=== PATIENT | female | born 1955 ===

== ENCOUNTER 2020-02-17 09:22 | Day surgery (SDC) | payer MEDICAID, SELFPAY ==
[2020-02-10 13:40] VITALS: BMI 31.4
--- NOTE | 2020-02-10 14:05 | HO.ANESPROP2 ---
Documented by User: Britney Elizabeht 02/10/20 14:07 HPI - Anesthesia Eval Consult details Narrative: 64yo F for Upper Endoscopy and Colonoscopy [facility] Past Medical History Medical History Arthritis Asthma Diabetes mellitus Elevated cholesterol GERD (gastroesophageal reflux disease) History of tachycardia Hypertension Hypothyroid IBS (irritable bowel syndrome) PHAN on CPAP TIA (transient ischemic attack) Surgical History Surgical History History of esophagogastroduodenoscopy (EGD) Hx of section Hx of colonoscopy Hx of dilation and curettage Social History Social History Are you a primary point of care specialist to a significant other at home: No Do you presently have visiting nurse or other home services: No Smoking Status: Former smoker Smoking Quit Date: > 5 yrs ago Use of substances other than those prescribed or required for medical reasons: No Have you been hit, kicked, punched, or otherwise hurt by someone within the past year? If so, by whom?: No Advance Directives: No Advance Directives Information Provided: No Advance Directives on File: No Recently lost weight without trying: No Meds Allergies Allergy/AdvReac Type Severity Reaction Status Date / Time aspirin [ASA] Allergy Severe SWELLING, Verified 02/17/20 09:52 itching and swelling, shortness of breath Home Medications Medication Instructions Recorded Confirmed Type acetaminophen [Tylenol Extra 500 mg PO QID PRN 02/10/20 02/10/20 History Strength] ascorbic acid (vitamin C) [Vitamin 500 mg PO DAILY 02/10/20 02/10/20 History C] atorvastatin [Lipitor] 20 mg PO BEDTIME 02/10/20 02/10/20 History bismuth subsalicylate [Bismuth] 2 tab PO QID 02/10/20 02/10/20 History cyanocobalamin (vitamin B-12) 1,000 mcg PO DAILY 02/10/20 02/10/20 History dicyclomine 20 mg PO TID 02/10/20 02/10/20 History diltiazem HCl 120 mg PO BID 02/10/20 02/10/20 History famotidine 40 mg PO BEDTIME 02/10/20 02/10/20 History ferrous sulfate 325 mg PO DAILY 02/10/20 02/10/20 History fiber 1 tab PO DAILY 02/10/20 02/10/20 History fluticasone propionate [Flovent] 1 puff INHALATION BID 02/10/20 02/10/20 History gabapentin [Neurontin] 300 mg PO BID 02/10/20 02/10/20 History hydroxyzine pamoate [Vistaril] 25 mg PO TID PRN 02/10/20 02/10/20 History levothyroxine [Synthroid] 50 mcg PO DAILY 02/10/20 02/10/20 History melatonin 5 mg PO BEDTIME PRN 02/10/20 02/10/20 History metformin 500 mg PO BID 02/10/20 02/10/20 History metronidazole 500 mg PO TID 02/10/20 02/10/20 History pantoprazole 20 mg PO BID 02/10/20 02/10/20 History quetiapine [Seroquel] 25 mg PO BEDTIME 02/10/20 02/10/20 History sertraline [Zoloft] 100 mg PO DAILY 02/10/20 02/10/20 History tetracycline 500 mg PO Q6H 02/10/20 02/10/20 History Exam Exam Date and Time: February 10, 2020 1405 Height,Weight and Vital Signs: Height 5 ft Weight 73.028 kg Assessment and Plan Assessment Anesthesia Assessment: Chart Reviewed Documented by User: Maci Ruff 02/17/20 10:12 [facility] Past Medical History Medical History Arthritis Asthma Diabetes mellitus Elevated cholesterol GERD (gastroesophageal reflux disease) History of tachycardia Hypertension Hypothyroid IBS (irritable bowel syndrome) PHAN on CPAP TIA (transient ischemic attack) Surgical History Surgical History History of esophagogastroduodenoscopy (EGD) Hx of section Hx of colonoscopy Hx of dilation and curettage Social History Social History Are you a primary point of care specialist to a significant other at home: No Do you presently have visiting nurse or other home services: No Smoking Status: Former smoker Smoking Quit Date: > 5 yrs ago Use of substances other than those prescribed or required for medical reasons: No Have you been hit, kicked, punched, or otherwise hurt by someone within the past year? If so, by whom?: No Advance Directives: No Advance Directives Information Provided: No Advance Directives on File: No Recently lost weight without trying: No Meds Allergies Allergy/AdvReac Type Severity Reaction Status Date / Time aspirin [ASA] Allergy Severe SWELLING, Verified 02/17/20 09:52 itching and swelling, shortness of breath Home Medications Medication Instructions Recorded Confirmed Type acetaminophen [Tylenol Extra 500 mg PO QID PRN 02/10/20 02/10/20 History Strength] ascorbic acid (vitamin C) [Vitamin 500 mg PO DAILY 02/10/20 02/10/20 History C] atorvastatin [Lipitor] 20 mg PO BEDTIME 02/10/20 02/10/20 History bismuth subsalicylate [Bismuth] 2 tab PO QID 02/10/20 02/10/20 History cyanocobalamin (vitamin B-12) 1,000 mcg PO DAILY 02/10/20 02/10/20 History dicyclomine 20 mg PO TID 02/10/20 02/10/20 History diltiazem HCl 120 mg PO BID 02/10/20 02/10/20 History famotidine 40 mg PO BEDTIME 02/10/20 02/10/20 History ferrous sulfate 325 mg PO DAILY 02/10/20 02/10/20 History fiber 1 tab PO DAILY 02/10/20 02/10/20 History fluticasone propionate [Flovent] 1 puff INHALATION BID 02/10/20 02/10/20 History gabapentin [Neurontin] 300 mg PO BID 02/10/20 02/10/20 History hydroxyzine pamoate [Vistaril] 25 mg PO TID PRN 02/10/20 02/10/20 History levothyroxine [Synthroid] 50 mcg PO DAILY 02/10/20 02/10/20 History melatonin 5 mg PO BEDTIME PRN 02/10/20 02/10/20 History metformin 500 mg PO BID 02/10/20 02/10/20 History metronidazole 500 mg PO TID 02/10/20 02/10/20 History pantoprazole 20 mg PO BID 02/10/20 02/10/20 History quetiapine [Seroquel] 25 mg PO BEDTIME 02/10/20 02/10/20 History sertraline [Zoloft] 100 mg PO DAILY 02/10/20 02/10/20 History tetracycline 500 mg PO Q6H 02/10/20 02/10/20 History Exam Airway Mallampati Class: II TM Dist: >3cm Neck ROM: Full Loose/Missing/Broken Teeth: No Heart: RRR Lungs: CTA Assessment and Plan Assessment Anesthesia Assessment: Anesthesia Plan Discussed and Chart Reviewed Final Anesthetic Review NPO: Yes ASA Class: II and III Final Preanesthetic Review: Meds/Allgs Chart Reviewed, Consent Obtained/Reviewed and Anes Risks/Benef Reviewed Patient Risk: Intermediate Procedure Risk: Intermediate Anesthetic Plan Anesthetic Plan: MAC:
[2020-02-17 09:39] VITALS: BP 157/90; PULSE 90; RESP 18; TEMP 36.2; O2SAT 98; BMI 31.4
[2020-02-17] MEDS: Lactated Ringers 1,000 ML 50 ML IVCONT (09:53)
--- NOTE | 2020-02-17 09:55 | MHC.SHP ---
Pre-Procedural Eval Section B Chief Complaint: H Pylori, Diarrhea Relevant Family History (Specify if Yes): No Relevant Social History: None Present Medications: see Short Stay Collaborative assessment Medical History: Significant History (Arthritis Asthma Diabetes mellitus Elevated cholesterol GERD (gastroesophageal reflux disease) History of tachycardia Hypertension Hypothyroid IBS (irritable bowel syndrome) PHAN on CPAP TIA (transient ischemic attack)) History of Previous Operations: Relevant previous surgery/procedure and date(s) (c section, D and C) Allergies: Allergies Allergy/AdvReac Type Severity Reaction Status Date / Time aspirin [ASA] Allergy Severe SWELLING, Verified 02/17/20 09:52 itching and swelling, shortness of breath Review of Systems Sugical H&P ROS: Negative: Constitution, Cardiovascular, Respiratory, Neurological, Psychiatric, Hem-Onc, Allergic/Immunologic, Gastrointestinal, Genitourinary, Musculoskeletal, Integumentary, Endocrine and Eyes/Ears/Nose/Throat Exam Surgical H&P Exam: Normal: HEENT, Normal: Heart, Normal: Lungs, Normal: Extremities, Normal: Abdomen, Normal: Skin and Normal: Neurological Plan Diagnosis/Plan: Unchanged I have reviewed the history and physical and performed a pertinent physical examination on my patient. No changes have occurred unless specified.
[2020-02-17 10:00] LABS: Glucose, Whole Blood 116 mg/dL (60-115)
--- NOTE | 2020-02-17 10:05 | P.BOP_ITS ---
Brief Operative Note Date of Service: 02/17/20 Pre-op diagnosis: diarrhea, rectal bleeding, abdominal pain Post-op diagnosis: same Procedure: Operative Information Procedure Description: EGD, Colonoscopy FLEXIBLE TRANSORAL UPPER GASTROINTESTINAL ENDOSCOPY AND COLONOSCOPY PROCEDURE NOTE UPPER ENDOSCOPY Consent: Indications for the procedure and potential complications of bleeding, perforation, reaction to medications and missed diagnosis were discussed with the patient and informed consent was obtained. Instrument: Olympus GIF H 190 J mid size upper endoscope Monitoring: Vital signs and clinical assessment, continuous EKG monitoring, Pulse oximetry, Carbon Dioxide monitoring and blood pressure monitoring were done throughout the procedure. Procedure: The patient was placed in the left lateral decubitis position and pre-procedure medications were administered and a bite block was placed. The endoscope was inserted into the mouth and advanced under direct vision to the third part of duodenum. A careful inspection was made as the upper endoscope was withdrawn including a retroflexed examination of the proximal stomach; Findings and interventions are described below. Findings: Larynx:normal Esophagus: GE junction at 35 cm, diaphragm hiatus at 35 cm, ring fo erythema at GEJ, chronci appearing inflammation compatible with LA grade A esophagitis, bx taken Stomach: Patchy erythema. Biopsies were obtained. Grade 2 flap valve on retroflexed examination of the cardia. Duodenum: Normal bulb and descending duodenum, bx taken Intervention: Biopsies as noted above COLONOSCOPY Instrument: Olympus variable stiffness pediatric scope 190L Colonoscopy Monitoring: Vital signs and clinical assessment, continuous EKG monitoring, Pulse oximetry, Carbon Dioxide monitoring and blood pressure monitoring were done throughout the procedure. Colon withdrawal time was 10 minutes. Procedure: The patient was placed in the left lateral decubitis position and pre-procedure medications were administered. After a digital rectal examination of the ano-rectum, the video colonoscope was inserted into the rectum and advanced through the colon to the cecum/TI. The colonoscope was slowly withdrawn in a retrograde panoramic fashion and the colon mucosa was carefully examined including a retroflexed view of the rectum. Findings and interventions are described below. Procedure Difficulty:easy Findings: random colon bx taken Terminal Ileum-normal, bx taken Cecum:normal Ascending Colon: x 2 sessile polyps 7-8 mm removed with forceps Transverse Colon -normal Descending Colon:normal Sigmoid Colon: wide mouthed diverticula seen Rectum: Retroflexion with moderate sized mildly inflammed internal hemorrhoids, grade I Anorectum - normal Colon preparation: [place] Bowel Preparation Scale Right colon; 2 Transverse colon: 2 Left colon; 1 (0 = Unprepared colon segment with mucosa not seen due to solid stool that cannot be cleared. 1 = Portion of mucosa of the colon segment seen, but other areas of the colon segment not well seen due to staining, residual stool and/or opaque liquid. 2 = Minor amount of residual staining, small fragments of stool and/or opaque liquid, but mucosa of colon segment seen well. 3 = Entire mucosa of colon segment seen well with no residual staining, small fragments of stool or opaque liquid) Impression and Post Procedure Diagnosis: Endoscopy Findings: esophagitis gastritis Colonoscopy Findings: polyps internal hemorrhoids diverticular disease Plan: Await Pathology results Repeat Colonoscopy in 1-2 years or earlier if clinically indicated due to prep High fiber diet leaflet avoid straining at stool, epsom salts and sitz bath, anusol supps or cream prn Above findings were reviewed with the patient and relevant handouts were provided if indicated. Surgeon: Luis Alberto Larose MD Anesthesia: MAC Estimated blood loss (mL): 0 Condition: stable Disposition: PACU
[2020-02-17 10:56] VITALS: BP 116/71; PULSE 87; RESP 18; TEMP 36.3; O2SAT 99
[2020-02-17 11:11] VITALS: BP 121/73; PULSE 66; RESP 18; O2SAT 100
--- NOTE | 2020-02-17 11:56 | HO.POSTANES ---
Post Anesthesia Evaluation Post Anesthesia Evaluation Vital Signs: Vital Signs Temp Pulse Resp BP Pulse Ox 02/17/20 11:11 97.4 F 66 18 121/73 100 02/17/20 10:56 97.4 F 87 18 116/71 99 02/17/20 09:39 97.2 F 90 18 157/90 H 98 Anesthesia: Monitored Mental Status: Awake Pain Control: Satisfactory Nausea/Vomiting: None Hydration: Adequate Anesthesia-Related Issues: No Anes. Related Issues
== END 2020-02-17 12:25 | disposition home or self-care (01) ==
PROVIDERS: Visit Provider Internal Medicine Gastroenterology
PROC: (CPT 45380; principal; 2020-02-17 10:00)
DX: K62.5 Hemorrhage of anus and rectum (principal); A04.8 Other specified bacterial intestinal infections; D12.2 Benign neoplasm of ascending colon; K57.30 Diverticulosis of large intestine without perforation or abscess without bleeding; K64.0 First degree hemorrhoids; K20.90 Esophagitis, unspecified without bleeding; K44.9 Diaphragmatic hernia without obstruction or gangrene; K29.50 Unspecified chronic gastritis without bleeding; J45.909 Unspecified asthma, uncomplicated; E11.9 Type 2 diabetes mellitus without complications; I10 Essential (primary) hypertension; G47.33 Obstructive sleep apnea (adult) (pediatric); Z86.73 Personal history of transient ischemic attack (TIA), and cerebral infarction without residual deficits; Z87.891 Personal history of nicotine dependence; Z79.51 Long term (current) use of inhaled steroids; Z79.84 Long term (current) use of oral hypoglycemic drugs; Z88.8 Allergy status to other drugs, medicaments and biological substances
CPT/HCPCS: 45380; 43239; 36415; 82947; 88305; 88342

== ENCOUNTER → 2020-03-03 09:20 | Outpatient (BNVA) | payer MEDICAID, SELFPAY | PROVIDERS: Visit Provider Internal Medicine Gastroenterology ==

== ENCOUNTER 2020-03-23 12:59 | Outpatient (REF) | payer MEDICARE, MEDICAID, SELFPAY ==
[2020-03-24 13:26] LABS: H Pylori Breath Test NOT DETECTED (NOT DETECTED)
== END 2020-03-23 13:00 | disposition home or self-care (01) ==
LOC: HO.LNP 12:59
PROVIDERS: PCP Emergency Medicine; Visit Provider Internal Medicine Gastroenterology
DX: A04.8 Other specified bacterial intestinal infections (principal)
CPT/HCPCS: 83013; 99211

== ENCOUNTER 2020-05-20 10:46 | Emergency (ER) | payer MEDICARE, MEDICAID, SELFPAY ==
--- NOTE | ~2020-05-20 | CT_ITS ---
EXAMINATION: CT HEAD WITHOUT CONTRAST CLINICAL INFORMATION: Dizziness with weakness COMPARISON: November 17, 2015 TECHNIQUE: Contiguous axial imaging was performed from the skull base to vertex without intravenous administration of contrast. This CT examination was performed using dose optimization techniques as appropriate, variously including the following: *Automated exposure control *Adjustment of mA and/or kV according to patient size (this includes techniques or standardized protocols for targeted exams where dose is matched to indication/reason for exam; i.e. extremities or head) *Use of iterative reconstruction technique DLP: 625 mGy-cm FINDINGS: There is no evidence of acute intracranial hemorrhage or territorial infarction. No abnormal mass effect or midline shift is seen. Jean to white matter differentiation is well preserved. No extra-axial fluid collections are identified. The ventricles are normal in size. There is no abnormal attenuation within the brain parenchyma. The osseous structures and soft tissues are normal. The mastoid air cells and visualized portions of the paranasal sinuses are well aerated. CT/CT head/brain wo con IMPRESSION: No acute intracranial pathology.
--- NOTE | ~2020-05-20 | XR_ITS ---
EXAMINATION: XR CHEST CLINICAL INFORMATION: Weakness and shortness of breath. Rule out pneumonia. COMPARISON: Previous chest x-ray December 2017 TECHNIQUE: 2 views of the chest were obtained. FINDINGS: No significant abnormality is noted involving the heart, lungs, mediastinum, bony thorax or soft tissues. XR/XR chest 2V IMPRESSION: Unremarkable examination.
[2020-05-20 10:59] VITALS: BP 130/70; BP 137/67; PULSE 80; PULSE 86; RESP 16; TEMP 37.1; O2SAT 100; O2SAT 99; BMI 31.0
[2020-05-20 11:20] VITALS: BP 146/88; PULSE 87; RESP 14; O2SAT 98
--- NOTE | 2020-05-20 11:27 | ECG_ITS ---
Test Reason : Chest pain Blood Pressure : / mmHG Vent. Rate : 076 BPM Atrial Rate : 076 BPM P-R Int : 118 ms QRS Dur : 084 ms QT Int : 404 ms P-R-T Axes : 061 033 035 degrees QTc Int : 454 ms Normal sinus rhythm Normal ECG When compared with ECG of 21-NOV-2015 14:06, No significant change was found Referred By: Demarco Jarrett Electronically Signed By:IVONE VINCENT MD
--- NOTE | 2020-05-20 11:29 | ED.GENADULT ---
HPI - General Adult General Chief complaint: General Medical Stated complaint: DIZZINESS @ MD OFFICE Time Seen by Provider: 05/20/20 11:00 Source: patient Mode of arrival: EMS Limitations: no limitations History of Present Illness HPI narrative: 65-year-old female who presents emergency department for evaluation of dizziness and hypertension. The patient states that she was diagnosed with hypertension on May 14, 2020. She was started on antihypertensive medications (she does not know the name of the medicine) but did not start the medication until 1 week prior to evaluation. She states that she had a follow-up appointment with her senior procurement manager and was sitting in the office waiting room when she had a sudden onset of dizziness. She describes the dizziness as a off balance feeling and as a weak feeling as if she was going to pass out. She states that she has had similar episodes over the past 3 months, approximately 1 episode per month. At her senior procurement manager's office, when she had the episode of dizziness, her blood pressure was 200/120. An ambulance was called. EMS is initial blood pressure was 160/100 and on presentation to the emergency department the patient's blood pressure was 130/70. Patient states that at the time of my evaluation, her dizziness had resolved. She states that the dizziness is associated with weakness, nausea, vomiting and diarrhea. She denied fever, chills, cough, chest pain, headache, numbness, weakness. Related Data Home Medications Medication Instructions Recorded Confirmed acetaminophen [Tylenol Extra 500 mg PO QID PRN 02/10/20 02/10/20 Strength] ascorbic acid (vitamin C) [Vitamin 500 mg PO DAILY 02/10/20 02/10/20 C] atorvastatin [Lipitor] 20 mg PO BEDTIME 02/10/20 02/10/20 bismuth subsalicylate [Bismuth] 2 tab PO QID 02/10/20 02/10/20 cyanocobalamin (vitamin B-12) 1,000 mcg PO DAILY 02/10/20 02/10/20 dicyclomine 20 mg PO TID 02/10/20 02/10/20 diltiazem HCl 120 mg PO BID 02/10/20 02/10/20 famotidine 40 mg PO BEDTIME 02/10/20 02/10/20 ferrous sulfate 325 mg PO DAILY 02/10/20 02/10/20 fiber 1 tab PO DAILY 02/10/20 02/10/20 fluticasone propionate [Flovent] 1 puff INHALATION BID 02/10/20 02/10/20 gabapentin [Neurontin] 300 mg PO BID 02/10/20 02/10/20 hydroxyzine pamoate [Vistaril] 25 mg PO TID PRN 02/10/20 02/10/20 levothyroxine [Synthroid] 50 mcg PO DAILY 02/10/20 02/10/20 melatonin 5 mg PO BEDTIME PRN 02/10/20 02/10/20 metformin 500 mg PO BID 02/10/20 02/10/20 metronidazole 500 mg PO TID 02/10/20 02/10/20 pantoprazole 20 mg PO BID 02/10/20 02/10/20 quetiapine [Seroquel] 25 mg PO BEDTIME 02/10/20 02/10/20 sertraline [Zoloft] 100 mg PO DAILY 02/10/20 02/10/20 tetracycline 500 mg PO Q6H 02/10/20 02/10/20 Previous Rx's Medication Instructions Recorded omeprazole 40 mg capsule,delayed 40 mg PO DAILY #60 cap 02/21/20 release nitrofurantoin monohyd/m-cryst 100 mg PO Q12H 7 Days #14 cap 05/20/20 [Macrobid] Allergies Allergy/AdvReac Type Severity Reaction Status Date / Time aspirin [ASA] Allergy Severe SWELLING, Verified 03/03/20 09:23 itching and swelling, shortness of breath Review of Systems Review of Systems: Yes all other systems are reviewed and are negative [facility] Past Medical History [facility] Narrative: The patient denies tobacco, alcohol and drug use. Medical History Arthritis Asthma Diabetes mellitus Elevated cholesterol GERD (gastroesophageal reflux disease) History of tachycardia Hypertension Hypothyroid IBS (irritable bowel syndrome) PHAN on CPAP TIA (transient ischemic attack) Surgical History History of esophagogastroduodenoscopy (EGD) Hx of section Hx of colonoscopy Hx of dilation and curettage Family History Family History Father History of high blood pressure Hx of type 2 diabetes mellitus History of partial colectomy Hx of gangrene Hx of small bowel obstruction Mother History of hypothyroidism Brother No problems noted. Sister No problems noted. Social History Social History Alcohol intake: never Smoking Status: Never smoker Use of substances other than those prescribed or required for medical reasons: No Advance Directives: Yes Advance Directives Information Provided: Yes Advance Directives on File: No Current occupational status: disabled Physical Exam Vital Signs: Vital Signs: Last Vital Signs Temp 98.3 F 05/20/20 16:00 Pulse 78 05/20/20 16:00 Resp 16 05/20/20 16:00 BP 118/73 05/20/20 16:00 Pulse Ox 98 05/20/20 16:00 Body Mass Index 31.0 Const: General: cooperative and healthy appearing Orientation/consciousness: oriented to person and oriented to place Limitations: no limitations HENMT: Head: Yes normal to inspection, Yes normocephalic and Yes atraumatic Ears: external ears normal General nose exam: Normal external nose present Face and sinus: Yes normal facial exam Mouth: Normal oral and palatal mucosa present Throat: Yes posterior oropharynx normal Eyes: Periorbital: periorbital findings normal Eyelids: Yes eyelids normal Conjunctivae: conjunctivae normal Sclerae: sclerae normal Corneas: corneas normal Pupils: Equal, round and reactive pupils present Direct Ophthalmoscopy: normal light reflex Neck: Neck: Yes full ROM, Yes no lymphadenopathy, Yes no meningeal signs, Yes trachea midline and Yes supple Chest: Chest palpation & inspection: normal inspection of the chest and normal palpation of entire chest wall Resp: Effort & Inspection: normal respiratory effort and able to speak in complete sentences Auscultation: clear to auscultation bilaterally Cardio: Rate: regular rate Rhythm: regular rhythm Heart sounds: S1 normal heart sound present, S2 normal heart sound present and no murmurs GI: Inspection: Yes normal to inspection Palpation (GI): Soft to palpation, nontender, no guarding, not rigid and No hepatosplenomegaly present : General: Yes no CVA tenderness Back/Spine/Pelvis: Back: no CVA tenderness Cervical Spine: normal cervical lordosis Thoracic/Lumbar Spine: thoracic and lumbar spine normal to inspection Skin: Lesions: no lesions Rashes: no rashes Wounds: no wounds Neuro: General: oriented to person, oriented to place and no meningeal signs Cranial nerves: Yes CN's II-XII intact bilaterally and Yes Equal, round and reactive pupils present Cognition (Neuro): normal cognition Motor exam (neuro): 5/5 motor strength present throughout Extrem: General: Yes normal to inspection and Yes full ROM Psych: Appearance: well kempt Mental Status: mental status grossly normal Speech and movement: Normal speech and movement present Affect: normal affect Attitude: cooperative Thought process: Normal thought process present Thought content: Normal thought content present Course Course Course Narrative: 65-year-old female who was brought emergency department from her senior procurement manager's office for evaluation of dizziness and hypertension. The patient was waiting to be evaluated by the senior procurement manager when she had a sudden onset of dizziness which she describes as feeling off balance and weak, the dizziness was associated with nausea and diarrhea. The patient was initially found to have a blood pressure of 200/120, without treatment her blood pressure came down to 130/70 and her symptoms resolved. Patient's physical examination was unremarkable. I did order a CBC, CMP, troponin, urinalysis, EKG, chest x-ray and CT scan of the brain on the patient. She will be placed on a cardiac nurse practitioner will monitor blood pressure as well during her ED course. 1616: The patient's laboratory evaluation was unremarkable except for slight elevation in her AST and ALT of 32 and 32. Urinalysis did reveal 10-14 white blood cells, no bacterium positive squamous cells. The patient states that she is having some dysuria and would like to be treated with antibiotics as opposed to waiting for culture. She was given Macrobid 1 tablet here in the emergency department started on Macrobid 1 pill twice a day for 7 days. I will check with the patient's senior procurement manager to see what blood pressure medication they wanted to start the patient on and I will prescribe this medication for her. 1647: I was able to review the patient's senior procurement manager, Dr. Rojo's note from 05/14/2020. The note states the following 1. Hypertension not controlled, told not to eat any salt ?. Based on this it does not appear that Dr. Rojo started the patient on a new medication. I did tell this to the patient and told her to contact her senior procurement manager discussed whether not she needs to be on more medications for her hypertension. Medical Decision Making Lab Data Result diagrams: 05/20/20 14:15 05/20/20 14:15 Labs: Lab Results 05/20/20 05/20/20 05/20/20 Range/Units 14:15 14:15 14:15 WBC 6.5 (4.8-10.8) X10*3/uL RBC 4.95 (4.20-5.50) X10*6/uL Hgb 11.3 L (12.0-16.0) g/dl Hct 37.7 (37-47) % MCV 76.2 L (80-98) fL MCH 22.8 L (27.0-33.0) pg MCHC 30.0 L (31.0-35.0) g/dl RDW 14.1 (11.0-16.0) % Plt Count 309 (160-400) X10*3/uL MPV 10.9 (9.4-12.3) fL Immature Gran % (Auto) 0.2 (0.0-0.4) % Neut % (Auto) 56.9 (45-73) % Lymph % (Auto) 33.3 (20-40) % [place] % (Auto) 6.8 (2-11) % Eos % (Auto) 1.4 (0-4) % Baso % (Auto) 1.4 (0-2) % Lymph # (Auto) 2.2 (1.2-4.9) X10*3/uL [place] # (Auto) 0.4 (0.1-1.2) X10*3/uL Eos # (Auto) 0.1 (0.0-0.4) X10*3/uL Baso # (Auto) 0.1 (0.0-0.2) X10*3/uL Abs Immat Gran (auto) 0.01 (0.00-0.03) X10*3/uL Absolute Neuts (auto) 3.7 (2.0-8.3) X10*3/uL Absolute Nucleated RBC 0.000 (0.0-0.012) X10*3/uL Nucleated RBC % (auto) 0.0 (0.0-0.2) /100WBC Sodium 140 (135-145) mmol/L Potassium 4.1 (3.3-5.1) mmol/L Chloride 106 (96-108) mmol/L Carbon Dioxide 24 (22-29) mmol/L Anion Gap 14 (12-20) Creatinine 0.71 (0.5-1.4) mg/dL Estim Creat Clear Calc 70.0 Estimated GFR > 60 Random Glucose 107 (60-115) mg/dL Total Bilirubin 0.7 (0.0-1.0) mg/dL AST 32 H (5-31) U/L ALT 32 H (0-31) U/L Alkaline Phosphatase 65 (39-117) U/L Troponin I High Sens < 3.5 (<3.5-17.0) ng/L Total Protein 7.5 (6.5-8.0) g/dL Albumin 4.1 (3.5-5.0) g/dL Urine Color Urine Appearance Urine pH (5.0-8.0) Ur Specific [place] (1.005-1.025) Urine Protein (NEG-TRACE) MG/DL Urine Glucose (UA) (NEG) MG/DL Urine Ketones (NEG) MG/DL Urine Blood (NEG) Urine Nitrite (NEG) Ur Leukocyte Esterase (NEG) Urine RBC (0) /HPF Urine WBC (0-4) /HPF Ur Squamous Epith Cells /LPF Urine Bacteria /LPF Urine Mucus /LPF 05/20/20 Range/Units 14:33 WBC (4.8-10.8) X10*3/uL RBC (4.20-5.50) X10*6/uL Hgb (12.0-16.0) g/dl Hct (37-47) % MCV (80-98) fL MCH (27.0-33.0) pg MCHC (31.0-35.0) g/dl RDW (11.0-16.0) % Plt Count (160-400) X10*3/uL MPV (9.4-12.3) fL Immature Gran % (Auto) (0.0-0.4) % Neut % (Auto) (45-73) % Lymph % (Auto) (20-40) % [place] % (Auto) (2-11) % Eos % (Auto) (0-4) % Baso % (Auto) (0-2) % Lymph # (Auto) (1.2-4.9) X10*3/uL [place] # (Auto) (0.1-1.2) X10*3/uL Eos # (Auto) (0.0-0.4) X10*3/uL Baso # (Auto) (0.0-0.2) X10*3/uL Abs Immat Gran (auto) (0.00-0.03) X10*3/uL Absolute Neuts (auto) (2.0-8.3) X10*3/uL Absolute Nucleated RBC (0.0-0.012) X10*3/uL Nucleated RBC % (auto) (0.0-0.2) /100WBC Sodium (135-145) mmol/L Potassium (3.3-5.1) mmol/L Chloride (96-108) mmol/L Carbon Dioxide (22-29) mmol/L Anion Gap (12-20) Creatinine (0.5-1.4) mg/dL Estim Creat Clear Calc Estimated GFR Random Glucose (60-115) mg/dL Total Bilirubin (0.0-1.0) mg/dL AST (5-31) U/L ALT (0-31) U/L Alkaline Phosphatase (39-117) U/L Troponin I High Sens (<3.5-17.0) ng/L Total Protein (6.5-8.0) g/dL Albumin (3.5-5.0) g/dL Urine Color YELLOW Urine Appearance HAZY Urine pH 8.0 (5.0-8.0) Ur Specific [place] 1.020 (1.005-1.025) Urine Protein NEG (NEG-TRACE) MG/DL Urine Glucose (UA) NEG (NEG) MG/DL Urine Ketones NEG (NEG) MG/DL Urine Blood NEG (NEG) Urine Nitrite NEG (NEG) Ur Leukocyte Esterase 2+ H (NEG) Urine RBC 0 (0) /HPF Urine WBC 10-14 H (0-4) /HPF Ur Squamous Epith Cells 2+ /LPF Urine Bacteria NONE /LPF Urine Mucus 1+ /LPF Discharge Plan Discharge Clinical Impression: Dizziness, Hypertension, Acute UTI Patient Disposition: Home, Self-Care Instructions: Urinary Tract Infection in Women (ED) Additional Instructions: Your blood work was unremarkable. Your EKG was normal. The CT scan of your brain was normal with no evidence of stroke, tumor or bleeding in the brain. Your urine revealed white blood cells but no bacteria. I am treating you for a urinary tract infection with Macrobid 1 pill twice a day for 7 days. You received her 1st dose here in the emergency department. I was able to review your senior procurement manager's note( Dr. Rojo). In the note, he recommended that you stay on a low-salt diet and does not look like he prescribed a new medication for your high blood pressure. High blood pressure instructions: You need to purchase a blood pressure machine that you can use at home. The reason to check your blood pressure at home is to give your doctor an idea of what your blood pressure does when you are not in the doctor's office. Take your blood pressure in the morning, Monday through Monday and then write down these readings to discuss them with your doctor at your next visit. If you doctor decides that your blood pressure readings are high than your doctor will start you on medications. If you get started on medications, it often takes 1-2 months or longer to get your blood pressure under control. Lowering your blood pressure to rapidly or getting your blood pressure too low quickly can make you feel bad. Please return to the emergency department if you develops concerning symptoms such as severe headache, chest pain, shortness of breath, difficulty walking secondary to shortness of breath, numbness, weakness, difficulty talking. Take Tylenol (acetaminophen) 500 mg pills, 2 pills every 4 to 6 hours as needed for pain. Follow-up with your doctor to discuss your blood pressure readings. Please return to the emergency department if your symptoms get worse or if you develop any new symptoms that are concerning to you. Prescriptions: New nitrofurantoin monohyd/m-cryst [Macrobid] 100 mg capsule 100 mg PO Q12H 7 Days Qty: 14 RF: 0 No Action omeprazole 40 mg capsule,delayed release(DR/EC) 40 mg PO DAILY Qty: 60 RF: 2 quetiapine [Seroquel] 25 mg Tablet 25 mg PO BEDTIME RF: 0 sertraline [Zoloft] 100 mg Tablet 100 mg PO DAILY RF: 0 cyanocobalamin (vitamin B-12) 1,000 mcg Tablet 1,000 mcg PO DAILY RF: 0 diltiazem HCl 120 mg Capsule,Extended Release 12 Hr 120 mg PO BID RF: 0 ascorbic acid (vitamin C) [Vitamin C] 500 mg Tablet,Chewable 500 mg PO DAILY RF: 0 gabapentin [Neurontin] 300 mg Capsule 300 mg PO BID RF: 0 fiber Tablet 1 tab PO DAILY RF: 0 Flovent 220 mcg/actuation Hfa Aerosol Inhaler 1 puff INHALATION BID RF: 0 acetaminophen [Tylenol Extra Strength] 500 mg Capsule 500 mg PO QID PRN (Reason: Pain) RF: 0 hydroxyzine pamoate [Vistaril] 25 mg Capsule 25 mg PO TID PRN (Reason: Nausea) RF: 0 melatonin 5 mg Tablet 5 mg PO BEDTIME PRN (Reason: Sleep) RF: 0 tetracycline 500 mg Capsule 500 mg PO Q6H RF: 0 metformin 500 mg Tablet 500 mg PO BID RF: 0 atorvastatin [Lipitor] 20 mg Tablet 20 mg PO BEDTIME RF: 0 famotidine 40 mg Tablet 40 mg PO BEDTIME RF: 0 metronidazole 500 mg Tablet 500 mg PO TID RF: 0 pantoprazole 20 mg Tablet,Delayed Release (Dr/Ec) 20 mg PO BID RF: 0 dicyclomine 20 mg Tablet 20 mg PO TID RF: 0 levothyroxine [Synthroid] 50 mcg Tablet 50 mcg PO DAILY RF: 0 ferrous sulfate 325 mg (65 mg iron) Tablet 325 mg PO DAILY RF: 0 bismuth subsalicylate [Bismuth] 262 mg Tablet,Chewable 2 tab PO QID RF: 0
[2020-05-20 14:01] VITALS: BP 117/69; PULSE 92; RESP 17; TEMP 37.1; O2SAT 98
[2020-05-20 14:18] LABS: MANUAL DIFF FLAG NO
[2020-05-20 14:26] LABS: Basophils Absolute Auto 0.1 X10*3/uL (0.0-0.2); Basophils Percent Auto 1.4 % (0-2); Eosinophils Absolute Auto 0.1 X10*3/uL (0.0-0.4); Eosinophils Percent Auto 1.4 % (0-4); Hematocrit 37.7 % (37-47); Hemoglobin 11.3 g/dl (12.0-16.0); Imm Gran Abs Auto 0.01 X10*3/uL (0.00-0.03); Imm Gran Pct Auto 0.2 % (0.0-0.4); Lymphocytes Absolute Auto 2.2 X10*3/uL (1.2-4.9); Lymphocytes Percent Auto 33.3 % (20-40); Mean Corpuscular Hemoglobin 22.8 pg (27.0-33.0); Mean Corpuscular Volume 76.2 fL (80-98); Mean Platelet Volume 10.9 fL (9.4-12.3); Monocytes Absolute Auto 0.4 X10*3/uL (0.1-1.2); Monocytes Percent Auto 6.8 % (2-11); Neutrophils Absolute Auto 3.7 X10*3/uL (2.0-8.3); Neutrophils Percent Auto 56.9 % (45-73); Platelet Count 309 X10*3/uL (160-400); Red Blood Count 4.95 X10*6/uL (4.20-5.50); Red Cell Distribution Width 14.1 % (11.0-16.0); White Blood Count 6.5 X10*3/uL (4.8-10.8)
[2020-05-20 14:43] LABS: Glucose Urine UA NEG (NEG); Leukocyte Esterase Urine 2+ (NEG); Nitrite Urine NEG (NEG); UACC Culture Trigger YES; Urine Blood NEG (NEG); Urine Ketones NEG (NEG); Urine Protein NEG (NEG-TRACE)
[2020-05-20 14:45] LABS: Alanine Aminotransferase 32 U/L (0-31); Albumin Level 4.1 g/dL (3.5-5.0); Alkaline Phosphatase 65 U/L (39-117); Anion Gap 14 (12-20); Aspartate Amino Transferase 32 U/L (5-31); Bilirubin Total 0.7 mg/dL (0.0-1.0); Carbon Dioxide 24 mmol/L (22-29); Chloride 106 mmol/L (96-108); Estimated Glomerular Filt Rate > 60; Glucose Random 107 mg/dL (60-115); Potassium 4.1 mmol/L (3.3-5.1); Sodium 140 mmol/L (135-145); Total Protein 7.5 g/dL (6.5-8.0)
[2020-05-20 14:45] LABS: Appearance Urine HAZY; Color Urine YELLOW
[2020-05-20 14:48] LABS: Troponin-I High Sensitivity < 3.5 ng/L (<3.5-17.0)
[2020-05-20 14:52] LABS: Mucus Urine 1+ /LPF; RBC Urine 0 /HPF (0); Squamous Epithelial Cell Urine 2+ /LPF
[2020-05-20 16:00] VITALS: BP 118/73; PULSE 78; RESP 16; TEMP 36.8; O2SAT 98
[2020-05-20 16:47] LABS: Blood Urea Nitrogen 10 mg/dL (9-16); Calcium 9.4 mg/dL (8.4-10.2)
[2020-05-20] MEDS: Nitrofurantoin Monohyd/M-Cryst 100 MG CAPSULE PO (17:06)
[2020-05-20 17:32] VITALS: BP 121/73; PULSE 83; RESP 17; TEMP 36.8; O2SAT 99
== END 2020-05-20 17:38 | disposition home or self-care (01) ==
PROVIDERS: Emergency Provider Emergency Medicine Emergency Medical Services
DX: R42 Dizziness and giddiness (principal); I10 Essential (primary) hypertension; N39.0 Urinary tract infection, site not specified; E11.9 Type 2 diabetes mellitus without complications; E78.5 Hyperlipidemia, unspecified; K21.9 Gastro-esophageal reflux disease without esophagitis; Z86.73 Personal history of transient ischemic attack (TIA), and cerebral infarction without residual deficits
CPT/HCPCS: 36415; 70450; 71046; 80053; 81001; 81003; 84484; 85025; 87086; 93005; 99284

== ENCOUNTER → 2020-06-02 10:21 | Outpatient (BNVA) | payer MEDICARE, MEDICAID, SELFPAY | PROVIDERS: PCP Nurse Practitioner Primary Care; Visit Provider Internal Medicine Gastroenterology | DX: Z13.89 Encounter for screening for other disorder (principal) | CPT/HCPCS: Q3014 ==

== ENCOUNTER 2020-07-10 13:34 | Outpatient (REF) | payer MEDICARE, MEDICAID, SELFPAY ==
--- NOTE | ~2020-07-10 | MM_ITS ---
EXAMINATION: MM DIAGNOSTIC DIGITAL BREAST TOMOSYNTHESIS, BILATERAL TARGETED RIGHT BREAST ULTRASOUND CLINICAL INFORMATION: Right breast pain and lump 9 o'clock position. The lifetime risk of breast cancer based on the Tyrer-Cuzick Model is 4.5%. COMPARISON: Mammography: 08/24/2016 and 07/07/2015 as well as studies dating back to 06/30/2014. TECHNIQUE: Digital breast tomosynthesis is performed in both the craniocaudal and mediolateral oblique views along with computer-aided detection (CAD). Synthesized 2D images are generated from the tomosynthesis. Targeted right breast ultrasound. FINDINGS: The breasts are extremely dense, which lowers the sensitivity of mammography (ACR BI-RADS breast composition Category d). There are no significant masses, abnormal calcifications, or other abnormalities. Targeted right breast ultrasound demonstrates a region of palpable abnormality that corresponds with a normal-appearing lymph node at the 9 o'clock position 13 cm from the nipple. No abnormal solid mass or region of abnormal distal sound shadowing identified. Results are provided to the patient at time of visit by the technologist. MM/MM tomosynthesis diagnostic BI IMPRESSION: No specific mammographic or ultrasound findings to suggest malignancy. ASSESSMENT: BI-RADS 2: Benign. RECOMMENDATION: Routine annual mammography screening due in 12 months. This patient's information was entered into a reminder system with a target due date for their next mammogram.
--- NOTE | ~2020-07-10 | US_ITS ---
EXAMINATION: US DIAGNOSTIC ULTRASOUND BREAST, RIGHT CLINICAL INFORMATION: Palpable abnormality not o'clock position. COMPARISON: Mammography of same day and studies dating back to June 30, 2014. TECHNIQUE: Ultrasound of the breast is performed with real-time correa scale imaging and color Doppler. FINDINGS: Targeted right breast ultrasound demonstrates a region of palpable abnormality corresponds with a normal-appearing lymph node at the 9:00 position 13 cm from the nipple. No abnormal solid mass or region of abnormal distal sound shadowing identified. Results are provided to the patient at time of visit by the technologist. US/US breast RT limited IMPRESSION: No specific mammographic or ultrasound findings to suggest malignancy. ASSESSMENT: BI-RADS 2: Benign RECOMMENDATION: Routine annual mammography screening due in 12 months. .
== END 2020-07-10 13:35 | disposition home or self-care (01) ==
LOC: HO.MAMMO 13:34
PROVIDERS: Visit Provider Emergency Medicine
DX: N63.15 Unspecified lump in the right breast, overlapping quadrants (principal); N64.4 Mastodynia
CPT/HCPCS: 76642; 77062; 77066

== ENCOUNTER → 2020-07-24 07:37 | Outpatient (REF) | payer MEDICARE, MEDICAID, SELFPAY ==
--- NOTE | ~2020-07-24 | NM_ITS ---
EXAMINATION: RADIONUCLIDE SOLID FOOD GASTRIC EMPTYING 4-HOUR STUDY CLINICAL INFORMATION: Early satiety. Also nausea and diarrhea. COMPARISON: No previous gastric emptying study is available for comparison. TECHNIQUE: A standard meal consisting of 4 oz of Egg Beaters brand equivalent tagged with 830 microcuries Tc-99m Sulfur Colloid, 8 oz water and 2 slices of toast with jelly was administered orally to the patient. Images were obtained using a dual head gamma camera in the anterior and posterior projections over of the stomach immediately post ingestion and at hourly intervals up to 4 hours post ingestion. The anterior and posterior counts at each time interval were averaged using the geometric mean and expressed as percentage of the immediate post ingestion counts. FINDINGS: There is good visualization of activity in the stomach immediately post ingestion. As the study progresses there is visualization of progressively increasing small bowel activity, but at the end of the study there is moderately severe abnormal retention of activity in the stomach as well as visualization of diffuse small bowel activity. Retention in the stomach at each time interval was: 1 hour 87% (normal 37%-90%) 2 hours 75% (normal 30%-60%) 3 hours 53% 4 hours 36% (normal 0%-10%) NM/NM gastric emptying study IMPRESSION: Abnormal study. There is moderately severe abnormal retention of solid food in the stomach at 4 hours.
== END ==
LOC: HO.NUCMED 07:37
PROVIDERS: Visit Provider Internal Medicine Gastroenterology
DX: R68.81 Early satiety (principal)
CPT/HCPCS: 78264; A9500; A9541

== ENCOUNTER → 2020-10-20 11:20 | Outpatient (BNVA) | payer MEDICARE, MEDICAID, SELFPAY | PROVIDERS: PCP Nurse Practitioner Primary Care; Visit Provider Internal Medicine Gastroenterology | CPT/HCPCS: Q3014 ==

== ENCOUNTER → 2020-10-29 11:17 | Outpatient (BNVA) | payer MEDICARE, MEDICAID, SELFPAY | PROVIDERS: PCP Nurse Practitioner Primary Care; Visit Provider Dietitian, Registered | DX: K31.84 Gastroparesis (principal); E11.9 Type 2 diabetes mellitus without complications | CPT/HCPCS: 97802 ==

== ENCOUNTER 2020-11-24 09:22 | Outpatient (REF) | payer MEDICARE, MEDICAID, SELFPAY ==
--- NOTE | ~2020-11-24 | US_ITS ---
EXAMINATION: US ABDOMEN COMPLETE CLINICAL INFORMATION: Lower abdominal pain. COMPARISON: None TECHNIQUE: Real-time imaging of the abdominal viscera. FINDINGS: PANCREAS: The head and body the pancreas are normal. The tail is not well visualized due to bowel gas. ABDOMINAL AORTA: There is evidence of mild atherosclerotic disease. The aorta is normal in caliber. INFERIOR VENA CAVA: Visualized portions are normal. LIVER: The liver is normal in size. The liver contour is normal. Liver echotexture may be slightly increased. No focal hepatic lesion. There is no intrahepatic biliary duct dilatation seen. GALLBLADDER: Normal. The gallbladder is physiologically distended without evidence of stones, sludge, polyps, wall thickening or pericholecystic fluid. COMMON BILE DUCT: Normal in caliber measuring 0.5 cm in diameter. RIGHT KIDNEY: Normal. No hydronephrosis. No renal calculi or focal parenchymal lesions. The kidney measures 10.5 cm in maximum dimension. LEFT KIDNEY: Normal. No hydronephrosis. No renal calculi or focal parenchymal lesions. The kidney measures 10.5 cm in maximum dimension. SPLEEN: Normal. The spleen measures 8.7 cm in maximum dimension. FREE FLUID: None. US/US abdomen complete IMPRESSION: Slightly echogenic liver. This most likely represents mild fatty infiltration. Atherosclerotic disease. Limited visualization of the tail the pancreas.
== END 2020-11-24 09:23 | disposition home or self-care (01) ==
LOC: HO.US 09:22
PROVIDERS: PCP Nurse Practitioner Primary Care; Visit Provider Nurse Practitioner Primary Care
DX: R10.30 Lower abdominal pain, unspecified (principal)
CPT/HCPCS: 76700

== ENCOUNTER → 2020-12-01 14:30 | Outpatient (BNVA) | payer MEDICARE, MEDICAID, SELFPAY | PROVIDERS: PCP Nurse Practitioner Primary Care; Visit Provider Dietitian, Registered | DX: K31.84 Gastroparesis (principal); E11.9 Type 2 diabetes mellitus without complications | CPT/HCPCS: 97803 ==

== ENCOUNTER 2021-01-22 12:02 | Outpatient (REF) | payer MEDICARE, MEDICAID, SELFPAY ==
[2021-01-22 13:12] LABS: MANUAL DIFF FLAG NO
[2021-01-22 13:55] LABS: Appearance Urine CLEAR; Color Urine YELLOW; Glucose Urine UA NEG (NEG); Leukocyte Esterase Urine TRACE (NEG); Nitrite Urine NEG (NEG); PH 5.5 (5.0-8.0); Specific Gravity - Urine >= 1.030 (1.005-1.025); UACC Culture Trigger YES; Urine Blood NEG (NEG); Urine Ketones NEG (NEG); Urine Protein NEG (NEG-TRACE)
[2021-01-22 14:03] LABS: Basophils Absolute Auto 0.1 X10*3/uL (0.0-0.2); Basophils Percent Auto 1.3 % (0-2); Eosinophils Absolute Auto 0.1 X10*3/uL (0.0-0.4); Eosinophils Percent Auto 1.9 % (0-4); Hematocrit 33.9 % (37.0-47.0); Hemoglobin 10.5 g/dl (12.0-16.0); Imm Gran Abs Auto 0.02 X10*3/uL (0.00-0.03); Imm Gran Pct Auto 0.3 % (0.0-0.4); Lymphocytes Absolute Auto 2.6 X10*3/uL (1.2-4.9); Lymphocytes Percent Auto 36.5 % (20-40); Mean Corpuscular Hemoglobin 22.5 pg (27.0-33.0); Mean Corpuscular Volume 72.6 fL (80.0-98.0); Mean Platelet Volume 10.7 fL (9.4-12.3); Monocytes Absolute Auto 0.6 X10*3/uL (0.1-1.2); Monocytes Percent Auto 9.1 % (2-11); Neutrophils Absolute Auto 3.6 x10*3/uL (2.0-8.3); Neutrophils Percent Auto 50.9 % (45-73); Platelet Count 349 X10*3/uL (160-400); Red Blood Count 4.67 X10*6/uL (4.20-5.50); Red Cell Distribution Width 14.4 % (11.0-16.0)
[2021-01-22 14:11] LABS: Squamous Epithelial Cell Urine 1+ /LPF
[2021-01-22 14:12] LABS: RBC Urine 0-2 /HPF (0)
[2021-01-22 14:24] LABS: Alanine Aminotransferase 14 U/L (0-31); Albumin Level 4.1 g/dL (3.5-5.0); Alkaline Phosphatase 61 U/L (39-117); Anion Gap 14 (12-20); Aspartate Amino Transferase 22 U/L (5-31); Blood Urea Nitrogen 11 mg/dL (9-16); Calcium 9.7 mg/dL (8.4-10.2); Carbon Dioxide 25 mmol/L (22-29); Chloride 106 mmol/L (96-108); Estimated Glomerular Filt Rate > 60; Glucose Random 99 mg/dL (60-115); Potassium 4.2 mmol/L (3.3-5.1); Sodium 141 mmol/L (135-145); Total Protein 7.6 g/dL (6.5-8.0)
[2021-01-22 14:35] LABS: Ferritin 16 ng/mL (10-250)
== END 2021-01-22 12:03 | disposition home or self-care (01) ==
LOC: HO.LAB 12:02
PROVIDERS: PCP Nurse Practitioner Primary Care; Referring Provider Nurse Practitioner Primary Care; Visit Provider Internal Medicine Gastroenterology
DX: R10.2 Pelvic and perineal pain (principal); K62.5 Hemorrhage of anus and rectum; K75.81 Nonalcoholic steatohepatitis (NASH); E11.9 Type 2 diabetes mellitus without complications; I10 Essential (primary) hypertension; E03.9 Hypothyroidism, unspecified; G47.33 Obstructive sleep apnea (adult) (pediatric); R30.0 Dysuria; Z88.6 Allergy status to analgesic agent; Z99.89 Dependence on other enabling machines and devices
CPT/HCPCS: 36415; 80053; 81001; 82728; 85025; 87086; 99212

== ENCOUNTER 2021-02-23 16:05 | Outpatient (REF) | payer MEDICARE, MEDICAID, SELFPAY ==
--- NOTE | ~2021-02-23 | US_ITS ---
EXAMINATION: US PELVIS CLINICAL INFORMATION: Pelvic and perineal pain. COMPARISON: Ultrasound pelvis 12/27/2018 TECHNIQUE: Ultrasound of the pelvis is performed using both transabdominal and transvaginal transducers along with Doppler. Transvaginal imaging is performed due to inadequate visualization transabdominally. FINDINGS: Uterus: The uterus is anteverted, anteflexed and measures 7.0 cm in length, 4.0 cm and AP and 4.5 cm in transverse dimension. There is a hypoechoic lesion in the anterior body of uterus measuring 1.5 x 1.5 x 1.5 cm. The double wall endometrial thickness is 0.4 mm. The uterus is smooth in contour and has normal myometrial echogenicity. There are small nabothian cysts. Adnexa: Both ovaries are visualized. There is normal color flow to the adnexa. There is no ovarian torsion. There is no pelvic ascites or fluid collection. Right ovary measures 1.2 x 1.1 x 1.3 cm and volume 0.9 mL. No focal lesion seen. Previously right ovary measured 2.2 x 2.0 x 2.0 cm. Left ovary measures 3.3 x 1.3 x 2.1 cm and volume 4.7 mL. No focal lesion seen. Previously left ovary measured 1.9 x 1.9 x 1.6 cm. US/US pelvic and transvaginal IMPRESSION: 1. Small uterine fibroid. It is new since the previous study 2018. 2. Small nabothian cysts in the cervix, were seen previously. 3. Unremarkable ovaries. 4. No free fluid in the cul-de-sac.
== END 2021-02-23 16:06 | disposition home or self-care (01) ==
LOC: HO.US 16:05
PROVIDERS: Visit Provider Internal Medicine Gastroenterology
DX: R10.2 Pelvic and perineal pain (principal)
CPT/HCPCS: 76830; 76856

== ENCOUNTER 2021-03-23 13:19 | Outpatient (REF) | payer MEDICARE, MEDICAID, SELFPAY ==
[2021-03-23 18:26] LABS: CT PCR NOT DETECTED (Not Detect.); NG PCR NOT DETECTED (Not Detect.)
== END 2021-03-23 13:20 | disposition home or self-care (01) ==
LOC: HO.LAB 13:19
PROVIDERS: PCP Nurse Practitioner Primary Care; Visit Provider Obstetrics & Gynecology
DX: R10.2 Pelvic and perineal pain (principal); D21.9 Benign neoplasm of connective and other soft tissue, unspecified
CPT/HCPCS: 87491; 87591; 99202

== ENCOUNTER → 2021-05-10 15:13 | Outpatient (BNVA) | payer MEDICARE, MEDICAID, SELFPAY | PROVIDERS: PCP Nurse Practitioner Primary Care; Referring Provider Internal Medicine Gastroenterology; Visit Provider Surgery | DX: K64.9 Unspecified hemorrhoids (principal) | CPT/HCPCS: 46600; 99202 ==

== ENCOUNTER 2021-06-21 12:49 | Outpatient (REF) | payer MEDICARE, MEDICAID, SELFPAY ==
--- NOTE | ~2021-06-21 | US_ITS ---
EXAMINATION: US PELVIS CLINICAL INFORMATION: Abnormal uterine and vaginal bleeding. COMPARISON: KUB. TECHNIQUE: Ultrasound of the pelvis is performed using both transabdominal and transvaginal transducers along with Doppler. Transvaginal imaging is performed due to inadequate visualization transabdominally. FINDINGS: Uterus: The uterus is anteverted and measures 6.5 x 3.6 x 5.0 cm. The double wall endometrial thickness is 0.51 cm. The uterus is smooth in contour and has normal myometrial echogenicity. Previously visualized fibroid is not seen at this time. A previous scar is visualized. Adnexa: Both ovaries are visualized. There is normal color flow to the adnexa. There is no ovarian torsion. There is no pelvic ascites or fluid collection. Right ovary measures 2.0 x 1.5 x 1.2 cm and volume 1.9 mL. Previously measured 10.2 x 1.1 x 1.3 cm and volume 0.9 mL. It appears unremarkable. Left ovary measures 2.5 x 1.1 x 1.3 cm and volume 1.9 mL. Previously it measured 3.3 x 1.3 x 2.1 cm and volume 4.7 mL. US/US pelvic and transvaginal IMPRESSION: Unremarkable uterus. No fibroids visualized this time. Unremarkable ovaries.
== END 2021-06-21 12:50 | disposition home or self-care (01) ==
LOC: HO.US 12:49
PROVIDERS: Visit Provider Obstetrics & Gynecology
DX: D21.9 Benign neoplasm of connective and other soft tissue, unspecified (principal); N93.9 Abnormal uterine and vaginal bleeding, unspecified
CPT/HCPCS: 76830; 76856

== ENCOUNTER → 2021-07-20 11:32 | Outpatient (BNVA) | payer MEDICARE, MEDICAID, SELFPAY | PROVIDERS: Visit Provider Obstetrics & Gynecology | DX: D21.9 Benign neoplasm of connective and other soft tissue, unspecified (principal) | CPT/HCPCS: 99212 ==

== ENCOUNTER 2021-10-21 14:53 | Outpatient (REF) | payer MEDICARE, MEDICAID, SELFPAY ==
--- NOTE | ~2021-10-21 | MM_ITS ---
EXAMINATION: MM SCREENING DIGITAL BREAST TOMOSYNTHESIS, BILATERAL CLINICAL INFORMATION: Screening. Asymptomatic. The lifetime risk of breast cancer based on the Tyrer-Cuzick Model is 5%. COMPARISON: Mammography: 07/10/2020, 08/24/2016, 07/07/2015 TECHNIQUE: Digital breast tomosynthesis is performed in both the craniocaudal and mediolateral oblique views along with computer-aided detection (CAD). Synthesized 2D images are generated from the tomosynthesis. FINDINGS: The breasts are heterogeneously dense, which may obscure small masses (ACR BI-RADS breast composition Category c). There are no significant masses, abnormal calcifications, or other abnormalities. Parenchymal pattern is similar to prior exam. There is no developing density or interval architectural abnormality. Bilateral predominantly vascular calcifications are again seen. Low right axillary tail node again noted. Skin contours are smooth. No significant changes. MM/MM tomosynthesis screening BI IMPRESSION: No mammographic evidence of malignancy. ASSESSMENT: BI-RADS 2: Benign RECOMMENDATION: Routine annual mammography screening. This patient's information was entered into a reminder system with a target due date for their next mammogram.
== END 2021-10-21 14:54 | disposition home or self-care (01) ==
LOC: HO.MAMMO 14:53
PROVIDERS: PCP Nurse Practitioner Primary Care; Visit Provider Nurse Practitioner Primary Care
DX: Z12.31 Encounter for screening mammogram for malignant neoplasm of breast (principal)
CPT/HCPCS: 77063; 77067

== ENCOUNTER 2022-03-11 12:49 | Outpatient (REF) | payer MEDICARE, MEDICAID, SELFPAY | END 2022-03-11 12:50 | disposition home or self-care (01) | LOC: HO.MDS 12:49 | PROVIDERS: PCP Nurse Practitioner Primary Care; Visit Provider Internal Medicine Medical Oncology | DX: D50.9 Iron deficiency anemia, unspecified (principal) | CPT/HCPCS: 96365; J1756 ==

== ENCOUNTER 2022-03-17 10:51 | Outpatient (REF) | payer MEDICARE, MEDICAID, SELFPAY | END 2022-03-17 10:52 | disposition home or self-care (01) | LOC: HO.MDS 10:51 | PROVIDERS: PCP Nurse Practitioner Primary Care; Visit Provider Internal Medicine Medical Oncology | DX: D50.9 Iron deficiency anemia, unspecified (principal) | CPT/HCPCS: 96365 ==

== ENCOUNTER 2022-03-23 10:15 | Outpatient (REF) | payer MEDICARE, MEDICAID, SELFPAY | END 2022-03-23 10:16 | disposition home or self-care (01) | LOC: HO.MDS 10:15 | PROVIDERS: Visit Provider Internal Medicine Medical Oncology | DX: D50.9 Iron deficiency anemia, unspecified (principal) | CPT/HCPCS: 96365; J1756 ==

== ENCOUNTER 2022-03-30 11:48 | Outpatient (REF) | payer MEDICARE, MEDICAID, SELFPAY ==
[2022-03-30 12:24] LABS: Baso%MD 1.3 %; Eos%MD 1.8 %; Hematocrit 33.9 % (37.0-47.0); Hemoglobin 10.1 g/dl (12.0-16.0); IG%MD 0.2 %; Lymph%MD 37.6 %; Mean Corpuscular HGB Conc 29.8 g/dl (31.0-35.0); Mean Corpuscular Hemoglobin 20.8 pg (27.0-33.0); Mean Corpuscular Volume 69.9 fL (80.0-98.0); Mean Platelet Volume 10.5 fL (9.4-12.3); Mono%MD 6.8 %; Neut%MD 52.3 %; Platelet Count 337 X10*3/uL (160-400); Red Blood Count 4.85 X10*6/uL (4.20-5.50); Red Cell Distribution Width 22.8 % (11.0-16.0)
[2022-03-30 12:50] LABS: Band Neutrophils Percent 0 % (3-5); Basophils Abs Manual 0.1 X10*3/uL (0.0-0.2); Basophils Percent Manual 2 % (0-2); Eosinophils Absolute Manual 0.1 X10*3/uL (0.0-0.4); Eosinophils Percent Manual 1 % (0-4); Lymphocytes Absolute Manual 2.2 X10*3/uL (1.2-4.9); Lymphocytes Percent Manual 37 % (20-40); Monocytes Absolute Manual 0.2 X10*3/uL (0.1-1.2); Monocytes Percent Manual 3 % (2-11); Neutrophils Absolute Manual 3.4 X10*3/uL (2.0-8.3); Neutrophils Percent Manual 57 % (45-73)
[2022-03-30 12:51] LABS: Microcytosis 2+ (15-30) /OIF; Platelet Estimate NORMAL (NORMAL); Platelet Morphology Comment NORMAL; RBC Morphology NOTED
[2022-03-30 12:52] LABS: Hypochromasia 2+ (15-30) /OIF
== END 2022-03-30 11:49 | disposition home or self-care (01) ==
LOC: HO.MDS 11:48
PROVIDERS: Visit Provider Internal Medicine Medical Oncology
DX: D50.9 Iron deficiency anemia, unspecified (principal)
CPT/HCPCS: 36415; 85007; 85027; 96365; J1756

== ENCOUNTER 2022-04-06 13:27 | Outpatient (REF) | payer MEDICARE, MEDICAID, SELFPAY | END 2022-04-06 13:28 | disposition home or self-care (01) | LOC: HO.MDS 13:27 | PROVIDERS: Visit Provider Internal Medicine Medical Oncology | DX: D50.9 Iron deficiency anemia, unspecified (principal) | CPT/HCPCS: 96365; J1756 ==

== ENCOUNTER 2022-04-13 12:31 | Outpatient (REF) | payer MEDICARE, MEDICAID, SELFPAY | END 2022-04-13 12:32 | disposition home or self-care (01) | LOC: HO.MDS 12:31 | PROVIDERS: Visit Provider Internal Medicine Medical Oncology | DX: D50.9 Iron deficiency anemia, unspecified (principal) | CPT/HCPCS: 96365; J1756 ==

== ENCOUNTER 2022-04-18 15:12 | Outpatient (REF) | payer MEDICARE, MEDICAID, SELFPAY | END 2022-04-18 15:13 | disposition home or self-care (01) | LOC: HO.MDS 15:12 | PROVIDERS: Visit Provider Internal Medicine Medical Oncology | DX: D50.9 Iron deficiency anemia, unspecified (principal); K64.9 Unspecified hemorrhoids | CPT/HCPCS: 46600; 96365; 99212; J1756 ==

== ENCOUNTER 2022-04-28 12:22 | Outpatient (REF) | payer MEDICARE, MEDICAID, SELFPAY ==
[2022-04-28 12:46] LABS: MANUAL DIFF FLAG NO
[2022-04-28 12:51] LABS: Basophils Absolute Auto 0.1 X10*3/uL (0.0-0.2); Basophils Percent Auto 1.1 % (0-2); Eosinophils Absolute Auto 0.1 X10*3/uL (0.0-0.4); Eosinophils Percent Auto 1.1 % (0-4); Hematocrit 34.4 % (37.0-47.0); Hemoglobin 10.3 g/dl (12.0-16.0); Imm Gran Abs Auto 0.01 X10*3/uL (0.00-0.03); Imm Gran Pct Auto 0.2 % (0.0-0.4); Lymphocytes Absolute Auto 1.7 X10*3/uL (1.2-4.9); Lymphocytes Percent Auto 26.9 % (20-40); Mean Corpuscular HGB Conc 29.9 g/dl (31.0-35.0); Mean Corpuscular Hemoglobin 21.4 pg (27.0-33.0); Mean Corpuscular Volume 71.5 fL (80.0-98.0); Mean Platelet Volume 9.3 fL (9.4-12.3); Monocytes Absolute Auto 0.4 X10*3/uL (0.1-1.2); Monocytes Percent Auto 6.8 % (2-11); Neutrophils Absolute Auto 4.1 x10*3/uL (2.0-8.3); Neutrophils Percent Auto 63.9 % (45-73); Platelet Count 301 X10*3/uL (160-400); Red Blood Count 4.81 X10*6/uL (4.20-5.50); Red Cell Distribution Width 23.5 % (11.0-16.0); White Blood Count 6.4 X10*3/uL (4.8-10.8)
== END 2022-04-28 12:23 | disposition home or self-care (01) ==
LOC: HO.MDS 12:22
PROVIDERS: Visit Provider Internal Medicine Medical Oncology
DX: D50.9 Iron deficiency anemia, unspecified (principal)
CPT/HCPCS: 36415; 85025; 96365; J1756

== ENCOUNTER 2022-05-10 06:06 | Day surgery (SDC) | payer MEDICARE, MEDICAID, SELFPAY ==
[2022-05-05 10:17] VITALS: BMI 32.7
--- NOTE | 2022-05-09 09:52 | P.CONAN_ITS ---
Documented by User: Britney Johnson NP 05/09/22 09:56 HPI - Anesthesia Eval Consult details Narrative: 67yo F for EUA, Hemorrhoidectomy PMFSH Active Problems Active Problems: All Active Problems (Updated 05/04/22 @ 15:10 by Rosy Helms RN) H. pylori infection (Acute) Epigastric abdominal pain (Acute) Rectal bleeding (Acute) Gastroparesis (Acute) MGUS (monoclonal gammopathy of unknown significance) (Acute) Pelvic pain (Acute) Anemia (Acute) Pelvic pain syndrome (Acute) Pelvic pain (Acute) Myoma (Acute) Bleeding hemorrhoids (Acute) Diabetes mellitus (Acute) Past Medical History Medical History (Updated 05/04/22 @ 15:10 by Rosy Helms RN) Arthritis Asthma Bleeding hemorrhoids Diabetes mellitus Diverticulosis Elevated cholesterol Gastroparesis GERD (gastroesophageal reflux disease) Hepatic steatosis History of COVID-19 History of tachycardia Hypertension Hypothyroid IBS (irritable bowel syndrome) PHAN on CPAP TIA (transient ischemic attack) Family History Family History Father Hx of gangrene Hx of type 2 diabetes mellitus History of partial colectomy Hx of small bowel obstruction History of high blood pressure Mother History of hypothyroidism Brother No problems noted. Sister No problems noted. Maternal Aunt Colon cancer Surgical History Surgical History (Updated 05/04/22 @ 15:08 by Rosy Helms RN) History of esophagogastroduodenoscopy (EGD) Hx of section Hx of colonoscopy Hx of dilation and curettage Tubal ligation status Social History Social History Household Members: Family Household Members Other:: DAUGHTER,SON IN LAW AND GRANDCHILDREN Housing: Apartment Are you a primary healthcare administrator to a significant other at home: No Do you presently have visiting nurse or other home services: No Alcohol intake: never Patient Tobacco Use Status: Never used Tobacco Are you DNR?: No Advance Directives: No Advance Directives Information Provided: Yes service: No Current occupational status: disabled Meds Allergies Allergy/AdvReac Type Severity Reaction Status Date / Time aspirin [ASA] Allergy Severe SWELLING, Verified 04/18/22 08:36 itching and swelling, shortness of breath Home Medications Medication Instructions Recorded Confirmed Last Taken Type acetaminophen 500 mg capsule 500 mg PO QID PRN Pain 02/10/20 05/05/22 Unknown History ascorbic acid (vitamin C) 500 mg 500 mg PO DAILY 02/10/20 05/05/22 Unknown History chewable tablet (Vitamin C) fluticasone propionate 220 1 puff inhalation BID 02/10/20 05/05/22 Unknown History mcg/actuation HFA aerosol inhaler gabapentin 300 mg capsule 300 mg PO BID 02/10/20 05/05/22 Unknown History (Neurontin) hydroxyzine pamoate 25 mg capsule 25 mg PO TID PRN Nausea 02/10/20 05/05/22 Unknown History (Vistaril) sertraline 100 mg tablet (Zoloft) 200 mg PO DAILY 02/10/20 05/05/22 Unknown History diltiazem HCl 120 mg 120 mg PO DAILY 06/02/20 05/05/22 Unknown History capsule,extended release 24 hr ergocalciferol (vitamin D2) 1,250 1,250 mcg PO QWEEK 06/02/20 05/05/22 Unknown History mcg (50,000 unit) capsule topiramate 50 mg tablet 50 mg PO BEDTIME 06/02/20 05/05/22 Unknown History blood sugar diagnostic (FreeStyle #10 ea 10/20/20 04/18/22 Unknown History Lite Strips) atorvastatin 40 mg tablet 1 tab PO BEDTIME 02/04/21 05/05/22 Unknown History levothyroxine 75 mcg tablet 75 mcg PO DAILY 02/04/21 05/05/22 Unknown History trazodone 50 mg tablet 50 mg PO BEDTIME PRN for insomnia 02/04/21 05/05/22 Unknown History Exam Exam Date and Time: May 09, 2022 0952 Height,Weight and Vital Signs: Height 4 ft 11 in Weight 73.482 kg Pertinent Lab Results Pertinent Lab Results: Laboratory Tests 02/22/22 04/28/22 13:08 12:42 WBC 6.4 Hgb 10.3 L Hct 34.4 L Plt Count 301 Sodium 140 Potassium 4.2 Chloride 109 H Carbon Dioxide 25 BUN 13 Creatinine 0.79 Assessment and Plan Assessment Anesthesia Assessment: Chart Reviewed Documented by User: Lemuel Youssef MD 05/10/22 07:58 [facility] Past Medical History Medical History (Updated 05/04/22 @ 15:10 by Rosy Helms, RN) Arthritis Asthma Bleeding hemorrhoids Diabetes mellitus Diverticulosis Elevated cholesterol Gastroparesis GERD (gastroesophageal reflux disease) Hepatic steatosis History of COVID-19 History of tachycardia Hypertension Hypothyroid IBS (irritable bowel syndrome) PHAN on CPAP TIA (transient ischemic attack) Family History Family History Father Hx of gangrene Hx of type 2 diabetes mellitus History of partial colectomy Hx of small bowel obstruction History of high blood pressure Mother History of hypothyroidism Brother No problems noted. Sister No problems noted. Maternal Aunt Colon cancer Surgical History Surgical History (Updated 05/04/22 @ 15:08 by Rosy Helms RN) History of esophagogastroduodenoscopy (EGD) Hx of section Hx of colonoscopy Hx of dilation and curettage Tubal ligation status Social History Social History Household Members: Family Household Members Other:: DAUGHTER,SON IN LAW AND GRANDCHILDREN Housing: Apartment Are you a primary healthcare administrator to a significant other at home: No Do you presently have visiting nurse or other home services: No Alcohol intake: never Patient Tobacco Use Status: Never used Tobacco Are you DNR?: No Advance Directives: No Advance Directives Information Provided: Yes service: No Current occupational status: disabled Meds Allergies Allergy/AdvReac Type Severity Reaction Status Date / Time aspirin [ASA] Allergy Severe SWELLING, Verified 04/18/22 08:36 itching and swelling, shortness of breath Home Medications Medication Instructions Recorded Confirmed Last Taken Type acetaminophen 500 mg capsule 500 mg PO QID PRN Pain 02/10/20 05/05/22 Unknown History ascorbic acid (vitamin C) 500 mg 500 mg PO DAILY 02/10/20 05/05/22 Unknown History chewable tablet (Vitamin C) fluticasone propionate 220 1 puff inhalation BID 02/10/20 05/05/22 Unknown History mcg/actuation HFA aerosol inhaler gabapentin 300 mg capsule 300 mg PO BID 02/10/20 05/05/22 Unknown History (Neurontin) hydroxyzine pamoate 25 mg capsule 25 mg PO TID PRN Nausea 02/10/20 05/05/22 Unknown History (Vistaril) sertraline 100 mg tablet (Zoloft) 200 mg PO DAILY 02/10/20 05/05/22 Unknown History diltiazem HCl 120 mg 120 mg PO DAILY 06/02/20 05/05/22 Unknown History capsule,extended release 24 hr ergocalciferol (vitamin D2) 1,250 1,250 mcg PO QWEEK 06/02/20 05/05/22 Unknown History mcg (50,000 unit) capsule topiramate 50 mg tablet 50 mg PO BEDTIME 06/02/20 05/05/22 Unknown History blood sugar diagnostic (FreeStyle #10 ea 10/20/20 04/18/22 Unknown History Lite Strips) atorvastatin 40 mg tablet 1 tab PO BEDTIME 02/04/21 05/05/22 Unknown History levothyroxine 75 mcg tablet 75 mcg PO DAILY 02/04/21 05/05/22 Unknown History trazodone 50 mg tablet 50 mg PO BEDTIME PRN for insomnia 02/04/21 05/05/22 Unknown History Exam Airway Mallampati Class: III TM Dist: >3cm Neck ROM: Limited Loose/Missing/Broken Teeth: Upper Heart: rrr Lungs: cta Assessment and Plan Final Anesthetic Review Final Preanesthetic Review: No Changes in Pt Med Stat, Meds/Allgs Chart Reviewed, Consent Obtained/Reviewed and Anes Risks/Benef Reviewed Patient Risk: Intermediate Procedure Risk: Intermediate Anesthetic Plan Anesthetic Plan: GA Disposition: Standard PACU
[2022-05-10] VITALS (10 sets, daily range): BP systolic 127–164; BP diastolic 67–88; PULSE 81–99; RESP 14–19; TEMP 36.4–36.6; O2SAT 97–100
--- NOTE | 2022-05-10 | ECG_ITS ---
Test Reason : pre op Blood Pressure : / mmHG Vent. Rate : 074 BPM Atrial Rate : 074 BPM P-R Int : 132 ms QRS Dur : 086 ms QT Int : 408 ms P-R-T Axes : 055 029 033 degrees QTc Int : 452 ms Normal sinus rhythm Normal ECG When compared with ECG of 20-MAY-2020 11:50, No significant change was found Referred By: Britney Johnson Electronically Signed By:JOE CORCORAN
[2022-05-10] MEDS: Lactated Ringers 1,000 ML 100 ML IVCONT (06:39)
--- NOTE | 2022-05-10 07:37 | MHC.SHP ---
Pre-Procedural Eval Section A Date of Service: 05/10/22 The patient is an INPATIENT: No Changes since office visit: No Cold of Flu in the past 2 weeks, No New Medical Problems, No Changes in Medication and No Patient answered all questions The History & Physical has been completed within 30 days and I have reviewed it.: Yes Section B Chief Complaint: Unspecified hemorrhoids Allergies: Allergies Allergy/AdvReac Type Severity Reaction Status Date / Time aspirin [ASA] Allergy Severe SWELLING, Verified 04/18/22 08:36 itching and swelling, shortness of breath Plan I have reviewed the history and physical and performed a pertinent physical examination on my patient. No changes have occurred unless specified. Time Spent With Patient Time: Total time managing care of this patient today ____ minutes.
--- NOTE | 2022-05-10 08:25 | P.OP_ITS ---
Operative Note Operative Note Date of Service: 05/10/22 Narrative: Preop diagnosis: Bleeding hemorrhoids Postop diagnosis: Bleeding hemorrhoids, internal and external Procedure: Exam under anesthesia, and ectomy x3 columns Surgeon: Neal Hernandez MD Clinical Consultant: CHETNA Mc student The patient is a 67 year female a long history of problems with bleeding hemorrhoids. In view of the frequency of her bleeding, she wanted to proceed with hemorrhoidectomy. She understood the technique of the procedure. She was aware of the risks, benefits, and alternatives She was brought to the operating room. She was placed in prone shanique-knife position under general anesthesia via endotracheal tube. The buttocks were retracted with wide tape laterally. The perianal area was prepped and draped in the usual sterile fashion. A surgical time-out was done. The patient received Cefotan 2 g IV preoperatively Examination of the anal orifice revealed external and internal hemorrhoids on both the left and right side. I inserted the Miranda Zapata retractor. I examined the anal canal circumferentially. This mixed hemorrhoidal columns were seen and the this wants were on the anterior aspect, the left lateral and right lateral. I proceeded to apply a Robison grasper at the largest hemorrhoidal column on the anterior anal canal. I made a figure of 8 stitch at the pedicle using chromic 3-0. Made an incision around this hemorrhoidal column to the perianal skin using blade 15. I excised this hemorrhoidal column above the plane of sphincters using Metzenbaum scissors. I closed this incision with a running chromic 3-0 stitch. Additional hemostatic [id number] sutures were placed for oozing areas The procedure was duplicated on the left lateral hemorrhoidal column as well as the right lateral column. Again each column retracted with Robison. A figur e-of-eight stitch was placed at the pedicle. An incision was made around each hemorrhoidal column to the perianal skin using a blade 15. These 2 other hemorrhoidal columns were excised using scissors above the plane of sphincters. All incisions were closed with running chromic 3-0 stitch with additional hemostatic sutures being placed There were 3 of these columns therefore, internal external that were excised Once hemostasis was confirmed, I infiltrated the perianal area with Marcaine 0.5% for postop analgesia. A rolled Gelfoam was inserted in the anal canal for additional hemostasis. The The procedure was then completed. The patient tolerated the procedure well. There were no immediate complications. Initial and final counts of sponges and instruments were correct. Estimated blood loss about 40 cc The patient was extubated without difficulty and transferred to the recovery room with stable vital signs.
== END 2022-05-10 11:16 | disposition home or self-care (01) ==
PROVIDERS: PCP Nurse Practitioner Primary Care; Visit Provider Surgery
PROC: (CPT 46260; principal; 2022-05-10 07:30)
DX: K64.8 Other hemorrhoids (principal); K64.4 Residual hemorrhoidal skin tags; K21.9 Gastro-esophageal reflux disease without esophagitis; G47.33 Obstructive sleep apnea (adult) (pediatric); I10 Essential (primary) hypertension; J45.909 Unspecified asthma, uncomplicated; E11.9 Type 2 diabetes mellitus without complications; E03.9 Hypothyroidism, unspecified; E78.00 Pure hypercholesterolemia, unspecified; Z79.51 Long term (current) use of inhaled steroids; Z79.899 Other long term (current) drug therapy; Z88.8 Allergy status to other drugs, medicaments and biological substances; Z86.73 Personal history of transient ischemic attack (TIA), and cerebral infarction without residual deficits
CPT/HCPCS: 46260; 88304; 93005; J0131; J1100; J1885; J2405; J2795; J3010

== ENCOUNTER → 2022-05-23 12:50 | Outpatient (BNVA) | payer MEDICARE, MEDICAID, SELFPAY | PROVIDERS: PCP Nurse Practitioner Primary Care; Visit Provider Surgery | DX: K64.9 Unspecified hemorrhoids (principal) | CPT/HCPCS: 99212 ==

== ENCOUNTER → 2022-07-06 10:51 | Outpatient (BNVA) | payer MEDICARE, MEDICAID, SELFPAY | PROVIDERS: PCP Nurse Practitioner Primary Care; Visit Provider Surgery | DX: Z48.815 Encounter for surgical aftercare following surgery on the digestive system (principal); Z87.19 Personal history of other diseases of the digestive system | CPT/HCPCS: 99212 ==

== ENCOUNTER 2022-07-07 14:17 | Outpatient (REF) | payer MEDICARE, MEDICAID, SELFPAY ==
[2022-07-13 21:14] LABS: HPV mRNA E6/E7 rflx Not Detected (Not Detected)
== END 2022-07-07 14:18 | disposition home or self-care (01) ==
LOC: HO.LNP 14:17
PROVIDERS: PCP Nurse Practitioner Primary Care; Visit Provider Obstetrics & Gynecology
DX: Z01.419 Encounter for gynecological examination (general) (routine) without abnormal findings (principal); Z11.51 Encounter for screening for human papillomavirus (HPV)
CPT/HCPCS: 87624; 88142; G0101

== ENCOUNTER 2022-09-02 18:24 | Outpatient (REF) | payer MEDICARE, MEDICAID, SELFPAY ==
[2022-09-02 18:35] LABS: Appearance Urine Cloudy; Color Urine Yellow; Glucose Urine UA Negative (Negative); Leukocyte Esterase Urine Trace (Negative); Nitrite Urine Negative (Negative); PH 5.5 (5.0-9.0); Specific Gravity - Urine >= 1.030 (1.005-1.025); UMIC TRIGGER UA YES; Urine Blood Negative (Negative); Urine Ketones Trace mg/dL (Negative); Urine Protein Trace mg/dL (Neg-Trace)
[2022-09-02 19:16] LABS: Creatinine Urine 271.97 mg/dL; Microalbum/Creatinine Ratio Ur 12.1 ug/mg cr
[2022-09-02 20:07] LABS: Bacteria Urine Trace (None Seen); Calcium Oxalate Crystals Urine Present; Hyaline Casts Urine 0-2 /LPF (0-2); RBC Urine 0-2 /HPF (0-2)
== END 2022-09-02 18:25 | disposition home or self-care (01) ==
LOC: HO.HHCLNP 18:24
PROVIDERS: Visit Provider Nurse Practitioner Primary Care
DX: E11.69 Type 2 diabetes mellitus with other specified complication (principal); E78.5 Hyperlipidemia, unspecified; R82.998 Other abnormal findings in urine
CPT/HCPCS: 81001; 82043

== ENCOUNTER 2022-10-25 13:16 | Outpatient (REF) | payer MEDICARE, MEDICAID, SELFPAY ==
--- NOTE | ~2022-10-25 | MM_ITS ---
EXAMINATION: MM SCREENING DIGITAL BREAST TOMOSYNTHESIS, BILATERAL CLINICAL INFORMATION: Screening. Asymptomatic. COMPARISON: Mammography: This study is compared with prior exams dating back to 2015. TECHNIQUE: Digital breast tomosynthesis is performed in both the craniocaudal and mediolateral oblique views along with computer-aided detection (CAD). Synthesized 2D images are generated from the tomosynthesis. FINDINGS: The breasts are heterogeneously dense, which may obscure small masses (ACR BI-RADS breast composition Category c). There are no significant masses, abnormal calcifications, or other abnormalities. There is a tissue marker in the central portion of the right breast from prior benign percutaneous biopsy. MM/MM tomosynthesis screening BI IMPRESSION: No mammographic evidence of malignancy. ASSESSMENT: BI-RADS BI-RADS 2 - Benign Findings RECOMMENDATION: Routine annual mammography screening. 1 year F/U This examination should not preclude the clinical evaluation of a suspicious palpable abnormality. This patient's information was entered into a reminder system with a target due date for their next mammogram.
--- NOTE | ~2022-10-25 | MM_ITS ---
EXAMINATION: BONE DENSITOMETRY CLINICAL INDICATION: Asymptomatic menopausal state. COMPARISON: This is the patient's baseline examination. TECHNIQUE: Using a [employer] DXA System (software version: 13.1) manufactured by [employer], dual-energy x-ray absorptiometry was performed of the lumbar spine and left hip. The images are of good technical quality. Summary results are attached. FINDINGS: LEFT FEMUR, NECK: BMD 0.713 g/cm2, Z-score -1.0, T-score -2.3, osteopenia. LEFT FEMUR, TOTAL: BMD 0.809 g/cm2, Z-score -0.5, T-score -1.6, osteopenia. AP SPINE L1-L4: BMD 0.838 g/cm2, Z-score -1.5, T-score -2.8, osteoporosis. IDENTIFIED RISK FACTORS: Early menopause, secondary osteoporosis, history of fracture (adult), low calcium intake. HISTORY OF FRACTURE: Wrist. MEDICATIONS: Calcium supplements or multivitamin, vitamin D. MM/XR DEXA axial skeleton IMPRESSION: 1. DIAGNOSIS: Severe osteoporosis based on the lowest T-score value of -2.8 in the lumbar spine and history of fracture applying World Health Organization criteria. 2. 10-YEAR FRACTURE RISK PREDICTION, FRAX: According to the guidelines, FRAX calculation should only be performed on patients in the osteopenia bone density category. Therefore, FRAX was not performed on this patient. 3. Treatment Recommendations: NOF guidelines recommend consideration for treatment in postmenopausal women and men age 50 and older presenting with the following: -A hip or vertebral (clinical or morphometric) fracture. -T-score less than or equal to -2.5 at the femoral neck or spine after appropriate evaluation to exclude secondary causes. -Low bone mass at the hip or spine and a 10-year fracture probability by FRAX of greater than or equal to 3% for hip fracture or greater than or equal to 20% for major osteoporotic fracture based on the [place] adapted WHO algorithm. 4. Other Recommendations: All treatment decisions require clinical judgment and consideration of individual patient factors, including patient preferences, comorbidities, previous drug use, risk factors not captured in the FRAX model (e.g. frailty, falls, vitamin D deficiency, increased bone turnover, interval significant decline in bone density) and possible under or overestimation of fracture risk by FRAX. Additional medical evaluation for secondary cause of low bone mineral density may be appropriate. FUTURE SCAN RECOMMENDATION: People with diagnosed cases of osteoporosis or at high risk for fracture should have regular bone mineral density tests. For patients eligible for Medicare, routine testing is allowed once every 2 years. The testing frequency can be increased to one year for patients who have rapidly progressing disease, those who are receiving or discontinuing medical therapy to restore bone mass, or have additional risk factors.
== END 2022-10-25 13:17 | disposition home or self-care (01) ==
LOC: HO.MAMMO 13:16
PROVIDERS: PCP Nurse Practitioner Primary Care; Visit Provider Obstetrics & Gynecology
DX: Z12.31 Encounter for screening mammogram for malignant neoplasm of breast (principal); Z13.820 Encounter for screening for osteoporosis; Z78.0 Asymptomatic menopausal state
CPT/HCPCS: 77063; 77067; 77080

== ENCOUNTER → 2022-10-25 13:30 | Outpatient (BNV) | payer MEDICARE, MEDICAID, SELFPAY | PROVIDERS: PCP Nurse Practitioner Primary Care; Visit Provider Radiology Diagnostic Radiology | DX: Z12.31 Encounter for screening mammogram for malignant neoplasm of breast (principal) | CPT/HCPCS: 77063; 77067; 77080 ==

== ENCOUNTER 2022-11-08 14:15 | Outpatient (AMB) | payer MEDICARE, MEDICAID, SELFPAY ==
[2022-11-08 14:20] VITALS: BP 110/64; BMI 31.8
--- NOTE | 2022-11-08 14:20 | MHC.OFFVIS ---
Intake Vital Signs 11/08/22 14:20 Height 5 ft Weight 163 lb BMI 31.8 BP 110/64 Intake Visit Reasons: DEXA follow up Frame Table Operator Helper Required: Yes Frame Table Operator Helper Language: Payment Processor Name: Katerin Bonds Allergies aspirin [ASA] Allergy (Severe, Verified 11/08/22 14:21) SWELLING, itching and swelling, shortness of breath ibuprofen Allergy (Intermediate, Verified 11/08/22 14:21) swelling Is last menstrual period known: No Post menopausal: Yes Patient : No HPI HPI Comments History of Present Illness Details The patient is presenting for follow up regarding DEXA scan results. T score @ spine and femoral Neck respectively were=-2.8 /-2.3 PFSH Medical History Gastroparesis Diverticulosis History of COVID-19 Bleeding hemorrhoids Hepatic steatosis Arthritis Hypothyroid Diabetes mellitus TIA (transient ischemic attack) Asthma Elevated cholesterol History of tachycardia Hypertension PHAN on CPAP IBS (irritable bowel syndrome) GERD (gastroesophageal reflux disease) Surgical History Hx of hemorrhoidectomy Tubal ligation status Hx of dilation and curettage Hx of section Hx of colonoscopy History of esophagogastroduodenoscopy (EGD) Family History Father Hx of gangrene Hx of type 2 diabetes mellitus History of partial colectomy Hx of small bowel obstruction History of high blood pressure Mother History of hypothyroidism Brother No problems noted. Sister No problems noted. Maternal Aunt Colon cancer Social History Household Members: Family Household Members Other:: DAUGHTER,SON IN LAW AND GRANDCHILDREN Housing: Apartment Are you a primary life care planner to a significant other at home: No Do you presently have visiting nurse or other home services: No Alcohol intake: never Patient Tobacco Use Status: Never used Tobacco Patient : No service: No Current occupational status: disabled Female Reproductive History Menstrual Age of Menarche: 13 control method: permanent sterilization Date of last pap smear: 07/08/22 (negative) Date of Mammogram: 10/25/22 Date of last Bone Density Screenin10/25/22 Review of Systems Const All systems reviewed & are unremarkable except as noted in HPI and below Reports as per HPI and Reports no additional complaints GI Reports no additional complaints Reports no additional complaints Physical Exam Vital Signs: Last Vital Signs BP 110/64 11/08/22 14:20 BMI result Body Mass Index 31.8 Assessment & Plan Assessment & Plan (1) Osteoporosis: Code(s): M81.0 - Age-related osteoporosis without current pathological fracture Plan: Discussed with the patient the DEXA results . Discussed with the patient all the options for therapeutic treatment including mechanism of actions, risks and benefits of Bisphosphonates (benefits=osteoporosis prevention; Risks=GERD, osteonecrosis of jaw), Raloxifene, (benefits=osteoporosis prevention and breast ca risk reduction; Risks=DVT), Forteo. The patient decided to go ahead with Fosamax so instructions given to the pt on how to take the med: NPO x 30 minutes, large amount of water , stay upright x 30 minutes, inform her dentist of alendronate intake in case invasive dental work. Also Caltrate+D 600 mg x2/day was recommended to the patient. Medications: New alendronate 70 mg PO QWEEK 14 tabs 3RF Coding Level of Care Code Est Pt Level 3 (94642) Diagnoses Osteoporosis M81.0
== END 2022-11-08 16:26 | disposition home or self-care (01) ==
PROVIDERS: Visit Provider Obstetrics & Gynecology
DX: M81.0 Age-related osteoporosis without current pathological fracture (principal)
CPT/HCPCS: 99213

== ENCOUNTER → 2022-11-08 14:15 | Outpatient (BNVA) | payer MEDICARE, MEDICAID, SELFPAY | PROVIDERS: Visit Provider Obstetrics & Gynecology | DX: M81.0 Age-related osteoporosis without current pathological fracture (principal) | CPT/HCPCS: 99212 ==

== ENCOUNTER 2022-11-15 12:02 | Day surgery (SDC) | payer MEDICARE, MEDICAID, SELFPAY ==
[2022-11-11 14:24] VITALS: BMI 32.9
--- NOTE | 2022-11-14 11:37 | P.CONAN_ITS ---
Documented by User: Britney Johnson NP 11/14/22 11:39 HPI - Anesthesia Eval Consult details Narrative: 67yo F for Upper Endoscopy and Colonoscopy s/p hemorrhoidectomy 04/2022 [facility] Active Problems Active Problems: All Active Problems (Updated 11/08/22 @ 14:21 by Gonzalo Carranza MD) Osteoporosis (Acute) Menopause (Acute) Well woman exam (Acute) H. pylori infection (Acute) Epigastric abdominal pain (Acute) Rectal bleeding (Acute) Gastroparesis (Acute) MGUS (monoclonal gammopathy of unknown significance) (Acute) Pelvic pain (Acute) Anemia (Acute) Pelvic pain syndrome (Acute) Pelvic pain (Acute) Myoma (Acute) Bleeding hemorrhoids (Acute) Diabetes mellitus (Acute) Past Medical History Medical History Gastroparesis Diverticulosis History of COVID-19 Bleeding hemorrhoids Hepatic steatosis Arthritis Hypothyroid Diabetes mellitus TIA (transient ischemic attack) Asthma Elevated cholesterol History of tachycardia Hypertension PHAN on CPAP IBS (irritable bowel syndrome) GERD (gastroesophageal reflux disease) Family History Family History Father Hx of gangrene Hx of type 2 diabetes mellitus History of partial colectomy Hx of small bowel obstruction History of high blood pressure Mother History of hypothyroidism Brother No problems noted. Sister No problems noted. Maternal Aunt Colon cancer Surgical History Surgical History Hx of hemorrhoidectomy Tubal ligation status Hx of dilation and curettage Hx of section Hx of colonoscopy History of esophagogastroduodenoscopy (EGD) Social History Social History Household Members: Family Household Members Other:: DAUGHTER,SON IN LAW AND GRANDCHILDREN Housing: Apartment Are you a primary career development associate to a significant other at home: No Do you presently have visiting nurse or other home services: No Alcohol intake: never Patient Tobacco Use Status: Never used Tobacco Advance Directives: No Advance Directives Information Provided: Yes service: No Current occupational status: disabled Meds Allergies Allergy/AdvReac Type Severity Reaction Status Date / Time aspirin [ASA] Allergy Severe SWELLING, Verified 11/08/22 14:21 itching and swelling, shortness of breath ibuprofen Allergy Intermediate swelling Verified 11/08/22 14:21 Home Medications Medication Instructions Recorded Confirmed Last Taken Type acetaminophen 500 mg capsule 500 mg PO QID PRN Pain 02/10/20 11/11/22 Unknown History ascorbic acid (vitamin C) 500 mg 500 mg PO DAILY 02/10/20 11/11/22 Unknown History chewable tablet (Vitamin C) fluticasone propionate 220 1 puff inhalation BID 02/10/20 11/11/22 Unknown History mcg/actuation HFA aerosol inhaler gabapentin 300 mg capsule 300 mg PO BID 02/10/20 11/11/22 Unknown History (Neurontin) hydroxyzine pamoate 25 mg capsule 25 mg PO TID PRN Nausea 02/10/20 11/11/22 Unknown History (Vistaril) sertraline 100 mg tablet (Zoloft) 200 mg PO DAILY 02/10/20 11/11/22 Unknown History diltiazem HCl 120 mg 120 mg PO DAILY 06/02/20 11/11/22 Unknown History capsule,extended release 24 hr topiramate 50 mg tablet 50 mg PO BEDTIME 06/02/20 11/11/22 Unknown History blood sugar diagnostic (FreeStyle #10 ea 10/20/20 04/18/22 Unknown History Lite Strips) atorvastatin 40 mg tablet 1 tab PO BEDTIME 02/04/21 11/11/22 Unknown History levothyroxine 75 mcg tablet 75 mcg PO DAILY 02/04/21 11/11/22 Unknown History trazodone 50 mg tablet 50 mg PO BEDTIME PRN for insomnia 02/04/21 11/11/22 Unknown History doxepin 10 mg capsule 10 mg PO BEDTIME 05/23/22 Unknown History Exam Exam Date and Time: November 14, 2022 1137 Height,Weight and Vital Signs: Height 4 ft 11 in Weight 73.936 kg Narrative Narrative: EKG 04/2022 Vent. Rate : 074 BPM Atrial Rate : 074 BPM P-R Int : 132 ms QRS Dur : 086 ms QT Int : 408 ms P-R-T Axes : 055 029 033 degrees QTc Int : 452 ms Normal sinus rhythm Normal ECG When compared with ECG of 20-MAY-2020 11:50, No significant change was found Assessment and Plan Assessment Anesthesia Assessment: Chart Reviewed Documented by User: Floyd Newman MD 11/15/22 12:33 PMFSH Past Medical History Medical History Gastroparesis Diverticulosis History of COVID-19 Bleeding hemorrhoids Hepatic steatosis Arthritis Hypothyroid Diabetes mellitus TIA (transient ischemic attack) Asthma Elevated cholesterol History of tachycardia Hypertension PHAN on CPAP IBS (irritable bowel syndrome) GERD (gastroesophageal reflux disease) Family History Family History Father Hx of gangrene Hx of type 2 diabetes mellitus History of partial colectomy Hx of small bowel obstruction History of high blood pressure Mother History of hypothyroidism Brother No problems noted. Sister No problems noted. Maternal Aunt Colon cancer Family history of problems with anesthesia: No Surgical History Surgical History Hx of hemorrhoidectomy Tubal ligation status Hx of dilation and curettage Hx of section Hx of colonoscopy History of esophagogastroduodenoscopy (EGD) History of Problems with Anesthesia: No Social History Social History Household Members: Family Household Members Other:: DAUGHTER,SON IN LAW AND GRANDCHILDREN Housing: Apartment Are you a primary career development associate to a significant other at home: No Do you presently have visiting nurse or other home services: No Alcohol intake: never Patient Tobacco Use Status: Never used Tobacco Advance Directives: No Advance Directives Information Provided: Yes service: No Current occupational status: disabled Meds Allergies Allergy/AdvReac Type Severity Reaction Status Date / Time aspirin [ASA] Allergy Severe SWELLING, Verified 11/08/22 14:21 itching and swelling, shortness of breath ibuprofen Allergy Intermediate swelling Verified 11/08/22 14:21 Home Medications Medication Instructions Recorded Confirmed Last Taken Type acetaminophen 500 mg capsule 500 mg PO QID PRN Pain 02/10/20 11/11/22 Unknown History ascorbic acid (vitamin C) 500 mg 500 mg PO DAILY 02/10/20 11/11/22 Unknown History chewable tablet (Vitamin C) fluticasone propionate 220 1 puff inhalation BID 02/10/20 11/11/22 Unknown History mcg/actuation HFA aerosol inhaler gabapentin 300 mg capsule 300 mg PO BID 02/10/20 11/11/22 Unknown History (Neurontin) hydroxyzine pamoate 25 mg capsule 25 mg PO TID PRN Nausea 02/10/20 11/11/22 Unknown History (Vistaril) sertraline 100 mg tablet (Zoloft) 200 mg PO DAILY 02/10/20 11/11/22 Unknown History diltiazem HCl 120 mg 120 mg PO DAILY 06/02/20 11/11/22 Unknown History capsule,extended release 24 hr topiramate 50 mg tablet 50 mg PO BEDTIME 06/02/20 11/11/22 Unknown History blood sugar diagnostic (FreeStyle #10 ea 10/20/20 04/18/22 Unknown History Lite Strips) atorvastatin 40 mg tablet 1 tab PO BEDTIME 02/04/21 11/11/22 Unknown History levothyroxine 75 mcg tablet 75 mcg PO DAILY 02/04/21 11/11/22 Unknown History trazodone 50 mg tablet 50 mg PO BEDTIME PRN for insomnia 02/04/21 11/11/22 Unknown History doxepin 10 mg capsule 10 mg PO BEDTIME 05/23/22 Unknown History Exam Airway Mallampati Class: II TM Dist: >3cm Neck ROM: Full Loose/Missing/Broken Teeth: Upper Assessment and Plan Assessment Anesthesia Assessment: Anesthesia Plan Discussed Final Anesthetic Review Family History of Problems with Anesthesia: No History of Problems with Anesthesia: No NPO: Yes ASA Class: III Final Preanesthetic Review: No Changes in Pt Med Stat, Meds/Allgs Chart Reviewed, Consent Obtained/Reviewed and Anes Risks/Benef Reviewed Patient Risk: Intermediate Procedure Risk: Low Anesthetic Plan Anesthetic Plan: MAC: Disposition: Standard PACU
[2022-11-15 12:25] VITALS: BP 153/88; PULSE 90; RESP 16; TEMP 36.8; O2SAT 100
--- NOTE | 2022-11-15 12:40 | MHC.SHP ---
Pre-Procedural Eval Section A Date of Service: 11/15/22 Section B Chief Complaint: choking on food and epigastric pain,hx of polyps Details of Present Illness: choking on food and epigastric pain Relevant Family History (Specify if Yes): No Relevant Social History: None Present Medications: see Short Stay Collaborative assessment Medical History: Significant History (Arthritis Asthma Diabetes mellitus Elevated cholesterol GERD (gastroesophageal reflux disease) History of tachycardia Hypertension Hypothyroid IBS (irritable bowel syndrome) PHAN on CPAP TIA (transient ischemic attack)) History of Previous Operations: Relevant previous surgery/procedure and date(s) (History of esophagogastroduodenoscopy (EGD) Hx of section Hx of colonoscopy Hx of dilation and curettage) Allergies: Allergies Allergy/AdvReac Type Severity Reaction Status Date / Time aspirin [ASA] Allergy Severe SWELLING, Verified 11/08/22 14:21 itching and swelling, shortness of breath ibuprofen Allergy Intermediate swelling Verified 11/08/22 14:21 Review of Systems Sugical H&P ROS: Negative: Constitution, Cardiovascular, Respiratory, Neurological, Psychiatric, Hem-Onc, Allergic/Immunologic, Gastrointestinal, Genitourinary, Musculoskeletal, Integumentary, Endocrine and Eyes/Ears/Nose/Throat Exam Surgical H&P Exam: Normal: HEENT, Normal: Heart, Normal: Lungs, Normal: Extremities, Normal: Abdomen, Normal: Skin and Normal: Neurological Plan Diagnosis/Plan: Unchanged I have reviewed the history and physical and performed a pertinent physical examination on my patient. No changes have occurred unless specified. Time Spent With Patient Time: Total time managing care of this patient today ____ minutes.
[2022-11-15 12:49] LABS: Glucose, Whole Blood 98 mg/dL (60-115)
--- NOTE | 2022-11-15 13:05 | P.OP_ITS ---
Operative Note Operative Note Date of Service: 11/15/22 Narrative: Operative Information Procedure Description: EGD, Colonoscopy Indication: choking on food and epigastric pain, hx of polyps Anesthesia: MAC FLEXIBLE TRANSORAL UPPER GASTROINTESTINAL ENDOSCOPY AND COLONOSCOPY PROCEDURE NOTE UPPER ENDOSCOPY Consent: Indications for the procedure and potential complications of bleeding, perforation, reaction to medications and missed diagnosis were discussed with the patient and informed consent was obtained. Instrument: Olympus GIF H 190 J mid size upper endoscope Monitoring: Vital signs and clinical assessment, continuous EKG monitoring, Pulse oximetry, Carbon Dioxide monitoring and blood pressure monitoring were done throughout the procedure. Procedure: The patient was placed in the left lateral decubitis position and pre-procedure medications were administered and a bite block was placed. The endoscope was inserted into the mouth and advanced under direct vision to the third part of duodenum. A careful inspection was made as the upper endoscope was withdrawn including a retroflexed examination of the proximal stomach; Findings and interventions are described below. Findings: Larynx:normal Esophagus: GE junction at 33 cm, diaphragm hiatus at 35 cm, schatzki ring noted with some mild esophagitis and 2 cm sliding hiatal hernia, balloon dilation done at LES and UES with some heme noted at LES> Stomach: Patchy erythema. Biopsies were obtained. Grade 2 flap valve on retroflexed examination of the cardia. Pyloric outlet dilated to 20 mm with heme noted and small tear. Duodenum: Normal bulb and descending duodenum, Intervention: Biopsies as noted above COLONOSCOPY Instrument: Olympus variable stiffness pediatric scope 190L Colonoscopy Monitoring: Vital signs and clinical assessment, continuous EKG monitoring, Pulse oximetry, Carbon Dioxide monitoring and blood pressure monitoring were done throughout the procedure. Colon withdrawal time was 6 minutes. Procedure: The patient was placed in the left lateral decubitis position and pre-procedure medications were administered. After a digital rectal examination of the ano-rectum, the video colonoscope was inserted into the rectum and advanced through the colon to the cecum/TI. The colonoscope was slowly withdrawn in a retrograde panoramic fashion and the colon mucosa was carefully examined including a retroflexed view of the rectum. Findings and interventions are described below. Procedure Difficulty:moderate Findings: Terminal Ileum- superficially intubated and normal Cecum:normal Ascending Colon: scattered diverticula Transverse Colon -normal Descending Colon:normal Sigmoid Colon: wide mouthed diverticula, with luminal narrowing Rectum: Retroflexion with small internal hemorrhoids, grade I Anorectum - normal Colon preparation: Braddock Bowel Preparation Scale Right colon; 2 Transverse colon: 2 Left colon; 2 (0 = Unprepared colon segment with mucosa not seen due to solid stool that cannot be cleared. 1 = Portion of mucosa of the colon segment seen, but other areas of the colon segment not well seen due to staining, residual stool and/or opaque liquid. 2 = Minor amount of residual staining, small fragments of stool and/or opaque liquid, but mucosa of colon segment seen well. 3 = Entire mucosa of colon segment seen well with no residual staining, small fragments of stool or opaque liquid) Impression and Post Procedure Diagnosis: Endoscopy Findings: gastritis schatzki ring hiatal hernia esophagitis pyloric stricture Colonoscopy Findings: internal hemorrhoids diverticular disease Plan: Await Pathology results Repeat Colonoscopy in 5 years due to prior hx of polyps or earlier if clinically indicated High fiber diet leaflet avoid straining at stool, epsom salts and sitz bath, anusol supps or cream GERD precautions -check if taking PPI Above findings were reviewed with the patient and relevant handouts were provided if indicated.
[2022-11-15 13:56] VITALS: BP 105/65; PULSE 85; RESP 16; TEMP 36.7; O2SAT 97
[2022-11-15 14:11] VITALS: BP 130/79; PULSE 76; RESP 17; O2SAT 100
[2022-11-15 14:30] VITALS: BP 140/82; PULSE 76; RESP 18; TEMP 36.7; O2SAT 100
== END 2022-11-15 15:02 | disposition home or self-care (01) ==
PROVIDERS: PCP Nurse Practitioner Primary Care; Visit Provider Internal Medicine Gastroenterology
PROC: (CPT 43249; principal; 2022-11-15 13:30)
DX: Z12.11 Encounter for screening for malignant neoplasm of colon (principal); Z86.010 Personal history of colon polyps; K57.30 Diverticulosis of large intestine without perforation or abscess without bleeding; K64.0 First degree hemorrhoids; K58.9 Irritable bowel syndrome, unspecified; R13.10 Dysphagia, unspecified; K20.80 Other esophagitis without bleeding; K22.2 Esophageal obstruction; K31.1 Adult hypertrophic pyloric stenosis; K29.50 Unspecified chronic gastritis without bleeding; K44.9 Diaphragmatic hernia without obstruction or gangrene; I10 Essential (primary) hypertension; J45.909 Unspecified asthma, uncomplicated; E78.00 Pure hypercholesterolemia, unspecified; E11.9 Type 2 diabetes mellitus without complications; G47.33 Obstructive sleep apnea (adult) (pediatric); Z99.89 Dependence on other enabling machines and devices; Z79.51 Long term (current) use of inhaled steroids; Z86.73 Personal history of transient ischemic attack (TIA), and cerebral infarction without residual deficits; Z88.8 Allergy status to other drugs, medicaments and biological substances
CPT/HCPCS: 43249; 43245; 43239; G0105; 82947; 88305; 88341; 88342; C1726

== ENCOUNTER → 2022-11-15 12:02 | Outpatient (BNV) | payer MEDICARE, MEDICAID, SELFPAY | PROVIDERS: PCP Nurse Practitioner Primary Care; Visit Provider Internal Medicine Gastroenterology | DX: K20.90 Esophagitis, unspecified without bleeding (principal); K22.2 Esophageal obstruction; K31.1 Adult hypertrophic pyloric stenosis; K29.70 Gastritis, unspecified, without bleeding; Z12.11 Encounter for screening for malignant neoplasm of colon; Z86.010 Personal history of colon polyps; K64.8 Other hemorrhoids | CPT/HCPCS: 43239; 43245; 43249; G0105 ==

== ENCOUNTER 2022-12-22 09:34 | Outpatient (REF) | payer MEDICARE, MEDICAID, SELFPAY ==
[2022-12-22 11:11] LABS: MANUAL DIFF FLAG NO
[2022-12-22 11:27] LABS: Basophils Absolute Auto 0.1 X10*3/uL (0.0-0.2); Basophils Percent Auto 1.4 % (0-2); Eosinophils Absolute Auto 0.2 X10*3/uL (0.0-0.4); Eosinophils Percent Auto 2.5 % (0-4); Hematocrit 38.7 % (37.0-47.0); Hemoglobin 11.9 g/dl (12.0-16.0); Imm Gran Abs Auto 0.03 X10*3/uL (0.00-0.03); Imm Gran Pct Auto 0.5 % (0.0-0.4); Lymphocytes Percent Auto 31.3 % (20-40); Mean Corpuscular HGB Conc 30.7 g/dl (31.0-35.0); Mean Corpuscular Hemoglobin 23.3 pg (27.0-33.0); Mean Corpuscular Volume 75.9 fL (80.0-98.0); Mean Platelet Volume 11.5 fL (9.4-12.3); Monocytes Absolute Auto 0.5 X10*3/uL (0.1-1.2); Monocytes Percent Auto 8.5 % (2-11); Neutrophils Absolute Auto 3.6 x10*3/uL (2.0-8.3); Neutrophils Percent Auto 55.8 % (45-73); Platelet Count 294 X10*3/uL (160-400); Red Cell Distribution Width 14.1 % (11.0-16.0); White Blood Count 6.4 X10*3/uL (4.8-10.8)
[2022-12-22 11:50] LABS: Alanine Aminotransferase 12 U/L (0-31); Albumin Level 4.1 g/dL (3.5-5.0); Alkaline Phosphatase 76 U/L (39-117); Anion Gap 11 (12-20); Aspartate Amino Transferase 17 U/L (5-31); Bilirubin Total 0.7 mg/dL (0.0-1.0); Blood Urea Nitrogen 13 mg/dL (9-16); Calcium 9.3 mg/dL (8.4-10.2); Carbon Dioxide 28 mmol/L (22-29); Chloride 105 mmol/L (96-108); Estimated Glomerular Filt Rate > 60; Glucose Random 127 mg/dL (60-115); Potassium 3.8 mmol/L (3.3-5.1); Sodium 140 mmol/L (135-145); Total Protein 7.7 g/dL (6.5-8.0)
[2022-12-22 11:55] LABS: Cholesterol 212 mg/dL (<200); HDL Cholesterol 48 mg/dL (>40); LDL Cholesterol Calculated 138 mg/dL (<100); Triglycerides 133 mg/dL (<150)
[2022-12-22 12:17] LABS: Ferritin 232 ng/mL (10-250)
[2022-12-27 09:58] LABS: IgA 457 mg/dL (70-320); IgG 1461 mg/dL (600-1540); IgM 171 mg/dL (50-300)
== END 2022-12-22 09:35 | disposition home or self-care (01) ==
LOC: HO.HHCL 09:34
PROVIDERS: Nurse Practitioner Primary Care; Visit Provider Internal Medicine Medical Oncology
DX: E11.69 Type 2 diabetes mellitus with other specified complication (principal); E78.5 Hyperlipidemia, unspecified; D64.9 Anemia, unspecified; E03.9 Hypothyroidism, unspecified
CPT/HCPCS: 36415; 80053; 80061; 82728; 82784; 84443; 85025; 86334

== ENCOUNTER 2023-04-24 18:36 | Outpatient (REF) | payer MEDICARE, MEDICAID, SELFPAY | END 2023-04-24 18:37 | disposition home or self-care (01) | LOC: HO.HHCLNP 18:36 | PROVIDERS: Visit Provider Emergency Medicine | DX: R68.89 Other general symptoms and signs (principal) | CPT/HCPCS: 87070 ==

== ENCOUNTER 2023-05-05 09:59 | Outpatient (AMB) | payer MEDICARE, MEDICAID, SELFPAY ==
[2023-05-05 10:04] VITALS: BP 148/79; PULSE 80; BMI 32.5
--- NOTE | 2023-05-05 10:04 | A.OFFVIS_ITS ---
Intake Vital Signs 05/05/23 10:04 Height 4 ft 11 in Weight 160 lb 14.999 oz BMI 32.5 BP 148/79 H Blood Pressure Location Lt brachial Position Sitting Pulse 80 Intake Visit Reasons: Follow up Epigastric abdominal pain Intake Note: Johnna presents in the office as a follow up. CC: States she has pains in the lower abdomen. She states that she does not have irregular bowel movements. 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 had been seen for H pylori, dysphagia and rectal bleeding she has heartburn, meds help a little abdominal pain is between sternum and umbilicus she also has pelvic pain, and being Ix by PCP, sent for u/s she also had rectsal bleeding for years, looks like menstrual blood, intermittent she has to strain and push, she feels she has postprandial fecal urgency she admits to stress and depression, takes meds for that seroquel and zoloft she was also on metformin sleep is poor, spends a long time trying to get to sleep EGD for dysphagia 2015-- h pylori gastritis colon screen 2015-- polyps removed, hemorrhoids noted, fair prep--hyperplastic she was given quadruple therapy for h pylori f/u h pylori test was negative indicating cure I gave her trazodone for gastroparesis, but it made her feel more sick so she stopped it after 1 week she takes linaclotide for constipation and it helps EGD/colonoscopy--02/2020--esophagitis, colon polyps, inflammed hemorrhoids, nml random colon bx GES 08/03-- pos 36% at 4 hrs EGD/Colonscopy:11/15/22 Endoscopy Findings: gastritis schatzki ring hiatal hernia esophagitis pyloric stricture Colonoscopy Findings: internal hemorrhoids diverticular disease Path: mild chronic atrophic gastritis INTERIM: she has epigastric pain goes to mid abdo and into the back like a band feels like a period pain, cramping if passes gas or stool, does not help she feels linszess might help pain as does tylenol pain is worse with walking, sometimes food she denies nausea or vomiting deneis urine symptoms sx worse with stress, she has anxiety at baseline EXAM: GENERAL: The patient is well developed and nontoxic. VITAL SIGNS:see workflow HEENT: Nonicteric sclerae, PERRLA, EOMI. Oropharynx clear. Moist mucous membranes. Conjunctivae appear well perfused. No thyroid mass. CHEST: Chest wall is nontender. HEART: Regular rate and rhythm without murmurs. LUNGS: Clear to auscultation bilaterally. ABDOMEN: Soft, positive bowel sounds, tender suprapubic area and epigastrium, no organomegaly.no flank tenderness but tender paraspinal areas SKIN: No rash, no excessive bruising, petechiae, or purpura. NEUROLOGIC: Cranial nerves II-XII intact without motor/sensory deficit. Assessments 1. H. pylori infection--resolved 2. epigastric pain, possibly related to spine or could also be pancreatic etiology, colonic spasm, diverticulosis PLAN: 1/ trial of levsin 2/ CT scan A/P to r/o ovarian or panc pa thology [facility] Medical History Gastroparesis Diverticulosis History of COVID-19 Bleeding hemorrhoids Hepatic steatosis Arthritis Hypothyroid Diabetes mellitus TIA (transient ischemic attack) Asthma Elevated cholesterol History of tachycardia Hypertension PHAN on CPAP IBS (irritable bowel syndrome) GERD (gastroesophageal reflux disease) Surgical History Hx of hemorrhoidectomy Tubal ligation status Hx of dilation and curettage Hx of section Hx of colonoscopy History of esophagogastroduodenoscopy (EGD) Family History Father Hx of gangrene Hx of type 2 diabetes mellitus History of partial colectomy Hx of small bowel obstruction History of high blood pressure Mother History of hypothyroidism Brother No problems noted. Sister No problems noted. Maternal Aunt Colon cancer Social History Household Members: Family Household Members Other:: DAUGHTER,SON IN LAW AND GRANDCHILDREN Housing: Apartment Are you a primary progressive care manager to a significant other at home: No Do you presently have visiting nurse or other home services: No Alcohol intake: never Patient Tobacco Use Status: Never used Tobacco service: No Current occupational status: disabled Female Reproductive History Menstrual Age of Menarche: 13 Physical Exam Vital Signs: Last Vital Signs Pulse 80 05/05/23 10:04 BP 148/79 H 05/05/23 10:04 BMI result Body Mass Index 32.5 Assessment & Plan Assessment & Plan (1) Epigastric abdominal pain: Code(s): R10.13 - Epigastric pain Plan: see above Orders: Orders Complete Blood Count Auto Diff Today R10.13 - Epigastric pain Comprehensive Met. Panel Today K75.81 - Nonalcoholic steatohepatitis (SANTANA), R10.13 - Epigastric pain CT abdomen pelvis wo/w IV con Today R10.13 - Epigastric pain Medications: New hyoscyamine sulfate 0.125 mg PO BID-QID PRN 30 tabs 1RF dyspepsia Coding Level of Care Code Est Pt Level 3 (49974) Diagnoses Epigastric abdominal pain R10.13
== END 2023-05-05 10:31 | disposition home or self-care (01) ==
PROVIDERS: PCP Nurse Practitioner Primary Care; Visit Provider Internal Medicine Gastroenterology
DX: R10.13 Epigastric pain (principal)
CPT/HCPCS: 99213

== ENCOUNTER → 2023-05-05 09:59 | Outpatient (BNVA) | payer MEDICARE, MEDICAID, SELFPAY | PROVIDERS: PCP Nurse Practitioner Primary Care; Visit Provider Internal Medicine Gastroenterology | DX: R10.13 Epigastric pain (principal) | CPT/HCPCS: 99212 ==

== ENCOUNTER → 2023-06-12 08:07 | Outpatient (REF) | payer MEDICARE, MEDICAID, SELFPAY ==
--- NOTE | ~2023-06-12 | NM_ITS ---
Exercise Myocardial perfusion study Indication: Chest pain to evaluate for myocardial ischemia Technique: The patient was brought in for an exercise perfusion study on 06/12/2023. Patient performed exercise as per Ortega protocol and was injected 25 mCi of sestamibi was given intravenously one target HR was achieved. Images were obtained using the SPECT gamma camera interlaced with the gating device. Images were obtained in supine position. Resting perfusion study was performed on 06/14/2023. Patient was administered 25 mCi of sestamibi intravenously at rest. Images were then obtained in supine position. Images obtained with and without CT attenuation. Total DLP 82 mGy-cm. Images were processed with the software and compared side to side in short axis, horizontal long axis and vertical long axis views. Findings: The stress perfusion study showed both attenuated as well as non attenuated corrected images show normal uptake of radiotracer in all segments of LV myocardium. Suggestion of left ventricle hypertrophy. The gated study shows normal LV systolic function with calculated LVEF of 67%. LV cavity is normal in size. The gated study shows normal systolic wall thickening and contraction of all segments. There is normal transient ischemic dilation. Resting study shows no change in perfusion pattern stress perfusion study. Gating at rest reveals normal systolic wall motion with ejection fraction at 54%. The findings are consistent with normal myocardial perfusion. NM/NM venus perf SPECT rest & str Impression: 1. Normal myocardial perfusion 2. Gated LVEF is 67% 3. Transient ischemic dilatation not present Stress EKG is suggestive of ischemia
--- NOTE | 2023-06-12 08:13 | CA_ITS ---
Acquisition Time: 2023-06-12 08:23:02 Total Exercise Time: 00:02:18 Test Indications: CP Medications: SEE H Protocol: KOSTAS Max HR: 162 BPM 106% of Pred: 152 BPM Max BP: 184/082 mmHG Max Work Load: 3.6 METS Exercise stress test exercise 2 min 18 sec Kostas protocol achieving 106% MPHR test terminated due to tachycardia and feeling aggitated achieved 85% by 45 seconds, with 8-9/10 chest pressure, with mild SOB, with isolated PVC, with HTN response to exercise, with downsloping leads 2, 3, aVF, V5-V6. Test changed to pharmacological stress test with Lexiscan once blood pressure and chest pain returned to baseline. Pharmacological stress test with Lexiscan injection while sititng and kicking her legs, with 10/10 chest pressure, no shortness of breath, withotu arrhythmais, with normotensive response to injection, with with downsloping leads 2, 3, aVF, V3-V6. Aminophylline 75mg IVP given to reverse Lexiscan. Chest pressure resolved post Aminophylline. Nuclear images pending, Test reviewed with Dr. Marc. end EKG sinus rhythm rate 80. 0/10 chest pain. blood pressure 112/64 Referred By: Vahid Rojo Overread By: Ara Martinez
== END ==
LOC: HO.CARD 08:07
PROVIDERS: PCP Nurse Practitioner Primary Care; Visit Provider Internal Medicine Cardiovascular Disease
DX: R07.9 Chest pain, unspecified (principal); R00.2 Palpitations
CPT/HCPCS: 78452; 93017; A9500; J0280; J2785

== ENCOUNTER → 2023-06-12 08:13 | Outpatient (BNV) | payer MEDICARE, MEDICAID, SELFPAY | PROVIDERS: PCP Nurse Practitioner Primary Care; Visit Provider Nurse Practitioner | DX: R07.9 Chest pain, unspecified (principal) | CPT/HCPCS: 78452; 93016; 93018 ==

== ENCOUNTER 2023-06-21 15:45 | Outpatient (REF) | payer MEDICARE, MEDICAID, SELFPAY | END 2023-06-21 15:46 | disposition home or self-care (01) | LOC: HO.SH 15:45 | PROVIDERS: Visit Provider Emergency Medicine | DX: Z01.118 Encounter for examination of ears and hearing with other abnormal findings (principal); H90.3 Sensorineural hearing loss, bilateral | CPT/HCPCS: 92557; 92567 ==

== ENCOUNTER 2023-06-29 12:54 | Outpatient (REF) | payer MEDICARE, MEDICAID, SELFPAY ==
--- NOTE | ~2023-06-29 | XR_ITS ---
EXAMINATION: Bilateral hip series CLINICAL INFORMATION: Bilateral hip pain COMPARISON: X-rays of the left hip April 2017. TECHNIQUE: 2 views of each hip FINDINGS: Right hip: Tiny marginal osteophytes at the femoral head junction. Joint spaces normal. Surrounding bone and soft tissues unremarkable. Left hip: Small marginal osteophytes. Possible tiny subchondral cysts along the superolateral acetabulum unchanged. No joint space narrowing. Surrounding bone and soft tissues unremarkable. XR/XR hip LT min 2V IMPRESSION: RIGHT HIP: Mild osteoarthritis LEFT HIP: Mild osteoarthritis unchanged.
--- NOTE | ~2023-06-29 | XR_ITS ---
EXAMINATION: XR KNEE, LEFT CLINICAL INFORMATION: Left knee pain COMPARISON: None available. TECHNIQUE: 3 views of the left knee. FINDINGS: No fracture or joint effusion. Alignment is anatomic. Joint spaces are maintained. No abnormal soft tissue calcification. XR/XR knee LT 4V IMPRESSION: Normal left knee.
--- NOTE | ~2023-06-29 | XR_ITS ---
EXAMINATION: XR LUMBOSACRAL SPINE CLINICAL INFORMATION: Order states acute bilateral low back pain without sciatica, left knee arthrosis, patient states left knee pain for 2 years, order states bilateral hip pain, hip arthrodesis. Patient states right hip pain for a month and left hip pain. She stated she fell a year ago. COMPARISON: MRI lumbar spine 02/04/2019, radiographs lumbar spine 04/20/2018. TECHNIQUE: 4 views of the lumbosacral spine. FINDINGS: Minimal rightward curvature of the lumbar spine. Facet arthritis in the lower lumbar spine. Redemonstration of a sclerotic focus along the partially imaged left acetabular rim. Mild multilevel lumbar spondylosis. Disc space heights are preserved. XR/XR lumbar spine 2-3V IMPRESSION: Mild multilevel lumbar spondylosis.
--- NOTE | ~2023-06-29 | XR_ITS ---
EXAMINATION: Bilateral hip series CLINICAL INFORMATION: Bilateral hip pain COMPARISON: X-rays of the left hip April 2017. TECHNIQUE: 2 views of each hip FINDINGS: Right hip: Tiny marginal osteophytes at the femoral head junction. Joint spaces normal. Surrounding bone and soft tissues unremarkable. Left hip: Small marginal osteophytes. Possible tiny subchondral cysts along the superolateral acetabulum unchanged. No joint space narrowing. Surrounding bone and soft tissues unremarkable. XR/XR hip RT min 2V IMPRESSION: RIGHT HIP: Mild osteoarthritis LEFT HIP: Mild osteoarthritis unchanged.
== END 2023-06-29 12:55 | disposition home or self-care (01) ==
LOC: HO.HHCX 12:54
PROVIDERS: Visit Provider Internal Medicine
DX: M16.9 Osteoarthritis of hip, unspecified (principal); M54.50 Low back pain, unspecified; M17.12 Unilateral primary osteoarthritis, left knee
CPT/HCPCS: 72100; 73502; 73564

== ENCOUNTER 2023-07-04 15:30 | Outpatient (REF) | payer MEDICARE, MEDICAID, SELFPAY ==
--- NOTE | ~2023-07-04 | XR_ITS ---
EXAMINATION: XR LUMBOSACRAL SPINE WITH OBLIQUES CLINICAL INFORMATION: Atraumatic chronic back pain, low back. COMPARISON: MRI lumbar spine 02/04/2019, XR lumbar spine 04/20/2018. TECHNIQUE: 5 views of the lumbar spine. FINDINGS: Mild dextroscoliosis of the lumbar spine. The bones are diffusely demineralized. Facet arthritis at L5-S1. Moderate multilevel lumbar spondylosis at L3-L4, L4-L5 and L5-S1. Mild loss of disc space height at L5-S1. XR/XR lumbar spine 4V min IMPRESSION: Moderate multilevel lumbar spondylosis at L3-L4, L4-L5 and L5-S1.
--- NOTE | ~2023-07-04 | XR_ITS ---
EXAMINATION: XR HIP, LEFT CLINICAL INFORMATION: Atraumatic left hip pain COMPARISON: 06/29/2023 TECHNIQUE: Two views of the left hip. FINDINGS: Small marginal osteophytes with mild narrowing of the joint space. Alignment preserved. Redemonstration of a sclerotic focus along the superior aspect of the acetabulum. XR/XR hip LT min 2V IMPRESSION: Mild degenerative changes in the left hip.
[2023-07-04 15:41] LABS: MANUAL DIFF FLAG NO
[2023-07-04 15:57] LABS: Basophils Absolute Auto 0.1 X10*3/uL (0.0-0.2); Basophils Percent Auto 1.3 % (0-2); Eosinophils Absolute Auto 0.1 X10*3/uL (0.0-0.4); Eosinophils Percent Auto 1.8 % (0-4); Hematocrit 38.5 % (37.0-47.0); Hemoglobin 11.9 g/dl (12.0-16.0); Imm Gran Abs Auto 0.03 X10*3/uL (0.00-0.03); Imm Gran Pct Auto 0.4 % (0.0-0.4); Lymphocytes Absolute Auto 2.1 X10*3/uL (1.2-4.9); Lymphocytes Percent Auto 30.6 % (20-40); Mean Corpuscular HGB Conc 30.9 g/dl (31.0-35.0); Mean Corpuscular Hemoglobin 23.7 pg (27.0-33.0); Mean Corpuscular Volume 76.5 fL (80.0-98.0); Mean Platelet Volume 10.4 fL (9.4-12.3); Monocytes Absolute Auto 0.6 X10*3/uL (0.1-1.2); Monocytes Percent Auto 9.1 % (2-11); Neutrophils Absolute Auto 3.9 x10*3/uL (2.0-8.3); Neutrophils Percent Auto 56.8 % (45-73); Platelet Count 294 X10*3/uL (160-400); Red Blood Count 5.03 X10*6/uL (4.20-5.50); Red Cell Distribution Width 14.3 % (11.0-16.0); White Blood Count 6.8 X10*3/uL (4.8-10.8)
[2023-07-04 17:16] LABS: Alanine Aminotransferase 13 U/L (0-31); Albumin Level 4.1 g/dL (3.5-5.0); Alkaline Phosphatase 86 U/L (39-117); Anion Gap 14 (12-20); Aspartate Amino Transferase 18 U/L (5-31); Bilirubin Total 0.6 mg/dL (0.0-1.0); Blood Urea Nitrogen 12 mg/dL (9-16); Calcium 9.6 mg/dL (8.4-10.2); Carbon Dioxide 25 mmol/L (22-29); Chloride 107 mmol/L (96-108); Estimated Glomerular Filt Rate > 60; Glucose Random 121 mg/dL (60-115); Potassium 4.2 mmol/L (3.3-5.1); Sodium 142 mmol/L (135-145); Total Protein 7.8 g/dL (6.5-8.0)
== END 2023-07-04 15:31 | disposition home or self-care (01) ==
LOC: HO.CT 15:30
PROVIDERS: Absent Provider Nurse Practitioner Primary Care; PCP Nurse Practitioner Primary Care; Visit Provider Internal Medicine Gastroenterology
DX: R10.13 Epigastric pain (principal); K75.81 Nonalcoholic steatohepatitis (NASH); M25.552 Pain in left hip; M54.50 Low back pain, unspecified; G89.29 Other chronic pain
CPT/HCPCS: 36415; 72110; 73502; 80053; 85025

== ENCOUNTER 2023-07-05 14:03 | Outpatient (REF) | payer MEDICARE, MEDICAID, SELFPAY ==
--- NOTE | 2023-07-05 14:52 | MHC.AU.HA1 ---
Hearing Aid Evaluation Date of Visit: 07/05/23 Art Tracer Used: Tamazight- In Person Historical Information: Description of Hearing: Mild to moderate sensorineural hearing loss. Summary: Here for hearing aid consultation. Recent hearing evaluation on 06/21/23. [facility] [place] screen coordinator present. Daughter and granddaughter here today. Reviewed options. 10 years ago Johnna tried RICs and had trouble with the feeling behind her ear and stopped wearing them. Reviewed options, discussed pros and cons of DEANNA vs ITE. Johnna is willing to try RICs again. She has an Android phone that is compatible with Oticon hearing aids. She prefers battery to rechargeable incase she is without power. Hearing Aid Prescription: Based on the individual?s shared listening needs, communication environments, dexterity, desire for connectivity, and personal preferences, the following prescription for amplification has been made: Right ear: Make, Model, Color: Oticon Real 2 RITE, pink Battery Size: 312 Civil Engineering Designer/Slim Tube: 2/85 Type of Earmold/Dome/CShell/SlimTip: 6mm dbl maurice Left ear: Make, Model, Color: Oticon Real 2 RITE, pink Battery Size: 312 Civil Engineering Designer/Slim Tube: 2/85 Type of Earmold/Dome/CShell/SlimTip: 6mm dbl josafat Plan of Care: Patient wishes to purchase hearing aids as prescribed Action Taken/Action Needed: Medical Clearance to be requested from PCP/ENT Hearing Instrument Fitting to be scheduled when materials arrive Primary Diagnosis: H90.3 Bilateral Sensorineural Hearing Loss Signature: Provider: Kayla Irving, [facility]
== END 2023-07-05 14:04 | disposition home or self-care (01) ==
LOC: HO.HAP 14:03
PROVIDERS: Visit Provider Nurse Practitioner Primary Care
DX: Z46.1 Encounter for fitting and adjustment of hearing aid (principal); H90.3 Sensorineural hearing loss, bilateral
CPT/HCPCS: 92591

== ENCOUNTER 2023-07-06 12:47 | Outpatient (REF) | payer MEDICARE, MEDICAID, SELFPAY ==
--- NOTE | ~2023-07-06 | CT_ITS ---
EXAMINATION: CT ABDOMEN AND PELVIS WITHOUT AND WITH CONTRAST CLINICAL INFORMATION: Epigastric pain COMPARISON: None available. TECHNIQUE: Multidetector volumetric imaging was performed of the abdomen and pelvis before and after the IV administration of 85 mL of Omnipaque 350 intravenous contrast. Arterial phase imaging obtained through the abdomen. Portal venous phase imaging obtained through the abdomen and pelvis. Oral contrast was administered. Sagittal and coronal reformatted images were obtained on the technologist's workstation. This CT examination was performed using dose optimization techniques as appropriate, variously including the following: *Automated exposure control *Adjustment of mA and/or kV according to patient size (this includes techniques or standardized protocols for targeted exams where dose is matched to indication/reason for exam; i.e. extremities or head) *Use of iterative reconstruction technique DLP: 920 mGy-cm FINDINGS: LUNG BASES: The visualized lung bases are unremarkable. LIVER, GALLBLADDER, AND BILIARY TREE: The liver is normal in size, shape, and attenuation. No focal hepatic lesion or biliary ductal dilatation is present. The gallbladder is unremarkable with no evidence of radiopaque gallstones, gallbladder wall thickening, or obvious pericholecystic inflammatory changes. PANCREAS: Unremarkable SPLEEN: Unremarkable ADRENAL GLANDS: Unremarkable KIDNEYS AND URETERS: The kidneys are normal in size, shape, and attenuation. No hydronephrosis, hydroureter, or calculi seen. No perinephric stranding. BLADDER: Unremarkable GASTROINTESTINAL TRACT: There are numerous diverticula of the sigmoid and descending colon. There is no diverticulitis. There is no bowel wall thickening /edema. There is no bowel obstruction. There is a moderate volume of stool in the colon. The appendix is normal . The small bowel loops are unremarkable. The stomach is normal. There is no hiatal hernia. ABDOMINAL WALL: No significant hernia is appreciated. LYMPH NODES: Normal VASCULAR: Unremarkable PELVIC VISCERA: Unremarkable OSSEOUS STRUCTURES: Unremarkable CT/CT abdomen pelvis wo/w IV con IMPRESSION: No acute abnormality CT scan abdomen pelvis. Fleischner guidelines were followed.
[2023-07-06] MEDS: iohexoL 350 MG/ML 100 ML INFUS..BTL IV (15:22)
[2023-07-06] MEDS: Barium Sulfate Oral (Mocha) 450 ML ORAL.SUSP 900 ML PO (15:23)
== END 2023-07-06 12:48 | disposition home or self-care (01) ==
LOC: HO.CT 12:47
PROVIDERS: PCP Nurse Practitioner Primary Care; Visit Provider Internal Medicine Gastroenterology
DX: R10.13 Epigastric pain (principal)
CPT/HCPCS: 74178; Q9967

== ENCOUNTER 2023-08-28 10:00 | Outpatient (AMB) | payer MEDICARE, MEDICAID, SELFPAY ==
--- NOTE | 2023-08-28 10:03 | MHC.OFFVIS ---
Vital Signs 08/28/23 10:04 Height 4 ft 11 in Weight 163 lb 2.273 oz BMI 32.9 BP 120/67 Blood Pressure Location Lt brachial Position Sitting Pulse 75 Intake Visit Reasons: 4 month follow up Intake Note: Johnna presents in the office as a 4 month follow up. CC: She states that she has a follow up and results from tests that she had done prior to this appt. 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 had been seen for H pylori, dysphagia and rectal bleeding she has heartburn, meds help a little abdominal pain is between sternum and umbilicus she also has pelvic pain, and being Ix by PCP, sent for u/s she also had rectsal bleeding for years, looks like menstrual blood, intermittent she has to strain and push, she feels she has postprandial fecal urgency she admits to stress and depression, takes meds for that seroquel and zoloft she was also on metformin sleep is poor, spends a long time trying to get to sleep EGD for dysphagia 2015-- h pylori gastritis colon screen 2015-- polyps removed, hemorrhoids noted, fair prep--hyperplastic she was given quadruple therapy for h pylori f/u h pylori test was negative indicating cure I gave her trazodone for gastroparesis, but it made her feel more sick so she stopped it after 1 week she takes linaclotide for constipation and it helps EGD/colonoscopy--02/2020--esophagitis, colon polyps, inflammed hemorrhoids, nml random colon bx GES 08/03-- pos 36% at 4 hrs EGD/Colonscopy:11/15/22 Endoscopy Findings: gastritis schatzki ring hiatal hernia esophagitis pyloric stricture Colonoscopy Findings: internal hemorrhoids diverticular disease Path: mild chronic atrophic gastritis CT 07/06: numerous diverticulosis in sigmodi and descending colon INTERIM: she has epigastric discomfort, takes linszess and it helps, only takes prn she feesl better than when I last saw her she denies nausea or vomiting deneis urine symptoms stress is bad - she is not sure, taking doxepin and helping EXAM: GENERAL: The patient is well developed and nontoxic. VITAL SIGNS:see workflow HEENT: Nonicteric sclerae, PERRLA, EOMI. Oropharynx clear. Moist mucous membranes. Conjunctivae appear well perfused. No thyroid mass. CHEST: Chest wall is nontender. HEART: Regular rate and rhythm without murmurs. LUNGS: Clear to auscultation bilaterally. ABDOMEN: Soft, positive bowel sounds, , no organomegaly.no flank tenderness, mild tender epigastrium SKIN: No rash, no excessive bruising, petechiae, or purpura. NEUROLOGIC: Cranial nerves II-XII intact without motor/sensory deficit. Assessments 1. H. pylori infection--resolved 2. epigastric pain, possibly related to spine or could also be pancreatic etiology, colonic spasm, diverticulosis--helped by linaclotide, actually better than before PLAN: 1/ high fiber diet 2/ cont with PPI, can take MV as well 3/ if needed can rx levsin PFSH Medical History Gastroparesis Diverticulosis History of COVID-19 Bleeding hemorrhoids Hepatic steatosis Arthritis Hypothyroid Diabetes mellitus TIA (transient ischemic attack) Asthma Elevated cholesterol History of tachycardia Hypertension PHAN on CPAP IBS (irritable bowel syndrome) GERD (gastroesophageal reflux disease) Surgical History Hx of hemorrhoidectomy Tubal ligation status Hx of dilation and curettage Hx of section Hx of colonoscopy History of esophagogastroduodenoscopy (EGD) Family History Father Hx of gangrene Hx of type 2 diabetes mellitus History of partial colectomy Hx of small bowel obstruction History of high blood pressure Mother History of hypothyroidism Brother No problems noted. Sister No problems noted. Maternal Aunt Colon cancer Social History Household Members: Family Household Members Other:: DAUGHTER,SON IN LAW AND GRANDCHILDREN Housing: Apartment Are you a primary manager progressive care to a significant other at home: No Do you presently have visiting nurse or other home services: No Alcohol intake: never Patient Tobacco Use Status: Never used Tobacco service: No Current occupational status: disabled Female Reproductive History Menstrual Age of Menarche: 13 Physical Exam Vital Signs: Last Vital Signs Pulse 75 08/28/23 10:04 BP 120/67 08/28/23 10:04 BMI result Body Mass Index 32.9 Assessment & Plan Assessment & Plan (1) Diverticula of colon: Code(s): K57.30 - Diverticulosis of large intestine without perforation or abscess without bleeding Category: Medical Plan: high fiber diet Coding Level of Care Code Est Pt Level 3 (53918) Diagnoses Diverticula of colon K57.30
[2023-08-28 10:04] VITALS: BP 120/67; PULSE 75; BMI 32.9
== END 2023-08-28 10:30 | disposition home or self-care (01) ==
PROVIDERS: PCP Nurse Practitioner Primary Care; Visit Provider Internal Medicine Gastroenterology
DX: K57.30 Diverticulosis of large intestine without perforation or abscess without bleeding (principal)
CPT/HCPCS: 99213

== ENCOUNTER → 2023-08-28 10:00 | Outpatient (BNVA) | payer MEDICARE, MEDICAID, SELFPAY | PROVIDERS: PCP Nurse Practitioner Primary Care; Visit Provider Internal Medicine Gastroenterology | DX: K57.30 Diverticulosis of large intestine without perforation or abscess without bleeding (principal) | CPT/HCPCS: 99212 ==

== ENCOUNTER 2023-08-30 14:00 | Outpatient (RCR) | payer MEDICARE, MEDICAID, SELFPAY ==
--- NOTE | 2023-08-18 12:56 | MHC.PT.EP ---
[facility] [place] Office [place] Office [place] Office [address] Efra Patel [address] [phone] F: [phone] F: [phone] F: [phone] F: [phone] Physical Therapy Plan of Care Date of Evaluation: 08/18/23 Date of Surgery: Diagnosis: LBP w/o sciatica, hip/knee pain Assessment: Pt is a 68 yo female who presents with chronic L sided hip/knee and low back pain. PT exam reveals movement pattern dysfunction, muscle imbalance including abdominal and glute weakness with excessive lordosis/ant pelvic tilt. Skilled PT indicated to address pain, improve core activation during mobility, teach back protection and HEP to manage symptoms I. Pt is motivated to participate and is in agreement with POC. Frequency and Duration: The patient will be seen 2x/week, x 4 weeks Short Term Goals: 1. In 2 weeks, improve patient's ability to maintain TAC x 10 seconds rated as 4/5. 2. In 2 weeks, improve lumbar flexion ROM to 50%. 3. In 2 weeks, patient will report pain L knee <= 4/10. Shelter Goals: 1. In 4 weeks, patient will improve score on ANGEL by 20% indicating reduced pain and improved functional mobility. 2. In 4 weeks, patient will be I with phase 2 lumbar stab program including modified bridging and CKC exercises. Treatment Plan: Modalities to reduce pain, spasms and effusion. Manual therapy to restore motion and function. Therapeutic exercise to improve strength and flexibility. Neuromuscular re-education for posture and balance. Therapeutic activities to return to functional activities of daily living. Electronically signed by: Nicki Peraza PT, DPT Please sign and return to therapist. Thank you for your referral.
--- NOTE | 2023-12-26 10:29 | MHC.PT.DC ---
[facility] [place] Office [place] Office [place] Office [address] Efra Patel [address] [phone] F: [phone] F: [phone] F: [phone] F: [phone] Physical Therapy Discharge Report Diagnosis: LBP w/o sciatica, hip/knee pain Date of Surgery: Date of Evaluation: 08/18/23 Date of Discharge: 12/26/23 Treatments to Date: 2 Cancellations to Date: 2 No Shows to Date: 1 Discharge Status: Visit Non-compliance Discharge Summary: Pt is a 68 yo female who presents with chronic L sided hip/knee and low back pain. PT exam reveals movement pattern dysfunction, muscle imbalance including abdominal and glute weakness with excessive lordosis/ant pelvic tilt. Skilled PT indicated to address pain, improve core activation during mobility, teach back protection and HEP to manage symptoms I. Pt is motivated to participate and is in agreement with POC. Pt only participated in 2 treatment sessions and did not return for any additional appointments. D/C at this time due to visit non-compliance. Thank you for this referral. Electronically signed by: Nicki Peraza PT, DPT Please sign and return to therapist. Thank you for your referral.
== END 2023-12-26 10:29 | disposition home or self-care (01) ==
LOC: HO.PT 14:00
PROVIDERS: PCP Nurse Practitioner Primary Care; Visit Provider Internal Medicine
DX: M16.9 Osteoarthritis of hip, unspecified (principal); M17.10 Unilateral primary osteoarthritis, unspecified knee; M54.50 Low back pain, unspecified
CPT/HCPCS: 97110; 97162; 97530

== ENCOUNTER 2023-09-06 13:57 | Outpatient (REF) | payer MEDICARE, MEDICAID, SELFPAY ==
--- NOTE | ~2023-09-06 | US_ITS ---
EXAMINATION: US SOFT TISSUE HEAD/NECK CLINICAL INFORMATION: Small mass submental area x1 year, never smoker. COMPARISON: None available. TECHNIQUE: Linear transducer grayscale and color Doppler examination of the submental area. FINDINGS: In the palpable region along the submental area, medial to the left submandibular gland is a lentiform appearing focus measuring 0.7 x 0.6 x 0.6 cm potentially representing morphologically benign-appearing lymph node. No focal mass otherwise identified. US/US soft tiss head and/or neck IMPRESSION: In the palpable region along the submental area, medial to the left submandibular gland is a lentiform appearing focus measuring 0.7 x 0.6 x 0.6 cm potentially representing morphologically benign-appearing lymph node.
== END 2023-09-06 13:58 | disposition home or self-care (01) ==
LOC: HO.US 13:57
PROVIDERS: Visit Provider Nurse Practitioner Primary Care
DX: R22.1 Localized swelling, mass and lump, neck (principal)
CPT/HCPCS: 76536

== ENCOUNTER 2023-09-14 09:58 | Outpatient (REF) | payer MEDICARE, MEDICAID, SELFPAY ==
--- NOTE | 2023-09-14 12:30 | MHC.AU.HA2 ---
Hearing Instrument Fitting- Adult- Binaural Date of Visit: 09/14/23 Hearing Instruments Dispensed: Right Ear: Make, Model, Color, Serial Number: Oticon Real 2 anai HICKMAN [id number] Chemical Plant Manager Repair Warranty: 09/23/2026 Chemical Plant Manager Loss and Damage Warranty: 09/23/2026 [facility] Service Plan: 09/13/24 Battery Size: 312 Automotive Fuel Injection Servicer/Slim Tube: 2/85 Earmold/Dome/CShell/SlimTip: 6mm dbl maurice Type of Wax Guard: Oticon Prowax minifit Left Ear: Make, Model, Color, Serial Number: Oticon Real 2 anai HICKMAN [id number] Chemical Plant Manager Repair Warranty: 09/23/2026 Chemical Plant Manager Loss and Damage Warranty: 09/23/2026 [facility] Service Plan: 09/13/24 Battery Size: 312 Automotive Fuel Injection Servicer/Slim Tube: 2/85 Earmold/Dome/CShell/SlimTip: 6mm dbl josafat Type of Wax Guard: Oticon Prowax minifit Summary of Fitting: Fit with and oriented to binaural Oticon Real 2 312 HAs. Verified to [facility] adult 5 targets. Previous RHOADES user. Reviewed maintenance, precautions, battery procedures. Practiced insertion and removal. Counseled on adjustment to amplification. VC disabled. Not paired to phone at this time. Recommendations: Recommendations: Hearing instrument care and maintenance were discussed and practiced. A hearing instrument follow-up was scheduled. Diagnosis Code(s): Primary Diagnosis: H90.3 Bilateral Sensorineural Hearing Loss Signature: Provider: Kayla Irving, [facility]
== END 2023-09-14 09:59 | disposition home or self-care (01) ==
LOC: HO.HAP 09:58
PROVIDERS: Visit Provider Nurse Practitioner Primary Care
DX: Z46.1 Encounter for fitting and adjustment of hearing aid (principal); H90.3 Sensorineural hearing loss, bilateral
CPT/HCPCS: V5011; V5020; V5160; V5261

== ENCOUNTER 2023-10-09 13:17 | Outpatient (REF) | payer MEDICARE, MEDICAID, SELFPAY | END 2023-10-09 13:18 | disposition home or self-care (01) | LOC: HO.HAP 13:17 | PROVIDERS: Visit Provider Nurse Practitioner Primary Care | DX: Z13.89 Encounter for screening for other disorder (principal) ==

== ENCOUNTER 2023-10-31 13:26 | Outpatient (REF) | payer MEDICARE, MEDICAID, SELFPAY ==
[2023-10-31 14:34] LABS: Alanine Aminotransferase 14 U/L (0-31); Albumin Level 4.2 g/dL (3.5-5.0); Alkaline Phosphatase 69 U/L (39-117); Anion Gap 11 (12-20); Aspartate Amino Transferase 17 U/L (5-31); Blood Urea Nitrogen 12 mg/dL (9-16); Calcium 9.5 mg/dL (8.4-10.2); Carbon Dioxide 27 mmol/L (22-29); Chloride 105 mmol/L (96-108); Estimated Glomerular Filt Rate > 60; Glucose Random 133 mg/dL (60-115); Potassium 3.9 mmol/L (3.3-5.1); Sodium 139 mmol/L (135-145)
[2023-10-31 14:36] LABS: Erythrocyte Sedimentation Rate 22 MM/HR (0-20)
[2023-10-31 14:52] LABS: TSH reflex Free T4 2.66 uIU/mL (0.32-4.0)
[2023-11-02 07:02] LABS: Lyme Abs Screen <0.90 index
== END 2023-10-31 13:27 | disposition home or self-care (01) ==
LOC: HO.LAB 13:26
PROVIDERS: PCP Nurse Practitioner Primary Care; Visit Provider Psychiatry & Neurology Neurology
DX: G57.01 Lesion of sciatic nerve, right lower limb (principal)
CPT/HCPCS: 36415; 80053; 82550; 84443; 85652; 86617; 86618

== ENCOUNTER 2023-11-13 10:40 | Outpatient (REF) | payer MEDICARE, MEDICAID, SELFPAY | END 2023-11-13 10:41 | disposition home or self-care (01) | LOC: HO.MAMMO 10:40 | PROVIDERS: PCP Nurse Practitioner Primary Care; Visit Provider Nurse Practitioner Primary Care | DX: Z13.89 Encounter for screening for other disorder (principal) ==

== ENCOUNTER → 2024-03-26 11:30 | Outpatient (BNV) | payer MEDICARE, MEDICAID, SELFPAY | PROVIDERS: PCP Nurse Practitioner Primary Care; Visit Provider Internal Medicine | DX: N64.4 Mastodynia (principal); R92.333 Mammographic heterogeneous density, bilateral breasts | CPT/HCPCS: 76642; 77066; G0279 ==

== ENCOUNTER 2024-03-26 11:50 | Outpatient (REF) | payer MEDICARE, MEDICAID, SELFPAY ==
--- NOTE | ~2024-03-26 | US_ITS ---
EXAMINATION: MM DIAGNOSTIC DIGITAL BREAST TOMOSYNTHESIS, BILATERAL Bilateral Limited ultrasound. CLINICAL INFORMATION: Bilateral palpable lumps and pain. COMPARISON: Mammography: Comparison is made with relevant prior exams. TECHNIQUE: Digital breast mammography with tomosynthesis is performed in both the craniocaudal and mediolateral oblique views along with computer-aided detection (CAD). Bilateral Limited ultrasound. FINDINGS: The breasts are heterogeneously dense, which may obscure small masses (ACR BI-RADS breast composition Category c). Left: BB marker in the upper outer breast at site of palpable lump without underlying abnormality. No suspicious masses calcifications or other abnormal findings. Targeted color Doppler ultrasound scanning in the upper outer quadrant and from 12- 6:00 lateral breast area of patient's pain demonstrates normal fibronodular breast tissue. Right: BB marker in the upper outer breast without underlying abnormality at site of patient's palpable lump and pain. Marker clip. No suspicious masses calcifications or other abnormal findings. Targeted color Doppler ultrasound scanning in the upper outer breast and from 6-12 o'clock in the lateral breast the area the patient's palpable lump and pain demonstrates normal fibroglandular breast tissue. Results are provided to the patient at time of visit by the technologist. US/US breast BI limited mamm only IMPRESSION: No mammographic or sonographic abnormality bilaterally to explain the patient's palpable lumps and pain. Recommend clinical evaluation follow-up. Recommend yearly mammographic screening. ASSESSMENT: BI-RADS BI-RADS 1 - Negative RECOMMENDATION: 1 year F/U This patient's information was entered into a reminder system with a target due date for their next mammogram. Electronically signed by: Marina Wang DO 03/26/2024 01:02 PM ZENA
== END 2024-03-26 11:51 | disposition home or self-care (01) ==
LOC: HO.MAMMO 11:50
PROVIDERS: PCP Nurse Practitioner Primary Care; Visit Provider Nurse Practitioner Primary Care
DX: R92.1 Mammographic calcification found on diagnostic imaging of breast (principal); N64.4 Mastodynia; N63.13 Unspecified lump in the right breast, lower outer quadrant
CPT/HCPCS: 76642; 77062; 77066

== ENCOUNTER 2024-04-22 13:06 | Outpatient (AMB) | payer MEDICARE, MEDICAID, SELFPAY ==
--- NOTE | 2024-04-22 13:10 | A.OFFVIS_ITS ---
Vital Signs 04/22/24 13:11 Height 4 ft 11 in Weight 165 lb 5.547 oz BMI 33.4 BP 128/56 L Blood Pressure Location Lt brachial Position Sitting Pulse 77 Intake Visit Reasons: 8 month follow up Diverticula of colon Intake Note: Johnna presents in the office as a 8 month follow up for diverticula of the colon. CC: She states that she is having some concerns today. She is having lots of pains in the stomach when she eats - it happens even when she does not eat. States that she has both constipation and diarrhea. Investment Counselor Required: Yes Allergies aspirin [ASA] Allergy (Severe, Verified 04/22/24 13:13) SWELLING, itching and swelling, shortness of breath ibuprofen Allergy (Intermediate, Verified 04/22/24 13:13) swelling HPI HPI 8 month follow up Diverticula of colon: Details: 69 yr old f being seen for f/u gericare aide used RECAP had been seen for H pylori, dysphagia and rectal bleeding she has heartburn, meds help a little abdominal pain is between sternum and umbilicus she also has pelvic pain, and being Ix by PCP, sent for u/s she also had rectal bleeding for years, looks like menstrual blood, intermittent she has to strain and push, she feels she has postprandial fecal urgency she admits to stress and depression, takes meds for that seroquel and zoloft she was also on metformin sleep is poor, spends a long time trying to get to sleep EGD for dysphagia 2015-- h pylori gastritis colon screen 2015-- polyps removed, hemorrhoids noted, fair prep--hyperplastic she was given quadruple therapy for h pylori f/u h pylori test was negative indicating cure I gave her trazodone for gastroparesis, but it made her feel more sick so she stopped it after 1 week she takes linaclotide for constipation and it helps EGD/colonoscopy--02/2020--esophagitis, colon polyps, inflammed hemorrhoids, nml random colon bx GES 08/03-- pos 36% at 4 hrs EGD/Colonscopy:11/15/22 Endoscopy Findings: gastritis schatzki ring hiatal hernia esophagitis pyloric stricture Colonoscopy Findings: internal hemorrhoids diverticular disease Path: mild chronic atrophic gastritis CT 07/06: numerous diverticulosis in sigmoid and descending colon INTERIM: she has epigastric discomfort whether she eats or not can be helped with passign stool she takes linalcotide, alternate days and she feels it helps takes linszess and it helps, only takes prn she feesl better than when I last saw her she denies nausea or vomiting deneis urine symptoms stress is bad - she is not sure, taking doxepin and helping EXAM: GENERAL: The patient is well developed and nontoxic. VITAL SIGNS:see workflow HEENT: Nonicteric sclerae, PERRLA, EOMI. Oropharynx clear. Moist mucous membranes. Conjunctivae appear well perfused. No thyroid mass. CHEST: Chest wall is nontender. HEART: Regular rate and rhythm without murmurs. LUNGS: Clear to auscultation bilaterally. ABDOMEN: Soft, positive bowel sounds, , no organomegaly.no flank tenderness, mild tender epigastrium and ruq SKIN: No rash, no excessive bruising, petechiae, or purpura. NEUROLOGIC: Cranial nerves II-XII intact without motor/sensory deficit. Assessments 1. H. pylori infection--resolved 2. epigastric pain, with ruq tenderness PLAN: 1/ US RUQ - r/o gallstones 2/ rast testing r/o food allergies PFSH Medical History Gastroparesis Diverticulosis History of COVID-19 Bleeding hemorrhoids Hepatic steatosis Arthritis Hypothyroid Diabetes mellitus TIA (transient ischemic attack) Asthma Elevated cholesterol History of tachycardia Hypertension PHAN on CPAP IBS (irritable bowel syndrome) GERD (gastroesophageal reflux disease) Surgical History Hx of hemorrhoidectomy Tubal ligation status Hx of dilation and curettage Hx of section Hx of colonoscopy History of esophagogastroduodenoscopy (EGD) Family History Father Hx of gangrene Hx of type 2 diabetes mellitus History of partial colectomy Hx of small bowel obstruction History of high blood pressure Mother History of hypothyroidism Brother No problems noted. Sister No problems noted. Maternal Aunt Colon cancer Social History Household Members: Family Household Members Other:: DAUGHTER,SON IN LAW AND GRANDCHILDREN Housing: Apartment Are you a primary occasional caregiver to a significant other at home: No Do you presently have visiting nurse or other home services: No Alcohol intake: never Patient Tobacco Use Status: Never used Tobacco service: No Current occupational status: disabled Female Reproductive History Menstrual Age of Menarche: 13 Physical Exam Vital Signs: Last Vital Signs Pulse 77 04/22/24 13:11 BP 128/56 L 04/22/24 13:11 BMI result Body Mass Index 33.4 Assessment & Plan Assessment & Plan (1) Epigastric abdominal pain: Code(s): R10.13 - Epigastric pain Category: Medical Plan: as above Orders: Orders Rast Allergen Today R10.13 - Epigastric pain, Z91.018 - Allergy to other foods US abdomen unger w elastography Today R10.13 - Epigastric pain Coding Level of Care Code Est Pt Level 3 (26731) Diagnoses Epigastric abdominal pain R10.13
[2024-04-22 13:11] VITALS: BP 128/56; PULSE 77; BMI 33.4
--- OUTSIDE RECORDS SUMMARY | 2024-04-22 14:44 | XMS_ITS | Data Portability ---
Author Organization [place] - [facility], Allergy Address [address] [place] [phone] Assessment Encounter Date Assessment Date Assessment LastModified by Organization Details LastModified Time 09/13/2023 09/13/2023 Reviewed with family balance disturbance most likely a combination of her poor peripheral vision, lower extremity neuropathy, improper gait, and lower joint issues. However, given the reduction in hearing, sense of pressure in the ears/head, and the increase in tinnitus with episodes, as well as the rightward deviation on [place], there is likely also some vestibulopathy in play. Given the symmetric hearing loss on the audiogram she brings in today and the fact her tinnitus is bilateral, along with the fact this has been ongoing for years without worsening, do not see an immediate need for MRI brain/IACs. Recommend neurology referral and referral for vestibular therapy. Brain imaging could be obtained at the discretion of the neurologist. We reviewed indications to return to the office versus visit ED for imbalance. We did discuss basic vestibular precautions such as control of salt, sugar, food, and water intake over the course of the day. Continue to work with in process inspector and PCP on vision and lower extremity issues. May benefit from a medication review. Recommend binaural amplification and annual audiometric testing. [email or web address] Not available 09/13/2023 16:05:20 Plan of Treatment Reminders Order Date Submit Date Provider Last Modified By Organization Details Last Modified Time Details Appointments None recorded. Lab None recorded. Referral vestibular therapy referral - Referral for vestibular therapy. Thank you. 2023 Delfina alvarado 2 [facility], [address] [place] [address], [place], [address], 08/20/202 4 13:35:24 neurologist referral - Referral for dizziness. Thank you. 2023 [facility]itra [facility], [address] [place] [address], [place], [address], 15:41:34 Procedures None recorded. Surgeries None recorded. Imaging None recorded. Medication Orders None recorded. Patient TargetsNo targets recorded. Patient InstructionsNo instructions recorded. Reason for Referral Vestibular Therapy Referral for Dizziness Referral for vestibular therapy. Thank you. Referring Physician: Sandra Ramos Otolaryngology, Encounter Date: 09/13/2023 Neurologist Referral for Miki james Referral for dizziness. Thank you. Referring Physician: Sandra Ramos Otolaryngology, Encounter Date: 09/13/2023 Results Created Date Observation Date Name Description Value Unit Range Abnormal Flag Note LastModifiedBy Organization Detail LastModifiedTime 09/14/19 24 06/21/2023 audio gram No observ ation record ed. [email or web address] Not Available 02/2023 10:03:06 10/04/19 24 06/21/2023 imagi ng/di agnos tic resul t No observ ation record ed. [email or web address] Not Available 02:19:55 Result Notes None recorded. 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 Active 2015 Cough variant asthma; Note: Date Diagnosed : 6 5:07 PM (J45.991) Not Available [facility] 4 02:53:56 Allergic rhinitis 51715742 Active 2015 Allergic rhinitis, unspecifi ed; Note: Date Diagnosed : 6 5:07 PM (J30.9) Not Available [facility] 4 02:53:58 Cough 44345810 Active 2015 Cough, unspecifi ed; Note: Changed from R05 to R05.9 (04/14/2021 3:53 PM) , Date Diagnosed : 10/19/201 6 5:07 PM (R05) Not Available [facility] 4 02:53:55 Dizziness 981831463 Active 2023 SANDRA RAMOS PA-C [address] [place] [address] [address], [place], [phone] , [facility] - [facility] 4 14:54:55 Problem Notes None recorded. Procedures Surgical History None recorded. Imaging Results Imaging Date Name Status LastModified by Organiz ation Details LastModified Time 06/21/2023 audiogram completed [email or web address] Information not available 09/14/2023 10:03:06 06/21/2023 imaging/diagno stic result completed [email or web address] Information not available 10/04/2023 02:19:55 Procedure Notes None recorded. Medical Equipment None Reported. Allergies Allergen ID Allergen Name Allergen Category Reaction Reaction Severity Criticality Documentation Date Start Date Code Code System Note Provider Name and Address Organization Details Recorded Time 224626 aspirin medicatio n other Not available Not available 06/27/2023 1191 RxNorm React ion: unkno wn, unspe cifie d;; Not Available [facility] 4 01:23:00 Medications Name Sig Start Date Stop Date Status Note LastModified by Organization Details LastModified Time medbox status USE DIRECTED active Not Available Not Available No t Available Singulair 10 mg tablet 1 tablet by mouth 06/24 completed Medicati on ID: [id number] P rescribe d By Name: Benji Babcock MD Brand Name: Jonathonulai r Send Method: E-Prescr ibed Sub s Allowed: subs OK Speci al Instruct ion: Take 1 tablet by mouth every day in the evening Medicati onGeneri cName: Singulai r Not Available Not Available Not Available atorvasta tin 40 mg tablet TAKE 1 TABLET BY MOUTH AT BEDTIME active Not Available Not Available No t Available metformin 500 mg tablet 04/14 completed Medicati on ID: [id number] D uration Value: 15 Brand Name: metformi n Send Method: E-Prescr ibed Sub s Allowed: subs OK Speci al Instruct ion: TAKE 1 TABLET BY MOUTH EVERY DAY WITH MORNING AND EVENING MEALS Me dication GenericN darvin: metformi n Not Available Not Available Not Available gabapenti n 600 mg tablet 09/12 completed Medicati on ID: [id number] B rand Name: gabapent in Send Method: E-Prescr ibed Sub s Allowed: subs OK Medic ationGen ericName : gabapent in Medic ation ID: [id number] B rand Name: gabapent in Send Method: E-Prescr ibed Sub s Allowed: subs OK Medic ationGen ericName : gabapent in Not Available Not Available Not Available Vitamin C 500 mg tablet TAKE 1 TABLET BY MOUTH EVERYDAY AT NOON (WITH IRON) active Not Available Not Available No t Available glyburide 2.5 mg tablet 04/14 completed Medicati on ID: [id number] D uration Value: 30 Brand Name: glyburid e Send Method: E-Prescr ibed Sub s Allowed: subs OK Speci al Instruct ion: TAKE 1 TABLET BY MOUTH EVERY DAY BEFORE BREAKFAS T Medica tionGene ricName: glyburid e Not Available Not Available Not Available doxepin 25 mg capsule TAKE 1 CAPSULE BY MOUTH AT BEDTIME active Not Available Not Available No t Available albuterol sulfate 1.25 mg/3 mL solution for nebulizat ion INHALE 1 AMPULE USING A NEBULIZE R EVERY 6 HOURS NEEDED FOR WHEEZING active Not Available Not Available No t Available prednison e 20 mg tablet TAKE 2 TABLETS BY MOUTH ONCE DAILY IN THE MORNING FOR 5 DAYS active Not Available Not Available No t Available alendrona te 70 mg tablet TAKE 1 TABLET BY MOUTH ONCE A WEEK active Not Available Not Available No t Available sertralin e 100 mg tablet TAKE 2 TABLETS BY MOUTH EVERY MORNING active Not Available Not Available No t Available cyanocoba ольга (vit B-12) 1,000 mcg tablet TAKE 1 TABLET BY MOUTH EVERY DAY active Not Available Not Available No t Available doxepin 10 mg capsule TAKE 1 CAPSULE BY MOUTH AT BEDTIME active Not Available Not Available No t Available peg-elect rolyte solution 420 gram oral solution DRINK 240 ML ORALLY EVERY 10 MINUTES UNTIL FECAL EFFLUENT IS CLEAR 09/12 completed Not Available Not Available Not Available omeprazol e 40 mg capsule,d elayed release TAKE 1 CAPSULE BY MOUTH EVERY MORNING active Not Available Not Available No t Available lidocaine -prilocai ne 2.5 %-2.5 % topical cream APPLY TOPICALL Y ONCE active Not Available Not Available No t Available levothyro xine 75 mcg tablet TAKE 1 TABLET BY MOUTH EVERY MORNING & TAKE 1 TABLET ADDITION AL ON MONDAY active Not Available Not Available No t Available diltiazem ER 120 mg capsule,e xtended release 12 hr 04/14 completed Medicati on ID: [id number] B rand Name: diltiaze m HCl Send Method: E-Prescr ibed Sub s Allowed: subs OK Medic ationGen ericName : diltiaze m HCl Not Available Not Available Not Available diltiazem 120 mg tablet 09/12 completed Medicati on ID: [id number] B rand Name: diltiaze m HCl Send Method: E-Prescr ibed Sub s Allowed: subs OK Medic ationGen ericName : diltiaze m HCl Medi cation ID: [id number] B rand Name: diltiaze m HCl Send Method: E-Prescr ibed Sub s Allowed: subs OK Medic ationGen ericName : diltiaze m HCl Not Available Not Available Not Available dicyclomi ne 20 mg tablet active Medicati on ID: [id number] B rand Name: dicyclom ine Send Method: E-Prescr ibed Sub s Allowed: subs OK Medic ationGen ericName : dicyclom ine Not Available Not Available Not Available meclizine 25 mg tablet TAKE 1 TABLET (25 MG) BY MOUTH NEEDED 3 TIMES A DAY (MORNING , NOON AND AT BEDTIME) FOR DIZZINES S 09/12 completed Not Available Not Available Not Available hyoscyami ne 0.125 mg disintegr ating tablet DISSOLVE 1 TABLET ON TONGUE 2-4 TIMES PER DAY NEEDED FOR DYSPEPSI A 09/12 completed Not Available Not Available Not Available levothyro xine 50 mcg tablet 04/14 completed Medicati on ID: [id number] B rand Name: levothyr oxine Se nd Method: E-Prescr ibed Sub s Allowed: subs OK Medic ationGen ericName : levothyr oxine Not Available Not Available Not Available metformin 1,000 mg tablet 09/12 completed Medicati on ID: [id number] B rand Name: metformi n Send Method: E-Prescr ibed Sub s Allowed: subs OK Medic ationGen ericName : davida n Medica tion ID: [id number] B rand Name: davida n Send Method: E-Prescr ibed Sub s Allowed: subs OK Medic ationGen ericName : formtopher n Not Available Not Available Not Available polymyxin B sulfate 10,000 unit-trim ethoprim 1 mg/mL eye drops INSTILL 1 DROP IN EACH EYE FOUR TIMES DAILY FOR 7 DAYS active Not Available Not Available No t Available gabapenti n 300 mg capsule TAKE 2 CAPSULES BY MOUTH TWICE A DAY active Not Available Not Available No t Available omeprazol e 20 mg capsule,d elayed release 04/14 completed Medicati on ID: [id number] D uration Value: 30 Brand Name: omeprazo le Send Method: E-Prescr ibed Sub s Allowed: subs OK Speci al Instruct ion: 1 CAPSULE 30 MIN PRIOR TO BKFT AND SUPPER OR BEDTIME TWICE A DAY ORALL Y 30 DAY(S) Padilla Hogan Name: omeprazo le Not Available Not Available Not Available diltiazem CD 120 mg capsule,e xtended release 24 hr TAKE 1 CAPSULE BY MOUTH EVERYDAY AT NOON 09/12 completed Not Available Not Available Not Available epinephri ne 0.3 mg/0.3 mL injection , auto-inje ctor 1 pen injector 2021 active Medicati on ID: [id number] D uration Value: 1 Prescri bed By Name: Benji Babcock MD Brand Name: epinephr ine Send Method: E-Prescr ibed Sub s Allowed: subs OK Medic ationGen ericName : epinephr ine Not Available Not Available Not Available fluticaso ne propionat e 50 mcg/actua tion nasal spray,arthur pension INSTILL 1 SPRAY IN EACH NOSTRIL ONCE DAILY IN THE MORNING active Not Available Not Available No t Available Ventolin HFA 90 mcg/actua tion aerosol inhaler INHALE 2 PUFFS BY MOUTH EVERY 4 TO 6 HOURS NEEDED 09/12 completed Not Available Not Available Not Available hydroxyzi ne pamoate 25 mg capsule TAKE 1 TO 2 CAPSULES BY MOUTH TWICE DAILY NEEDED active Not Available Not Available No t Available iron 325 mg (65 mg iron) tablet active Medicati on ID: [id number] B rand Name: iron Sen d Method: E-Prescr ibed Sub s Allowed: subs OK Medic ationGen ericName : iron Not Available Not Available Not Available topiramat e 50 mg tablet TAKE 1 TABLET BY MOUTH AT BEDTIME active Not Available Not Available No t Available DILT-XR 120 mg capsule, extended release TAKE 1 CAPSULE BY MOUTH EVERY DAY FOR 30 DAYS active Not Available Not Available No t Available Flovent HFA 110 mcg/actua tion aerosol inhaler Inhale 1 puff using inhaler twice a day as directed 04/14 completed Medicati on ID: [id number] D uration Value: 90 Brand Name: Flovent HFA Send Method: E-Prescr ibed Sub s Allowed: subs OK Medic ationGen ericName : Flovent HFA Not Available Not Available Not Available Pulmicort Flexhaler 180 mcg/actua tion breath activated INHALE 1 PUFF BY MOUTH TWICE DAILY IN THE MORNING AND AT BEDTIME. RINSE MOUTH AFTER USING. DO NOT SWALLOW active Not Available Not Available No t Available Linzess 145 mcg capsule TAKE 1 CAPSULE BY MOUTH EVERY DAY active Not Available Not Available No t Available Compact Space Chamber USE WITH INHALER EVERY 4 HOURS NEEDED (for asthma) active Not Available Not Available No t Available Tiadylt ER 120 mg capsule,e xtended release active Medicati on ID: [id number] B rand Name: Tiadylt ER Send Method: E-Prescr ibed Sub s Allowed: subs OK Medic ationGen ericName : Tiadylt ER Not Available Not Available Not Available Vitals Date Recorded Body height Body mass index (BMI) Body weight Provider Name and Address Organization Details Last Updated DateTime 09/13/2023 147.32 cm 34.5 kg/m2 96667.74 g Lizabeth Matute [place] - [facility] 09/13/2023 14:15:30 Social History None recorded. Functional Status None recorded. Mental Status None recorded. Family History Nothing Reported. Medical History No medical history recorded. Gynecological HistoryNo gynecological history recorded. Obstetrics History GPAL:G 0 P 0 0 0 0 Past Encounters Encounter ID Performer Location Encounter Start Date Encounter Closed Date Diagnosis/Indication Diagnosis SNOMED-CT Code Diagnosis ICD10 Code Diagnosis Note [id number] PORONIMA DESOUZA MD [facility] [address] [place] [address] 09/13/2023 13:42:26 09/13/2023 14:59:55 Dizziness 992507295 R42 Health Concerns Section Related Observation LastModified by Organization Detai ls LastModified Time None Recorded Concern Status LastModified by Organization Details LastModified Time None Recorded Advance Directives Directive None Recorded Payers Encounter Date Sequence Insurance Name Policy Number Policy Gomes Covered Member ID Gomes Member ID Guarantor Name 09/13/2023 1 [place]ARE B-[place]: [id number] Johnna De La Vega [id number] Johnna De La Vega 09/13/2023 2 [place] [facility] Johnna De La Vega [id number] Johnna De La Vega Notes Date Note Type Note Provider Name and Address Organization Details Recorded Time 09/13/2023 text/html 68 year old anish cuba presents for evaluation of ears. Recently had a hearing test at [place] demonstrating hearing loss. Has had this for quite some time, was prescribed hearing aids at one point but doesn't wear them due to discomfort. Otherwise no otalgia and never any otorrhea. Has been having dizziness for years, described as imbalance without vertigo. Can affect her when ambulating or when lying down. Rolling over in bed does not cause symptoms. It can persist all day. Can be present every day for weeks or months and then go away for weeks or months. There is no vision change, headache, confusion, slurred speech, facial nor extremity weakness nor paralysis. The head feels full but no pain. The hearing goes down during episodes, in both ears, and her baseline tinnitus gets louder in both ears. Non-pulsatile. There is no nausea nor vomiting, no increased sensitivity to bright lights or loud noises. Not much salt or sugar in the diet. Drinks one cup of coffee in the morning and no alcohol. Doesn't drink much water. Has glaucoma, has lost some peripheral vision. History of diabetes, now diet-controlled but with lower extremity neuropathy. Pain in the knees, left greater than right, and both ankles. Takes topiramate for sleep, no history of migraine in self or family. POORNIMA DESOUZA MD [address] [facility],[place] [address], [place], [address], [facility] - [facility] 09/19/2023 16:58:41 OBGyn Episode No OBEpisode recorded.
== END 2024-04-22 13:28 | disposition home or self-care (01) ==
PROVIDERS: PCP Nurse Practitioner Primary Care; Visit Provider Internal Medicine Gastroenterology
DX: R10.13 Epigastric pain (principal)
CPT/HCPCS: 99213

== ENCOUNTER → 2024-04-22 13:06 | Outpatient (BNVA) | payer MEDICARE, MEDICAID, SELFPAY | PROVIDERS: PCP Nurse Practitioner Primary Care; Visit Provider Internal Medicine Gastroenterology | DX: R10.13 Epigastric pain (principal) | CPT/HCPCS: 99212 ==

== ENCOUNTER 2024-05-15 15:10 | Outpatient (REF) | payer MEDICARE, MEDICAID, SELFPAY ==
--- OUTSIDE RECORDS SUMMARY | 2024-05-15 17:37 | XMS_ITS | Data Portability ---
Author Organization [place] - [facility], Allergy Address [address] [place] [phone] Assessment Encounter Date Assessment Date Assessment LastModified [...] of the day. Continue to work with four slide machine operator and PCP on vision and lower extremity [...] Delfina alvarado 2 [facility], [address] [place] [address], [place], [address], 08/20/202 4 13:35:24 neurologist referral - Referral for dizziness. Thank you. 2023 Delfina chitra jam[facility]Talia [facility], [address] [place] [address], [place], [address], 15:41:34 Procedures None recorded. Surgeries None recorded. [...] Organization Details Recorded Time Cough variant asthma 575704340 Active 2015 Cough variant asthma; Note: Date Diagnosed : 6 5:07 PM (J45.991) Not Available [facility] 4 02:53:56 Allergic rhinitis 64759254 Active 2015 Allergic rhinitis, unspecifi ed; Note: Date Diagnosed : 6 5:07 PM (J30.9) Not Available [facility] 4 02:53:58 Cough 83612241 Active 2015 Cough, unspecifi ed; Note: Changed from R05 to R05.9 (04/14/2021 3:53 PM) , Date Diagnosed : 10/19/201 6 5:07 PM (R05) Not Available [facility] 4 02:53:55 Dizziness 916368704 Active 2023 SANDRA RAMOS PA-C [address] [place] [address] [address], [place], [address] , [facility] - [facility] 4 14:54:55 Problem Notes None recorded. [...] Name and Address Organization Details Recorded Time 333521 aspirin medicatio n other Not available Not available 06/27/2023 1191 RxNorm React ion: unkno wn, unspe cifie d;; Not Available [facility] 4 01:23:00 Medications Name Sig Start Date Stop Date Status Note LastModified by Organization Details LastModified Time medbox status USE DIRECTED active Not Available Not Available No t Available Singulair 10 mg tablet 1 tablet by mouth 06/24 completed Medicati on ID: [id number] P rescribe d By Name: Benji Babcock [...] mg tablet 04/14 completed Medicati on ID: [id number] D uration Value: 15 Brand Name: metformi n Send Method: E-Prescr ibed Sub s Allowed: subs OK Speci al Instruct ion: TAKE 1 TABLET BY MOUTH EVERY DAY WITH MORNING AND EVENING MEALS Me dication GenericN darvin: metformi n Not Available Not Available Not Available gabapenti n 600 mg tablet 09/12 completed Medicati on ID: [id number] B rand Name: gabapent in Send Method: E-Prescr ibed Sub s Allowed: subs OK Medic ationGen ericName : gabapent in Medic ation ID: [id number] B rand Name: gabapent in Send Method: E-Prescr ibed Sub s Allowed: subs OK Medic ationGen ericName : gabapent in Not Available Not Available Not Available Vitamin C 500 mg tablet TAKE 1 TABLET BY MOUTH EVERYDAY AT NOON (WITH IRON) active Not Available Not Available No t Available glyburide 2.5 mg tablet 04/14 completed Medicati on ID: [id number] D uration Value: 30 Brand Name: glyburid [...] 12 hr 04/14 completed Medicati on ID: [id number] B rand Name: diltiaze m HCl Send Method: E-Prescr ibed Sub s Allowed: subs OK Medic ationGen ericName : diltiaze m HCl Not Available Not Available Not Available diltiazem 120 mg tablet 09/12 completed Medicati on ID: [id number] B rand Name: diltiaze m HCl Send Method: E-Prescr ibed Sub s Allowed: subs OK Medic ationGen ericName : diltiaze m HCl Medi cation ID: [id number] B rand Name: diltiaze m HCl Send Method: E-Prescr ibed Sub s Allowed: subs OK Medic ationGen ericName : diltiaze m HCl Not Available Not Available Not Available dicyclomi ne 20 mg tablet active Medicati on ID: [id number] B rand Name: dicyclom ine Send Method: [...] mcg tablet 04/14 completed Medicati on ID: [id number] B rand Name: levothyr oxine Se nd Method: E-Prescr ibed Sub s Allowed: subs OK Medic ationGen ericName : levothyr oxine Not Available Not Available Not Available metformin 1,000 mg tablet 09/12 completed Medicati on ID: [id number] B rand Name: metformi n Send Method: E-Prescr ibed Sub s Allowed: subs OK Medic ationGen ericName : davida n Medica tion ID: [id number] B rand Name: davida n Send Method: [...] elayed release 04/14 completed Medicati on ID: [id number] D uration Value: 30 Brand Name: omeprazo [...] pen injector 2021 active Medicati on ID: [id number] D uration Value: 1 Prescri bed By [...] mg iron) tablet active Medicati on ID: [id number] B rand Name: iron Sen d Method: [...] as directed 04/14 completed Medicati on ID: [id number] D uration Value: 90 Brand Name: Flovent [...] capsule,e xtended release active Medicati on ID: [id number] B rand Name: Tiadylt ER Send Method: E-Prescr ibed Sub s Allowed: subs OK Medic ationGen ericName : Tiadylt ER Not Available Not Available Not Available Vitals Date Recorded Body height Body mass index (BMI) Body weight Provider Name and Address Organization Details Last Updated DateTime 09/13/2023 147.32 cm 34.5 kg/m2 40576.74 g Lizabeth Matute [place] - [facility] 09/13/2023 14:15:30 Social History None recorded. Functional Status None recorded. Mental Status None recorded. Family History Nothing Reported. Medical History No medical history recorded. Gynecological HistoryNo gynecological history recorded. Obstetrics History GPAL:G 0 P 0 0 0 0 Past Encounters Encounter ID Performer Location Encounter Start Date Encounter Closed Date Diagnosis/Indication Diagnosis SNOMED-CT Code Diagnosis ICD10 Code Diagnosis Note [id number] POORNIMA DESOUZA MD [facility] [address] [place] [address] 09/13/2023 13:42:26 09/13/2023 14:59:55 Dizziness 201478984 R42 Health Concerns Section Related Observation LastModified by Organization Detai ls LastModified Time None Recorded Concern Status LastModified by Organization Details LastModified Time None Recorded Advance Directives Directive None Recorded Payers Encounter Date Sequence Insurance Name Policy Number Policy Gomes Covered Member ID Gomes Member ID Guarantor Name 09/13/2023 1 [place] [employer] Johnna De La Vega [id number] Johnna De La Vega 09/13/2023 2 [place] [facility] Johnna De La Vega [id number] Johnna De La Vega Notes Date Note Type Note Provider Name and Address Organization Details Recorded Time 09/13/2023 text/html 68 year old anish cuba presents for evaluation of ears. Recently had a hearing test at [place] demonstrating hearing loss. Has had this for [...] self or family. POORNIMA DESOUZA MD [address] [facility],[place] [address], [place], [address], [facility] - [facility] 09/19/2023 16:58:41 OBGyn Episode No OBEpisode recorded.
--- OUTSIDE RECORDS SUMMARY | 2024-05-15 17:37 | XMS_ITS | Encounter Summary ---
Author Organization [employer] Address [address] [place] [address] Care Team Providers Care Oil Program Compliance Specialist Name Role Phone Jayla Mccormack Primary Care Provider [phone] Encounter Details Date Type Department Care Team (Late st Contact Info) Description 05/02/2022 Orders Only [facility] MED & PEDS [address] [place] [address] Shanell Moody LPN Social History Tobacco Use Types Packs/Day Years Used Date Smoking Tobacco: Never Assessed Comments Unknown Sex and Gender Information Value Date Recorded Sex Assigned at Female 12/13/2021 10:27 AM EDT Legal Sex Female 10:27 AM EDT Gender Identity Choose not to disclose 10:27 AM EDT Sexual Orientation Choose not to disclose 2021 10:27 AM EDT documented as of this encounter Plan of Treatment Upcoming Encounters Date Type Department Care Team (Late st Contact Info) Description 05/23/2024 9:00 AM EDT Office Visit [facility] MEDICINE [address] [place] [address] Jayla Mccormack ANP [address] [place] [address] documented as of this encounter Visit Diagnoses Not on filedocumented in this encounter Care Teams Oil Program Compliance Specialist Relationship Specialty Start Date End Date Jayla Mccormack ANP [address] [place] [address] PCP - General Family Medicine 01/29/20 documented as of this encounter
--- OUTSIDE RECORDS SUMMARY | 2024-05-15 17:37 | XMS_ITS | Clinical Summary ---
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 02/15/19 23 Active Tiadylt ER 120 MG 24 hr capsule Take 120 mg by mouth in the morning. 03/21/19 23 Active doxepin (SINEquan) 10 MG capsule 05/12/19 23 Active FeroSul 325 (65 Fe) MG tablet TAKE 1 TABLET BY MOUTH TWICE DAILY AT NOON AND IN THE EVENING 02/15/19 23 Active gabapentin (Neurontin) 300 MG capsule Take 600 mg by mouth 2 times daily. 03/31/19 23 Active hydrOXYzine pamoate (Vistaril) 25 MG capsule TAKE 1-2 CAPSULES BY MOUTH TWICE DAILY NEEDED 04/15/19 23 Active omeprazole (PriLOSEC) [address] capsule 05/12/19 23 Active ketoconazole (NIZOral) 2 % cream Apply topically in the morning. 60 g 1 05/20/19 23 Active Linzess 145 MCG capsule Take 145 mcg by mouth in the morning. 08/09/19 23 Active sertraline (Zoloft) 100 MG tablet TAKE 2 TABLETS BY MOUTH ONCE DAILY IN THE MORNING 08/09/19 23 Active alendronate (Fosamax) 70 MG tablet Take 70 mg by mouth 1 (one) time per week. 11/09/19 23 Active meclizine (Antivert) 25 MG tablet Take 1 tablet (25 mg) by mouth if needed in the morning, at noon, and at bedtime for dizziness. 20 tablet 01/04/20 23 Active Spacer/Aero-Holdin g Chambers (OptiChamber Apurva) misc 1 each every 4 (four) hours if needed (asthma). 1 each 04/24/19 24 Active fluticasone (Flonase Allergy Relief) 50 MCG/ACT nasal spray Administer 1 spray into each nostril in the morning. Shake gently. Before first use, prime pump. After use, clean tip and replace cap. 16 g 1 04/24/19 24 Active lidocaine (Lidoderm) 5 % patchIndications:L eft hip pain,Chronic left-sided low back pain, unspecified whether sciatica present Apply 1 patch topically in the morning. Remove & discard patch within 12 hours or as directed by MD. 30 patch 2 05/16/19 24 Active albuterol 1.25 MG/3ML nebulizer solutionIndication s:Moderate persistent asthma without complication Take 3 mL (1.25 mg) by nebulization every 6 (six) hours if needed for wheezing. 75 mL 3 06/29/19 24 025 Active albuterol (Ventolin HFA) 108 (90 Base) MCG/ACT inhalerIndications :Mild intermittent asthma without complication INHALE 2 PUFFS BY MOUTH EVERY 4 TO 6 HOURS NEEDED 18 g 1 08/31/19 24 Active atorvastatin (Lipitor) 40 MG tablet TAKE 1 TABLET BY MOUTH AT BEDTIME 90 tablet 3 09/13/19 24 Active topiramate 50 MG tabletIndications: Chronic nonintractable headache, unspecified headache type TAKE 1 TABLET BY MOUTH AT BEDTIME 90 tablet 1 12/04/19 24 Active Calcium 600/Vitamin D3 600-20 MG-MCG tabletIndications: Osteoporosis without current pathological fracture, unspecified osteoporosis type TAKE 1 TABLET BY MOUTH TWICE DAILY IN THE MORNING AND IN THE EVENING 180 tablet 1 03/06/19 25 Active budesonide (Pulmicort Flexhaler) 180 MCG/ACT inhalerIndications :Persistent cough Inhale 1 puff in the morning and at bedtime. Rinse mouth with water after use to reduce aftertaste and incidence of candidiasis. Do not swallow. 1 each 03/07/19 25 026 Active levothyroxine (Synthroid, Levoxyl) 75 MCG tablet TAKE 1 TABLET BY MOUTH EVERY MORNING & TAKE 1 TABLET ADDITIONAL ON MONDAY 34 tablet 1 04/02/19 25 Active Ascorbic Acid (vitamin C) 250 MG tabletIndications: Anemia, unspecified type Take 1 tablet with iron supplement BID 60 tablet 11 05/16/19 25 Active Ascorbic Acid (vitamin C) 500 MG tabletIndications: Iron deficiency anemia, unspecified iron deficiency anemia type TAKE 1 TABLET BY MOUTH EVERYDAY AT NOON (WITH IRON) 90 tablet 02/02/20 24 025 Discontin ued(Dose adjustmen t) Active Problems Problem Noted Date Diagnosed Date Persistent cough 03/07/2024 Assessment & Plan (03/07/2024 1:59 PM EST): Likely due to previous versus current underlying URI. No evidence of respiratory distress. No wheezing on exam. -prescribed azithromycin (Zithromax) 250 MG, take 2 tablets (500 mg) by mouth once per day for 1 day, THEN 1 tablet (250 mg) Once per day for 4 days. -prescribed benzonatate (Tessalon Perles) 100 MG, take 1 capsule (100 mg) by mouth if needed in the morning, at noon, and at bedtime for cough for up to 7 days. 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 -prescribed refill of budesonide (Pulmicort Flexhaler) 180 MCG/ACT inhaler Indigestion 09/29/2017 Intertrigo 09/29/2017 Obesity (BMI 30-39.9) 09/29/2017 Chronic pain 09/04/2015 Moderate persistent asthma 06/08/2015 Assessment & Plan (06/29/2023 12:52 PM EDT): Use albuterol inhaler Q4hr for next few days then PRN, start inhaler steroid (Pulmicort) Negative rapid viral tests Fu w/ PCP Type 2 diabetes mellitus with hyperlipidemia (CM S/HCC) 04/01/2015 Overview (07/17/2023): Lab Results Component Value Date HGBA1C 6.9 (A) 05/16/2023 HGBA1C 6.9 (A) 12/13/2022 HGBA1C 6.9 (A) 09/02/2022 A1c very stable. At goal </= 7.0% Pt on a lot of meds and would prefer to avoid any additional, but will revisit if tips over 7. Encouraging more exercise, water, less juice. On statin, no ACEi/ARB, allergy to ASA Foot exam at f/u Eye exam: will clarify Calcification of breast 11/26/2014 Memory impairment 11/26/2014 Recurrent major depression in partial remission 11/26/2014 Plantar fasciitis 11/26/2014 11/22/2022 Irritable bowel syndrome 08/19/2014 Sensorineural hearing loss, bilateral 06/16/2014 Anxiety 04/17/2014 Arthritis 04/17/2014 Glaucoma 04/17/2014 Hypothyroidism 04/17/2014 Gastritis 04/17/2014 11/22/2022 Encounters Date Type Department Care Team Description 05/15/2024 Orders Only [facility] [address] [place] [address] Gina Pressley ANP Anemia, unspecified type (Primary Dx) 05/14/2024 Refill [facility] [address] [place] [phone] Gina Pressley ANP Iron deficiency anemia, unspecified iron deficiency anemia type 05/13/2024 Patient Outreach [facility] [address] [place] [phone] Gina Pressley ANP Pre-visit Planning (Pre-visit planning - LVM ) 04/26/2024 Population Health Risk Score Community [facility] ([facility]) Department [address] [place] [phone] Provider, Population Health Generic 03/31/2024 Refill [facility] [address] [place] [phone] Gina Pressley ANP 03/26/2024 Orders Only [facility] [address] [place] [phone] Gina Pressley ANP 03/07/2024 2:20 PM EST Office Visit [facility] [address] [place] [phone] Nupur Ortiz MD Persistent cough (Primary Dx); Mild persistent asthma without complication 03/06/2024 Refill [facility] [address] [place] [phone] Gina Pressley ANP Osteoporosis without current pathological fracture, unspecified osteoporosis type 02/22/2024 Patient Outreach [facility] [address] [place] [phone] Gina Pressley ANP Pre-visit Planning ([facility] screening was completed on 05/12/2023) from Last 3 Months Immunizations Name Administration Dates Next Due Hep B, adult 12/20/2018,04/05/2017 Influenza injectable quadrivalent preservative f ree 04/22/2019 Pneumococcal Polysaccharide PPSV23 09/04/2014 Tdap 05/01/2014 Zoster, live 04/05/2017 Social History Tobacco Use Types Packs/Day Years Used Date Smoking Tobacco: Never Smokeless Tobacco: Never Tobacco Cessation:Counseling Given: Not Answered Alcohol Use Standard Drinks/Week Comments Not Currently 0 (1 standard drink = 0.6 oz pur e alcohol) Depression Answer Date Recorded Patient Health Questionnaire-9 Score 9 12/13/2022 Patient Health Questionnaire-9 Score 9 12/13/2022 Last PHQ-9: Questionnaire Data Not on file 1 Housing Stability Answer Date Recorded What is your housing situation today? I have david andrade 12/13/[address] you li ve. Do you have problems with any of the following? None of the above 12/13/2022 Food Insecurity Answer Date Recorded Within the past 12 months, y ou worried that your food would run out before you got money to buy more: Sometimes True 2023 Within the past 12 months,th e food you bought just didn't last and you didn't have enough money to get more: Sometimes True 05/08/2023 Transportation Answer Date Recorded In the past 12 months, has l ack of transportation kept you from medical appts, meetings, work or from getting things needed for daily living? No 12/13/2022 Utilities Answer Date Recorded In the past 12 months, has t he electric, gas, oil or water company threatened to shut off services in your home? No 12/13/2022 Depression Answer Date Recorded Patient Health Questionnaire-2 Score 2 12/13/2022 Comments Unknown Sex and Gender Information Value Date Recorded Sex Assigned at Female 12/13/2021 10:27 AM EDT Legal Sex Female 10:27 AM EDT Gender Identity Choose not to disclose 10:27 AM EDT Sexual Orientation Choose not to disclose 2021 10:27 AM EDT Last Filed Vital Signs Vital Sign Reading Time Taken Comments Blood Pressure 133/81 03/07/2024 1:38 PM EST Pulse 93 03/07/2024 1:38 PM EST Temperature 37.1 ??C (98.8 ??F) 03/07/2024 1:38 PM ES T Respiratory Rate 19 03/07/2024 1:38 PM EST Oxygen Saturation 95% 03/07/2024 1:38 PM EST Inhaled Oxygen Concentration - - Weight 75.4 kg (166 lb 3.2 oz) 03/07/2024 1:38 P M EST Height 129.5 cm (4' 3 ) 03/07/2024 1:38 PM EST Body Mass Index 44.93 03/07/2024 1:38 PM EST Plan of Treatment Upcoming Encounters Date Type Department Care Team (Late st Contact Info) Description 05/23/2024 9:00 AM EDT Office Visit [facility] [address] [place] [address] Gina Pressley ANP [address] [place] [address] Health Maintenance Due Date Last Done Comments CT Colonography 1955 FIT DNA/Cologuard 1955 FIT 1955 Sigmoidoscopy 1955 Diabetes: Foot Exam 04/12/1965 Eye Exam 04/12/1965 Alcohol/Substance Use Screening 1967 Hepatitis C Screening 04/12/1973 RSV Patients and Patients Aged 60 years or older (1 - Risk 60-74 years 1-dose series) 2015 Pneumococcal Vaccine: 50+ Years (2 of 2 - PCV) 09/05/2015 09/04/2014 Zoster Vaccines (2 of 3) 05/31/2017 04/05/2017 Hepatitis B Vaccines (3 of 3 - 19+ 3-dose series) 02/14/2019 12/20/2018, 04/05/2017 FOBT 04/02/2020 04/02/2019 Colonoscopy 02/16/2023 02/17/2020, 02/17/2020 Colorectal Cancer Screening 02/16/2023 Depression Monitoring (PHQ-9) 06/13/2023 12/13/2022, 12/13/2022 Diabetes: Urine Protein Screening 09/03/2023 09/02/2022, 09/28/2020 COVID-19 Vaccine ( season) 2023 Influenza Vaccine (#1) 2023 04/22/2019 Depression Screening 12/14/2023 12/13/2022, 12/14/19 Lipid Panel 12/23/2023 12/22/2022, 09/28/2020 Diabetes: Hemoglobin A1C 02/28/202411/27/ 024, 08/25/2023, 05/16/2023, Additional history exists DTaP/Tdap/Td Vaccines (2 - Td or Tdap) 05/01/2024 05/01/2014 SDOH Screening 05/07/2024 05/08/2023 Tobacco Screening 03/07/2025 03/07/2024 Mammogram 03/26/2025 03/26/2024, 03/16, 03/26/2024, Additional history exists HIB Vaccines Aged Out No longer eligi ble based on patient's age to complete this topic HPV Vaccines Aged Out No longer eligi ble based on patient's age to complete this topic Hepatitis A Vaccines Aged Out No long er eligible based on patient's age to complete this topic IPV Vaccines Aged Out No longer eligi ble based on patient's age to complete this topic Meningococcal Vaccine Aged Out No nabila nikki eligible based on patient's age to complete this topic RSV under 20 months Aged Out No longe r eligible based on patient's age to complete this topic Rotavirus Vaccines Aged Out No longer eligible based on patient's age to complete this topic Procedures Procedure Name Priority Date/Time Associated Diagnosis Comments BI MAMMOGRAM DIAGNOSTIC TOMOSYNTHESIS BILATERAL Routine 03/26/2024 12:00 PM EST BI US BREAST LIMITED BILATERAL Routine 03/26/2024 12:00 PM EST POCT COVID-19 AG GE ID NOW Routine 03/07/2024 1:53 PM EST Persistent cough POCT INFLUENZA A (ID NOW RAPID MOLECULAR) Routine 03/07/2024 1:53 PM EST Persistent cough POCT INFLUENZA B (ID NOW RAPID MOLECULAR) Routine 03/07/2024 1:53 PM EST Persistent cough POCT GLYCATED HEMOGLOBIN, TOTAL Routine 11/28/2023 2:46 PM EDT Type 2 diabetes mellitus with hyperlipidemia (CMS/HCC) (CMS/HCC) LIPID PANEL, STANDARD Routine 12/22/2022 9:41 AM EST Type 2 diabetes mellitus with hyperlipidemia (CMS/HCC) ALBUMIN, RANDOM URINE W/CREATININE Routine 09/02/2022 3:49 PM EDT Hypertension associated with diabetes (CMS/HCC) Type 2 diabetes mellitus with hyperlipidemia (CMS/HCC) HM COLONOSCOPY Routine 02/17/2020 OCCULT BLOOD, FECAL, IMMUNOASSAY Routine 04/02/2019 6:00 PM EST from Last 3 Months or Most Recently Relevant to Health Maintenance Results * BI US Breast Limited Bilateral (03/26/2024 12:00 PM EST) Anatomical Region Laterality Modality Breast Bilateral Ultrasound 03/26/2024 12:0 0 PM EST Narrative 03/26/2024 1:05 PM EST ? [facility] [place] ? [address] ?[place] [address] ? Ultrasound Report ? Signed ? Patient: Maikol Colon,Johnna ?MR#: M ?? [id number] ? : 1955 ?Acct:[id number] ? Age/Sex: 68 / F ?ADM Date: 03/26/24 ? Loc: HO.MAMMO ? Attending Dr: Gina Pressley NP ? Ordering Physician: GINA PRESSLEY NP ?? Date of Service: 03/26/24 ?? Procedure(s): US breast BI limited mamm only ?? Accession Number(s): [id number] ? cc: GINA PRESSLEY NP ? EXAMINATION: ?? MM DIAGNOSTIC DIGITAL BREAST TOMOSYNTHESIS, BILATERAL ?? Bilateral Limited ultrasound. ? CLINICAL INFORMATION: ? Bilateral palpable lumps and pain. ? COMPARISON: ?? Mammography: Comparison is made with relevant prior exams. ? TECHNIQUE: ?? Digital breast mammography with tomosynthesis is performed in both the ?? craniocaudal and mediolateral oblique views along with computer-aided ?? detection (CAD). ?? Bilateral Limited ultrasound. ? FINDINGS: ?? The breasts are heterogeneously dense, which may obscure small masses ?? (ACR BI-RADS breast composition Category c). ?? Left: ?? BB marker in the upper outer breast at site of palpable lump without ?? underlying abnormality. ?? No suspicious masses calcifications or other abnormal findings. ? Targeted color Doppler ultrasound scanning in the upper outer quadrant ?? and from 12- 6:00 lateral breast area of patient's pain demonstrates ?? normal fibronodular breast tissue. ? Right: ?? BB marker in the upper outer breast without underlying abnormality at ?? site of patient's palpable lump and pain. ?? Marker clip. ?? No suspicious masses calcifications or other abnormal findings. ? Targeted color Doppler ultrasound scanning in the upper outer breast ?? and from 6-12 o'clock in the lateral breast the area the patient's ?? palpable lump and pain demonstrates normal fibroglandular breast tissue. ? Results are provided to the patient at time of visit by the ?? technologist. ? US/US breast BI limited mamm only ?? IMPRESSION: ?? No mammographic or sonographic abnormality bilaterally to explain the ?? patient's palpable lumps and pain. Recommend clinical evaluation ?? follow-up. Recommend yearly mammographic screening. ? ASSESSMENT: ? BI-RADS BI-RADS 1 - Negative ? RECOMMENDATION: ?? 1 year F/U ? This patient's information was entered into a reminder system with a ?? target due date for their next mammogram. ? Electronically signed by: ??Marina Wang DO ??03/26/2024 01:02 PM EST ? Dictated By: ?Marina Wang DO ? Signed By: ?<Electronically signed by Marina Wang, DO in OV> ? 03/26/24 1302 ? DD/ 1200 ? TD/TT: 03/26/24 1253 ? Vegetable Farmer: ? Procedure Note Monalisa, Image - 03/26/2024 [facility] [address] [place] [address] Ultrasound Report Signed Patient: Hattie Holbrook#: M [id number] : 6Acct:[id number] Age/Sex: 68 / FADM Date: 03/26/24 Loc: HO.MAMMO Attending Dr: Gina Pressley NP Ordering Physician: GINA PRESSLEY NP Date of Service: 03/26/24 Procedure(s): US breast BI limited mamm only Accession Number(s): [id number] cc: GIAN PRESSLEY NP EXAMINATION: MM DIAGNOSTIC DIGITAL BREAST TOMOSYNTHESIS, BILATERAL Bilateral Limited ultrasound. CLINICAL INFORMATION: Bilateral palpable lumps and pain. COMPARISON: Mammography: Comparison is made with relevant prior exams. TECHNIQUE: Digital breast mammography with tomosynthesis is performed in both the craniocaudal and mediolateral oblique views along with computer-aided detection (CAD). Bilateral Limited ultrasound. FINDINGS: The breasts are heterogeneously dense, which may obscure small masses (ACR BI-RADS breast composition Category c). Left: BB marker in the upper outer breast at site of palpable lump without underlying abnormality. No suspicious masses calcifications or other abnormal findings. Targeted color Doppler ultrasound scanning in the upper outer quadrant and from 12- 6:00 lateral breast area of patient's pain demonstrates normal fibronodular breast tissue. Right: BB marker in the upper outer breast without underlying abnormality at site of patient's palpable lump and pain. Marker clip. No suspicious masses calcifications or other abnormal findings. Targeted color Doppler ultrasound scanning in the upper outer breast and from 6-12 o'clock in the lateral breast the area the patient's palpable lump and pain demonstrates normal fibroglandular breast tissue. Results are provided to the patient at time of visit by the technologist. US/US breast BI limited mamm only IMPRESSION: No mammographic or sonographic abnormality bilaterally to explain the patient's palpable lumps and pain. Recommend clinical evaluation follow-up. Recommend yearly mammographic screening. ASSESSMENT: BI-RADS BI-RADS 1 - Negative RECOMMENDATION: 1 year F/U This patient's information was entered into a reminder system with a target due date for their next mammogram. Electronically signed by: Marina Wang DO 03/26/2024 01:02 PM EST Dictated By: Marina Wang DO Signed By: <Electronically signed by Marina Wang DO in OV> 03/26/24 1302 DD/ 1200 TD/TT: 03/26/24 1253 Vegetable Farmer: us [facility] US PROCEDURES Final Result * BI Mammogram Diagnostic Tomosynthesis Bilateral (03/26/2024 12:00 PM EST) Anatomical Region Laterality Modality Breast Bilateral Mammography 03/26/2024 12:0 0 PM EST Narrative 03/26/2024 1:05 PM EST ? [facility] ? [address] ?[place] [address] ? Mammography Report ? Signed ? Patient: Maikol Colon,Johnna ?MR#: M ?? [id number] ? : 1955 ?Acct:[id number] ? Age/Sex: 68 / F ?ADM Date: 03/26/24 ? Loc: HO.MAMMO ? Attending Dr: Gina Pressley COMMERCIAL SALES DIRECTOR ? Ordering Physician: GINA PRESSLEY NP ?Results: 1Negative ? Date of Service: 03/26/24 ?Follow Up: 1 Year From Orig ?? inal Mammogram ? Procedure(s): MM tomosynthesis diagnostic BI ?? Accession Number(s): [id number] ? cc: GINA PRESSLEY NP ? EXAMINATION: ?? MM DIAGNOSTIC DIGITAL BREAST TOMOSYNTHESIS, BILATERAL ?? Bilateral Limited ultrasound. ? CLINICAL INFORMATION: ? Bilateral palpable lumps and pain. ? COMPARISON: ?? Mammography: Comparison is made with relevant prior exams. ? TECHNIQUE: ?? Digital breast mammography with tomosynthesis is performed in both the ?? craniocaudal and mediolateral oblique views along with computer-aided ?? detection (CAD). ?? Bilateral Limited ultrasound. ? FINDINGS: ?? The breasts are heterogeneously dense, which may obscure small masses ?? (ACR BI-RADS breast composition Category c). ?? Left: ?? BB marker in the upper outer breast at site of palpable lump without ?? underlying abnormality. ?? No suspicious masses calcifications or other abnormal findings. ? Targeted color Doppler ultrasound scanning in the upper outer quadrant ?? and from 12- 6:00 lateral breast area of patient's pain demonstrates ?? normal fibronodular breast tissue. ? Right: ?? BB marker in the upper outer breast without underlying abnormality at ?? site of patient's palpable lump and pain. ?? Marker clip. ?? No suspicious masses calcifications or other abnormal findings. ? Targeted color Doppler ultrasound scanning in the upper outer breast ?? and from 6-12 o'clock in the lateral breast the area the patient's ?? palpable lump and pain demonstrates normal fibroglandular breast tissue. ? Results are provided to the patient at time of visit by the ?? technologist. ? MM/MM tomosynthesis diagnostic BI ?? IMPRESSION: ?? No mammographic or sonographic abnormality bilaterally to explain the ?? patient's palpable lumps and pain. Recommend clinical evaluation ?? follow-up. Recommend yearly mammographic screening. ? ASSESSMENT: ? BI-RADS BI-RADS 1 - Negative ? RECOMMENDATION: ?? 1 year F/U ? This patient's information was entered into a reminder system with a ?? target due date for their next mammogram. ? Electronically signed by: ??Marina Wang DO ??03/26/2024 01:02 PM EST ? Dictated By: ?Marina Wang DO ? Signed By: ?<Electronically signed by Marina Wang, DO in OV> ? 03/26/24 1302 ? DD/ 1200 ? TD/TT: 03/26/24 1222 ? Vegetable Farmer: ? Procedure Note Donomrister, Image - 03/26/2024 [facility] [address] [place] [address] [place] [address] Mammography Report Signed Patient: Johnna Holbrook#: M [id number] : 6Acct:[id number] Age/Sex: 68 / FADM Date: 03/26/24 Loc: BIB Attending Dr: Gina Pressley COMMERCIAL SALES DIRECTOR Ordering Physician: GINA PRESSLEYults: 1Negative Date of Service: 03/26/24Follow Up: 1 Year From Orig inal Mammogram Procedure(s): MM tomosynthesis diagnostic BI Accession Number(s): [id number] cc: GINA PRESSLEY NP EXAMINATION: MM DIAGNOSTIC DIGITAL BREAST TOMOSYNTHESIS, BILATERAL Bilateral Limited ultrasound. CLINICAL INFORMATION: Bilateral palpable lumps and pain. COMPARISON: Mammography: Comparison is made with relevant prior exams. TECHNIQUE: Digital breast mammography with tomosynthesis is performed in both the craniocaudal and mediolateral oblique views along with computer-aided detection (CAD). Bilateral Limited ultrasound. FINDINGS: The breasts are heterogeneously dense, which may obscure small masses (ACR BI-RADS breast composition Category c). Left: BB marker in the upper outer breast at site of palpable lump without underlying abnormality. No suspicious masses calcifications or other abnormal findings. Targeted color Doppler ultrasound scanning in the upper outer quadrant and from 12- 6:00 lateral breast area of patient's pain demonstrates normal fibronodular breast tissue. Right: BB marker in the upper outer breast without underlying abnormality at site of patient's palpable lump and pain. Marker clip. No suspicious masses calcifications or other abnormal findings. Targeted color Doppler ultrasound scanning in the upper outer breast and from 6-12 o'clock in the lateral breast the area the patient's palpable lump and pain demonstrates normal fibroglandular breast tissue. Results are provided to the patient at time of visit by the technologist. MM/MM tomosynthesis diagnostic BI IMPRESSION: No mammographic or sonographic abnormality bilaterally to explain the patient's palpable lumps and pain. Recommend clinical evaluation follow-up. Recommend yearly mammographic screening. ASSESSMENT: BI-RADS BI-RADS 1 - Negative RECOMMENDATION: 1 year F/U This patient's information was entered into a reminder system with a target due date for their next mammogram. Electronically signed by: Marina Wang DO 03/26/2024 01:02 PM [facility] Dictated By: Marina Wang DO Signed By: <Electronically signed by Marina Wang DO in OV> 03/26/24 1302 DD/ 1200 TD/TT: 03/26/24 1222 Vegetable Farmer: Gina Pressley ANP IMG BI PROCEDURES Final Result * Influenza B (ID NOW Rapid Molecular) (03/07/2024 1:53 PM EST) [facility] Influenza B Negative Negative, Indeterminate [facility] Swab 03/07/2024 1:53 PM EST Result [facility] Nupur Ortiz MD POINT OF CARE TEST ENTER/E DIT ORDERABLES Final Result Performing Organization Address City/[facility]/ZIP Co de Phone Number [facility] [address] [place] [phone] * Influenza A (ID NOW Rapid Molecular) (03/07/2024 1:53 PM EST) [facility] Influenza A Negative Negative, Indeterminate [facility] Swab 03/07/2024 1:53 PM EST Result [facility] Nupur Ortiz MD POINT OF CARE TEST ENTER/E DIT ORDERABLES Final Result Performing Organization Address City/[facility] Co de Phone Number [facility] [address] [place] [phone] * POCT COVID-19 Ag Ge ID NOW (03/07/2024 1:53 PM EST) [facility] Coronavirus Antigen PCR Negative Negative, Indeterminate, None Detected, Invalid, Specimen unsatisfactory for evaluation, Weakly Positive Swab 03/07/2024 1:53 PM EST Result [facility] Nupur Ortiz MD POINT OF CARE TEST ENTER/E DIT ORDERABLES Final Result * (ABNORMAL) POCT HGB A1C (11/28/2023 2:46 PM EDT) [facility] Hemoglobin A1C 6.4(A) 4.0 - 6.0 % QC Media Lot # [id number] Lot# Expiration Date Blood 11/28/2023 2:46 PM EDT Gina Pressley ANP POINT OF CARE TEST ENTER/EDIT OR DERABLES Final Result * (ABNORMAL) Lipid Panel, Standard (12/22/2022 9:41 AM EST) Triglycerides 133 <150 mg/dL [facility] Comment:Desirable Triglyceri de: less than 150 mg/dLBorderline High Triglyceride 150-199 mg/dLHigh Triglyceride: 200-499 mg/dLVery High Triglyceride: greater than or equal to 5OO mg/dL Cholesterol 212(H) <200 mg/dL [facility] Comment:Desirable Cholestero l: less than 200 mg/dLBorderline High Cholesterol: 200-239 mg/dLHigh Cholesterol: greater than 239 mg/dL LDL Cholesterol Calculated 138(H) <100 mg/dL [facility] Comment:Desirable LDL: less than 100 mg/dLNear Optimal/Above Optimal LDL: 110- 129 mg/dLBorderline High LDL: 130-159 mg/dLHigh LDL: 160-189 mg/dLVery High LDL: greater than or equal to 190 mg/dL HDL Cholesterol 48 >40 mg/dL [facility] Comment:Desirable HDL: great er than 40 mg/dL Note: This HDL assay may give artificially low results in patients with liver disease. Blood Venous blood specimen / Unknown 12/22/2022 9:41 AM EST 12/22/2022 11:06 AM EST us Gina Pressley ANP LAB BLOOD ORDERABLES Final Resul t [facility] [address] [place] [address] [phone] * Albumin, Random Urine W/Creatinine (09/02/2022 3:49 PM EDT) Creatinine, Urine 271.97 mg/dL [facility] Microalbumin Urine 33.0 mg/L [facility] Microalbum Creatinine Ratio Ur 12.1 ug/mg cr [facility] Comment:Albumin/Creatinine R atio Reference Ranges: Normal: < 30 ug/mg creatinine Microalbuminuria: 30 - 300 ug/mg creatinineClinical Albuminuria: > 300 ug/mg creatinine 09/02/2022 3:49 PM EDT 09/02/2022 6:26 PM EDT Gina HALEY LAB URINE ORDERABLES Final Resul t [facility] [address] [place] [phone] * (ABNORMAL) Colonoscopy (02/17/2020) Colonoscopy Abnormal(A ) Normal Historical Provider MD HEALTH MAINTENANCE Final Result * OCCULT BLOOD STOOL (04/02/2019 6:00 PM EST) OCCULT BLOOD STOOL [facility] 04/02/2019 6:00 PM EST Margi Zheng INSTRUCTOR TRAINER CANINE SERVICE LAB BODY FLUIDS AND STOOLS ORD ERABLES Final Result [facility] [address] from Last 3 Months or Most Recently Relevant to Health Maintenance Insurance [facility] STANDARD MEDICARE Care Teams Turret Punch Press Operator Relationship Specialty Start Date End Date Gina Pressley ANP [address] [place] [address] PCP - General Family Medicine 01/29/20
--- OUTSIDE RECORDS SUMMARY | 2024-05-15 17:37 | XMS_ITS | Encounter Summary ---
Author Organization [employer] Address [address] [facility] 7t [place] [address] Care Team Providers Care Online Merchandising Specialist Name Role Phone Jayla Mccormack Primary Care Provider [phone] Reason for Visit * Reason Comments Pre-visit Planning Pre-visit planning - LVM Encounter Details Date Type Department Care Team ([facility] st Contact Info) Description 05/13/2024 Patient Outreach [facility] [address] [place] [address] Jayla Mccormack ANP [address] [place] [address] Pre-visit Planning (Pre-visit planning - LVM ) Social History Tobacco Use Types Packs/Day Years Used Date Smoking Tobacco: Never Smokeless Tobacco: Never Alcohol Use Standard Drinks/Week Comments Not Currently [...] AM EDT documented as of this encounter Progress Notes * Luz Marina Montilla - 05/13/2024 9:58 AM EDT ALEJANDRA Sims placed outbound call to patient to complete pre-visit planning. No answer at this time. Patient name and were not confirmed. CC left voicemail requesting return call. Direct contact information provided. documented in this encounter Plan of Treatment Upcoming Encounters Date Type Department Care Team (Late st Contact Info) Description 05/23/2024 9:00 AM EDT Office Visit [facility] [address] [place] [address] Jayla Mccormack ANP [address] [place] [address] documented as of this encounter Visit Diagnoses Not on filedocumented in this encounter Additional Health Concerns Assessment Noted Time PHQ-9 Depression Total Score: 9 12/14/19 23 3:07 PM EDT documented as of this encounter Care Teams Online Merchandising Specialist Relationship Specialty Start Date End Date Jayla Mccormack ANP [address] [place] [phone] PCP - General Family Medicine 01/29/20 documented as of this encounter
--- OUTSIDE RECORDS SUMMARY | 2024-05-15 17:37 | XMS_ITS | Encounter Summary ---
Author Organization [employer] Address [address] [facility] 7t [place] [address] Care Team Providers Care Job Analyst Name Role Phone Jayla Mccormack Primary Care Provider [phone] Encounter Details Date Type Department Care Team (Late st Contact Info) Description 03/07/2022 Orders Only [facility] MED & PEDS [address] [place] [address] Shanell Moody LPN Social History Tobacco Use [...] Description 05/23/2024 9:00 AM EDT Office Visit [facility] MEDICINE [address] [place] [address] Jayla Mccormack ANP [address] [place] [address] documented as of this encounter Visit Diagnoses Not on filedocumented in this encounter Care Teams Job Analyst Relationship Specialty Start Date End Date Jayla Mccormack ANP [address] [place] [address] PCP - General Family Medicine 01/29/20 documented as of this encounter
--- OUTSIDE RECORDS SUMMARY | 2024-05-15 17:37 | XMS_ITS | Encounter Summary ---
Author Organization [employer] Address [address] [facility] 7t [place] [address] Care Team Providers Care Special Forces Engineer Sergeant Name Role Phone Jayla Mccoramck Primary Care Provider [phone] Encounter Details Date Type Department Care Team (Late st Contact Info) Description 05/15/2024 Orders Only [facility] [address] [place], [place] [phone] Jayla Mccormack ANP [address] [place], [place] [phone] Anemia, unspecified type (Primary Dx) Social History Tobacco Use Types Packs/Day Years [...] as of this encounter Progress Notes * TERA Arellano - 05/15/2024 9:15 AM EDT Changing vit C dosing to match Fe dosing documented in this encounter Plan of Treatment Upcoming Encounters Date Type Department Care Team (Late st Contact Info) Description 05/23/2024 9:00 AM EDT Office Visit [facility] [address] [place] [address] Jayla Mccormack ANP [address] [place] [address] documented as of this encounter Visit Diagnoses Diagnosis Anemia, unspecified type- Primary documented in this encounter Additional Health Concerns Assessment Noted Time PHQ-9 Depression Total Score: 9 12/14/19 23 3:07 PM EDT documented as of this encounter Care Teams Special Forces Engineer Sergeant Relationship Specialty Start Date End Date Jayla Mccormack ANP [address] [place] [address] PCP - General Family Medicine 01/29/20 documented as of this encounter
--- OUTSIDE RECORDS SUMMARY | 2024-05-15 17:37 | XMS_ITS | Encounter Summary ---
Author Organization [employer] Address [address] [facility] 7t [place] [address] Care Team Providers Care Hotshot Superintendent Name Role Phone Jayla Mccormack Primary Care Provider [phone] Reason for Visit * Reason Comments Med Refill Encounter Details Date Type Department Care Team ([facility] st Contact Info) Description 05/14/[address] [facility] MEDICINE [address] [place], [place] [phone] Jayla Mccormack ANP [address] [place], [place] [phone] Iron deficiency anemia, unspecified iron deficiency anemia type Social History Tobacco Use Types Packs/Day Years [...] AM EDT documented as of this encounter Miscellaneous Notes * Telephone Encounter - TERA Arellano - 05/15/2024 9:18 AM EDT Changed dosing to match fe dosing documented in this encounter Plan of Treatment Upcoming Encounters Date Type Department Care Team (Late st Contact Info) Description 05/23/2024 9:00 AM EDT Office Visit [facility]ICINE [address] [place] [address] Jayla Mccormack ANP [address] [place] [address] documented as of this encounter Visit Diagnoses Diagnosis Iron deficiency anemia, unspecified iron deficiency anemia type documented in this encounter Additional Health Concerns Assessment Noted Time PHQ-9 Depression Total Score: 9 12/14/19 23 3:07 PM EDT documented as of this encounter Care Teams Hotshot Superintendent Relationship Specialty Start Date End Date Jayla Mccormack ANP [address] [place] [address] PCP - General Family Medicine 01/29/20 documented as of this encounter
--- OUTSIDE RECORDS SUMMARY | 2024-05-15 17:37 | XMS_ITS | Encounter Summary ---
Author Organization [employer] Address [address] [facility] 7t [place] [address] Care Team Providers Care Housekeeper Supervisor Name Role Phone Jayla Mccormack Primary Care Provider [phone] Encounter Details Date Type Department Care Team (Late st Contact Info) Description 02/16/2022 Orders Only [facility] CHC MED & PEDS [address] [place] [address] Shanell Moody LPN Social History Tobacco Use [...] Description 05/23/2024 9:00 AM EDT Office Visit [facility] MEDICINE [address] [place] [address] Jayla Mccormack ANP [address] [place] [address] documented as of this encounter Visit Diagnoses Not on filedocumented in this encounter Care Teams Housekeeper Supervisor Relationship Specialty Start Date End Date Jayla Mccormack ANP [address] [place] [address] PCP - General Family Medicine 01/29/20 documented as of this encounter
--- OUTSIDE RECORDS SUMMARY | 2024-05-15 17:37 | XMS_ITS | Encounter Summary ---
Author Organization [employer] Address [address] [place] [address] 7t [place] [address] Care Team Providers Care Mainspring Former Arbor End Name Role Phone Jayla Mccormack Primary Care Provider [phone] Reason for Visit * Reason Onset Date Comments Med Refill 10/03/2022 Encounter Details Date Type Department Care Team (Late st Contact Info) Description 10/03/2022 Telephone [facility] MEDICINE [address] [place], [place] [phone] Jayla Mccormack ANP [address] [place] [address] Med Refill Social History Tobacco Use Types Packs/Day Years Used Date Smoking Tobacco: Never Smokeless Tobacco: Never Alcohol Use Standard Drinks/Week Comments Not Currently 0 (1 standard drink = 0.6 oz pur e alcohol) Comments Unknown Sex and Gender Information Value Date Recorded Sex Assigned at Female 12/13/2021 10:27 AM EDT Legal Sex Female 10:27 AM EDT Gender Identity Choose not to disclose 10:27 AM EDT Sexual Orientation Choose not to disclose 2021 10:27 AM EDT documented as of this encounter Miscellaneous Notes * Telephone Encounter - Shanell Moody LPN - 10/03/2022 2:51 PM EDT Medication is prescribed by Dr. Gonzalez. * Telephone Encounter - Lesia Hale - 10/03/2022 2:36 PM EDT Tc from patient requesting a med refill for medication gabapentin (Neurontin) [address] Mccormack documented in this encounter Plan of Treatment Upcoming Encounters Date Type Department Care Team (Late st Contact Info) Description 05/23/2024 9:00 AM EDT Office Visit [facility] MEDICINE [address] [place] [address] Jayla Mccormack ANP [address] [place] [address] documented as of this encounter Visit Diagnoses Not on filedocumented in this encounter Care Teams Mainspring Former Arbor End Relationship Specialty Start Date End Date Jayla Mccormack ANP [address] [place] [phone] PCP - General Family Medicine 01/29/20 documented as of this encounter
[2024-05-17 20:33] LABS: Class Almond 0; Class Brazil Nut 0; Class Cashew 0; Class Codfish 0; Class Cow's Milk 0; Class Egg white 0/1; Class Hazelnut 0; Class Macadamia Nut 0; Class Peanut 0; Class Salmon 0; Class Scallop 2; Class Sesame Seed 0; Class Shrimp 2; Class Soybean 0; Class Tuna 0; Class Walnut 0; Class Wheat 0; F001-IgE Egg White 0.18 kU/L; F002-IgE Milk <0.10 kU/L; F003-IgE Codfish <0.10 kU/L; F004-IgE Wheat <0.10 kU/L; F010-IgE Sesame Seed <0.10 kU/L; F013-IgE Peanut <0.10 kU/L; F014-IgE Soybean <0.10 kU/L; F017-IgE Hazelnut (Filbert) <0.10 kU/L; F018-IgE Brazil Nut <0.10 kU/L; F020-IgE Almond <0.10 kU/L; F024-IgE Shrimp 1.59 kU/L; F040-IgE Tuna <0.10 kU/L; F041 IgE Salmon <0.10 kU/L; F202-IgE Cashew Nut <0.10 kU/L; F256-IgE Walnut <0.10 kU/L; F338-IgE Scallop 0.77 kU/L; F345-IgE Macadmia Nut <0.10 kU/L
== END 2024-05-15 15:11 | disposition home or self-care (01) ==
LOC: HO.LAB 15:10
PROVIDERS: PCP Nurse Practitioner Primary Care; Visit Provider Internal Medicine Gastroenterology
DX: Z91.09 Other allergy status, other than to drugs and biological substances (principal); R10.13 Epigastric pain
CPT/HCPCS: 36415; 86003

== ENCOUNTER 2024-05-23 10:46 | Outpatient (REF) | payer MEDICARE, MEDICAID, SELFPAY ==
[2024-05-23 11:43] LABS: MANUAL DIFF FLAG NO
[2024-05-23 12:05] LABS: Alanine Aminotransferase 21 U/L (0-31); Albumin Level 4.1 g/dL (3.5-5.0); Anion Gap 12 (12-20); Aspartate Amino Transferase 32 U/L (5-31); Basophils Absolute Auto 0.1 X10*3/uL (0.0-0.2); Basophils Percent Auto 0.9 % (0-2); Bilirubin Total 0.5 mg/dL (0.0-1.0); Blood Urea Nitrogen 13 mg/dL (9-16); Calcium 9.3 mg/dL (8.4-10.2); Carbon Dioxide 26 mmol/L (22-29); Chloride 106 mmol/L (96-108); Cholesterol 209 mg/dL (<200); Eosinophils Absolute Auto 0.1 X10*3/uL (0.0-0.4); Eosinophils Percent Auto 1.3 % (0-4); Estimated Glomerular Filt Rate > 60; Glucose Random 130 mg/dL (60-115); HDL Cholesterol 50 mg/dL (>40); Hematocrit 38.9 % (37.0-47.0); Hemoglobin 12.2 g/dl (12.0-16.0); Imm Gran Abs Auto 0.03 X10*3/uL (0.00-0.03); Imm Gran Pct Auto 0.4 % (0.0-0.4); Iron 59 mcg/dL (30-160); LDL Cholesterol Calculated 132 mg/dL (<100); Lymphocytes Absolute Auto 2.3 X10*3/uL (1.2-4.9); Lymphocytes Percent Auto 30.1 % (20-40); Mean Corpuscular HGB Conc 31.4 g/dl (31.0-35.0); Mean Corpuscular Hemoglobin 23.5 pg (27.0-33.0); Mean Corpuscular Volume 74.8 fL (80.0-98.0); Mean Platelet Volume 10.7 fL (9.4-12.3); Monocytes Absolute Auto 0.6 X10*3/uL (0.1-1.2); Monocytes Percent Auto 7.4 % (2-11); Neutrophils Absolute Auto 4.6 x10*3/uL (2.0-8.3); Neutrophils Percent Auto 59.9 % (45-73); Percent Iron Saturation 20 % (15-50); Platelet Count 311 X10*3/uL (160-400); Potassium 4.1 mmol/L (3.3-5.1); Red Cell Distribution Width 14.1 % (11.0-16.0); Sodium 140 mmol/L (135-145); Total Iron Binding Capacity 295 mcg/dL (228-428); Total Protein 8.2 g/dL (6.5-8.0); Triglycerides 138 mg/dL (<150); Unsaturated Iron Binding 236 ug/dL; White Blood Count 7.6 X10*3/uL (4.8-10.8)
[2024-05-23 12:11] LABS: Alkaline Phosphatase 88 U/L (39-117)
[2024-05-23 12:25] LABS: Creatinine Urine 201.21 mg/dL; Microalbum/Creatinine Ratio Ur 8.4 ug/mg cr (<30)
--- OUTSIDE RECORDS SUMMARY | 2024-05-23 12:50 | XMS_ITS | Encounter Summary ---
Author Organization [employer] Address [address] [facility] 7t [place] [address] Care Team Providers Care Respiratory Therapy Assistant Name Role Phone Jayla Mccormack Primary Care Provider [phone] Luis Alberto Larose MD Unavailable [phone] Encounter Details Date Type Department Care Team (Late st Contact Info) Description 03/07/2022 Orders Only [facility] CHC MED & PEDS [address] [place], [place] [phone] Shanell Moody LPN Social History Tobacco Use [...] Care Team (Late st Contact Info) Description 07/30/2024 1:15 PM EDT Office Visit [facility] MEDICINE [address] [place] [address] Jayla Mccormack ANP [address] [place] [address] documented as of this encounter Visit Diagnoses Not on filedocumented in this encounter Care Teams Respiratory Therapy Assistant Relationship Specialty Start Date End Date Jayla Mccormack ANP [address] [place] [address] PCP - General Family Medicine 01/29/20 Luis Alberto [place]ose MD [address] [place] [address] [address] [place] [address] Gastroenterology 05/23/24 documented as of this encounter
--- OUTSIDE RECORDS SUMMARY | 2024-05-23 12:50 | XMS_ITS | Encounter Summary ---
Author Organization [employer] Address [address] [facility] 7t [place] [address] Care Team Providers Care Metallographer Name Role Phone Jayla Mccormack Primary Care Provider [phone] Luis Alberto Larose MD Unavailable [phone] Encounter Details Date Type Department Care Team (Late st Contact Info) Description 05/02/[address] [facility] CHC MED & PEDS [address] [place], [place] [phone] Shanell Moody LPN Social History Tobacco Use [...] Description 07/30/2024 1:15 PM EDT Office [address] [facility] MEDICINE [address] [place] [address] Jayla Mccormack ANP [address] [place] [address] documented as of this encounter Visit Diagnoses Not on filedocumented in this encounter Care Teams Metallographer Relationship Specialty Start Date End Date Jayla Mccormack ANP [address] [place] [address] PCP - General Family Medicine 01/29/20 Luis Alberto [place]ose MD [address] [place] [address] Dr [address] [place] [address] Gastroenterology 05/23/24 documented as of this encounter
--- OUTSIDE RECORDS SUMMARY | 2024-05-23 12:50 | XMS_ITS | Encounter Summary ---
Author Organization [employer] Address [address] [facility] 7t [place] [address] Care Team Providers Care Band Reamer Machine Operator Name Role Phone Jayla Mccormack Primary Care Provider [phone] Luis Alberto Larose MD Unavailable [phone] Encounter Details Date Type Department Care Team (Late st Contact Info) Description 02/16/2022 Orders Only [facility] CHC MED & PEDS [address] [place], [place] [phone] Shanell Moody LPN Social History Tobacco Use [...] Description 07/30/2024 1:15 PM EDT Office Visit [facility] MEDICINE [address] [place] [address] Jayla Mccormack ANP [address] [place] [address] documented as of this encounter Visit Diagnoses Not on filedocumented in this encounter Care Teams Band Reamer Machine Operator Relationship Specialty Start Date End Date Jayla Mccormack ANP [address] [place] [address] PCP - General Family Medicine 01/29/20 Luis Alberto [place]ose MD [address] [place] [address] [address] [place] [address] Gastroenterology 05/23/24 documented as of this encounter
--- OUTSIDE RECORDS SUMMARY | 2024-05-23 12:51 | XMS_ITS | Clinical Summary ---
Author Organization [employer] Address [address] [facility] [address] [place] [address] Care Team Providers Care Mounter Smoking Pipe Name Role Phone Gina Pressley TERA Primary Care Provider [phone] Luis Alberto Larose MD Unavailable [phone] Allergies Active Allergy Reactions Criticality Noted Date Comments Aspirin Hives,Shortness of breath High 01/28/2014 Other reaction(s): Rash Ibuprofen Rash,Angioedema Medium 05/19/2022 Medications cyanocobalamin (Vitamin B-12) 1000 MCG tablet Take 1 tablet by mouth in the morning. 023 Active Tiadylt ER 120 MG 24 hr capsule Take 120 mg by mouth in the morning. 023 Active doxepin (SINEquan) 10 MG capsule 023 Active FeroSul 325 (65 Fe) MG tablet TAKE 1 TABLET BY MOUTH TWICE DAILY AT NOON AND IN THE EVENING 023 Active gabapentin (Neurontin) 300 MG capsule Take 600 mg by mouth 2 times daily. 023 Active hydrOXYzine pamoate (Vistaril) 25 MG capsule TAKE 1-2 CAPSULES BY MOUTH TWICE DAILY NEEDED 023 Active omeprazole (PriLOSEC) [address] capsule 023 Active ketoconazole (NIZOral) 2 % cream Apply topically in the morning. 60 g 1 023 Active Linzess 145 MCG capsule Take 145 mcg by mouth in the morning. 023 Active sertraline (Zoloft) 100 MG tablet TAKE 2 TABLETS BY MOUTH ONCE DAILY IN THE MORNING 023 Active meclizine (Antivert) 25 MG tablet Take 1 tablet (25 mg) by mouth if needed in the morning, at noon, and at bedtime for dizziness. 20 tablet 023 Active Spacer/Aero-Holdi ng Chambers (OptiChamber Apurva) misc 1 each every 4 (four) hours if needed (asthma). 1 each 024 Active fluticasone (Flonase Allergy Relief) 50 MCG/ACT nasal spray Administer 1 spray into each nostril in the morning. Shake gently. Before first use, prime pump. After use, clean tip and replace cap. 16 g 1 024 Active lidocaine (Lidoderm) 5 % patchIndications: Left hip pain,Chronic left-sided low back pain, unspecified whether sciatica present Apply 1 patch topically in the morning. Remove & discard patch within 12 hours or as directed by MD. 30 patch 2 024 Active albuterol 1.25 MG/3ML nebulizer solutionIndicatio ns:Moderate persistent asthma without complication Take 3 mL (1.25 mg) by nebulization every 6 (six) hours if needed for wheezing. 75 mL 3 024 2024 Active albuterol (Ventolin HFA) 108 (90 Base) MCG/ACT inhalerIndication s:Mild intermittent asthma without complication INHALE 2 PUFFS BY MOUTH EVERY 4 TO 6 HOURS NEEDED 18 g 1 024 Active atorvastatin (Lipitor) 40 MG tablet TAKE 1 TABLET BY MOUTH AT BEDTIME 90 tablet 3 024 Active topiramate 50 MG tabletIndications :Chronic nonintractable headache, unspecified headache type TAKE 1 TABLET BY MOUTH AT BEDTIME 90 tablet 1 024 Active Calcium 600/Vitamin D3 600-20 MG-MCG tabletIndications :Osteoporosis without current pathological fracture, unspecified osteoporosis type TAKE 1 TABLET BY MOUTH TWICE DAILY IN THE MORNING AND IN THE EVENING 180 tablet 1 025 Active levothyroxine (Synthroid, Levoxyl) 75 MCG tablet TAKE 1 TABLET BY MOUTH EVERY MORNING & TAKE 1 TABLET ADDITIONAL ON MONDAY 34 tablet 1 025 Active Ascorbic Acid (vitamin C) 250 MG tabletIndications :Anemia, unspecified type Take 1 tablet with iron supplement BID 60 tablet 11 025 Active budesonide-formot yumiko (Symbicort) 160-4.5 MCG/ACT inhalerIndication s:Moderate persistent asthma without complication Inhale 2 puffs in the morning and at bedtime. Rinse mouth with water after use to reduce aftertaste and incidence of candidiasis. Do not swallow. 30.6 g 3 025 2025 Active FREESTYLE LITE test stripIndications: Type 2 diabetes mellitus with hyperlipidemia (CMS/HCC) ([facility]) Use to test blood sugar 3 times daily 100 each 12 025 2025 Active Lancets miscIndications:T ype 2 diabetes mellitus with hyperlipidemia ([facility]/HCC) ([facility]) Use to test blood sugar 3 times daily 100 each 3 Active Alcohol Swabs 70 % padsIndications:T ype 2 diabetes mellitus with hyperlipidemia (CMS/HCC) ([facility]) Use to clean skin b/f BG check 100 each 11 Active Blood Glucose Monitoring Suppl (FreeStyle Logan Lite) w/Device kitIndications:Ty pe 2 diabetes mellitus with hyperlipidemia (CMS/HCC) ([facility]) Use to test blood sugar 3 times daily 1 kit Active alendronate (Fosamax) 70 MG tablet Take 70 mg by mouth 1 (one) time per week. 023 2024 Discontinued(S edinson effects) Ascorbic Acid (vitamin C) 500 MG tabletIndications :Iron deficiency anemia, unspecified iron deficiency anemia type TAKE 1 TABLET BY MOUTH EVERYDAY AT NOON (WITH IRON) 90 tablet 024 2024 Discontinued(D ose adjustment) budesonide (Pulmicort Flexhaler) 180 MCG/ACT inhalerIndication s:Persistent cough Inhale 1 puff in the morning and at bedtime. Rinse mouth with water after use to reduce aftertaste and incidence of candidiasis. Do not swallow. 1 each 025 2024 Discontinued Active Problems Problem Noted Date Diagnosed Date Class 2 severe obesity with serious comorbidity and body mass index (BMI) of 35.0 to 35.9 in adult 05/23/2024 Osteoporosis without current pathological fractu re 05/23/2024 Neuropathy involving both lower extremities 05/14 Overview (05/23/2024): Per patient she had NCS/EMG in fall 2024. Will request these results. Persistent cough 03/07/2024 Assessment & Plan (03/07/2024 [...] to OA of lumbar spine, see above Obstructive sleep apnea syndrome 05/19/2022 Overview (05/23/2024): On CPAP and continues to benefit from regular CPAP use Pain in lower limb 05/19/2022 Bipolar affective [...] Glaucoma 04/17/2014 Hypothyroidism 04/17/2014 Gastritis 04/17/2014 11/22/2022 Resolved Problems Problem Noted Date Diagnosed Date Resolved Date HTN (hypertension) 01/03/2023 5 Encounters Date Type Department Care Team Description 05/23/2024 9:00 AM EDT Office Visit [facility] [address] [place] [phone] Gina Pressley, TERA Type 2 diabetes mellitus with hyperlipidemia (CMS/HCC) (CMS/HCC) (Primary Dx); Moderate persistent asthma without complication; Osteoporosis without current pathological fracture, unspecified osteoporosis type; Class 2 severe obesity with serious comorbidity and body mass index (BMI) of 35.0 to 35.9 in adult, unspecified obesity type ([facility]); Dietary counseling; Exercise counseling; Encounter for immunization; Obstructive sleep apnea syndrome; Neuropathy involving both lower extremities 05/23/2024 Travel 05/22/2024 Telephone [facility] [address] [place] [phone] Bebe Contreras MA chart prep 05/15/2024 Orders Only [facility] [address] [place] [phone] Gina Pressley ANP Anemia, unspecified type (Primary Dx) 05/14/2024 Refill [facility] [address] [place] [phone] Gina Pressley ANP Iron deficiency anemia, unspecified iron deficiency anemia type 05/13/2024 Patient Outreach [facility] [address] [place] [address] [phone] Gina Pressley ANP Pre-visit Planning (Pre-visit planning - LVM ) 04/26/2024 Population Health Risk Score [facility] () [address] [phone] Provider, Population Health Generic 03/31/2024 Refill [facility] [address] [place] [phone] Gina Pressley ANP 03/26/2024 Orders Only [facility] [address] [place] [phone] Gina Pressley ANP 03/07/2024 2:20 PM EST Office Visit [facility] [address] [place] [address] [phone] Nupur Ortiz MD Persistent cough (Primary Dx); Mild persistent asthma without complication 03/06/2024 Refill [facility] [address] [place] [address] [phone] Gina Pressley ANP Osteoporosis without current pathological fracture, unspecified osteoporosis type from Last 3 Months Immunizations Name Administration Dates Next Due Hep B, adult 12/20/2018,04/05/2017 Influenza injectable quadrivalent preservative f ree 04/22/2019 Pneumococcal Polysaccharide PPSV23 09/04/2014 Tdap 05/23/2024,05/01/2014 Zoster, live 04/05/2017 Social History Tobacco Use Types Packs/Day Years Used Date Smoking Tobacco: Never Smokeless Tobacco: Never Tobacco Cessation:Counseling Given: Not Answered Alcohol Use Standard Drinks/Week Comments Not Currently 0 (1 standard drink = 0.6 oz pur e alcohol) Depression Answer Date Recorded Patient Health Questionnaire-9 Score 10 05/23/2024 Patient Health Questionnaire-9 Score 10 05/23/2024 Last PHQ-9: Questionnaire Data Not on file 0 05/23/2024 Housing Stability Answer Date Recorded What is your housing situation today? I have david anrdade 05/23/[address] you li ve. Do you have problems with any of the following? None of the above 05/23/2024 Food Insecurity Answer Date Recorded Within the past 12 months, y ou worried that your food would run out before you got money to buy more: Never True 05/23/2024 Within the past 12 months,th e food you bought just didn't last and you didn't have enough money to get more: Never True 11/2024 Transportation Answer Date Recorded In the past 12 months, has l ack of transportation kept you from medical appts, meetings, work or from getting things needed for daily living? No 05/23/2024 Utilities Answer Date Recorded In the past 12 months, has t he electric, gas, oil or water company threatened to shut off services in your home? No 05/23/2024 Depression Answer Date Recorded Patient Health Questionnaire-2 Score 2 05/23/2024 Internet Access Answer Date Recorded Internet Access Q1 Yes 05/23/2024 Internet Access Q2 Not on file 05/23/2024 Comments Unknown Sex and Gender Information Value Date Recorded Sex Assigned at Female 12/13/2021 10:27 AM EDT Legal Sex Female 10:27 AM EDT Gender Identity Choose not to disclose 10:27 AM EDT Sexual Orientation Choose not to disclose 2021 10:27 AM EDT Last Filed Vital Signs Vital Sign Reading Time Taken Comments Blood Pressure 107/68 05/23/2024 9:30 AM EDT Pulse 75 05/23/2024 9:30 AM EDT Temperature 36.4 ??C (97.5 ??F) 05/23/2024 9:30 AM ED T Respiratory Rate 14 05/23/2024 9:30 AM EDT Oxygen Saturation 97% 05/23/2024 9:30 AM EDT Inhaled Oxygen Concentration - - Weight 75.4 kg (166 lb 3.2 oz) 03/07/2024 1:38 P M EST Height 146.5 cm (4' 9.68 ) 05/23/2024 9:30 AM ED T Body Mass Index 44.93 03/07/2024 1:38 PM EST Plan of Treatment Upcoming Encounters Date Type Department Care Team (Late st Contact Info) Description 07/30/2024 1:15 PM EDT Office Visit [facility] [address] [place], [place] [phone] Gina Pressley, TERA [address] [place], [place] [phone] Health Maintenance Due Date Last Done Comments CT Colonography 1955 FIT DNA/Cologuard 1955 FIT 1955 Sigmoidoscopy 1955 Hepatitis C Screening 04/12/1973 RSV Patients and Patients Aged 60 years or older (1 - Risk 60-74 years 1-dose series) 2015 Hepatitis B Vaccines (3 of 3 - 19+ 3-dose series) 02/14/2019 12/20/2018, 04/05/2017 FOBT 04/02/2020 04/02/2019 Influenza Vaccine (#1) 2024 04/22/2019 Postp oned from 10/15/2023 (Patient Refused) Diabetes: Hemoglobin A1C 08/22/2024 025, 11/28/2023, 08/25/2023, Additional history exists Depression Monitoring 11/22/2024 05/23/2024, 025 Colonoscopy 02/16/2025 02/17/2020, 02/17/2020 Colorectal Cancer Screening 02/16/2025 Mammogram 03/26/2025 03/26/2024, 03/16, 03/26/2024, Additional history exists Alcohol/Substance Use Screening 05/23/2025 05/23/2024 COVID-19 Vaccine ( season) 2025 Postponed from 10/15/2023 (Patient Refused) Depression Screening 05/23/2025 05/23/2024, 05/24/19 Diabetes: Foot Exam 05/23/2025 05/23/2024, 05/23/2024, 05/23/2024 Diabetes: Urine Protein Screening 05/23/2025 05/23/2024, 09/02/2022, 09/28/2020 Lipid Panel 05/23/2025 05/23/2024, 11/0 10/2022, 09/28/2020 Pneumococcal Vaccine: 50+ Years (2 of 2 - PCV) 05/23/2025 09/04/2014 Postponed from 09/05/2015 (Patient Refused) SDOH Screening 05/23/2025 05/23/2024 Tobacco Screening 05/23/2025 05/23/2024 Zoster Vaccines (2 of 3) 05/23/2025 04/05/2017 Pos tponed from 05/31/2017 (Patient Refused) Eye Exam 10/14/2025 10/15/2023 DTaP/Tdap/Td Vaccines (3 - Td or Tdap) 05/23/2034 05/23/2024, 05/01/2014 HIB Vaccines Aged Out No longer eligi [...] Procedure Name Priority Date/Time Associated Diagnosis Comments COMPREHENSIVE METABOLIC PANEL Routine 05/23/2024 10:48 AM EDT Type 2 diabetes mellitus with hyperlipidemia (CMS/HCC) (CMS/HCC) ALBUMIN, RANDOM URINE W/CREATININE Routine 05/23/2024 10:48 AM EDT Type 2 diabetes mellitus with hyperlipidemia (CMS/HCC) (CMS/HCC) LIPID PANEL, STANDARD Routine 05/23/2024 10:48 AM EDT Type 2 diabetes mellitus with hyperlipidemia (CMS/HCC) ([facility]/HCC) IRON AND TOTAL IRON BINDING CAPACITY Routine 05/23/2024 10:48 AM EDT Anemia, unspecified type MGUS (monoclonal gammopathy of unknown significance) CBC WITH AUTO DIFFERENTIAL Routine 05/23/2024 10:48 AM EDT MGUS (monoclonal gammopathy of unknown significance) POCT GLYCATED HEMOGLOBIN, TOTAL Routine 05/23/2024 9:48 AM EDT Type 2 diabetes mellitus with hyperlipidemia (CMS/HCC) ([facility]/HCC) POCT GLUCOSE Routine 05/23/2024 9:38 AM EDT Type 2 diabetes mellitus with hyperlipidemia (CMS/HCC) ([facility]/HCC) FOOD AND TREE NUT ALLERGY PANEL WITH REFLEX TO COMPONENT Routine 05/15/2024 3:25 PM EDT Anemia, unspecified type BI MAMMOGRAM DIAGNOSTIC TOMOSYNTHESIS BILATERAL Routine 03/26/2024 12:00 PM EST BI US BREAST LIMITED BILATERAL Routine 03/26/2024 12:00 PM EST POCT COVID-19 AG GE ID NOW Routine 03/07/2024 1:53 PM EST Persistent cough POCT INFLUENZA A (ID NOW RAPID MOLECULAR) Routine 03/07/2024 1:53 PM EST Persistent cough POCT INFLUENZA B (ID NOW RAPID MOLECULAR) Routine 03/07/2024 1:53 PM EST Persistent cough HM COLONOSCOPY Routine 02/17/2020 OCCULT BLOOD, FECAL, IMMUNOASSAY Routine 04/02/2019 6:00 PM EST from Last 3 Months or Most Recently Relevant to Health Maintenance Results * Albumin, Random Urine W/Creatinine (05/23/2024 10:48 AM EDT) Creatinine, Urine 201.21 mg/dL [facility] Microalbumin Urine 17.0 mg/L [facility] Microalbum Creatinine Ratio Ur 8.4 <30 ug/mg cr [facility] Comment:Albumin/Creatinine R atio Reference Ranges: Normal: < 30 ug/mg creatinine Microalbuminuria: 30 - 300 ug/mg creatinineClinical Albuminuria: > 300 ug/mg creatinine Urine (Urine, Random) 05/23/2024 10:48 AM EDT 05/23/2024 11:43 AM EDT Gina HALEY LAB URINE ORDERABLES Final Resul t [facility] [address] [place] [address] [phone] * (ABNORMAL) CBC auto differential (05/23/2024 10:48 AM EDT) White Blood Count 7.6 4.8 - 10.8 X10*3/uL [facility] Red Blood Count 5.20 4.20 - 5.50 X10*6/uL [facility] Hemoglobin 12.2 12.0 - 16.0 g/dl [facility] Hematocrit 38.9 37.0 - 47.0 % [facility] Mean Corpuscular Volume 74.8(L) 80.0 - 98.0 fL [facility] Mean Corpuscular Hemoglobin 23.5(L) 27.0 - 33.0 pg [facility] Mean Corpuscular HGB Conc 31.4 31.0 - 35.0 g/dl [facility] Red Cell Distribution Width 14.1 11.0 - 16.0 % [facility] Platelet Count 311 160 - 400 X10*3/uL [facility] Mean Platelet Volume 10.7 9.4 - 12.3 fL [facility] Neutrophils Percent Auto 59.9 45 - 73 % [facility] Imm Gran Pct Auto 0.4 0.0 - 0.4 % [facility] Lymphocytes Percent Auto 30.1 20 - 40 % [facility] Monocytes Percent Auto 7.4 2 - 11 % [facility] Eosinophils Percent Auto 1.3 0 - 4 % [facility] Basophils Percent Auto 0.9 0 - 2 % [facility] NRBC Pct Auto 0.0 0.0 - 0.2 /100WBC [facility] Neutrophils Absolute Auto 4.6 2.0 - 8.3 x10*3/uL [facility] Imm Gran Abs Auto 0.03 0.00 - 0.03 X10*3/uL [facility] Lymphocytes Absolute Auto 2.3 1.2 - 4.9 X10*3/uL [facility] Monocytes Absolute Auto 0.6 0.1 - 1.2 X10*3/uL [facility] Eosinophils Absolute Auto 0.1 0.0 - 0.4 X10*3/uL [facility] Basophils Absolute Auto 0.1 0.0 - 0.2 X10*3/uL [facility] NRBC Abs Auto 0.000 0.0 - 0.012 X10*3/uL [facility] Blood Venous blood specimen / Unknown 05/23/2024 10:48 AM EDT 05/23/2024 11:37 AM EDT Gina Pressley [facility] BLOOD ORDERABLES Final Resul t [facility] [address] [place] [phone] * Iron And Total Iron Binding Capacity (05/23/2024 10:48 AM EDT) Iron 59 30 - 160 mcg/dL [facility] Comment:Slight Hemolysis.Int erpret result with caution. Total Iron Binding Capacity 295 228 - 428 mcg/dL [facility] Percent Iron Saturation 20 15 - 50 % [facility] Unsaturated Iron Binding 236 ug/dL [facility] Blood Venous blood specimen / Unknown 05/23/2024 10:48 AM EDT 05/23/2024 11:37 AM EDT Gina Pressley [facility] BLOOD ORDERABLES Final Resul t Performing Organization Address [facility] Co de Phone Number [facility] [address] [place] [phone] * (ABNORMAL) Lipid Panel, Standard (05/23/2024 10:48 AM EDT) Triglycerides 138 <150 mg/dL [facility] Comment:Desirable Triglyceri de: less than 150 mg/dLBorderline High Triglyceride 150-199 mg/dLHigh Triglyceride: 200-499 mg/dLVery High Triglyceride: greater than or equal to 5OO mg/dL Cholesterol 209(H) <200 mg/dL [facility] Comment:Desirable Cholestero l: less than 200 mg/dLBorderline High Cholesterol: 200-239 mg/dLHigh Cholesterol: greater than 239 mg/dL LDL Cholesterol Calculated 132(H) <100 mg/dL [facility] Comment:Desirable LDL: less than 100 mg/dLNear Optimal/Above Optimal LDL: 110- 129 mg/dLBorderline High LDL: 130-159 mg/dLHigh LDL: 160-189 mg/dLVery High LDL: greater than or equal to 190 mg/dL HDL Cholesterol 50 >40 mg/dL [facility] Comment:Desirable HDL: great er than 40 mg/dL Note: This HDL assay may give artificially low results in patients with liver disease. Blood Venous blood specimen / Unknown 05/23/2024 10:48 AM EDT 05/23/2024 11:37 AM EDT Gina Pressley [facility] BLOOD ORDERABLES Final Resul t Performing Organization Address [facility]/ZIP Co de Phone Number [facility] [address] [place] [phone] * (ABNORMAL) Comprehensive Metabolic Panel (05/23/2024 10:48 AM EDT) Sodium 140 135 - 145 mmol/L [facility] Potassium 4.1 3.3 - 5.1 mmol/L [facility] Comment:Slight Hemolysis.Int erpret result with caution. Chloride 106 96 - 108 mmol/L [facility] Carbon Dioxide 26 22 - 29 mmol/L [facility] Anion Gap 12 12 - 20 [facility] Urea Nitrogen (BUN) 13 9 - 16 mg/dL [facility] Creatinine, Serum 0.79 0.5 - 1.4 mg/dL [facility] Estimated Glomerular Filt Rate >60 [facility] Comment:Chronic Kidney Disea se: Estimated GFR < 60 mL/min/1.31y9Mysdla Kidney Disease: Estimated GFR < 15 mL/min/1.73m2 Glucose 130(H) 60 - 115 mg/dL [facility] Calcium 9.3 8.4 - 10.2 mg/dL [facility] Bilirubin, Total 0.5 0.0 - 1.0 mg/dL [facility] Aspartate Amino Transferase 32(H) 5 - 31 U/L [facility] Comment:Slight Hemolysis.Int erpret result with caution. Alanine Aminotransferase 21 0 - 31 U/L [facility] Total Protein 8.2(H) 6.5 - 8.0 g/dL [facility] Albumin Level 4.1 3.5 - 5.0 g/dL [facility] Alkaline Phosphatase 88 39 - 117 U/L [facility] Blood Venous blood specimen / Unknown 05/23/2024 10:48 AM EDT 05/23/2024 11:37 AM EDT us Gina [facility] BLOOD ORDERABLES Final Resul t [facility] [address] [place] [address] [phone] * (ABNORMAL) POCT HGB A1C (05/23/2024 9:48 AM EDT) Hemoglobin A1C 7.3(A) 4.0 - 6.0 % QC Media Lot # [id number] Lot# Expiration Date Blood 05/23/2024 9:48 AM EDT us Gina Pressley ANP POINT OF CARE TEST ENTER/EDIT OR DERABLES Final Result * POCT Glucose (05/23/2024 9:38 AM EDT) Glucose Blood, POC 141 60 - 200 mg/dL QC Media Lot # [id number] Lot# Expiration Date Blood Capillary blood specimen / Unknown 05/23/2024 9:38 AM EDT us Gina Pressley ANP POINT OF CARE TEST ENTER/EDIT OR DERABLES Final Result * (ABNORMAL) Food and Tree Nut Allergy Panel with Reflex to Components (05/15/2024 3:25 PM EDT) Egg White (F1) IgE 0.18(A) kU/L [facility] Cow's Milk (F2) IgE <0.10 kU/L [facility] Codfish (F3) IgE <0.10 kU/L [facility] Wheat (F4) IgE <0.10 kU/L [facility] Sesame Seed (F10) IgE <0.10 kU/L [facility] Peanut (F13) IgE <0.10 kU/L [facility] Soybean (F14) IgE <0.10 kU/L [facility] Hazelnut (F17) IgE <0.10 kU/L [facility] [place] (F20) IgE <0.10 kU/L [facility] Shrimp (F24) IgE 1.59(A) kU/L [facility] Tuna (F40) IgE <0.10 kU/L [facility] [id number] Sellers <0.10 kU/L [facility] [id number] Scallop 0.77(A) kU/L [facility] Class 0 [facility] Comment:THIS TEST WAS PERFOR MED AT:[facility] [address] [phone] LUIS WALL MD Class 0 [facility] Comment:THIS TEST WAS PERFOR MED AT:[facility] [address] [phone] WALL MD [place] Class 0 [facility] Comment:THIS TEST WAS PERFOR MED AT:[facility] [address] [phone] LUIS WALL MD Class 0 [facility] Comment:THIS TEST WAS PERFOR MED AT:[facility] [address] [phone] LUIS WALL MD Class 2 [facility] Comment:THIS TEST WAS PERFOR MED AT:[facility] [address] [phone] LUIS WALL MD Class 2 [facility] Comment:THIS TEST WAS PERFOR MED AT:[facility] [address] [address]BTQHVJORGE LUIS WALL MD Class 0 [facility] Comment:THIS TEST WAS PERFOR MED AT:[facility] [address] [phone] WALL MD Class 0/1 [facility] Comment:THIS TEST WAS PERFOR MED AT:[facility] [address] [phone] LUIS WALL MD Class 0 [facility] Comment:THIS TEST WAS PERFOR MED AT:[facility] [address] [phone] WALL MD Class 0 [facility] Comment:THIS TEST WAS PERFOR MED AT:[facility] [address] [phone] LUIS WALL MD Class 0 [facility] Comment:THIS TEST WAS PERFOR MED AT:[facility] [address] LORAINE WALL MD Class 0 [facility] Comment:THIS TEST WAS PERFOR MED AT:[facility] [address] [address]LTRJLJORGE LUIS WALL MD Class 0 [facility] Comment:THIS TEST WAS PERFOR MED AT:[facility] [address] LORAINE WLAL MD Cashew Nut (F202) IgE <0.10 kU/L [facility] Macadamia Nut (RF345) IgE <0.10 kU/L [facility] Class 0 [facility] Comment:THIS TEST WAS PERFOR MED AT:[facility] [address] LORAINE WALL MD [place] (F41) IgE <0.10 kU/L [facility] [place] Nut (F18) IgE <0.10 kU/L [facility] Class 0 [facility] Comment:THIS TEST WAS PERFOR MED AT:[facility] [address] LORAINE WALL MD Class 0 [facility] Comment:THIS TEST WAS PERFOR MED AT:[facility] [address] [address] LORAINE WALL MD Class 0 [facility] Comment:THIS TEST WAS PERFOR MED AT:[employer] [address] LORAINE WALL MD 05/15/2024 3:25 PM EDT 05/16/2024 4:35 PM EDT us Generic External Data Provider LAB BLOOD ORDERAB LES Final Result [facility] [address] [place] [address] [phone] * BI US Breast Limited Bilateral (03/26/2024 12:00 PM EST) Anatomical Region Laterality Modality Breast Bilateral Ultrasound 03/26/2024 12:0 0 PM EST Narrative 03/26/2024 1:05 PM EST ? [facility] ? [address] ?[place] [address] ? Ultrasound Report ? Signed ? Patient: Maikol Colon,Johnna ?MR#: M ?? [id number] ? : 1955 ?Acct:[id number] ? Age/Sex: 68 / F ?ADM Date: 03/26/24 ? Loc: HO.MAMMO ? Attending Dr: Gina Pressley NP ? Ordering Physician: GINA PRESSLEY NP ?? Date of Service: 03/26/24 ?? Procedure(s): US breast BI limited mamm only ?? Accession Number(s): [id number] ? cc: GINA PRESSLEY NP ? EXAMINATION: [...] ??Marina Wang DO ??03/26/2024 01:02 PM EST ?? RP ? Dictated By: ?Marina Wang DO ? Signed By: ?<Electronically signed by Marina Wang, DO in OV> ? 03/26/24 1302 ? DD/ 1200 ? TD/TT: 03/26/24 1253 ? Fishing Line Winding Machine Operator: ? Procedure Note Donotuseinterpreter, Image - 03/26/2024 [facility] [address] [place], [place] [address] Ultrasound Report Signed Patient: Hattie Holbrook#: M [id number] : 6Acct:[id number] Age/Sex: 68 / FADM Date: 03/26/24 Loc: HO.MAMMO Attending Dr: Gina Pressley NP Ordering Physician: GINA PRESSLEY NP Date of Service: 03/26/24 Procedure(s): US breast BI limited mamm only Accession Number(s): [id number] cc: GINA PRESSLEY NP EXAMINATION: MM DIAGNOSTIC [...] 03/26/24 1302 DD/ 1200 TD/TT: 03/26/24 1253 Fishing Line Winding Machine Operator: us Gina Easton ANP IMG US PROCEDURES Final Result * BI Mammogram Diagnostic Tomosynthesis Bilateral (03/26/2024 12:00 PM EST) Anatomical Region Laterality Modality Breast Bilateral Mammography 03/26/2024 12:0 0 PM EST Narrative 03/26/2024 1:05 PM EST ? [facility] ? [address] ?[place] [address] ? Mammography Report ? Signed ? Patient: Maikol Colon,Johnna ?MR#: M ?? [id number] ? : 1955 ?Acct:[id number] ? Age/Sex: 68 / F ?ADM Date: 02/11/25 ? Loc: HO.MAMMO ? Attending Dr: Gina Pressley DISTRIBUTION DISPATCHER ? Ordering Physician: GINA PRESSLEY DISTRIBUTION DISPATCHER ?Results: 1Negative ? Date of Service: 03/26/24 ?Follow Up: 1 Year From Orig ?? inal Mammogram ? Procedure(s): MM tomosynthesis diagnostic BI ?? Accession Number(s): [id number] ? cc: GINA PRESSLEY NP ? EXAMINATION: [...] DD/ 1200 ? TD/TT: 03/26/24 1222 ? Fishing Line Winding Machine Operator: ? Procedure Note Donanneliese, Image - 03/26/2024 [facility] [address] [place] [address] Mammography Report Signed Patient: Hattie Holbrook#: M [id number] : 6Acct:[id number] Age/Sex: 68 / FADM Date: 03/26/24 Loc: MAMMO Attending Dr: Gina Pressley NP Ordering Physician: GINA PRESSLEY NPResults: 1Negative Date of Service: 03/26/24Follow Up: 1 Year From Orig ina Mammogram Procedure(s): MM tomosynthesis diagnostic BI Accession Number(s): [id number] cc: GINA PRESSLEY NP EXAMINATION: MM DIAGNOSTIC [...] 03/26/24 1302 DD/ 1200 TD/TT: 03/26/24 1222 Fishing Line Winding Machine Operator: Gina HALEY IMRajni BI PROCEDURES Final Result * Influenza B (ID NOW Rapid Molecular) (03/07/2024 1:53 PM EST) Influenza B Negative Negative, Indeterminate [facility] Swab 03/07/2024 1:53 PM EST Nupur Ortiz MD POINT OF CARE TEST ENTER/E DIT ORDERABLES Final Result [facility] [address] [place] [phone] * Influenza A (ID NOW Rapid Molecular) (03/07/2024 1:53 PM EST) Influenza A Negative Negative, Indeterminate [facility] Swab 03/07/2024 1:53 PM EST Nupur Ortiz MD POINT OF CARE TEST ENTER/E DIT ORDERABLES Final Result [facility] [address] [place] [address] [phone] * POCT COVID-19 Ag Ge ID NOW (03/07/2024 1:53 PM EST) Coronavirus Antigen PCR Negative Negative, Indeterminate, None Detected, Invalid, Specimen unsatisfactory for evaluation, Weakly Positive Swab 03/07/2024 1:53 PM EST Nupur Ortiz MD POINT OF CARE TEST ENTER/E DIT ORDERABLES Final Result * (ABNORMAL) Colonoscopy (02/17/2020) Colonoscopy Abnormal(A ) Normal Ness Castellano MD HEALTH MAINTENANCE Final Result * OCCULT BLOOD STOOL (04/02/2019 6:00 PM EST) OCCULT BLOOD STOOL NEG NEG [facility] 04/02/2019 6:00 PM EST Margi ESCOBEDO LAB BODY FLUIDS AND STOOLS ORD ERABLES Final Result [facility] [address] from Last 3 Months or Most Recently Relevant to Health Maintenance Insurance [facility] STANDARD MEDICARE [place], [place] Care Teams Mounter Smoking Pipe Relationship Specialty Start Date End Date Gina Pressley ANP [address] [place] [phone] PCP - General Family Medicine 01/29/20 Luis Alberto Larose MD [address] [place] [address] Dr [address]rd [place] [address] Gastroenterology 05/23/24
--- OUTSIDE RECORDS SUMMARY | 2024-05-23 12:51 | XMS_ITS | Encounter Summary ---
Author Organization [employer] Address [address] [facility] 7t [place] [address] Care Team Providers Care Solutions Market Consultant Name Role Phone Jayla Mccormack Primary Care Provider [phone] Luis Alberto Larose MD Unavailable [phone] Reason for Referral * Consultation (Routine) - Authorized Specialty Diagnoses / Procedures Referred By Saeed diaz Referred To Contact Endocrinology Diagnoses Osteoporosis without current pathological fracture, unspecified osteoporosis type Jyala Mccormack ANP [address] [place] [address] Phone: tel: fax: [facility] Endocrinology [address] [place], [place] Phone: tel: fax: Referral ID Status Reason Start Date Expiration Date Visits Requested Visits Authorized [id number] Authorized Specialty Services Required 05/23/2024 05/23/2025 1 1 * Medications - Closed Specialty Diagnoses / Procedures Referred By Saeed diaz Referred To Contact Diagnoses Type 2 diabetes mellitus with hyperlipidemia (CMS/HCC) (CMS/HCC) Jayla Mccormack ANP [address] [place] [address] Phone: tel: fax: Referral ID Status Reason Start Date Expiration Date Visits Re quested Visits Authorized [id number] Closed 05/23/2024 05/23/2025 1 1 Reason for Visit * Reason Comments offfice visit Encounter Details Date Type Department Care Team (Latest Contact Info) Description 05/23/2024 9:00 AM EDT Office Visit [facility] [address] [place] [address] Jayla Mccormack ANP [address] [place] [address] Type 2 diabetes mellitus with hyperlipidemia (CMS/HCC) (CMS/HCC) (Primary Dx); Moderate persistent asthma without complication; Osteoporosis without current pathological fracture, unspecified osteoporosis type; Class 2 severe obesity with serious comorbidity and body mass index (BMI) of 35.0 to 35.9 in adult, unspecified obesity type (CMS/HCC); Dietary counseling; Exercise counseling; Encounter for immunization; Obstructive sleep apnea syndrome; Neuropathy involving both lower extremities Social History Tobacco Use Types Packs/Day Years [...] housing situation today? I have david andrade 05/23/[address] you li [...] AM EDT documented as of this encounter Last Filed Vital Signs Vital Sign Reading Time Taken Comments Blood Pressure 107/68 05/23/2024 9:30 AM EDT Pulse 75 05/23/2024 9:30 AM EDT Temperature 36.4 ??C (97.5 ??F) 05/23/2024 9:30 AM ED T Respiratory Rate 14 05/23/2024 9:30 AM EDT Oxygen Saturation 97% 05/23/2024 9:30 AM EDT Inhaled Oxygen Concentration - - Weight - - Height 146.5 cm (4' 9.68 ) 05/23/2024 9:30 AM ED T Body Mass Index - - documented in this encounter Progress Notes * TERA Arellano - 05/23/2024 9:00 AM EDT Subjective Patient ID: Johnna De La Vega is a 69 y.o. adult who presents for DM. PMH T2DM w/ HLD, neuropathy, osteoporosis, asthma, hypothyroid, IBS, PHAN, MDD, gastritis HPI Lab Results Component Value Date HGBA1C 7.3 (A) 05/23/2024 HGBA1C 6.4 (A) 11/28/2023 HGBA1C 7.4 (A) 08/25/2023 Due for: Foot exam - abnormal sensation 05/23/24, 4/8 monofilament sites sensed bilaterally, +thickened nails, flaking Eye exam 10/2023 w/ Dr. Braden, next appt 06/21/24 CRC screening: follows w/ [facility] GI, C-scope 11/15/2022, rpt 5 years Lipids - due, ordered RSV--> gave info PCV20/flu/COVID --> Declines Td - accepts today Mammo BIRADS1 03/26/24 Just had allergy testing via GI w/ + shrimp, scallop, egg white. Notes that she has been having frequent cough worse at night. Cough is dry though sometimes with production of sputum/phlegm. Also associated with itchiness in ears, laying down at night, sometimes with CPAP use. Feels better with albuterol use. Does take Pulmicort as prescribed. No fever or chillsor SOB. She did see ENT but the focus was on dizziness and so did not discuss cough or throat sensation. Asked her to please call Dr. Larose or mention this to him at her next appointment as she alsohas history of abnormal EGD: EGD 11/15/22 w/ balloon dilation of schatzki ring, esophagitis, 2 cm sliding hiatal hernia Baseline DEXA 10/25/22 Severe osteoporosis based on the lowest T-score value of - 2.8 in the lumbar spine and history of fracture. She was started on alendronate via Dr. Carranza for severe osteoporosis. Unfortunately she could not tolerate this due to dizziness, GI upset, nausea, joint pain. She did see [facility] endocrinology briefly but as they recommended she continue the alendronate she requested to be seen elsewhere. I did place referral to [facility] endocrinology August 2023 as theyrequested but they did not receive information about this and so I will place referral again. She notes that she has gotten shorter. Height here had been 4'11, now 4' 9.68 . Here with daughter never smoker, no EtOH Carissa Lopez, medical practice administrator, provided Iranian interpretation. Review of Systems Constitutional: Negative for fatigue, fever and unexpected weight change. HENT: Negative for sore throat. Respiratory: Positive for cough. Negative for shortness of breath and wheezing. Cardiovascular: Negative for chest pain, palpitations and leg swelling. Gastrointestinal: Negative for constipation. Endocrine: Negative for polydipsia, polyphagia and polyuria. Skin: Negative for rash. Psychiatric/Behavioral: Negative for agitation and confusion. The patient is not nervous/anxious. Objective BP 107/68 (BP Location: Right arm, Patient Position: Sitting, BP Cuff Size: Adult long) Pulse 75 Temp 97.5 ??F (36.4 ??C) (Temporal) Resp 14 Ht 4' 9.68 (1.465 m) SpO2 97% BMI 35.13 kg/m?? Physical Exam Vitals reviewed. Constitutional: General: Johnna is not in acute distress. Appearance: Normal appearance. Johnna is obese. Johnna is not ill-appearing. HENT: Head: Normocephalic and atraumatic. Eyes: General: No scleral icterus. Extraocular Movements: Extraocular movements intact. Pupils: Pupils are equal, round, and reactive to light. Cardiovascular: Rate and Rhythm: Normal rate and regular rhythm. Pulses: Dorsalis pedis pulses are 1+ on the right side and 1+ on the left side. Posterior tibial pulses are 1+ on the right side and 1+ on the left side. Pulmonary: Effort: Pulmonary effort is normal. No accessory muscle usage or respiratory distress. Breath sounds: Normal breath sounds. No wheezing, rhonchi or rales. Musculoskeletal: Right lower leg: No edema. Left lower leg: No edema. Feet: Right foot: Protective Sensation: 8 sites tested. 4 sites sensed. Skin integrity: Skin integrity normal. Toenail Condition: Right toenails are abnormally thick. Fungal disease present. Left foot: Protective Sensation: 8 sites tested. 4 sites sensed. Skin integrity: Skin integrity normal. Toenail Condition: Left toenails are abnormally thick. Neurological: Mental Status: Johnna is alert and oriented to person, place, and time. Cranial Nerves: No cranial nerve deficit. Psychiatric: Mood and Affect: Mood normal. Behavior: Behavior normal. Assessment/Plan Diagnoses and all orders for this visit: Type 2 diabetes mellitus with hyperlipidemia (CMS/HCC) ([facility]) Diet and exercise controlled. No new meds initiated today. A1c has been relatively stable and remains near goal </= 7. Will have short-term follow-up to recheck blood sugars and blood sugar log toconsider initiation of medication. Patient has not wanted to start medication in the past due to she is on many meds for other conditions. On statin, not on LORNA/ARB, allergy to ASA Foot exam 05/23/2024 abnormal monofilament, decreased sensation, + thickened toenails, will place referral to podiatry for ongoing footcare and reminded to wear shoes in house and do regular foot checks. Eye exam UTD per patient, next upcoming June 2024, will request last visit note from [facility] Declines most vaccines Labs previously ordered not yet obtained, added lipid panel and CMP today Lab Results Component Value Date HGBA1C 7.3 (A) 05/23/2024 - Lipid Panel, Standard; Future - Albumin, Random Urine W/Creatinine; Future - Comprehensive Metabolic Panel; Future - POCT Glucose - POCT HGB A1C - FREESTYLE LITE test strip; Use to test blood sugar 3 times daily - Lancets misc; Use to test blood sugar 3 times daily - Alcohol Swabs 70 % pads; Use to clean skin b/f BG check - Blood Glucose Monitoring Suppl (FreeStyle Stockwell Lite) w/Device kit; Use to test blood sugar 3 times daily Moderate persistent asthma without complication Lungs CTAB. Unclear etiology of cough maybe esophageal in origin or allergic. Low suspicion for pulmonary edema given lungs clear at bases and no BLE edema or CABRERA reported. Will stop Pulmicort and start Symbicort. Cautioned of possible BRIDGETTE's. - budesonide-formoterol (Symbicort) 160-4.5 MCG/ACT inhaler; Inhale 2 puffs in the morning and at bedtime. Rinse mouth with water after use to reduce aftertaste and incidence of candidiasis. Do not swallow. Osteoporosis without current pathological fracture, unspecified osteoporosis type Comments: on CA/Vit D, next DEXA due 10/2024. Could not tolerate alendronate d/t GI sx, dizziness, joint pains. Will place rereferral to [facility] endocrinology Class 2 severe obesity with serious comorbidity and body mass index (BMI) of 35.0 to 35.9 in adult,unspecified obesity type ([facility]) Lifestyle recommendations: be as active as able, ideally exercise 150min moderate intensity or 75min vigorous intensity weekly; increase intake of vegetables, fruits, whole grains, fish. Try to minimize intake of sugary or greasy food and drink. Use olive oil or vegetable, peanut, canola, or similar oil for cooking. Decrease or stop drinking alcohol if you drink, quit/decrease smoking if you smoke. Stressed the utmost importance of exercise given not on meds for DM. dietary counseling Exercise counseling As above PHAN On CPAP and continues to benefit from regular CPAP use Encounter for immunization Declines most vaccines. Encouraged to consider Shingrix and RSV at pharmacy. - TDAP VACCINE 7 yrs + documented in this encounter Plan of Treatment Upcoming Encounters Date Type Department Care Team (Late st Contact Info) Description 07/30/2024 1:15 PM EDT Office Visit [facility] [address] [place] [phone] Jayla Mccormack, ANP [address] [place] [address] Scheduled Referrals Name Type Priority Associated Diagnoses Orde r Schedule Referral to Endocrinology Outpatient Referral Routine Osteoporosis without current pathological fracture, unspecified osteoporosis type Expected: 05/23/2024 (Approximate), Expires: 05/23/2025 documented as of this encounter Procedures Procedure Name Priority Date/Time Associated Diagnosis Comments ALBUMIN, RANDOM URINE W/CREATININE Routine 05/23/2024 10:48 AM EDT Type 2 diabetes mellitus with hyperlipidemia ([facility]/HCC) ([facility]) LIPID PANEL, STANDARD Routine 05/23/2024 10:48 AM EDT Type 2 diabetes mellitus with hyperlipidemia ([facility]/HCC) ([facility]) COMPREHENSIVE METABOLIC PANEL Routine 05/23/2024 10:48 AM EDT Type 2 diabetes mellitus with hyperlipidemia ([facility]/HCC) ([facility]) POCT GLYCATED HEMOGLOBIN, TOTAL Routine 05/23/2024 9:48 AM EDT Type 2 diabetes mellitus with hyperlipidemia ([facility]/HCC) ([facility]) POCT GLUCOSE Routine 05/23/2024 9:38 AM EDT Type 2 diabetes mellitus with hyperlipidemia ([facility]/HCC) ([facility]) documented in this encounter Results * (ABNORMAL) Comprehensive Metabolic Panel (05/23/2024 10:48 AM EDT) Sodium 140 135 - 145 mmol/L [facility] Potassium 4.1 3.3 - 5.1 mmol/L [facility] Comment:Slight Hemolysis.Int erpret result with caution. Chloride 106 96 - 108 mmol/L [facility] Carbon Dioxide 26 22 - 29 mmol/L [facility] Anion Gap 12 12 - 20 [facility] Urea Nitrogen (BUN) 13 9 - 16 mg/dL [facility] Creatinine, Serum 0.79 0.5 - 1.4 mg/dL [facility] Estimated Glomerular Filt Rate >60 [facility] Comment:Chronic Kidney Disea se: Estimated GFR < 60 mL/min/1.50m6Cfbqel Kidney Disease: Estimated GFR < 15 mL/min/1.73m2 Glucose 130(H) 60 - 115 mg/dL [facility] Calcium 9.3 8.4 - 10.2 mg/dL [facility] Bilirubin, Total 0.5 0.0 - 1.0 mg/dL [facility] Aspartate Amino Transferase 32(H) 5 - 31 U/L [facility] Comment:Slight Hemolysis.Int erpret result with caution. Alanine Aminotransferase 21 0 - 31 U/L [facility] Total Protein 8.2(H) 6.5 - 8.0 g/dL [facility] Albumin Level 4.1 3.5 - 5.0 g/dL [facility] Alkaline Phosphatase 88 39 - 117 U/L [facility] Blood Venous blood specimen / Unknown 05/23/2024 10:48 AM EDT 05/23/2024 11:37 AM EDT us Jayla HALEY LAB BLOOD ORDERABLES Final Resul t [facility] [address] [place] [phone] * Albumin, Random Urine W/Creatinine (05/23/2024 10:48 AM EDT) Creatinine, Urine 201.21 mg/dL [facility] Microalbumin Urine 17.0 mg/L [facility] Microalbum Creatinine Ratio Ur 8.4 <30 ug/mg cr [facility] Comment:Albumin/Creatinine R atio Reference Ranges: Normal: < 30 ug/mg creatinine Microalbuminuria: 30 - 300 ug/mg creatinineClinical Albuminuria: > 300 ug/mg creatinine Urine (Urine, Random) 05/23/2024 10:48 AM EDT 05/23/2024 11:43 AM EDT us Jayla Mccormack ANP LAB URINE ORDERABLES Final Resul t Performing Organization Address [facility] Co de Phone Number [facility] [address] [place] [address] [phone] * (ABNORMAL) Lipid Panel, Standard (05/23/2024 10:48 AM EDT) Triglycerides 138 <150 mg/dL [facility] Comment:Desirable Triglyceri de: less than 150 mg/dLBorderline High Triglyceride 150-199 mg/dLHigh Triglyceride: 200-499 mg/dLVery High Triglyceride: greater than or equal to 5OO mg/dL Cholesterol 209(H) <200 mg/dL [facility] Comment:Desirable Cholestero l: less than 200 mg/dLBorderline High Cholesterol: 200-239 mg/dLHigh Cholesterol: greater than 239 mg/dL LDL Cholesterol Calculated 132(H) <100 mg/dL [facility] Comment:Desirable LDL: less than 100 mg/dLNear Optimal/Above Optimal LDL: 110- 129 mg/dLBorderline High LDL: 130-159 mg/dLHigh LDL: 160-189 mg/dLVery High LDL: greater than or equal to 190 mg/dL HDL Cholesterol 50 >40 mg/dL [facility] Comment:Desirable HDL: great er than 40 mg/dL Note: This HDL assay may give artificially low results in patients with liver disease. Blood Venous blood specimen / Unknown 05/23/2024 10:48 AM EDT 05/23/2024 11:37 AM EDT Jayla Mccormack [facility] BLOOD ORDERABLES Final Resul t Performing Organization Address [facility] Co de Phone Number [facility] [address] [place] [address] [phone] * (ABNORMAL) POCT HGB A1C (05/23/2024 9:48 AM EDT) Hemoglobin A1C 7.3(A) 4.0 - 6.0 % QC Media Lot # [id number] Lot# Expiration Date Blood 05/23/2024 9:48 AM EDT us Jayla HALEY POINT OF CARE TEST ENTER/EDIT OR DERABLES Final Result * POCT Glucose (05/23/2024 9:38 AM EDT) Glucose Blood, POC 141 60 - 200 mg/dL [employer] Media Lot # [id number] Lot# Expiration Date Blood Capillary blood specimen / Unknown 05/23/2024 9:38 AM EDT Jayla HALEY POINT OF CARE TEST ENTER/EDIT OR DERABLES Final Result documented in this encounter Visit Diagnoses Diagnosis Type 2 diabetes mellitus with hyperlipidemia (CMS/HCC) (CMS/HCC)- Primary Moderate persistent asthma without complication Osteoporosis without current pathological fracture, unspecified osteoporosis type Class 2 severe obesity with serious comorbidity and body mass index (BMI) of 35.0 to 35.9 in adult, unspecified obesity type (CMS/HCC) Dietary counseling Dietary surveillance and counseling Exercise counseling Encounter for immunization Obstructive sleep apnea syndrome Obstructive sleep apnea (adult) (pediatric) Neuropathy involving both lower extremities documented in this encounter Additional Health Concerns Assessment Noted Time PHQ-9 Depression Total Score: 10 025 10:45 AM EDT documented as of this encounter Care Teams Solutions Market Consultant Relationship Specialty Start Date End Date Jayla Mccormack ANP [address] [place] [phone] PCP - General Family Medicine 01/29/20 Luis Alberto Larose MD [address] [place] [address] Dr [address] [place] [address] Gastroenterology 05/23/24 documented as of this encounter
--- OUTSIDE RECORDS SUMMARY | 2024-05-23 12:51 | XMS_ITS | Encounter Summary ---
Author Organization [employer] Address [address] [facility] [address]t [place] [address] Care Team Providers Care Patient Registration Manager Name Role Phone Jayla Mccormack Primary Care Provider [phone] Luis Alberto Larose MD Unavailable [phone] Reason for Visit * Reason Onset Date Comments Med Refill 10/03/2022 Encounter Details Date Type Department Care Team ([facility] st Contact Info) Description 10/03/2022 Telephone [facility] [address], [place] [phone] Jayla Mccormack ANP [address] [place] [address] Med Refill Social History Tobacco Use Types [...] 1:15 PM EDT Office Visit [facility] [address] [place] [phone] Jayla Mccormack ANP [address] [place] [address] documented as of this encounter Visit Diagnoses Not on filedocumented in this encounter Care Teams Patient Registration Manager Relationship Specialty Start Date End Date Jayla Mccormack ANP [address] [place] [phone] PCP - General Family Medicine 01/29/20 Luis Alberto Larose MD [address] [place] [address] Dr [address] [place] [address] Gastroenterology 05/23/24 documented as of this encounter
--- OUTSIDE RECORDS SUMMARY | 2024-05-23 12:51 | XMS_ITS | Data Portability ---
Author Organization [place] - [facility], Allergy Address [address] [place] [id number] Assessment Encounter Date Assessment Date Assessment LastModified [...] of the day. Continue to work with timber hand and PCP on vision and lower extremity [...] Delfina alvarado 2 [facility], [address] [place] [address], [place], [address], 08/20/202 4 13:35:24 neurologist referral - Referral for dizziness. Thank you. 2023 [facility]ina [facility], [address] [place] [address], [place], [address], 15:41:34 Procedures None recorded. Surgeries None recorded. 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 Active 2015 Cough variant asthma; Note: Date Diagnosed : 6 5:07 PM (J45.991) Not Available [facility] 4 02:53:56 Allergic rhinitis 15251731 Active 2015 Allergic rhinitis, unspecifi ed; Note: Date Diagnosed : 6 5:07 PM (J30.9) Not Available [facility] 4 02:53:58 Cough 61389714 Active 2015 Cough, unspecifi ed; Note: Changed from R05 to R05.9 (04/14/2021 3:53 PM) , Date Diagnosed : 10/19/201 6 5:07 PM (R05) Not Available [facility] 4 02:53:55 Dizziness 447256613 Active 2023 SANDRA RAMOS PA-C [address] [place] [address] [address], [place], [address] , [facility] - [facility] 4 14:54:55 Problem Notes None recorded. [...] Name and Address Organization Details Recorded Time 891546 aspirin medicatio n other Not available Not available 06/27/2023 1191 RxNorm React ion: unkno wn, unspe cifie d;; Not Available [facility] 4 01:23:00 Medications Name Sig Start Date Stop Date Status Note LastModified by Organization Details LastModified Time medbox status USE DIRECTED active Not Available Not Available No t Available Singulair 10 mg tablet 1 tablet by mouth 06/24 completed Medicati on ID: [id number] P rescribe d By Name: Benji Babcock [...] mg tablet 04/14 completed Medicati on ID: [id number] D uration Value: 15 Brand Name: metformi n Send Method: E-Prescr ibed Sub s Allowed: subs OK Speci al Instruct ion: TAKE 1 TABLET BY MOUTH EVERY DAY WITH MORNING AND EVENING MEALS Me dication GenericN darvin: metformi n Not Available Not Available Not Available gabapenti n 600 mg tablet 09/12 completed Medicati on ID: [id number] B rand Name: gabapent in Send Method: E-Prescr ibed Sub s Allowed: subs OK Medic ationGen ericName : gabapent in Medic ation ID: [id number] B rand Name: gabapent in Send Method: E-Prescr ibed Sub s Allowed: subs OK Medic ationGen ericName : gabapent in Not Available Not Available Not Available Vitamin C 500 mg tablet TAKE 1 TABLET BY MOUTH EVERYDAY AT NOON (WITH IRON) active Not Available Not Available No t Available glyburide 2.5 mg tablet 04/14 completed Medicati on ID: [id number] D uration Value: 30 Brand Name: glyburid [...] 12 hr 04/14 completed Medicati on ID: [id number] B rand Name: diltiaze m HCl Send Method: E-Prescr ibed Sub s Allowed: subs OK Medic ationGen ericName : diltiaze m HCl Not Available Not Available Not Available diltiazem 120 mg tablet 09/12 completed Medicati on ID: [id number] B rand Name: diltiaze m HCl Send Method: E-Prescr ibed Sub s Allowed: subs OK Medic ationGen ericName : diltiaze m HCl Medi cation ID: [id number] B rand Name: diltiaze m HCl Send Method: E-Prescr ibed Sub s Allowed: subs OK Medic ationGen ericName : diltiaze m HCl Not Available Not Available Not Available dicyclomi ne 20 mg tablet active Medicati on ID: [id number] B rand Name: dicyclom ine Send Method: [...] mcg tablet 04/14 completed Medicati on ID: [id number] B rand Name: levothyr oxine Se nd Method: E-Prescr ibed Sub s Allowed: subs OK Medic ationGen ericName : levothyr oxine Not Available Not Available Not Available metformin 1,000 mg tablet 09/12 completed Medicati on ID: [id number] B rand Name: metformi n Send Method: E-Prescr ibed Sub s Allowed: subs OK Medic ationGen ericName : davida n Medica tion ID: [id number] B rand Name: davida n Send Method: [...] elayed release 04/14 completed Medicati on ID: [id number] D uration Value: 30 Brand Name: omeprazo [...] pen injector 2021 active Medicati on ID: [id number] D uration Value: 1 Prescri bed By [...] mg iron) tablet active Medicati on ID: [id number] B rand Name: iron Sen d Method: [...] as directed 04/14 completed Medicati on ID: [id number] D uration Value: 90 Brand Name: Flovent [...] capsule,e xtended release active Medicati on ID: [id number] B rand Name: Tiadylt ER Send Method: E-Prescr ibed Sub s Allowed: subs OK Medic ationGen ericName : Tiadylt ER Not Available Not Available Not Available Vitals Date Recorded Body height Body mass index (BMI) Body weight Provider Name and Address Organization Details Last Updated DateTime 09/13/2023 147.32 cm 34.5 kg/m2 48752.74 g Lizabeth Matute [place] - [facility] 09/13/2023 14:15:30 Social History None recorded. Functional Status None recorded. Mental Status None recorded. Family History Nothing Reported. Medical History No medical history recorded. Gynecological HistoryNo gynecological history recorded. Obstetrics History GPAL:G 0 P 0 0 0 0 Past Encounters Encounter ID Performer Location Encounter Start Date Encounter Closed Date Diagnosis/Indication Diagnosis SNOMED-CT Code Diagnosis ICD10 Code Diagnosis Note [id number] POORNIMA DESOUZA MD [facility] [address] [place] [address] 09/13/2023 13:42:26 09/13/2023 14:59:55 Dizziness 851990622 R42 Health Concerns Section Related Observation LastModified by Organization Detai ls LastModified Time None Recorded Concern Status LastModified by Organization Details LastModified Time None Recorded Advance Directives Directive None Recorded Payers Encounter Date Sequence Insurance Name Policy Number Policy Gomes Covered Member ID Gomes Member ID Guarantor Name 09/13/2023 1 [place]: [employer] Johnna De La Vega [id number] Johnna De La Vega 09/13/2023 2 [place] [facility] Johnna De La Vega [id number] Johnna De La Vega Notes Date Note Type Note Provider Name and Address Organization Details Recorded Time 09/13/2023 text/html 68 year old anish cuba presents for evaluation of ears. Recently had a hearing test at [place] demonstrating hearing loss. Has had this for [...] self or family. POORNIMA DESOUZA MD [address] [facility],[place] [address], [place], [address], [facility] - [facility] 09/19/2023 16:58:41 OBGyn Episode No OBEpisode recorded.
--- OUTSIDE RECORDS SUMMARY | 2024-05-23 12:51 | XMS_ITS | Encounter Summary ---
Author Organization [employer] Address [address] [place] [address] Care Team Providers Care Operations Controller Name Role Phone Jayla Mccormack TERA Primary Care Provider [phone] Luis Alberto Larose MD Unavailable [phone] Encounter Details Date Type Department Care Team (Latest Contact Info) Description 05/23/2024 Travel Social History Tobacco Use Types Packs/Day Years [...] Description 07/30/2024 1:15 PM EDT Office Visit [facility] [address] [place] [address] Jayla Mccormack ANP [address] [place] [address] documented as of this encounter Visit Diagnoses Not on filedocumented in this encounter Additional Health Concerns Assessment Noted Time PHQ-9 Depression Total Score: 10 025 10:45 AM EDT documented as of this encounter Care Teams Operations Controller Relationship Specialty Start Date End Date Jayla Mccormack ANP [address] [place] [address] PCP - General Family Medicine 01/29/20 Luis Alberto Larose MD [address] [place] [address] Dr [address] [place] [address] Gastroenterology 05/23/24 documented as of this encounter
--- OUTSIDE RECORDS SUMMARY | 2024-05-23 12:51 | XMS_ITS | Encounter Summary ---
Author Organization [employer] Address [address] [place] [address] Care Team Providers Care Stereotyper Helper Name Role Phone Jayla Mccormack Primary Care Provider [phone] Reason for Visit * Reason Onset Date Comments chart prep 05/22/2024 Encounter Details Date Type Department Care Team (Late st Contact Info) Description 05/22/2024 Telephone [facility] [address] [place] [address] Bebe Contreras MA chart prep Social History Tobacco Use Types Packs/Day Years [...] encounter Miscellaneous Notes * Telephone Encounter - Bebe Contreras MA - 05/22/2024 9:12 AM EDT Chart Prep Labs: done Images: done Vaccines due: yes Referrals: not applicable Screenings: colonoscopy Overdue care gaps: A1c, Glucose, SBIRT, SDOH, and PHQ-9 documented in this encounter Plan of Treatment Upcoming Encounters Date Type Department Care Team (Late st Contact Info) Description 07/30/2024 1:15 PM EDT Office Visit [facility] [address] [place] [address] Jayla Mccormack ANP [address] [place] [address] documented as of this encounter Visit Diagnoses Not on filedocumented in this encounter Additional Health Concerns Assessment Noted Time PHQ-9 Depression Total Score: 9 12/14/19 23 3:07 PM EDT documented as of this encounter Care Teams Stereotyper Helper Relationship Specialty Start Date End Date Jayla Mccormack ANP [address] [place] [address] PCP - General Family Medicine 01/29/20 documented as of this encounter
[2024-05-23 13:12] LABS: Vitamin B12 549 pg/mL (200-900)
== END 2024-05-23 10:47 | disposition home or self-care (01) ==
LOC: HO.HHCL 10:46
PROVIDERS: Visit Provider Nurse Practitioner Primary Care
DX: D47.2 Monoclonal gammopathy (principal); D64.9 Anemia, unspecified; E78.5 Hyperlipidemia, unspecified; E11.69 Type 2 diabetes mellitus with other specified complication
CPT/HCPCS: 36415; 80053; 80061; 82043; 82570; 82607; 83540; 85025

== ENCOUNTER 2024-07-03 09:46 | Outpatient (REF) | payer MEDICARE, MEDICAID, SELFPAY ==
--- NOTE | ~2024-07-03 | US_ITS ---
EXAMINATION: US ABDOMEN LIMITED WITH LIVER ELASTOGRAPHY HISTORY: R10.13 - Epigastric pain TECHNIQUE: Real-time grayscale ultrasound imaging of the right upper quadrant was performed and images were reviewed. COMPARISON: Correlation is made with a CT of the abdomen dated 07/06/2023. FINDINGS: Liver: The right lobe of the liver measures 14.5 cm in size. The left lobe of the liver measures 9.6 cm in size. The liver demonstrates normal homogeneous echotexture. No focal mass or intrahepatic biliary ductal dilatation is identified. There is normal hepatopedal flow in the portal vein. Ultrasound elastography of the liver was performed with 10 separate measurements of the liver parenchyma with the patient in the supine position. Measurements were obtained approximately 2 cm below Samara's capsule and perpendicular to the capsule. Images are of satisfactory quality. The median shear wave velocity is 1.37 m/s. The interquartile range/median (IQR/median) is 0.09. Gallbladder and biliary tree: The gallbladder is unremarkable, without evidence of calculi, wall thickening, or pericholecystic fluid. There is no sonographic Mcgregor sign. The common bile duct is normal in caliber measuring 3 mm. Right Kidney: The right kidney measures 9.5 cm in length and demonstrates a prominent hypertrophied column of Que. The right kidney is otherwise unremarkable, without evidence of masses, hydronephrosis, or calculi. Pancreas: The pancreatic head, neck, and body are unremarkable. The pancreatic tail is obscured by bowel gas. Abdominal aorta and inferior vena cava: The visualized portions of the abdominal aorta and inferior vena cava are normal in caliber. There is no free fluid in the right upper quadrant. US/US abdomen unger w elastography IMPRESSION: Unremarkable right upper quadrant ultrasound. The median shear wave velocity in the liver is 1.37 m/s, corresponding to a median liver stiffness of 5.65 kPa. The IQR/median value is 0.09. This is indicative of a quality data set. Findings are indicative of a low elastography value which rules out advanced chronic liver disease in asymptomatic patients. REFERENCE: Society of Radiologists in Ultrasound Liver Stiffness Thresholds (2020): LIVER STIFFNESS THRESHOLDS: *Shear wave velocity less than 1.3 m/s (Liver Stiffness equal or less than 5 kPa): High probability of being normal. *Shear wave velocity less than 1.7 m/s (Liver Stiffness less than 9 kPa): In the absence of other known clinical signs, rules out compensated advanced chronic liver disease. *Shear wave velocity between 1.7-2.1 m/s (Liver Stiffness 9-13 kPa): Suggestive of compensated advanced chronic liver disease but need further test for confirmation. *Shear wave velocity between 2.1-2.4 m/s (Liver Stiffness 13-17 kPa): Rules in compensated advanced chronic liver disease. *Shear wave velocity greater than 2.4 m/s (Liver Stiffness over 17 kPa): Suggestive of clinically significant portal hypertension. QUALITY OF DATA SET: *IQR/Median value equal or less than 0.15 implies a quality data set. *IQR/Median value over 0.15 implies a poor quality data set. SIGNIFICANT CHANGE FROM PRIOR EXAM: Significant change if liver stiffness measurement is 10% or greater from prior exam. OTHER CONSIDERATIONS: The stage of liver fibrosis may be overestimated in the setting of acute hepatitis, liver inflammation, elevated liver function tests, hepatic vascular congestion, obstructive cholestasis, non-fasting state, and infiltrative diseases such as amyloidosis and lymphoma. In some patients with NAFLD, the liver stiffness thresholds for compensated advanced chronic liver disease may be lower. In causes other than viral hepatitis and NAFLD, liver stiffness thresholds are not well established. Electronically signed by: Checo Baum MD 07/03/2024 10:45 AM EDT
--- OUTSIDE RECORDS SUMMARY | 2024-07-03 11:05 | XMS_ITS | Encounter Summary ---
Author Organization [employer] Address [address] [place] [address] Care Team Providers Care Liquor Rectifier Name Role Phone Gina Pressley TERA Primary Care Provider [phone] Luis Alberto Larose MD Unavailable [phone] Encounter Details Date Type Department Care Team (Late st Contact Info) Description 07/03/2024 Orders Only [facility] External Provider, [facility] Social History Tobacco Use Types Packs/Day Years [...] Description 07/30/2024 1:15 PM EDT Office Visit [facility] [address] [place] [address] Gina Pressley ANP [address] [place] [address] documented as of this encounter Procedures Procedure Name Priority Date/Time Associated Diagnosis Comments US ABDOMEN VILLASEÑOR W ELASTOGRAPHY Routine 07/03/2024 10:12 AM EDT documented in this encounter Results * US ABDOMEN VILLASEÑOR W ELASTOGRAPHY (07/03/2024 10:12 AM EDT) Anatomical Region Laterality Modality Abdomen Ultrasound 07/03/2024 10:1 2 AM EDT Narrative 07/03/2024 10:49 AM EDT ? [facility] ?[address] ?[place] [address] ? Ultrasound Report ? Signed ? Patient: Maikol Colon,Johnna ?MR#: M ?? [id number] ? : 1955 ?Acct:[id number] ? Age/Sex: 69 / F ?ADM Date: 05/21/25 ? Loc: HO.US ? Attending : Luis Alberto Larose MD ? Ordering Physician: Luis Alberto Larose MD ?? Date of Service: 07/03/24 ?? Procedure(s): US abdomen villaseñor w elastography ?? Accession Number(s): [id number] ? cc: Luis Alberto Larose MD; GINA PRESSLEY NP ? EXAMINATION: ??US ABDOMEN LIMITED WITH LIVER ELASTOGRAPHY ? HISTORY: R10.13 - Epigastric pain ? TECHNIQUE: Real-time grayscale ultrasound imaging of the right upper ?? quadrant was performed and images were reviewed. ? COMPARISON: Correlation is made with a CT of the abdomen dated ?? 07/06/2023. ? FINDINGS: ?? Liver: ?? The right lobe of the liver measures 14.5 cm in size. The left ?? lobe of the liver measures 9.6 cm in size. The liver demonstrates ?? normal homogeneous echotexture. ??No focal mass or intrahepatic biliary ?? ductal dilatation is identified. ??There is normal hepatopedal flow in ?? the portal vein. ? Ultrasound elastography of the liver was performed with 10 separate ?? measurements of the liver parenchyma with the patient in the supine ?? position. ??Measurements were obtained approximately 2 cm below ?? Samara's capsule and perpendicular to the capsule. ??Images are of ?? satisfactory quality. ? The median shear wave velocity is 1.37 m/s. ?? The interquartile range/median (IQR/median) is 0.09. ? Gallbladder and biliary tree: The gallbladder is unremarkable, without ?? evidence of calculi, wall thickening, or pericholecystic fluid. ??There ?? is no sonographic Mcgregor sign. ??The common bile duct is normal in ?? caliber measuring 3 mm. ? Right Kidney: ??The right kidney measures 9.5 cm in length and ?? demonstrates a prominent hypertrophied column of Que. ??The right ?? kidney is otherwise unremarkable, without evidence of masses, ?? hydronephrosis, or calculi. ? Pancreas: The pancreatic head, neck, and body are unremarkable. The ?? pancreatic tail is obscured by bowel gas. ? Abdominal aorta and inferior vena cava: The visualized portions of the ?? abdominal aorta and inferior vena cava are normal in caliber. ? There is no free fluid in the right upper quadrant. ? US/US abdomen villaseñor w elastography ?? IMPRESSION: ? Unremarkable right upper quadrant ultrasound. ? The median shear wave velocity in the liver is 1.37 m/s, corresponding ?? to a median liver stiffness of 5.65 kPa. ??The IQR/median value is 0.09. ?? This is indicative of a quality data set. ?? Findings are indicative of a low elastography value which rules out ?? advanced chronic liver disease in asymptomatic patients. ? REFERENCE: ?? Society of Radiologists in Ultrasound Liver Stiffness Thresholds (2019): ? LIVER STIFFNESS THRESHOLDS: ?? *Shear wave velocity less than 1.3 m/s (Liver Stiffness equal or less ?? than 5 kPa): ??High probability of being normal. ?? *Shear wave velocity less than 1.7 m/s (Liver Stiffness less than 9 ?? kPa): ??In the absence of other known clinical signs, rules out ?? compensated advanced chronic liver disease. ?? *Shear wave velocity between 1.7-2.1 m/s (Liver Stiffness 9-13 kPa): ? Suggestive of compensated advanced chronic liver disease but need ?? further test for confirmation. ?? *Shear wave velocity between 2.1-2.4 m/s (Liver Stiffness 13-17 kPa): ? Rules in compensated advanced chronic liver disease. ?? *Shear wave velocity ??greater than 2.4 m/s (Liver Stiffness over 17 ?? kPa): ??Suggestive of clinically significant portal hypertension. ? QUALITY OF DATA SET: ?? *IQR/Median value equal or less than 0.15 implies a quality data set. ?? *IQR/Median value over 0.15 implies a poor quality data set. ? SIGNIFICANT CHANGE FROM PRIOR EXAM: ?? Significant change if liver stiffness measurement is 10% or greater ?? from prior exam. ? OTHER CONSIDERATIONS: ?? The stage of liver fibrosis may be overestimated in the setting of ?? acute hepatitis, liver inflammation, elevated liver function tests, ?? hepatic vascular congestion, obstructive cholestasis, non-fasting ?? state, and infiltrative diseases such as amyloidosis and lymphoma. ??In ?? some patients with NAFLD, the liver stiffness thresholds for ?? compensated advanced chronic liver disease may be lower. ??In causes ?? other than viral hepatitis and NAFLD, liver stiffness thresholds are ?? not well established. ? Electronically signed by: ??Checo Baum MD ??07/03/2024 10:45 AM EDT ?? RP ? Dictated By: ?Checo Baum MD ? Signed By: ?<Electronically signed by Checo Baum MD in OV> ?07/03/24 1045 ? DD/ 1012 ? TD/TT: 07/03/24 1023 ? Way Inspector: ? Procedure Note Donotuseinterpreter, Image - 07/03/2024 [place] [id number] Ultrasound Report Signed Patient: Hattie Holbrook#: M [id number] : 6Acct:[id number] Age/Sex: 69 / FADM Date: 07/03/24 Loc: HO.US Attending Dr: Luis Alberto Larose MD Ordering Physician: Luis Alberto Larose MD Date of Service: 07/03/24 Procedure(s): US abdomen villaseñor w elastography Accession Number(s): [id number] cc: Luis Alberto Larose MD; GINA PRESSLEY NP EXAMINATION: US ABDOMEN LIMITED WITH LIVER ELASTOGRAPHY HISTORY: R10.13 - Epigastric pain TECHNIQUE: Real-time grayscale ultrasound imaging of the right upper quadrant was performed and images were reviewed. COMPARISON: Correlation is made with a CT of the abdomen dated 07/06/2023. FINDINGS: Liver: The right lobe of the liver measures 14.5 cm in size. The left lobe of the liver measures 9.6 cm in size. The liver demonstrates normal homogeneous echotexture. No focal mass or intrahepatic biliary ductal dilatation is identified. There is normal hepatopedal flow in the portal vein. Ultrasound elastography of the liver was performed with 10 separate measurements of the liver parenchyma with the patient in the supine position. Measurements were obtained approximately 2 cm below Samara's capsule and perpendicular to the capsule. Images are of satisfactory quality. The median shear wave velocity is 1.37 m/s. The interquartile range/median (IQR/median) is 0.09. Gallbladder and biliary tree: The gallbladder is unremarkable, without evidence of calculi, wall thickening, or pericholecystic fluid. There is no sonographic Mcgregor sign. The common bile duct is normal in caliber measuring 3 mm. Right Kidney: The right kidney measures 9.5 cm in length and demonstrates a prominent hypertrophied column of Que. The right kidney is otherwise unremarkable, without evidence of masses, hydronephrosis, or calculi. Pancreas: The pancreatic head, neck, and body are unremarkable. The pancreatic tail is obscured by bowel gas. Abdominal aorta and inferior vena cava: The visualized portions of the abdominal aorta and inferior vena cava are normal in caliber. There is no free fluid in the right upper quadrant. US/US abdomen villaseñor w elastography IMPRESSION: Unremarkable right upper quadrant ultrasound. The median shear wave velocity in the liver is 1.37 m/s, corresponding to a median liver stiffness of 5.65 kPa. The IQR/median value is 0.09. This is indicative of a quality data set. Findings are indicative of a low elastography value which rules out advanced chronic liver disease in asymptomatic patients. REFERENCE: Society of Radiologists in Ultrasound Liver Stiffness Thresholds (2019): LIVER STIFFNESS THRESHOLDS: *Shear wave velocity less than 1.3 m/s (Liver Stiffness equal or less than 5 kPa): High probability of being normal. *Shear wave velocity less than 1.7 m/s (Liver Stiffness less than 9 kPa): In the absence of other known clinical signs, rules out compensated advanced chronic liver disease. *Shear wave velocity between 1.7-2.1 m/s (Liver Stiffness 9-13 kPa): Suggestive of compensated advanced chronic liver disease but need further test for confirmation. *Shear wave velocity between 2.1-2.4 m/s (Liver Stiffness 13-17 kPa): Rules in compensated advanced chronic liver disease. *Shear wave velocity greater than 2.4 m/s (Liver Stiffness over 17 kPa): Suggestive of clinically significant portal hypertension. QUALITY OF DATA SET: *IQR/Median value equal or less than 0.15 implies a quality data set. *IQR/Median value over 0.15 implies a poor quality data set. SIGNIFICANT CHANGE FROM PRIOR EXAM: Significant change if liver stiffness measurement is 10% or greater from prior exam. OTHER CONSIDERATIONS: The stage of liver fibrosis may be overestimated in the setting of acute hepatitis, liver inflammation, elevated liver function tests, hepatic vascular congestion, obstructive cholestasis, non-fasting state, and infiltrative diseases such as amyloidosis and lymphoma. In some patients with NAFLD, the liver stiffness thresholds for compensated advanced chronic liver disease may be lower. In causes other than viral hepatitis and NAFLD, liver stiffness thresholds are not well established. Electronically signed by: Checo Baum MD 07/03/2024 10:45 AM EDT RP Dictated By: Checo Baum MD Signed By: <Electronically signed by Checo Baum MD in OV> 07/03/24 1045 DD/ 1012 TD/TT: 07/03/[address] Inspector: [facility] External Provider IMG US PROCEDURES Final Result documented in this encounter Visit Diagnoses Not on filedocumented in this encounter Additional Health Concerns Assessment Noted Time PHQ-9 Depression Total Score: 10 025 10:45 AM EDT documented as of this encounter Care Teams Liquor Rectifier Relationship Specialty Start Date End Date Gina Pressley ANP [address] [place] [address] PCP - General Family Medicine 01/29/20 Luis Alberto Larose MD [address] [place] [address] [address]rd [place] [address] Gastroenterology 05/23/24 documented as of this encounter
--- OUTSIDE RECORDS SUMMARY | 2024-07-03 11:05 | XMS_ITS | Encounter Summary ---
Author Organization [employer] Address [address] [facility] 7t [place] [address] Care Team Providers Care Patient Care Specialist Name Role Phone Jayla Mccormack Primary Care Provider [phone] Luis Alberto Larose MD Unavailable [phone] Encounter Details Date Type Department Care Team (Late st Contact Info) Description 05/02/2022 Orders Only [facility] [address] [place] [address] Shanell Moody LPN Social History Tobacco Use [...] Description 07/30/2024 1:15 PM EDT Office Visit [facility] [address] [place] [address] Jayla Mccormack ANP [address] [place] [address] documented as of this encounter Visit Diagnoses Not on filedocumented in this encounter Care Teams Patient Care Specialist Relationship Specialty Start Date End Date Jayla Mccormack ANP [address] [place] [address] PCP - General Family Medicine 01/29/20 Luis Alberto Larose MD [address] [place] [address] Dr [address] Floor [place] [address] Gastroenterology 05/23/24 documented as of this encounter
--- OUTSIDE RECORDS SUMMARY | 2024-07-03 11:05 | XMS_ITS | Encounter Summary ---
Author Organization [employer] Address [address] [facility] [address] [place] [address] Care Team Providers Care Wood Tank Builder Name Role Phone Jayla Mccormack Primary Care Provider [phone] Luis Alberto Larose MD Unavailable [phone] Encounter Details Date Type Department Care Team (Late st Contact Info) Description 03/07/2022 Orders Only [facility] [address] [place] [address] Shanell Moody LPN Social History Tobacco Use [...] Description 07/30/2024 1:15 PM EDT Office Visit [facility] [address] [place] [address] Jayla Mccormack ANP [address] [place] [address] documented as of this encounter Visit Diagnoses Not on filedocumented in this encounter Care Teams Wood Tank Builder Relationship Specialty Start Date End Date Jayla Mccormack ANP [address] [place] [address] PCP - General Family Medicine 01/29/20 Luis Alberto Larose MD [address] [place] [address] Dr [address] [place] [address] Gastroenterology 05/23/24 documented as of this encounter
--- OUTSIDE RECORDS SUMMARY | 2024-07-03 11:05 | XMS_ITS | Data Portability ---
Author Organization [place] - [facility], Allergy Address [address] [place] [id number] Assessment Encounter Date Assessment Date Assessment LastModified [...] of the day. Continue to work with vice president and PCP on vision and lower extremity [...] Delfina alvarado 2 [facility], [address] [place] [address], [place], [address], 08/20/202 4 13:35:24 neurologist referral - Referral for dizziness. Thank you. 2023 Delfina [facility]ra [facility], [address] [place] [address], [place], [address], 15:41:34 Procedures None recorded. Surgeries None recorded. [...] Organization Details Recorded Time Cough variant asthma 433122336 Active 2015 Cough variant asthma; Note: Date Diagnosed : 6 5:07 PM (J45.991) Not Available [facility] 4 02:53:56 Allergic rhinitis 67319264 Active 2015 Allergic rhinitis, unspecifi ed; Note: Date Diagnosed : 6 5:07 PM (J30.9) Not Available [facility] 4 02:53:58 Cough 07547617 Active 2015 Cough, unspecifi ed; Note: Changed from R05 to R05.9 (04/14/2021 3:53 PM) , Date Diagnosed : 10/19/201 6 5:07 PM (R05) Not Available [facility] 4 02:53:55 Dizziness 631281904 Active 2023 SANDRA RAMOS PA-C [address] [place] [address] [address], [place], [address] , [facility] - [facility] 4 14:54:55 Problem Notes None recorded. [...] Name and Address Organization Details Recorded Time 058837 aspirin medicatio n other Not available Not available 06/27/2023 1191 RxNorm React ion: unkno wn, unspe cifie d;; Not Available [facility] 4 01:23:00 Medications Name Sig Start Date Stop Date Status Note LastModified by Organization Details LastModified Time medbox status USE DIRECTED active Not Available Not Available No t Available Singulair 10 mg tablet 1 tablet by mouth 06/24 completed Medicati on ID: [id number] P rescribe d By Name: Benji Babcock [...] mg tablet 04/14 completed Medicati on ID: [id number] D uration Value: 15 Brand Name: metformi n Send Method: E-Prescr ibed Sub s Allowed: subs OK Speci al Instruct ion: TAKE 1 TABLET BY MOUTH EVERY DAY WITH MORNING AND EVENING MEALS Me dication GenericN darvin: metformi n Not Available Not Available Not Available gabapenti n 600 mg tablet 09/12 completed Medicati on ID: [id number] B rand Name: gabapent in Send Method: E-Prescr ibed Sub s Allowed: subs OK Medic ationGen ericName : gabapent in Medic ation ID: [id number] B rand Name: gabapent in Send Method: E-Prescr ibed Sub s Allowed: subs OK Medic ationGen ericName : gabapent in Not Available Not Available Not Available Vitamin C 500 mg tablet TAKE 1 TABLET BY MOUTH EVERYDAY AT NOON (WITH IRON) active Not Available Not Available No t Available glyburide 2.5 mg tablet 04/14 completed Medicati on ID: [id number] D uration Value: 30 Brand Name: glyburid [...] 12 hr 04/14 completed Medicati on ID: [id number] B rand Name: diltiaze m HCl Send Method: E-Prescr ibed Sub s Allowed: subs OK Medic ationGen ericName : diltiaze m HCl Not Available Not Available Not Available diltiazem 120 mg tablet 09/12 completed Medicati on ID: [id number] B rand Name: diltiaze m HCl Send Method: E-Prescr ibed Sub s Allowed: subs OK Medic ationGen ericName : diltiaze m HCl Medi cation ID: [id number] B rand Name: diltiaze m HCl Send Method: E-Prescr ibed Sub s Allowed: subs OK Medic ationGen ericName : diltiaze m HCl Not Available Not Available Not Available dicyclomi ne 20 mg tablet active Medicati on ID: [id number] B rand Name: dicyclom ine Send Method: [...] mcg tablet 04/14 completed Medicati on ID: [id number] B rand Name: levothyr oxine Se nd Method: E-Prescr ibed Sub s Allowed: subs OK Medic ationGen ericName : levothyr oxine Not Available Not Available Not Available metformin 1,000 mg tablet 09/12 completed Medicati on ID: [id number] B rand Name: metformi n Send Method: E-Prescr ibed Sub s Allowed: subs OK Medic ationGen ericName : davida n Medica tion ID: [id number] B rand Name: davida n Send Method: [...] elayed release 04/14 completed Medicati on ID: [id number] D uration Value: 30 Brand Name: omeprazo [...] pen injector 2021 active Medicati on ID: [id number] D uration Value: 1 Prescri bed By [...] mg iron) tablet active Medicati on ID: [id number] B rand Name: iron Sen d Method: [...] as directed 04/14 completed Medicati on ID: [id number] D uration Value: 90 Brand Name: Flovent [...] capsule,e xtended release active Medicati on ID: [id number] B rand Name: Tiadylt ER Send Method: E-Prescr ibed Sub s Allowed: subs OK Medic ationGen ericName : Tiadylt ER Not Available Not Available Not Available Vitals Date Recorded Body height Body mass index (BMI) Body weight Provider Name and Address Organization Details Last Updated DateTime 09/13/2023 147.32 cm 34.5 kg/m2 17340.74 g Lizabeth Matute [place] - [facility] 09/13/2023 14:15:30 Social History None recorded. Functional Status None recorded. Mental Status None recorded. Family History Nothing Reported. Medical History No medical history recorded. Gynecological HistoryNo gynecological history recorded. Obstetrics History GPAL:G 0 P 0 0 0 0 Past Encounters Encounter ID Performer Location Encounter Start Date Encounter Closed Date Diagnosis/Indication Diagnosis SNOMED-CT Code Diagnosis ICD10 Code Diagnosis Note [id number] SANDRA RAMOS PA-C [facility] [address] [place] [address] 09/13/2023 13:42:26 09/13/2023 14:59:55 Dizziness 745870762 R42 Health Concerns Section Related Observation LastModified by Organization Zaynab ls LastModified Time None Recorded Concern Status LastModified by Organization Details LastModified Time None Recorded Advance Directives Directive None Recorded Payers Insurance Date Sequence Insurance Name Policy Number Policy Gomes Covered Member ID Gomes Member ID Guarantor Name 09/13/2023 1 [place] [employer] Johnna De La Vega [id number] Johnna De La Vega 09/15/2023 2 [id number] Johnna Lassiter Colon [id number] Johnna De La Vega Notes Date Note Type Note Provider Name and Address Organization Details Recorded Time 09/13/2023 text/html 68 year old anish [place] presents for evaluation of ears. Recently had a hearing test at [facility] demonstrating hearing loss. Has had this for [...] self or family. POORNIMA DESOUZA MD [address] [address], [place], [address], [facility] - [facility] 09/19/2023 16:58:41 OBGyn Episode No OBEpisode recorded.
--- OUTSIDE RECORDS SUMMARY | 2024-07-03 11:05 | XMS_ITS | Encounter Summary ---
Author Organization [facility] [employer] Address [address] [facility] [address] [place] [address] Care Team Providers Care Musical Therapist Name Role Phone Jayla Mccormack Primary Care Provider [phone] Luis Alberto Larose MD Unavailable [phone] Encounter Details Date Type Department Care Team (Late st Contact Info) Description 02/16/2022 Orders Only [facility] [address] [place] [address] Shanell Moody LPN Social History Tobacco Use [...] Description 07/30/2024 1:15 PM EDT Office Visit [facility] MEDICINE [address] [place] [address] Jayla Mccormack ANP [address] [place] [address] documented as of this encounter Visit Diagnoses Not on filedocumented in this encounter Care Teams Musical Therapist Relationship Specialty Start Date End Date Jayla Mccormack ANP [address] [place] [address] PCP - General Family Medicine 01/29/20 Luis Alberto Larose MD [address] [place] [address] Dr [address] [place] [address] Gastroenterology 05/23/24 documented as of this encounter
--- OUTSIDE RECORDS SUMMARY | 2024-07-03 11:06 | XMS_ITS | Clinical Summary ---
Author Organization [employer] Address [address] [facility] 7t [place] [address] Care Team Providers Care Coil Winder Hand Name Role Phone Gina Pressley TERA Primary Care Provider [phone] Luis Alberto Larose MD Unavailable [phone] Allergies Active Allergy Reactions Criticality Noted Date [...] needed for wheezing. 75 mL 3 024 Active albuterol (Ventolin HFA) 108 (90 Base) MCG/ACT inhalerIndication s:Mild intermittent asthma without complication INHALE 2 PUFFS BY MOUTH EVERY 4 TO 6 HOURS NEEDED 18 g 1 024 Active atorvastatin (Lipitor) 40 MG tablet TAKE 1 TABLET BY MOUTH AT BEDTIME 90 tablet 3 024 Active Calcium 600/Vitamin D3 600-20 MG-MCG tabletIndications :Osteoporosis without current pathological fracture, unspecified osteoporosis type TAKE 1 TABLET BY MOUTH TWICE DAILY IN THE MORNING AND IN THE EVENING 180 tablet 1 025 Active Ascorbic Acid (vitamin [...] stripIndications: Type 2 diabetes mellitus with hyperlipidemia ([facility]/HCC) ([facility]) Use to test blood sugar 3 times daily 100 each 12 025 2025 Active Lancets miscIndications:T ype 2 diabetes mellitus with hyperlipidemia (CMS/HCC) ([facility]) Use to test blood sugar 3 times daily 100 each 3 Active Alcohol Swabs 70 % padsIndications:T ype 2 diabetes mellitus with hyperlipidemia ([facility]/HCC) ([facility]) Use to clean skin b/f BG check 100 each 11 025 Active Blood Glucose Monitoring Suppl (FreeStyle Somes Bar Lite) w/Device kitIndications:Ty pe 2 diabetes mellitus with hyperlipidemia ([facility]/HCC) ([facility]) Use to test blood sugar 3 times daily 1 kit Active topiramate 50 MG tabletIndications :Chronic nonintractable headache, unspecified headache type TAKE 1 TABLET BY MOUTH AT BEDTIME 90 tablet 1 025 Active levothyroxine (Synthroid, Levoxyl) 75 MCG tablet TAKE 1 TABLET BY MOUTH EVERY MORNING & TAKE 1 TABLET ADDITIONAL ON MONDAY 34 tablet 1 025 Active levothyroxine (Synthroid, Levoxyl) 75 MCG tablet TAKE 1 TABLET BY MOUTH EVERY MORNING & TAKE 1 TABLET ADDITIONAL ON MONDAY 34 tablet 1 025 2024 Discontinued Active Problems Problem Noted [...] Diagnosed Date Resolved Date HTN (hypertension) 01/03/2023 Encounters Date Type Department Care Team Description 07/03/2024 Orders Only [facility] External Provider, [facility] 06/18/2024 Telephone [facility] [address] [place] [address] Ruth Rosario RN Results 06/10/2024 Refill [facility] [address] [place] [address] Meggan Irby MD 05/30/2024 Refill [facility] [address] [place] [address] Gina Pressley ANP Chronic nonintractable headache, unspecified headache type 05/27/2024 Telephone [facility] [address] [place] [address] Gina Pressley ANP Paperwork/Forms 05/23/2024 9:00 AM EDT Office Visit [facility] [address] [place] [address] Gina Pressley ANP Type 2 diabetes mellitus with hyperlipidemia (CMS/HCC) ([facility]) (Primary Dx); Moderate persistent asthma without complication; Osteoporosis without current pathological fracture, unspecified osteoporosis type; Class 2 severe obesity with serious comorbidity and body mass index (BMI) of 35.0 to 35.9 in adult, unspecified obesity type ([facility]); Dietary counseling; Exercise counseling; Encounter for immunization; Obstructive sleep apnea syndrome; Neuropathy involving both lower extremities 05/23/2024 Travel 05/22/2024 Telephone [facility] [address] [place] [address] [phone] Bebe Contreras MA chart prep 05/15/2024 Orders Only [facility] [address] [place] [address] [phone] Gina Pressley ANP Anemia, unspecified type (Primary Dx) 05/14/2024 Refill [facility] [address] [place] [address] [phone] Gina Pressley ANP Iron deficiency anemia, unspecified iron deficiency anemia type 05/13/2024 Patient Outreach [facility] [address] [place] [address] [phone] Gina Pressley ANP Pre-visit Planning (Pre-visit planning - LVM ) 04/26/2024 Population Health Risk Score [facility] () Department [address] [place] [phone] Provider, Population Health Generic from Last 3 Months Immunizations Immunization Administration Dates Next Due Hep B, adult [...] Description 07/30/2024 1:15 PM EDT Office Visit [facility] [address] [place] [address] Gina Pressley, ANP [address] [place] [address] Health Maintenance Due Date Last Done Comments [...] 08/22/2024 025, 11/28/2023, 08/25/2023, Additional history exists Colonoscopy 02/16/2025 02/17/2020, 02/17/2020 Colorectal Cancer Screening [...] patient's age to complete this topic Meningococcal B Vaccine Aged Out No l onger eligible based on patient's age to complete [...] W ELASTOGRAPHY Routine 07/03/2024 10:12 AM EDT COMPREHENSIVE METABOLIC PANEL Routine 05/23/2024 10:48 AM EDT Type 2 diabetes mellitus with hyperlipidemia (CMS/HCC) (CMS/HCC) ALBUMIN, RANDOM URINE W/CREATININE Routine 05/23/2024 10:48 AM EDT Type 2 diabetes mellitus with hyperlipidemia (CMS/HCC) (CMS/HCC) LIPID PANEL, STANDARD Routine 05/23/2024 10:48 AM EDT Type 2 diabetes mellitus with hyperlipidemia (CMS/HCC) (CMS/HCC) IRON AND TOTAL IRON BINDING CAPACITY Routine 05/23/2024 10:48 AM EDT Anemia, unspecified type MGUS (monoclonal gammopathy of unknown significance) VITAMIN B12 Routine 05/23/2024 10:48 AM EDT MGUS (monoclonal gammopathy of unknown significance) CBC WITH AUTO DIFFERENTIAL Routine 05/23/2024 10:48 AM EDT MGUS (monoclonal gammopathy of unknown significance) POCT GLYCATED HEMOGLOBIN, TOTAL Routine 05/23/2024 9:48 AM EDT Type 2 diabetes mellitus with hyperlipidemia (CMS/HCC) ([facility]) POCT GLUCOSE Routine 05/23/2024 9:38 AM EDT Type 2 diabetes mellitus with hyperlipidemia (CMS/HCC) ([facility]) RAST ALLERGEN (NON ORDERABLE) Routine 05/15/2024 3:25 PM EDT Anemia, unspecified type FOOD AND TREE NUT ALLERGY PANEL WITH REFLEX TO COMPONENT Routine 05/15/2024 3:25 PM EDT Anemia, unspecified type BI US BREAST LIMITED BILATERAL Routine 03/26/2024 12:00 PM EST HM COLONOSCOPY Routine 02/17/2020 OCCULT BLOOD, FECAL, IMMUNOASSAY Routine 04/02/2019 6:00 PM EST from Last 3 Months or Most Recently Relevant to Health Maintenance Results * US ABDOMEN VILLASEÑOR W ELASTOGRAPHY (07/03/2024 10:12 AM EDT) Anatomical Region Laterality Modality Abdomen Ultrasound 07/03/2024 10:1 2 AM EDT Narrative 07/03/2024 10:49 AM EDT ? [facility] ?[address] ?[place] [address] ? Ultrasound Report ? Signed ? Patient: Maikol Colon,Johnna ?MR#: M ?? [id number] ? : 1955 ?Acct:[id number] ? Age/Sex: 69 / F ?ADM Date: 05/21/25 ? Loc: HO.US ? Attending Dr: Luis Alberto Larose MD ? Ordering Physician: Luis Alberto Larose MD ?? Date of Service: 07/03/24 ?? Procedure(s): US abdomen villaseñor w elastography ?? Accession Number(s): [id number] ? cc: Luis Alberto Larose MD; GINA [...] DD/ 1012 ? TD/TT: 07/03/24 1023 ? [employer] Wire[employer]: ? Procedure Note Donotuseinterpreter, Image - 07/03/[address] [address] Ultrasound Report Signed Patient: Hattie Holbrook#: M [id number] : 6Acct:[id number] Age/Sex: 69 / FADM Date: 07/03/24 Loc: HO.US Attending Dr: Luis Alberto Larose MD Ordering Physician: Luis Alberto Larose MD Date of Service: 07/03/24 Procedure(s): US abdomen villaseñor w elastography Accession Number(s): [id number] cc: Luis Alberto Larose MD; GINA PRESSLEY [...] of Radiologists in Ultrasound Liver Stiffness Thresholds (2020): LIVER STIFFNESS THRESHOLDS: *Shear wave velocity less [...] 07/03/24 1045 DD/ 1012 TD/TT: 07/03/24 1023 Numberer And Wirer: [facility] External Provider IMG US PROCEDURES Final Result * Albumin, Random Urine W/Creatinine (05/23/2024 10:48 AM EDT) Creatinine, Urine 201.21 mg/dL [facility] Microalbumin Urine 17.0 mg/L [facility] Microalbum Creatinine Ratio Ur 8.4 <30 ug/mg cr [facility] Comment:Albumin/Creatinine R atio Reference Ranges: Normal: < 30 ug/mg creatinine Microalbuminuria: 30 - 300 ug/mg creatinineClinical Albuminuria: > 300 ug/mg creatinine Urine (Urine, Random) 05/23/2024 10:48 AM EDT 05/23/2024 11:43 AM EDT [facility] LAB URINE ORDERABLES Final Resul t [facility] [address] [place] [phone] * (ABNORMAL) CBC auto differential (05/23/2024 10:48 AM EDT) White Blood Count 7.6 4.8 - 10.8 X10*3/uL [facility] Red Blood Count 5.20 4.20 - 5.50 X10*6/uL [facility] Hemoglobin 12.2 12.0 - 16.0 g/dl [facility] Hematocrit 38.9 37.0 - 47.0 % [facility] Mean Corpuscular Volume 74.8(L) 80.0 - 98.0 fL [facility] Mean Corpuscular Hemoglobin 23.5(L) 27.0 - 33.0 pg [facility] Mean Corpuscular HGB Conc 31.4 31.0 - 35.0 g/dl [facility] Red Cell Distribution Width 14.1 11.0 - 16.0 % [facility] Platelet Count 311 160 - 400 X10*3/uL [facility] Mean Platelet Volume 10.7 9.4 - 12.3 fL [facility] Neutrophils Percent Auto 59.9 45 - 73 % [facility] Imm Gran Pct Auto 0.4 0.0 - 0.4 % [facility] Lymphocytes Percent Auto 30.1 20 - 40 % [facility] Monocytes Percent Auto 7.4 2 - 11 % [facility] Eosinophils Percent Auto 1.3 0 - 4 % [facility] Basophils Percent Auto 0.9 0 - 2 % [facility] NRBC Pct Auto 0.0 0.0 - 0.2 /100WBC [facility] Neutrophils Absolute Auto 4.6 2.0 - 8.3 x10*3/uL [facility] Imm Gran Abs Auto 0.03 0.00 - 0.03 X10*3/uL [facility] Lymphocytes Absolute Auto 2.3 1.2 - 4.9 X10*3/uL [facility] Monocytes Absolute Auto 0.6 0.1 - 1.2 X10*3/uL [facility] Eosinophils Absolute Auto 0.1 0.0 - 0.4 X10*3/uL [facility] Basophils Absolute Auto 0.1 0.0 - 0.2 X10*3/uL [facility] NRBC Abs Auto 0.000 0.0 - 0.012 X10*3/uL [facility] Blood Venous blood specimen / Unknown 05/23/2024 10:48 AM EDT 05/23/2024 11:37 AM EDT Gina Pressley ANP LAB BLOOD ORDERABLES Final Resul t Performing Organization Address [facility] Co de Phone Number [facility] [address] [place] [phone] * Iron And Total Iron Binding Capacity (05/23/2024 10:48 AM EDT) Pathologist [facility] Iron 59 30 - 160 mcg/dL [facility] Comment:Slight Hemolysis.Int erpret result with caution. Total Iron Binding Capacity 295 228 - 428 mcg/dL [facility] Percent Iron Saturation 20 15 - 50 % [facility] Unsaturated Iron Binding 236 ug/dL [facility] Blood Venous blood specimen / Unknown 05/23/2024 10:48 AM EDT 05/23/2024 11:37 AM EDT Gina Pressley ANP LAB BLOOD ORDERABLES Final Resul t Performing Organization Address [facility] de Phone Number [facility] [address] [place] [phone] * Vitamin B12 (05/23/2024 10:48 AM EDT) Pathologist [facility] Vitamin B12 549 200 - 900 pg/mL [facility] Comment:NORMAL 200-900 PG/ML INDETERMINATE 160-199 PG/ML DEFICIENT < 160 PG/ML Blood Venous blood specimen / Unknown 05/23/2024 10:48 AM EDT 05/23/2024 11:37 AM EDT Gina Pressley ANP LAB BLOOD ORDERABLES Final Resul t Performing Organization Address [facility] de Phone Number [facility] [address] [place] [phone] * (ABNORMAL) Lipid Panel, Standard (05/23/2024 10:48 AM EDT) Pathologist [facility] Triglycerides 138 <150 mg/dL [facility] Comment:Desirable Triglyceri de: less than 150 mg/dLBorderline High Triglyceride 150-199 mg/dLHigh Triglyceride: 200-499 mg/dLVery High Triglyceride: greater than or equal to 5OO mg/dL Cholesterol 209(H) <200 mg/dL [facility] Comment:Desirable Cholestero l: less than 200 mg/dLBorderline High Cholesterol: 200-239 mg/dLHigh Cholesterol: greater than 239 mg/dL LDL Cholesterol Calculated 132(H) <100 mg/dL [facility] Comment:Desirable LDL: less than 100 mg/dLNear Optimal/Above Optimal LDL: 110- 129 mg/dLBorderline High LDL: 130-159 mg/dLHigh LDL: 160-189 mg/dLVery High LDL: greater than or equal to 190 mg/dL HDL Cholesterol 50 >40 mg/dL [facility] Comment:Desirable HDL: great er than 40 mg/dL Note: This HDL assay may give artificially low results in patients with liver disease. Blood Venous blood specimen / Unknown 05/23/2024 10:48 AM EDT 05/23/2024 11:37 AM EDT [facility] LAB BLOOD ORDERABLES Final Resul t [facility] [address] [place] [phone] * (ABNORMAL) Comprehensive Metabolic Panel (05/23/2024 10:48 AM EDT) Sodium 140 135 - 145 mmol/L [facility] Potassium 4.1 3.3 - 5.1 mmol/L [facility] Comment:Slight Hemolysis.Int erpret result with caution. Chloride 106 96 - 108 mmol/L [facility] Carbon Dioxide 26 22 - 29 mmol/L [facility] Anion Gap 12 12 - 20 [facility] Urea Nitrogen (BUN) 13 9 - 16 mg/dL [facility] Creatinine, Serum 0.79 0.5 - 1.4 mg/dL [facility] Estimated Glomerular Filt Rate >60 [facility] Comment:Chronic Kidney Disea se: Estimated GFR < 60 mL/min/1.70s5Enutns Kidney Disease: Estimated GFR < 15 mL/min/1.73m2 Glucose 130(H) 60 - 115 mg/dL [facility] Calcium 9.3 8.4 - 10.2 mg/dL [facility] Bilirubin, Total 0.5 0.0 - 1.0 mg/dL [facility] Aspartate Amino Transferase 32(H) 5 - 31 U/L [facility] Comment:Slight Hemolysis.Int erpret result with caution. Alanine Aminotransferase 21 0 - 31 U/L [facility] Total Protein 8.2(H) 6.5 - 8.0 g/dL [facility] Albumin Level 4.1 3.5 - 5.0 g/dL [facility] Alkaline Phosphatase 88 39 - 117 U/L [facility] Blood Venous blood specimen / Unknown 05/23/2024 10:48 AM EDT 05/23/2024 11:37 AM EDT Gina Pressley ANP LAB BLOOD ORDERABLES Final Resul t [facility] [address] [place] [phone] * (ABNORMAL) POCT HGB A1C (05/23/2024 9:48 AM EDT) Hemoglobin A1C 7.3(A) 4.0 - 6.0 % QC Media Lot # [id number] Lot# Expiration Date Blood 05/23/2024 9:48 AM EDT us Gina Pressley ANP POINT OF CARE TEST ENTER/EDIT OR DERABLES Final Result * POCT Glucose (05/23/2024 9:38 AM EDT) Glucose Blood, POC 141 60 - 200 mg/dL [employer] Media Lot # [id number] Lot# Expiration Date Blood Capillary blood specimen / Unknown 05/23/2024 9:38 AM EDT [facility] POINT OF CARE TEST ENTER/EDIT OR DERABLES Final Result * (ABNORMAL) Food and Tree Nut Allergy Panel with Reflex to Components (05/15/2024 3:25 PM EDT) Egg White (F1) IgE 0.18(A) kU/L [facility] Cow's Milk (F2) IgE <0.10 kU/L [facility] Codfish (F3) IgE <0.10 kU/L [facility] Wheat (F4) IgE <0.10 kU/L [facility] Sesame Seed (F10) IgE <0.10 kU/L [facility] Peanut (F13) IgE <0.10 kU/L [facility] Soybean (F14) IgE <0.10 kU/L [facility] Hazelnut (F17) IgE <0.10 kU/L [facility] [place] (F20) IgE <0.10 kU/L [facility] Shrimp (F24) IgE 1.59(A) kU/L [facility] Tuna (F40) IgE <0.10 kU/L [facility] [id number] [place] <0.10 kU/L [facility] [id number] [place]allop 0.77(A) kU/L [facility] Class 0 [facility] Comment:THIS TEST WAS PERFOR MED AT:[employer] [id number] [place] [address]WBIUWDEB WALL MD Class 0 [facility] Comment:THIS TEST WAS PERFOR MED AT:[employer] [id number] [place] [address]CSPIZMORRIS WALL MD [place] Class 0 [facility] Comment:THIS TEST WAS PERFOR MED AT:[id number] [place] [address]UIGMUMORRIS WALL MD Class 0 [facility] Comment:THIS TEST WAS PERFOR MED AT:[employer] [address] LORAINE WALL MD Class 2 [facility] Comment:THIS TEST WAS PERFOR MED AT:[employer] [address] [address]PWJQRJORGE LUIS WALL MD Class 2 [facility] Comment:THIS TEST WAS PERFOR MED AT:[employer] [address] LORAINE WALL MD Class 0 [facility] Comment:THIS TEST WAS PERFOR MED AT:[employer] [address] LORAINE WALL MD Class 0/1 [facility] Comment:THIS TEST WAS PERFOR MED AT:[employer] [address] LORAINE WALL MD Class 0 [facility] Comment:THIS TEST WAS PERFOR MED AT:[employer] [address] LORAINE WALL MD Class 0 [facility] Comment:THIS TEST WAS PERFOR MED AT:[employer] [address] LORAINE WALL MD Class 0 [facility] Comment:THIS TEST WAS PERFOR MED AT:[employer] [address] LORAINE WALL MD Class 0 [facility] Comment:THIS TEST WAS PERFOR MED AT:[employer] [address] [address]OGVSVJAMESON WALL MD Class 0 [facility] Comment:THIS TEST WAS PERFOR MED AT:[employer] [address] LORAINE WALL MD Cashew Nut (F202) IgE <0.10 kU/L [facility] Macadamia Nut (RF345) IgE <0.10 kU/L [facility] Class 0 [facility] Comment:THIS TEST WAS PERFOR MED AT:[employer] [address] [address]YJXWFDEB WALL MD [place] (F41) IgE <0.10 kU/L [facility] Ozark Nut (F18) IgE <0.10 kU/L [facility] Class 0 [facility] Comment:THIS TEST WAS PERFOR MED AT:[employer] [address] [address]OTPUGDEB WALL MD Class 0 [facility] Comment:THIS TEST WAS PERFOR MED AT:[employer] [id number] [place] [address]LETYKDEB WALL MD Class 0 [facility] Comment:THIS TEST WAS PERFOR MED AT:[employer] [address] [address]DIGVXJAMESON WALL MD 05/15/2024 3:25 PM EDT 05/16/2024 4:35 PM EDT Generic External Data Provider LAB BLOOD ORDERAB LES Final Result Performing Organization Address [facility]/ZIP Co de Phone Number [facility] [address] [place] [phone] [phone] * Rast Allergen (05/15/2024 3:25 PM EDT) Rast Allergen SEE NOTE [facility] Comment:SEE SCANNED RESULTS IN EMR 05/15/2024 3:25 PM EDT 05/16/2024 4:35 PM EDT Narrative [facility] - 06/14/2024 8:04 AM EDT EGG COMPONENT PANEL Generic External Data Provider HISTORICAL/NON OR DERABLE LABS Final Result Performing Organization Address [facility]/ZIP Co de Phone Number [facility] [address] [place] [phone] [phone] * BI US Breast Limited Bilateral (03/26/2024 12:00 PM EST) Anatomical Region Laterality Modality Breast Bilateral Ultrasound 03/26/2024 12:0 0 PM EST Narrative 03/26/2024 1:05 PM EST ? [facility] ? [address] ?[place] [address] ? Ultrasound Report ? Signed ? Patient: Maikol Colon,Johnna ?MR#: M ?? [id number] ? : 1955 ?Acct:[id number] ? Age/Sex: 68 / F ?ADM Date: 03/26/24 ? Loc: HO.MAMMO ? Attending Dr: Gina Pressley NP ? Ordering Physician: GINA PRESSLEY NP ?? Date of Service: 03/26/24 ?? Procedure(s): US breast BI limited mamm only ?? Accession Number(s): [id number] ? cc: GINA PRESSLEY NP ? EXAMINATION: [...] DD/ 1200 ? TD/TT: 03/26/24 1253 ? Numberer And Wirer: ? Procedure Note Donotuseinterpreter, Image - 03/26/2024 [facility] [address] [place] [address] Ultrasound Report Signed Patient: Hattie Holbrook#: M [id number] : 1955cct:[id number] Age/Sex: 68 / FADM Date: 03/26/24 Loc: HO.MAMMO Attending Dr: Gina Pressley NP Ordering Physician: GINA PRESSLEY NP Date of Service: 03/26/24 Procedure(s): breast BI limited mamm only Accession Number(s): [id number] cc: GINA PRESSLEY NP EXAMINATION: MM DIAGNOSTIC [...] 03/26/24 1302 DD/ 1200 TD/TT: 03/26/24 1253 [employer] Wirer: Gina HALEY IMRajni US PROCEDURES Final Result * (ABNORMAL) Hm Colonoscopy (02/17/2020) Colonoscopy Abnormal(A ) Normal Historical Provider HEALTH MAINTENANCE Final Result * OCCULT BLOOD STOOL (04/02/2019 6:00 PM EST) OCCULT BLOOD STOOL NEG NEG [facility] 04/02/2019 6:00 PM EST Margi ESCOBEDO LAB BODY FLUIDS AND STOOLS ORD ERABLES Final Result [facility] [address] [place] [address], from Last 3 Months or Most Recently Relevant to Health Maintenance Insurance [facility] STANDARD MEDICARE Care Teams Coil Winder Hand Relationship Specialty Start Date End Date Gina Pressley ANP [address] [place] [phone] PCP - General Family Medicine 01/29/20 Luis Alberto Larose MD [address] [place] [address] Dr [address] [place] [address] Gastroenterology 05/23/24
--- OUTSIDE RECORDS SUMMARY | 2024-07-03 11:06 | XMS_ITS | Encounter Summary ---
Author Organization [employer] Address [address] [facility] [address]t [place] [address] Care Team Providers Care Director Risk Name Role Phone Jayla Mccormack Primary Care Provider [phone] Luis Alberto Larose MD Unavailable [phone] Reason for Visit * Reason Onset Date Comments Med Refill 10/03/2022 Encounter Details Date Type Department Care Team ([facility] st Contact Info) Description 10/03/2022 Telephone [facility] [address] [place] [address] Jayla Mccormack ANP [address] [place] [address] Med Refill Social History Tobacco Use Types [...] Description 07/30/2024 1:15 PM EDT Office Visit [facility] [address] [place] [address] Jayla Mccormack ANP [address] [place] [address] documented as of this encounter Visit Diagnoses Not on filedocumented in this encounter Care Teams Director Risk Relationship Specialty Start Date End Date Jayla Mccormack ANP [address] [place] [phone] PCP - General Family Medicine 01/29/20 Luis Alberto Larose MD [address] [place] [address] Dr 3rd [place] [address] Gastroenterology 05/23/24 documented as of this encounter
== END 2024-07-03 09:47 | disposition home or self-care (01) ==
LOC: HO.US 09:46
PROVIDERS: PCP Nurse Practitioner Primary Care; Visit Provider Internal Medicine Gastroenterology
DX: R10.13 Epigastric pain (principal)
CPT/HCPCS: 76705; 76981

== ENCOUNTER → 2024-07-03 09:47 | Outpatient (BNV) | payer MEDICARE, MEDICAID, SELFPAY | PROVIDERS: PCP Nurse Practitioner Primary Care; Visit Provider Radiology Diagnostic Radiology | DX: R10.9 Unspecified abdominal pain (principal) | CPT/HCPCS: 76705; 76981 ==

== ENCOUNTER 2024-09-02 14:44 | Outpatient (REF) | payer MEDICARE, MEDICAID, SELFPAY ==
--- OUTSIDE RECORDS SUMMARY | 2024-09-02 15:33 | XMS_ITS | Encounter Summary ---
Author Organization [employer] Address [address] [facility] 7[address] [place] [address] Care Team Providers Care Core Layer Machine Operator Name Role Phone Jayla Mccormack Primary Care Provider [phone] Luis Alberto Larose MD Unavailable [phone] Encounter Details Date Type Department Care Team (Late st Contact Info) Description 05/02/2022 Orders Only [facility] [address] [place], [place] [id number] Shanell Moody LPN Social History Tobacco Use [...] Care Team (Late st Contact Info) Description 10/01/2024 3:30 PM EDT Medication Management [address] [address] Severiano Mckeon, PharmD [address] [place] [address] 10/30/2024 3:15 PM EDT Office Visit [address] [address] Jayla Mccormack ANP [address] [place] [address] documented as of this encounter Visit Diagnoses Not on filedocumented in this encounter Care Teams Core Layer Machine Operator Relationship Specialty Start Date End Date Jayla Mccormack ANP [address] [place] [address] PCP - General Family Medicine 01/29/20 Luis Alberto Larose MD [address] [place] [address] 3rd [place] [address] Gastroenterology 05/23/24 documented as of this encounter
--- OUTSIDE RECORDS SUMMARY | 2024-09-02 15:33 | XMS_ITS | Clinical Summary ---
Author Organization [address] [facility] Address [address] [place] [address] Phone Care Team Providers Care Registered Nurse Post Partum Name Role Phone Jayla Mccormack NP Primary Care Provider [phone] Social History Tobacco Use Types Packs/Day Years Used Date Smoking Tobacco: Never Assessed Comments Unknown Sex and Gender Information Value Date Recorded Sex Assigned at Not on file Legal Sex Female 9:30 AM EDT Gender Identity Not on file Sexual Orientation Not on file Plan of Treatment Upcoming Encounters Date Type Department [facility] Description 09/17/2024 2:30 PM EDT Office Visit Orthopedic Surgery - [place] [address] [id number] Frankie Johnson, MANUELA [address] [address] Health Maintenance Due Date Last Done Comments Breast Cancer Screening 1955 Diabetes: Annual GFR (Glomer ular Filtration Rate) 1955 Diabetes: Annual Foot Exam 04/12/1965 Diabetes: Annual Retina Eye Exam 04/12/1965 DTaP,Tdap,and Td Vaccines (1 - Tdap) 04/12/1974 Pneumococcal Vaccine: 50+ Ye ars (1 of 2 - PCV) 04/12/1974 Zoster Vaccines (1 of 2) 04/12/2005 COVID-19 Vaccine ( - 2023-2 5 season) 2023 Depression Screening 02/14/2024 Cholesterol Screening (Lipid Panel) 06/19/2024 Colorectal Cancer Screening: Colonoscopy 06/19/2024 Diabetes: Annual Urine Albumin-Creatinine Ratio (uACR) 06/19/2024 Diabetes: Blood Sugar Contro l Test (HGBA1C) 06/19/2024 Falls Risk Assessment 06/19/2024 Hepatitis C Screening 06/19/2024 Medicare Annual Wellness Visit 06/19/2024 Osteoporosis Screening (Bone Density Screening) 06/19/2024 Social Influencers of Health Screening 06/19/2024 Influenza Vaccine (#1) 2024 RSV Immunization Adult Patie nts (1 - 1-dose 75+ series) 04/12/2030 HIB Vaccines Aged Out No longer eligi ble based on patient's age to complete this topic HPV Vaccines Aged Out No longer eligi ble based on patient's age to complete this topic Hepatitis A Vaccines Aged Out No long er eligible based on patient's age to complete this topic Hepatitis B Vaccines Aged Out No long er eligible based on patient's age to complete this topic IPV Vaccines Aged Out No longer eligi ble based on patient's age to complete this topic MMR Vaccines Aged Out No longer eligi ble based on patient's age to complete this topic Meningococcal ACWY Vaccine Aged Out N o longer eligible based on patient's age to complete this topic Meningococcal B Vaccine Aged Out No l onger eligible based on patient's age to complete this topic RSV Immunization Patients Un michael 20 months Aged Out No longer eligible b ased on patient's age to complete this topic Varicella Vaccines Aged Out No longer eligible based on patient's age to complete this topic Insurance MEDICARE MEDICAID - [place] Care Teams Registered Nurse Post Partum Relationship Specialty Start Date End Date Jayla Mccormack NP [address] [place] [id number] PCP - General 06/19/24
--- OUTSIDE RECORDS SUMMARY | 2024-09-02 15:33 | XMS_ITS | Data Portability ---
Author Organization [place] - [facility], [facility] Address [address] [address] Assessment Encounter Date Assessment Date Assessment LastModified [...] of the day. Continue to work with swager operator and PCP on vision and lower [...] Delfina alvarado 2 [facility], [address] [place] [address], [place], [address], 4 13:35:24 neurologist referral - Referral for dizziness. Thank you. 2023 Delfina chitra [facility], [address] [place] [address], [place], [address], 4 15:41:34 Procedures None recorded. Surgeries None recorded. Imaging None recorded. Medication Orders None recorded. Patient TargetsNo targets recorded. Patient InstructionsNo instructions recorded. Reason for Referral Vestibular Therapy Referral for Dizziness Referral for vestibular therapy. Thank you. Referring Physician: Sandra Ramos, Otolaryngology, Encounter Date: 09/13/2023 Neurologist Referral for Miki james Referral for dizziness. Thank you. Referring Physician: Sandra Ramos Otolaryngology, Encounter Date: 09/13/2023 Results Created Date Observation Date Name Description Value Unit Range Abnormal Flag Note LastModifiedBy Organization Detail LastModifiedTime 09/14/19 24 06/21/2023 audio gram No observ ation record ed. [email or web address] Not Available 02/2023 10:03:06 10/04/19 24 06/21/2023 imagi ng/di gerardoos tic resul t No observ ation record ed. [email or web address] Not Available 02:19:55 Result Notes None recorded. Problems Name Problem SNOMED Code Status Onset Date Resolution Date Notes Provider Name and Address Organization Details Recorded Time Cough variant asthma 628001998 Active 2015 Cough variant asthma; Note: Date Diagnosed : 6 5:07 PM (J45.991) Not Available [facility] 4 02:53:56 Allergic rhinitis 00966973 Active 2015 Allergic rhinitis, unspecifi ed; Note: Date Diagnosed : 6 5:07 PM (J30.9) Not Available [facility] 4 02:53:58 Cough 99775560 Active 2015 Cough, unspecifi ed; Note: Changed from R05 to R05.9 (04/14/2021 3:53 PM) , Date Diagnosed : 6 5:07 PM (R05) Not Available [facility] 4 02:53:55 Dizziness 710847529 Active 2023 SANDRA RAMOS PA-C [address] [place] [address],[place] [address], [place], [address] , [facility] - [facility] 4 14:54:55 Problem Notes None recorded. Medical Equipment None Reported. Allergies Allergen ID Allergen Name Allergen Category Reaction Reaction Severity Criticality Documentation Date Start Date Code Code System Note Provider Name and Address Organization Details Recorded Time 753765 aspirin medicatio n other Not available Not available 06/27/2023 1191 RxNorm React ion: unkno wn, unspe cifie d;; Not Available [facility] 4 01:23:00 Medications Name Sig Start Date Stop Date Status Note LastModified by Organization Details LastModified Time medbox status USE DIRECTED active Not Available Not Available No t Available Singulair 10 mg tablet 1 tablet by mouth 06/24 completed Medicati on ID: [id number] P rescribe d By Name: Benji Babcock MD Brand Name: Singulai r Send Method: E-Prescr ibed Sub s [...] mg tablet 04/14 completed Medicati on ID: [id number] D uration Value: 15 Brand Name: metformi n Send Method: E-Prescr ibed Sub s Allowed: subs OK Speci al Instruct ion: TAKE 1 TABLET BY MOUTH EVERY DAY WITH MORNING AND EVENING MEALS Me dication GenericN darvin: metformi n Not Available Not Available Not Available gabapenti n 600 mg tablet 09/12 completed Medicati on ID: [id number] B rand Name: gabapent in Send Method: E-Prescr ibed Sub s Allowed: subs OK Medic ationGen ericName : gabapent in Medic ation ID: [id number] B rand Name: gabapent in Send Method: E-Prescr ibed Sub s Allowed: subs OK Medic ationGen ericName : gabapent in Not Available Not Available Not Available Vitamin C 500 mg tablet TAKE 1 TABLET BY MOUTH EVERYDAY AT NOON (WITH IRON) active Not Available Not Available No t Available glyburide 2.5 mg tablet 04/14 completed Medicati on ID: [id number] D uration Value: 30 Brand Name: glyburid [...] 12 hr 04/14 completed Medicati on ID: [id number] B rand Name: diltiaze m HCl Send Method: E-Prescr ibed Sub s Allowed: subs OK Medic ationGen ericName : diltiaze m HCl Not Available Not Available Not Available diltiazem 120 mg tablet 09/12 completed Medicati on ID: [id number] B rand Name: diltiaze m HCl Send Method: E-Prescr ibed Sub s Allowed: subs OK Medic ationGen ericName : diltiaze m HCl Medi cation ID: [id number] B rand Name: diltiaze m HCl Send Method: E-Prescr ibed Sub s Allowed: subs OK Medic ationGen ericName : diltiaze m HCl Not Available Not Available Not Available dicyclomi ne 20 mg tablet active Medicati on ID: [id number] B rand Name: dicyclom ine Send Method: [...] mcg tablet 04/14 completed Medicati on ID: [id number] B rand Name: levothyr oxine Se nd Method: E-Prescr ibed Sub s Allowed: subs OK Medic ationGen ericName : levothyr oxine Not Available Not Available Not Available metformin 1,000 mg tablet 09/12 completed Medicati on ID: [id number] B rand Name: metformi n Send Method: E-Prescr ibed Sub s Allowed: subs OK Medic ationGen ericName : metformi n Medica tion ID: [id number] B rand Name: metformi n Send Method: E-Prescr ibed Sub s Allowed: subs OK Medic ationGen ericName : metformi n Not Available Not Available Not [...] elayed release 04/14 completed Medicati on ID: [id number] D uration Value: 30 Brand Name: omeprazo le Send Method: E-Prescr ibed Sub s Allowed: subs OK Speci al Instruct ion: 1 CAPSULE 30 MIN PRIOR TO BKFT AND SUPPER OR BEDTIME TWICE A DAY ORALL Y 30 DAY(S) Padilla denisalakhwinderbridget Edison Name: omeprazo le Not Available Not Available Not Available diltiazem CD 120 mg capsule,e xtended release 24 hr TAKE 1 CAPSULE BY MOUTH EVERYDAY AT NOON 09/12 completed Not Available Not Available Not Available epinephri ne 0.3 mg/0.3 mL injection , auto-inje ctor 1 pen injector 2021 active Medicati on ID: [id number] D uration Value: 1 Prescri bed By [...] mg iron) tablet active Medicati on ID: [id number] B rand Name: iron Sen d Method: [...] as directed 04/14 completed Medicati on ID: [id number] D uration Value: 90 Brand Name: Flovent [...] capsule,e xtended release active Medicati on ID: [id number] B rand Name: Tiadylt ER Send Method: E-Prescr ibed Sub s Allowed: subs OK Medic ationGen ericName : Tiadylt ER Not Available Not Available Not Available Vitals Date Recorded Body height Body mass index (BMI) Body weight Provider Name and Address Organization Details Last Updated DateTime 09/13/2023 147.32 cm 34.5 kg/m2 29923.74 g Lizabeth Matute [place] - [facility] 09/13/2023 14:15:30 Social History None recorded. Functional Status None recorded. Mental Status None recorded. Family History Nothing Reported. Medical History No medical history recorded. Gynecological HistoryNo gynecological history recorded. Obstetrics History GPAL:G 0 P 0 0 0 0 Past Encounters Encounter ID Performer Location Encounter Start Date Encounter Closed Date Diagnosis/Indication Diagnosis SNOMED-CT Code Diagnosis ICD10 Code Diagnosis Note [id number] SANDRA RAMOS PA-C [facility] [address] [place] [address] 09/13/2023 13:42:26 09/13/2023 14:59:55 Dizziness 614487510 R42 Health Concerns Section Related Observation LastModified by Organization Detai ls LastModified Time None Recorded Concern Status LastModified by Organization Details LastModified Time None Recorded Advance Directives Directive None Recorded Payers Insurance Date Sequence Insurance Name Policy Number Policy Gomes Covered Member ID Gomes Member ID Guarantor Name 09/13/2023 1 [place] [employer] Johnna De La Vega [id number] Johnna De La Vega 09/15/2023 2 [place] Johnna De La Vega [id number] Johnna De La Vega Notes Date Note Type Note Provider Name and Address Organization Details Recorded Time 09/13/2023 text/html 68 year old anish cuba presents for evaluation of ears. Recently had a hearing test at [facility] demonstrating hearing loss. Has had this for [...] in self or family. POORNIMA DESOUZA MD [address] [place] [address], [address], [place] - [facility] 09/19/2023 16:58:41 OBGyn Episode No OBEpisode recorded.
== END 2024-09-02 14:45 | disposition home or self-care (01) ==
LOC: HO.HHCL 14:44
PROVIDERS: PCP Nurse Practitioner Primary Care; Visit Provider Nurse Practitioner Primary Care
DX: E03.9 Hypothyroidism, unspecified (principal)
CPT/HCPCS: 36415; 84443

== ENCOUNTER 2024-11-05 11:02 | Outpatient (AMB) | payer MEDICARE, MEDICAID, SELFPAY ==
[2024-11-05 11:03] VITALS: BP 110/70; PULSE 56; O2SAT 98; BMI 33.9
--- NOTE | 2024-11-05 11:03 | MHC.OFFVIS ---
Vital Signs 11/05/24 11:03 Height 4 ft 11 in Weight 167 lb 12.348 oz BMI 33.9 BP 110/70 Blood Pressure Location Rt brachial Position Sitting Pulse 56 Pulse Source Pulse Oximeter Pulse Oximetry (%) 98 Oxygen Delivery Method Room Air Intake Visit Reasons: Osteoporosis Intake Note: Patient present today for Osteoporosis office visit. Tare Man Required: Yes Tare Man Language: Craft Superintendent Services: Tare Man Present Information Interpreted: non-clinical & clinical Accompanied by: Daughter Allergies aspirin (ASA) Allergy (Severe, Verified 11/05/24 11:12) SWELLING, itching and swelling, shortness of breath ibuprofen Allergy (Intermediate, Verified 11/05/24 11:12) swelling HPI Comments Details: 69 YO Female is seen in consultation at the request of PCP for Osteoporosis. First diagnosed in 7 yrs .Never saw specialist before Received treatment in the past with alendronate , Not Tolerated treatment well took for 1 wk more than 1 yr ago Had GI complaints history of pathologic fracture 10 yrs ago but no recent fx fell from chair or ONJ. Has several servings of dietary calcium per day in the form of cheese, broccoli . Takes Calcium supplement 600 mg daily in divided doses. Takes 800 IU of Vitamin D daily. Takes PPI, -anticoagulant,- antiepileptic - glucocorticoid medication. Not Does weight bearing exercise Fracture history: No Height loss: Y [employer] history: Menarche at age 9 - Menopause at age 41 - normal Denies history of Kidney stones: Denies family history of Osteoporosis or hip fracture. UTD on dental cleanings and sees dentist every 6 months. No planned upcoming dental work or extractions. No Tobacco use or heavy ETOH use DXA dated 10/25/22: FINDINGS: LEFT FEMUR, NECK: BMD 0.713 g/cm2, Z-score -1.0, T-score -2.3, osteopenia. LEFT FEMUR, TOTAL: BMD 0.809 g/cm2, Z-score -0.5, T-score -1.6, osteopenia. AP SPINE L1-L4: BMD 0.838 g/cm2, Z-score -1.5, T-score -2.8, osteoporosis. IDENTIFIED RISK FACTORS: Early menopause, secondary osteoporosis, history of fracture (adult), low calcium intake. HISTORY OF FRACTURE: Wrist. MEDICATIONS: Calcium supplements or multivitamin, vitamin D. MM/XR DEXA axial skeleton IMPRESSION: 1. DIAGNOSIS: Severe osteoporosis based on the lowest T-score value of -2.8 in the lumbar spine and history of fracture applying [employer]: [facility] Medical History Gastroparesis Diverticulosis History of COVID-19 Bleeding hemorrhoids Hepatic steatosis Arthritis Hypothyroid Diabetes mellitus TIA (transient ischemic attack) Asthma Elevated cholesterol History of tachycardia Hypertension PHAN on CPAP IBS (irritable bowel syndrome) GERD (gastroesophageal reflux disease) Surgical History Hx of hemorrhoidectomy Tubal ligation status Hx of dilation and curettage Hx of section Hx of colonoscopy History of esophagogastroduodenoscopy (EGD) Family History Father Hx of gangrene Hx of type 2 diabetes mellitus History of partial colectomy Hx of small bowel obstruction History of high blood pressure Mother History of hypothyroidism Brother No problems noted. Sister No problems noted. Maternal Aunt Colon cancer Social History Household Members: Family Household Members Other:: DAUGHTER,SON IN LAW AND GRANDCHILDREN Housing: Apartment Are you a primary post acute care nurse practitioner to a significant other at home: No Do you presently have visiting nurse or other home services: No Alcohol intake: never Patient Tobacco Use Status: Never used Tobacco service: No Current occupational status: disabled Female Reproductive History Menstrual Age of Menarche: 13 Physical Exam Vital Signs: Last Vital Signs Pulse 56 11/05/24 11:03 BP 110/70 11/05/24 11:03 Pulse Ox 98 11/05/24 11:03 Oxygen Delivery Method Room Air 11/05/24 11:03 BMI result Body Mass Index 33.9 There are no Cushingoid features. Absence of blue sclera. Absence of kyphosis. Thyroid gland is of nl size and weighs 15 gms. There are no thyroid nodules palpated. Lungs CTA. Heart S1 S2 Reg R/R Abdominal exam benign. Muscle strength 5/5 . Examination of spine reveals absence of tenderness on palpation Assessment & Plan Assessment & Plan (1) Osteoporosis: Code(s): M81.0 - Age-related osteoporosis without current pathological fracture Category: Medical Plan: This is a 69-year-old female with a history of osteoporosis with partial secondary workup. Currently on alendronate Plan is to complete the secondary workup by checking phosphorus level, 25 hydroxy vitamin-D, 24 hour urine for calcium and creatinine, urine immunofixation. Will ensure 1200 mg of calcium a day and continue calcium and vitamin-D supplementation. Assuming secondary workup is negative, may consider IV bisphosphonate or Prolia Orders: Orders Phosphorus Today M81.0 - Age-related osteoporosis without current pathological fracture Vitamin D 25-OH Total Today M81.0 - Age-related osteoporosis without current pathological fracture Calcium, 24 Hr Ur Today M81.0 - Age-related osteoporosis without current pathological fracture Creatinine, 24 Hr Group Today M81.0 - Age-related osteoporosis without current pathological fracture Immunofixation, Random Urine Today M81.0 - Age-related osteoporosis without current pathological fracture Coding Level of Care Code New Pt Level 4 (04600) Diagnoses Osteoporosis M81.0
--- OUTSIDE RECORDS SUMMARY | 2024-11-05 13:41 | XMS_ITS | Clinical Summary ---
Author Organization [facility] Address [address] [place] [address] Phone Care Team Providers Care Hotel Breakfast Attendant Name Role Phone Jayla Mccormack NP Primary Care Provider [phone] Allergies Active Allergy Reactions Criticality Noted Date Comments Aspirin Hives,Other,Shortnes s of breath High 01/28/2014 aspirin Other reaction(s): Rash Ibuprofen Angioedema,Rash High 05/19/2022 Shellfish Containing Products Angioedema High 08/13/2024 Medications ammonium lactate (AMLACTIN) 12 % cream Apply topically if needed for dry skin. 560 g 2 5 09/18/19 26 Active Encounters Date Type Department Care Team Description 09/17/2024 2:30 PM EDT Office Visit Orthopedic [facility] [address] [phone] Frankie Johnson DPM Poorly controlled type 2 diabetes mellitus with neuropathy (CMS/HCC V24, CMS/HCC V28) (Primary Dx); Pain in toes of both feet; Arthritis of both feet; Hammertoes of both feet; Xerosis cutis; Dermatophytosis, nail from Last 3 Months Social History Tobacco Use Types Packs/Day Years Used Date Smoking Tobacco: Never Assessed Comments Unknown Sex and Gender Information Value Date Recorded Sex Assigned at Not on file Legal Sex Female 9:30 AM EDT Gender Identity Not on file Sexual Orientation Not on file Plan of Treatment Upcoming Encounters Date Type Department Care Team ([facility] Contact Info) Description 11/20/2024 1:45 PM EDT Office Visit Orthopedic [facility] [address] [phone] Frankie Johnson, MANUELA [address] [address] Health Maintenance Due Date Last Done Comments Breast Cancer Screening 1955 Diabetes: Annual GFR (Glomerular Filtration Rate) 1955 Diabetes: Annual Foot Exam 04/12/1965 Diabetes: Annual Retina Eye Exam 04/12/1965 RSV Immunization Adult Patients (1 - Risk 60-74 years 1-dose series) 2015 Pneumococcal Vaccine: 50+ Years (2 of 2 - PCV) 09/05/2015 09/04/2014 Zoster Vaccines (2 of 3) 05/31/2017 04/05/2017 Hepatitis B Vaccines (3 of 3 - 19+ 3-dose series) 02/14/2019 12/20/2018, 04/05/2017 Depression Screening 02/14/2024 Colorectal Cancer Screening: Colonoscopy 06/19/2024 Diabetes: Annual Urine Albumin-Creatinine Ratio (uACR) 06/19/2024 Falls Risk Assessment 06/19/2024 Hepatitis C Screening 06/19/2024 Medicare Annual Wellness Visit 06/19/2024 Osteoporosis Screening (Bone Density Screening) 06/19/2024 Social Influencers of Health Screening 06/19/2024 COVID-19 Vaccine (1 - 2023-2 5 season) 2024 Influenza Vaccine (#1) 2024 04/22/2019 Diabetes: Blood Sugar Contro l Test (HGBA1C) 02/13/2025 08/13/2024 Cholesterol Screening (Lipid Panel) 05/23/2029 05/23/2024 DTaP,Tdap,and Td Vaccines (3 - Td or Tdap) 05/23/2034 [...] to complete this topic RSV Immunization Patients Under 20 months Aged Out No longer eligible b ased on patient's age to complete this topic Varicella Vaccines Aged Out No longer eligible based on patient's age to complete this topic Insurance MEDICARE MEDICAID - [place] Care Teams Hotel Breakfast Attendant Relationship Specialty Start Date End Date Jayla Mccormack NP [address] [place] [phone] PCP - General 06/19/24
--- OUTSIDE RECORDS SUMMARY | 2024-11-05 13:41 | XMS_ITS | Clinical Summary ---
Author Organization [employer] Address 75 [facility] 7t [place] [address] Care Team Providers Care Digital Controls Technical Officer Name Role Phone Easton Gina HALEY Primary Care Provider Luis Alberto Larose MD Unavailable [phone] Allergies Active Allergy Reactions Criticality Noted Date Comments Aspirin Hives,Shortness of breath High 01/28/2014 Other reaction(s): Rash Ibuprofen Rash,Angioedema Medium 05/19/2022 Shellfish-Derived Products Angioedema 08/13/2024 Medications cyanocobalamin (Vitamin B-12) 1000 MCG tablet Take 1 tablet by mouth in the morning. 023 Active FeroSul 325 (65 Fe) MG tablet TAKE 1 TABLET BY MOUTH TWICE DAILY AT NOON AND IN THE EVENING 023 Active gabapentin (Neurontin) 300 MG capsule Take 600 mg by mouth 2 times daily. 023 Active hydrOXYzine pamoate (Vistaril) 25 MG capsule TAKE 1-2 CAPSULES BY MOUTH TWICE DAILY NEEDED 023 Active omeprazole (PriLOSEC) [address] capsule 023 Active Linzess 145 MCG capsule Take 145 mcg by mouth in the morning. 023 Active sertraline (Zoloft) 100 MG tablet TAKE 2 TABLETS BY MOUTH ONCE DAILY IN THE MORNING 023 Active Spacer/Aero-Holdi ng Chambers (OptiChamber Apurva) misc 1 each every 4 (four) hours if needed (asthma). 1 each 024 Active albuterol 1.25 MG/3ML nebulizer solutionIndicatio ns:Moderate persistent asthma without complication Take 3 mL (1.25 mg) by nebulization every 6 (six) hours if needed for wheezing. 75 mL 3 024 Active Ascorbic Acid (vitamin C) 250 MG tabletIndications :Anemia, unspecified type Take 1 tablet with iron supplement BID 60 tablet 11 025 Active FREESTYLE LITE test stripIndications: Type 2 diabetes mellitus with hyperlipidemia ([facility]/HCC) ([facility]) Use to test blood sugar 3 times daily 100 each 12 025 2025 Active Lancets miscIndications:T ype 2 diabetes mellitus with hyperlipidemia ([facility]/HCC) ([facility]) Use to test blood sugar 3 times daily 100 each 3 025 Active Alcohol Swabs 70 % padsIndications:T ype 2 diabetes mellitus with hyperlipidemia ([facility]) ([facility]) Use to clean skin b/f BG check 100 each 11 025 Active Blood Glucose Monitoring Suppl (FreeStyle [place] Lite) w/Device kitIndications:Ty pe 2 diabetes mellitus with hyperlipidemia ([facility]) ([facility]) Use to test blood sugar 3 times daily 1 kit 025 Active topiramate 50 MG tabletIndications :Chronic nonintractable headache, unspecified headache type TAKE 1 TABLET BY MOUTH AT BEDTIME 90 tablet 1 025 Active doxepin (SINEquan) 25 MG capsule Take 25 mg by mouth at bedtime. 025 Active EPINEPHrine (Epipen) 0.3 MG/0.3ML injection syringeIndication s:Shellfish allergy Inject 0.3 mL (0.3 mg) as directed 1 (one) time for 1 dose. use as directed for allergic reaction and then call 911 2 each 1 025 Active Dilt-XR 120 MG 24 hr capsule Take 120 mg by mouth Once per day. 025 Active Calcium 600/Vitamin D3 600-20 MG-MCG tabletIndications :Osteoporosis without current pathological fracture, unspecified osteoporosis type TAKE 1 TABLET BY MOUTH TWICE DAILY AT NOON AND BEDTIME 180 tablet 3 025 Active levothyroxine (Synthroid, Levoxyl) 75 MCG tablet TAKE 1 TABLET BY MOUTH EVERYDAY AT NOON & TAKE 1 TABLET ADDITIONAL ON MONDAY 34 tablet 1 025 Active rosuvastatin (Crestor) 20 MG tabletIndications :Type 2 diabetes mellitus with hyperlipidemia (CMS/HCC) ([facility]) Take 1 tablet (20 mg) by mouth Once per day. 30 tablet 11 025 2025 Active metFORMIN XR (Glucophage-XR) 500 MG 24 hr tabletIndications :Type 2 diabetes mellitus with hyperlipidemia (CMS/HCC) ([facility]) Take 1 tab twice daily with meals. Do not crush, chew, or split. 180 tablet 1 Active fluticasone furoate (Arnuity Ellipta) 100 MCG/ACT inhalerIndication s:Mild persistent asthma without complication Inhale 1 puff Once per day. Rinse mouth with water after use to reduce aftertaste and incidence of candidiasis. Do not swallow. 30 each 2 Active albuterol (Ventolin HFA) 108 (90 Base) MCG/ACT inhalerIndication s:Mild intermittent asthma without complication INHALE 2 PUFFS BY MOUTH EVERY 4 TO 6 HOURS NEEDED 18 g Active albuterol (Ventolin HFA) 108 (90 Base) MCG/ACT inhalerIndication s:Mild intermittent asthma without complication INHALE 2 PUFFS BY MOUTH EVERY 4 TO 6 HOURS NEEDED 18 g 024 2024 Discontinued(R eorder (will not trigger notification to Pharmacy)) levothyroxine (Synthroid, Levoxyl) 75 MCG tablet TAKE 1 TABLET BY MOUTH EVERY MORNING & TAKE 1 TABLET ADDITIONAL ON MONDAY 34 tablet 1 025 2024 Discontinued metFORMIN XR (Glucophage-XR) 500 MG 24 hr tabletIndications :Type 2 diabetes mellitus with hyperlipidemia (CMS/HCC) ([facility]) Take 1 tab once daily with meals. Do not crush, chew, or split. 90 tablet 1 025 2024 Discontinued(R eorder (will not trigger notification to Pharmacy)) budesonide-formot yumiko (Symbicort) 160-4.5 MCG/ACT inhalerIndication s:Moderate persistent asthma without complication INHALE 2 PUFFS BY MOUTH TWICE DAILY IN THE MORNING AND AT BEDTIME RINSE MOUTH AFTER USING. DO NOT SWALLOW 30.6 g 3 025 2024 Discontinued(S edinson effects) atorvastatin (Lipitor) 40 MG tablet TAKE 1 TABLET BY MOUTH AT BEDTIME 90 tablet 3 025 2024 Discontinued(S edinson effects) Active Problems Problem Noted Date Diagnosed Date [...] Diagnosed Date Resolved Date HTN (hypertension) 01/03/2023 04/10/202 5 Encounters Date Type Department Care Team Description 11/04/[address] [address] Gina Pressley ANP Appointment Request 10/30/2024 3:15 PM EDT Office Visit [address] [address] Gina Pressley ANP Type 2 diabetes mellitus with hyperlipidemia (CMS/HCC) ([facility]) (Primary Dx); Hypothyroidism, unspecified type; Mild persistent asthma without complication; Mild intermittent asthma without complication 10/30/2024 Travel 10/29/[address] [address] Gina Pressley ANP chart prep 10/07/2024 Refill [facility] [address] [place] [address] Gina Pressley ANP 09/12/2024 Refill [facility] [address] [place], [place] [phone] Gina Pressley ANP Osteoporosis without current pathological fracture, unspecified osteoporosis type 09/12/[address] [address] Gina Pressley ANP Moderate persistent asthma without complication; Osteoporosis without current pathological fracture, unspecified osteoporosis type 09/05/2024 Results Follow-Up [address] [address] Gina Pressley ANP TSH W/Reflex to FT4 08/20/2024 Travel 08/13/2024 9:15 AM EDT Office Visit [address] [address] Gina Pressley ANP Type 2 diabetes mellitus with hyperlipidemia (CMS/HCC) ([facility]) (Primary Dx); Moderate persistent asthma without complication; Hypothyroidism, unspecified type; Shellfish allergy 08/13/[address] [address] Ruth Rosario, DONNA Confirmation for Dr. Ochoa Podiatry Appt 08/13/2024 Travel 08/12/[address] [address] Gina Pressley ANP chartprep 08/10/2024 Refill [facility] [address] [place] [address] Meggan Irby MD from Last 3 Months Immunizations Immunization Administration [...] Sign Reading Time Taken Comments Blood Pressure 120/72 10/30/2024 3:13 PM EDT Pulse 80 10/30/2024 3:13 PM EDT Temperature 36.3 C (97.4 F) 10/30/2024 3:13 PM EDT Respiratory Rate 20 10/30/2024 3:13 PM EDT Oxygen Saturation 98% 08/13/2024 9:19 AM EDT Inhaled Oxygen Concentration - - Weight 74.8 kg (165 lb) 10/30/2024 3:13 PM EDT Height 146.1 cm (4' 9.5 ) 10/30/2024 3:13 PM EDT Body Mass Index 35.09 10/30/2024 3:13 PM EDT Plan of Treatment Health Maintenance Due Date Last Done Comments CT Colonography 1955 FIT DNA/Cologuard 1955 FIT 1955 Sigmoidoscopy 1955 Hepatitis C Screening 04/12/1973 RSV Patients and Patients Aged 60 years or older (1 - Risk 60-74 years 1-dose series) 2015 Hepatitis B Vaccines (3 of 3 - 19+ 3-dose series) 02/14/2019 12/20/2018, 04/05/2017 FOBT 04/02/2020 04/02/2019 COVID-19 Vaccine ( season) 2024 Influenza Vaccine (#1) 2024 04/22/2019 Diabetes: Hemoglobin A1C 11/13/2024 025, 05/23/2024, 11/28/2023, Additional history exists Depression Monitoring 11/22/2024 05/23/2024, 025 Colonoscopy 02/16/2025 02/17/2020, 02/17/2020 Colorectal Cancer Screening 02/16/2025 Mammogram 03/26/2025 03/26/2024, 0202/2024, 03/26/2024, Additional history exists Alcohol/Substance Use Screening 05/23/2025 05/23/2024 Diabetes: Foot Exam 05/23/2025 05/23/2024, 05/23/2024, 05/23/2024 Diabetes: Urine Protein Screening 05/23/2025 05/23/2024, 09/02/2022, 09/28/2020 Lipid Panel 05/23/2025 05/23/2024, 11/0 10/2022, 09/28/2020 Pneumococcal Vaccine: 50+ Years (2 of 2 - PCV) 05/23/2025 09/04/2014 Postponed from 09/05/2015 (Patient Refused) SDOH Screening 05/23/2025 05/23/2024 Zoster Vaccines (2 of 3) 05/23/2025 04/05/2017 Pos tponed from 05/31/2017 (Patient Refused) Eye Exam 10/14/2025 10/15/2023 Tobacco Screening 10/30/2025 10/30/2024 DTaP/Tdap/Td Vaccines (3 - Td or Tdap) [...] Procedure Name Priority Date/Time Associated Diagnosis Comments POCT GLUCOSE Routine 10/30/2024 3:15 PM EDT Type 2 diabetes mellitus with hyperlipidemia (CMS/HCC) (CMS/HCC) TSH W/REFLEX TO FT4 Routine 09/02/2024 2 :51 PM EDT Hypothyroidism, unspecified type POCT GLUCOSE Routine 08/13/2024 10:27 AM EDT Type 2 diabetes mellitus with hyperlipidemia (CMS/HCC) ([facility]/HCC) POCT GLYCOSYLATED HEMOGLOBIN (HGB A1C) Routine 08/13/2024 10:26 AM EDT Type 2 diabetes mellitus with hyperlipidemia (CMS/HCC) (CMS/HCC) ALBUMIN, RANDOM URINE W/CREATININE Routine 05/23/2024 10:48 AM EDT Type 2 diabetes mellitus with hyperlipidemia (CMS/HCC) (CMS/HCC) LIPID PANEL, STANDARD Routine 05/23/2024 10:48 AM EDT Type 2 diabetes mellitus with hyperlipidemia (CMS/HCC) ([facility]) BI US BREAST LIMITED BILATERAL Routine 03/26/2024 12:00 PM EST HM COLONOSCOPY Routine 02/17/2020 OCCULT BLOOD, FECAL, IMMUNOASSAY Routine 04/02/2019 6:00 PM EST from Last 3 Months or Most Recently Relevant to Health Maintenance Results * (ABNORMAL) POCT Glucose (10/30/2024 3:15 PM EDT) Only the most recent of2 resultswithin the time period is included. Glucose Blood, POC 266(A) 60 - 200 mg/dL QC Media Lot # [id number] Lot# Expiration Date [id number] Blood Capillary blood specimen / Unknown 10/30/2024 3:15 PM EDT us Gina [facility] POINT OF CARE TEST ENTER/EDIT OR DERABLES Final Result * TSH W/Reflex to FT4 (09/02/2024 2:51 PM EDT) TSH reflex Free T4 1.89 0.32 - 4.0 uIU/mL [facility] Blood Venous blood specimen / Unknown 09/02/2024 2:51 PM EDT 09/02/2024 4:13 PM EDT Gina Pressley ANP LAB BLOOD ORDERABLES Final Resul t Performing Organization Address [facility] Co de Phone Number [facility] [address] [place] [phone] * (ABNORMAL) POCT glycosylated hemoglobin (Hgb A1c) (08/13/2024 10:26 AM EDT) Hemoglobin A1C 7.7(A) 4.0 - 5.7 % QC Media Lot # [id number] Lot# Expiration Date ,[id number] Blood Capillary blood specimen / Unknown 08/13/2024 10:26 AM EDT us Gina Pressley ANP POINT OF CARE TEST ENTER/EDIT OR DERABLES Final Result * Albumin, Random Urine W/Creatinine (05/23/2024 10:48 AM EDT) Creatinine, Urine 201.21 mg/dL [facility] Microalbumin Urine 17.0 mg/L [facility] Microalbum Creatinine Ratio Ur 8.4 <30 ug/mg cr [facility] Comment:Albumin/Creatinine R atio Reference Ranges: Normal: < 30 ug/mg creatinine Microalbuminuria: 30 - 300 ug/mg creatinineClinical Albuminuria: > 300 ug/mg creatinine Urine (Urine, Random) 05/23/2024 10:48 AM EDT 05/23/2024 11:43 AM EDT us Gina Pressley ANP LAB URINE ORDERABLES Final Resul t Performing Organization Address [facility]/ZIP Co de Phone Number [facility] [address] [place] [phone] * (ABNORMAL) Lipid Panel, Standard (05/23/2024 10:48 AM EDT) Triglycerides 138 <150 mg/dL [facility] Comment:Desirable Triglyceri de: less than 150 mg/dLBorderline High Triglyceride 150-199 mg/dLHigh Triglyceride: 200-499 mg/dLVery High Triglyceride: greater than or equal to 5OO mg/dL Cholesterol 209(H) <200 mg/dL [facility] Comment:Desirable Cholestero l: less than 200 mg/dLBorderline High Cholesterol: 200-239 mg/dLHigh Cholesterol: greater than 239 mg/dL LDL Cholesterol Calculated 132(H) <100 mg/dL [facility] Comment:Desirable LDL: less than 100 mg/dLNear Optimal/Above Optimal LDL: 110- 129 mg/dLBorderline High LDL: 130-159 mg/dLHigh LDL: 160-189 mg/dLVery High LDL: greater than or equal to 190 mg/dL HDL Cholesterol 50 >40 mg/dL [facility] Comment:Desirable HDL: great er than 40 mg/dL Note: This HDL assay may give artificially low results in patients with liver disease. Blood Venous blood specimen / Unknown 05/23/2024 10:48 AM EDT 05/23/2024 11:37 AM EDT us Gina Pressley ANP LAB BLOOD ORDERABLES Final Resul t [facility] [address] [place] [address] [phone] * BI US Breast Limited Bilateral (03/26/2024 12:00 PM EST) Anatomical Region Laterality Modality Breast Bilateral Ultrasound 03/26/2024 12:0 0 PM EST Narrative 03/26/2024 1:05 PM EST [facility] [address] [place] [address] Ultrasound Report Signed Patient: Johnna Holbrook MR#: [id number] : 1955 Acct:[id number] Age/Sex: 68 / F ADM Date: 03/26/24 Loc: HO.MAMMO Attending Dr: Gina Pressley NP Ordering Physician: GINA PRESSLEY NP Date of Service: 03/26/24 Procedure(s): US breast BI limited mamm only Accession Number(s): [id number] cc: GINA PRESSLEY NP EXAMINATION: MM DIAGNOSTIC [...] by: Marina Wang DO 03/26/2024 01:02 PM [facility] Dictated By: Marina Wang DO Signed By: <Electronically signed by Marina Wang DO in OV> 03/26/24 1302 DD/ 1200 TD/TT: 03/26/24 1253 [employer]: Procedure Note Donotuseinterpreter, Image - 03/26/2024 [place] [facility] [address] [place] [address] Ultrasound Report Signed Patient: Hattie Holbrook#: M [id number] : 1955cct:[id number] Age/Sex: 68 / FADM Date: 03/26/24 Loc: HO.MAMMO Attending Dr: Gina Pressley NP Ordering Physician: GINA PRESSLEY NP Date of Service: 03/26/24 Procedure(s): US breast BI limited mamm only Accession Number(s): [id number] cc: GINA PRESSLEY NP EXAMINATION: MM DIAGNOSTIC [...] by: Marina Wang DO 03/26/2024 01:02 PM [facility] Dictated By: Marina Wang DO Signed By: <Electronically signed by Marina Wang DO in OV> 03/26/24 1302 DD/ 1200 TD/TT: 03/26/24 1253 [employer]: Gina MATTA US PROCEDURES Final Result * (ABNORMAL) Hm Colonoscopy (02/17/2020) Colonoscopy Abnormal(A ) Normal Historical Provider MD HEALTH MAINTENANCE Final Result * OCCULT BLOOD STOOL (04/02/2019 6:00 PM EST) OCCULT BLOOD STOOL [facility] 04/02/2019 6:00 PM EST Margi Zheng RETAIL PHARMACY MANAGER LAB BODY FLUIDS AND STOOLS ORD ERABLES Final Result [facility] [address] [place] [address], from Last 3 Months or Most Recently Relevant to Health Maintenance Insurance [facility] STANDARD [place] [address] [place] [id number] [place] [address] [address] [facility] [place] [address] Care Teams Digital Controls Technical Officer Relationship Specialty Start Date End Date Gina Pressley ANP [address] [place] [address] [place] [address] PCP - General Family Medicine 01/29/20 Luis Alberto Larose MD [address] [place] [address] [address] [place] [address] Gastroenterology 05/23/24
--- OUTSIDE RECORDS SUMMARY | 2024-11-05 13:41 | XMS_ITS | Encounter Summary ---
Author Organization [employer] Address [address] [facility] 7t [place] [address] Care Team Providers Care Food Mixer Name Role Phone Jayla Mccormack Primary Care Provider [phone] Luis Alberto Larose MD Unavailable [phone] Encounter Details Date Type Department Care Team (Late st Contact Info) Description 03/07/2022 Orders Only [facility] [address] [place], [place] [phone] Shanell Moody LPN Social History Tobacco Use [...] as of this encounter Plan of Treatment Not on file documented as of this encounter Visit Diagnoses Not on filedocumented in this encounter Care Teams Food Mixer Relationship Specialty Start Date End Date Jayla Mccormack ANP [address] [place] [phone] PCP - General Family Medicine 01/29/20 Luis Alberto Larose MD [address] [place] [address] [address] [facility] [place] [phone] Gastroenterology 05/23/24 documented as of this encounter
--- OUTSIDE RECORDS SUMMARY | 2024-11-05 13:41 | XMS_ITS | Encounter Summary ---
Author Organization [employer] Address 75 [facility] 7t [place] [address] Care Team Providers Care Cable Splicer Name Role Phone Jayla Mccormack Primary Care Provider [phone] Luis Alberto Larose MD Unavailable [phone] Reason for Visit * Reason Onset Date Comments Appointment Request 11/04/2024 Encounter Details Date Type Department Care Team ([facility] st Contact Info) Description 11/04/2024 Telephone [facility] [address] [place], [place] [phone] Jayla Mccormack ANP [address] [place], [place] [phone] Appointment Request Social History Tobacco Use Types Packs/Day Years [...] encounter Miscellaneous Notes * Telephone Encounter - Silvia Tomlinson - 11/04/2024 4:20 PM EDT Called Patient to schedule 15 min f/u wi [facility] December for DM. If Patient callsback ok to schedule. documented in this encounter Plan of Treatment Not on file documented as of this encounter Visit Diagnoses Not on filedocumented in this encounter Additional Health Concerns Assessment Noted Time PHQ-9 Depression Total Score: 10 025 10:45 AM EDT documented as of this encounter Care Teams Cable Splicer Relationship Specialty Start Date End Date Jayla Mccormack ANP [address] [place] [phone] PCP - General Family Medicine 01/29/20 Luis Alberto Larose MD [address] [place] [address] [address] [place] [address] Gastroenterology 05/23/24 documented as of this encounter
--- OUTSIDE RECORDS SUMMARY | 2024-11-05 13:41 | XMS_ITS | Encounter Summary ---
Author Organization [employer] Address [address] [facility] [address] [place] [address] Care Team Providers Care Heel Top Lift Splitter Name Role Phone Jayla Mccormack Primary Care Provider [phone] Luis Alberto Larose MD Unavailable [phone] Encounter Details Date Type Department Care Team (Late st Contact Info) Description 02/16/2022 Orders Only [facility] [address] [place], [place] [phone] Shanell Moody LPN Social History Tobacco Use [...] on filedocumented in this encounter Care Teams Heel Top Lift Splitter Relationship Specialty Start Date End Date Jayla Mccormack ANP [address] [place] [phone] PCP - General Family Medicine 01/29/20 Luis Alberto Larose MD [address] [place] [address] [address] [facility] [place] [phone] Gastroenterology 05/23/24 documented as of this encounter
--- OUTSIDE RECORDS SUMMARY | 2024-11-05 13:41 | XMS_ITS | Encounter Summary ---
Author Organization [employer] Address 75 [facility] 7t [place] [address] Care Team Providers Care Sales Hunter Name Role Phone Jayla Mccormack Primary Care Provider [phone] Luis Alberto Larose MD Unavailable [phone] Encounter Details Date Type Department Care Team (Late st Contact Info) Description 09/05/2024 Results Follow-Up [facility] MEDICINE [address] [place] [address] Jayla Mccormack ANP [address] [place] [address] TSH W/Reflex to FT4 Social History Tobacco Use Types Packs/Day Years [...] documented as of this encounter Care Teams Sales Hunter Relationship Specialty Start Date End Date Jayla Mccormack ANP [address] [place] [address] PCP - General Family Medicine 01/29/20 Luis Alberto Larose MD [address] [place] [address] Dr [address] [place] [address] Gastroenterology 05/23/24 documented as of this encounter
--- OUTSIDE RECORDS SUMMARY | 2024-11-05 13:41 | XMS_ITS | Encounter Summary ---
Author Organization [employer] Address 75 [facility] 7t [place] [address] Care Team Providers Care Veterinary Laboratory Technician Name Role Phone Jayla Mccormack Primary Care Provider [phone] Luis Alberto Larose MD Unavailable [phone] Encounter Details Date Type Department Care Team (Late st Contact Info) Description 05/02/2022 Orders Only [facility] MED & PEDS [address] [place], [place] [phone] Shanell Moody LPN Social History Tobacco Use [...] on filedocumented in this encounter Care Teams Veterinary Laboratory Technician Relationship Specialty Start Date End Date Jayla Mccormack ANP [address] [place] [address] PCP - General Family Medicine 01/29/20 Luis Alberto Larose MD [address] [place] [address] Dr [address]rd [facility] [place] [id number] Gastroenterology 05/23/24 documented as of this encounter
--- OUTSIDE RECORDS SUMMARY | 2024-11-05 13:41 | XMS_ITS | Encounter Summary ---
Author Organization [employer] Address [address] [facility] [address] 7t [place] [address] Care Team Providers Care Sales Executive Insurance Name Role Phone Jayla Mccormack Primary Care Provider [phone] Luis Alberto Larose MD Unavailable [phone] Encounter Details Date Type Department Care Team (Late st Contact Info) Description 09/12/2024 Refill [facility] MED & PEDS [address] [place], [place] [phone] Jayla Mccormack ANP [address] [place], [place] [phone] Osteoporosis without current pathological fracture, unspecified osteoporosis type Social History Tobacco Use Types Packs/Day [...] your housing situation today? I have david andarde 05/23/[address] you li [...] * Telephone Encounter - TERA Arellano - 09/12/2024 4:12 PM EDT duplicate documented in this encounter Plan of Treatment Not on file documented as of this encounter Visit Diagnoses Diagnosis Osteoporosis without current pathological fracture, unspecified osteoporosis type documented in this encounter Additional Health Concerns Assessment Noted Time PHQ-9 Depression Total Score: 10 025 10:45 AM EDT documented as of this encounter Care Teams Sales Executive Insurance Relationship Specialty Start Date End Date Jayla Mccormack ANP [address] [place] [address] PCP - General Family Medicine 01/29/20 Luis Alberto Larose MD [address] [place] [address] Dr 3rd [place] [address] Gastroenterology 05/23/24 documented as of this encounter
--- OUTSIDE RECORDS SUMMARY | 2024-11-05 13:41 | XMS_ITS | Encounter Summary ---
Author Organization [employer] Address 75 [facility] 7t [place] [address] Care Team Providers Care Junior Legal Secretary Name Role Phone Jayla Mccormack Primary Care Provider [phone] Luis Alberto Larose MD Unavailable [phone] Reason for Visit * Reason Onset Date Comments Med Refill 10/03/2022 Encounter Details Date Type Department Care Team ([facility] st Contact Info) Description 10/03/2022 Telephone [facility] MEDICINE [address] [place] [address] Jayla Mccormack ANP [address] [place] [address] Med Refill Social History Tobacco Use Types [...] on filedocumented in this encounter Care Teams Junior Legal Secretary Relationship Specialty Start Date End Date Jayla Mccormack ANP [address] [place] [address] PCP - General Family Medicine 01/29/20 Luis Alberto Larose MD [address] [place] [address] 3rd [facility] [address] Gastroenterology 05/23/24 documented as of this encounter
== END 2024-11-05 11:44 | disposition home or self-care (01) ==
LOC: HO.ENCR 11:02
PROVIDERS: PCP Nurse Practitioner Primary Care; Visit Provider Internal Medicine Endocrinology, Diabetes & Metabolism
DX: M81.0 Age-related osteoporosis without current pathological fracture (principal)
CPT/HCPCS: 99204

== ENCOUNTER → 2024-11-05 11:02 | Outpatient (BNVA) | payer MEDICARE, MEDICAID, SELFPAY | PROVIDERS: PCP Nurse Practitioner Primary Care; Visit Provider Internal Medicine Endocrinology, Diabetes & Metabolism | DX: M81.0 Age-related osteoporosis without current pathological fracture (principal) | CPT/HCPCS: 99202 ==

== ENCOUNTER 2024-12-23 15:40 | Outpatient (REF) | payer MEDICARE, MEDICAID, SELFPAY ==
--- OUTSIDE RECORDS SUMMARY | 2024-12-23 14:00 | XMS_ITS | Encounter Summary ---
Author Organization [employer] Address [address] [facility] [address] 7t [place] [address] Care Team Providers Care Public Welfare Director Name Role Phone Jayla Mccormack Primary Care Provider [phone] Luis Alberto Larose MD Unavailable [phone] Encounter Details Date Type Department Care Team ([facility] st Contact Info) Description 12/23/2024 2:00 PM EST Office Visit [facility] MEDICINE [address] [place] [address] Tamera Rodríguez MD [address] [place] [address] Screen for sexually transmitted diseases (Primary Dx); Hearing screen with abnormal findings Social History Tobacco Use Types Packs/Day Years Used Date Smoking Tobacco: Never Smokeless Tobacco: Never Alcohol Use Standard Drinks/Week Comments Not Currently 0 (1 standard drink = 0.6 oz pur e alcohol) Depression Answer Date Recorded Patient Health Questionnaire-9 Score 18 12/23/2024 Patient Health Questionnaire-9 Score 18 12/23/2024 Last PHQ-9: Questionnaire Data Not on file 1 02/23/2024 Housing Stability Answer Date Recorded What is [...] Answer Date Recorded Patient Health Questionnaire-2 Score 5 12/23/2024 Internet Access Answer Date Recorded Internet Access [...] Sign Reading Time Taken Comments Blood Pressure 126/80 12/23/2024 2:28 PM EST Pulse 100 12/23/2024 2:28 PM EST Temperature - - Respiratory Rate - - Oxygen Saturation 97% 12/23/2024 2:28 PM EST Inhaled Oxygen Concentration - - Weight 75 kg (165 lb 6.4 oz) 12/23/2024 2:28 PM EST Height - - Body Mass Index 35.17 10/30/2024 3:13 PM EDT documented in this encounter Functional Status * Over the past 2 weeks, how often have you been bothered by any of the following problems? Question Answer Date of Assessment Author Patient Health Questionnaire -2 Score 5 12/23/2024 2:39 PM Nayeli Pena RN * Little interest or pleasure in doing things Answer Date of Assessment Author Nearly every day 12/23/2024 2:39 PM Nayeli Pena RN * Feeling down, depressed, or hopeless Answer Date of Assessment Author More than half the days 12/23/2024 2:39 PM Nayeli Shaffer RN * Trouble falling or staying asleep, or sleeping too much Answer Date of Assessment Author Nearly every day 12/23/2024 2:39 PM Nayeli Pena RN * Feeling tired or having little energy Answer Date of Assessment Author Nearly every day 12/23/2024 2:39 PM Nayeli Pena RN * Poor appetite or overeating Answer Date of Assessment Author Nearly every day 12/23/2024 2:39 PM Nayeli Pena RN * Feeling bad about yourself - or that you are a failure or have let yourself or your family down Answer Date of Assessment Author Not at all 12/23/2024 2:39 PM Nayeli Pena RN * Trouble concentrating on things, such as reading the newspaper or watching television Answer Date of Assessment Author Nearly every day 12/23/2024 2:39 PM Nayeli Pena RN * Moving or speaking so slowly that other people could have noticed? Or the opposite - being so fidgety or restless that you have been moving around a lot more than usual. Answer Date of Assessment Author Several days 12/23/2024 2:39 PM Nayeli Pena RN * Thoughts that you would be better off or hurting yourself in some way Answer Date of Assessment Author Not at all 12/23/2024 2:39 PM Nayeli Pena RN * Patient Health Questionnaire-9 Score Answer Date of Assessment Author 18 12/23/2024 2:39 PM Nayeli Pena RN * How difficult have these problems made it for you to do your work, take care of things at home, or get along with other people? Answer Date of Assessment Author Somewhat difficult 12/23/2024 2:39 PM Nayeli Swenson RN * Over the last 2 weeks, how often have you been bothered by any of the following problems? Question Answer Date of Assessment Author Feeling nervous, anxious, or on edge 3 12/23/2024 2:44 PM Nayeli Pean RN Not being able to stop or co ntrol worrying 3 12/23/2024 2:44 PM Nayeli Pena RN Worrying too much about diff erent things 3 12/23/2024 2:44 PM Nayeli Pena RN Trouble relaxing 3 12/23/2024 2:44 PM Nayeli Shaffer RN Being so restless that it is hard to sit still 3 12/23/2024 2:44 PM EST Celso, Nayeli, RN Becoming easily annoyed or irritable 0 12/23/2024 2:44 PM Nayeli Pena RN Feeling afraid as if somethi ng awful might happen 0 12/23/2024 2:44 PM Nayeli Pena RN RAMESH-7 Total Score 15 12/23/2024 2:44 PM Nayeli Pena RN documented as of this encounter Progress Notes * Tamera Rodríguez MD - 12/23/2024 2:00 PM EST Subjective Patient ID: Johnna De La Vega is a 69 y.o. year old adult who presents today for Medicare Annual Wellness Visit. Preferred language for medical information: Ivorian Objective Vitals: 12/23/24 1428 BP: 126/80 BP Location: Right arm Patient Position: Sitting BP Cuff Size: Adult Pulse: 100 SpO2: 97% Weight: 165 lb 6.4 oz (75 kg) Hearing Screening 1000Hz 2000Hz 4000Hz Right ear 50 50 50 Left ear 50 60 50 Note: patient states that she wears hearing aides, but doesn't have them today because they are uncomfortable when she wears her eyeglasses. She will follow up with audiology to discuss this issue. EMO Allergies[1] Current Medications[2] Immunization History Administered Date(s) Administered Hep B, adult 04/05/2017, 12/20/2018 Influenza injectable quadrivalent preservative free 04/22/2019 Pneumococcal Polysaccharide PPSV23 09/04/2014 Tdap 05/01/2014, 05/23/2024 Zoster, live 04/05/2017 Medical History[3] Surgical History[4] Family History[5] Tobacco Use History[6] Patient Health Questionnaire-9 Score: 18 (12/23/2024 2:39 PM) Patient Health Questionnaire-2 Score: 5 (12/23/2024 2:39 PM) Thoughts that you would be better off or hurting yourself in some way: Not at all (12/23/2024 2:39 PM) SBIRT - Alcohol How many times in the past year have you had 5 or more (for men) or 4 or more (for women) drinks blayne day?: None Score: 0 SBIRT - Drugs How many times in the past year have you used an illegal drug or used a prescription medication fornon-medical reasons?: None Score: 0 Social Drivers of Health Tobacco Use: Low Risk (12/23/2024) Tobacco Smoking Tobacco Use: Never Smokeless Tobacco Use: Never Passive Exposure: Not on file Alcohol Use: Not on file Food Insecurity: Low Risk (05/23/2024) Food Insecurity Within the past 12 months, you worried that your food would run out before you got money to buy more:: Never True Within the past 12 months,the food you bought just didn't last and you didn't have enough money to get more: : Never True Transportation Needs: Low Risk (05/23/2024) Transportation In the past 12 months, has lack of transportation kept you from medical appts, meetings, work or from getting things needed for daily living? : No Intimate Partner Violence: Not on file Depression: Moderately severe depression (12/23/2024) Depression PHQ-9 Score: 18 Last PHQ-9: Flowsheet Data: 18 Last PHQ-9: Questionnaire Data: Not on file Housing Stability: Low Risk (05/23/2024) Housing Stability What is your housing situation today?: I have housing Think about the place you live. Do you have problems with any of the following? : None of the above Utilities: Low Risk (05/23/2024) Utilities In the past 12 months, has the electric, gas, oil or water [place] threatened to shut off services in your home? : No Internet Access: Low Risk (05/23/2024) Internet Access Internet Access Q1: Yes Internet Access Q2: Not on file Cognitive Assessment (Mini-Cog): [x] Normal [] Abnormal Three Word Recall: 3 out of 3 Clock Drawin out of 2 Total Score: 5 out of 5 Mini-Cog sheet to be scanned into chart. Functional Assessment: Activities of Daily Living ([place] ADL) Bathing: with partial assistance Dressing: with partial assistance Toileting: with partial assistance Transferring: with partial assistance Continence: with partial assistance Feeding: independent VETERINARY SURGEON: No Fall Risk Assessment: [x] Low risk [] High risk Feels unsteady when standing or walking? No Worries about falling? No Has fallen in past year? No Number of falls? N/A TUG completed: No Patient Care Team: Patient Care Team: TERA Arellano as PCP - General (Family Medicine) Luis Alberto Larose MD (Gastroenterology) Advance Care Planning: Patient's current capacity: Full capacity Agent(s): Health Care Proxy paperwork is incomplete. [employer] Orders for Life-Sustaining Treatment (MOLST) is incomplete. Code Status: Assume Full Assessment/Plan Health Maintenance Topic Date Due Hepatitis C Screening Never done RSV Patients and Patients Aged 60 years or older (1 - Risk 60-74 years 1-dose series) Never done Hepatitis B Vaccines (3 of 3 - 19+ 3-dose series) 02/14/2019 Influenza Vaccine (1) 10/14/2024 COVID-19 Vaccine (1 - season) Never done Diabetes: Hemoglobin A1C 11/13/2024 Colorectal Cancer Screening 02/16/2025 Pneumococcal Vaccine: 50+ Years (2 of 2 - PCV) 05/23/2025 (Originally 09/05/2015) Zoster Vaccines (2 of 3) 05/23/2025 (Originally 05/31/2017) Mammogram 03/26/2025 SDOH Screening 05/23/2025 Diabetes: Foot Exam 05/23/2025 Lipid Panel 05/23/2025 Diabetes: Urine Protein Screening 05/23/2025 Depression Monitoring 06/22/2025 Eye Exam 10/14/2025 Tobacco Screening 12/23/2025 Alcohol/Substance Use Screening 12/23/2025 DTaP/Tdap/Td Vaccines (3 - Td or Tdap) 05/23/2034 RSV under 20 months Aged Out HIB Vaccines Aged Out IPV Vaccines Aged Out Hepatitis A Vaccines Aged Out Meningococcal Vaccine Aged Out Rotavirus Vaccines Aged Out HPV Vaccines Aged Out Meningococcal B Vaccine Aged Out Patient refused the following health maintenance recommendations: Pt refused immunizations. Problem List Items Addressed This Visit None Visit Diagnoses Hearing screen with abnormal findings Counseling/Education [] Lung Cancer Screening Form Completed N/A [] Self Reported Health Status Completed Yes [] Print After Visit Summary (AVS) [] Advance directives handout provided [x] Schedule a visit to complete MOLST [] Fall risk identified: [] Work on strength/balance [] Stay hydrated [] Start daily vitamin D supplement [] Reduce home hazards (handout provided) [] High risk medications identified - schedule FU with PCP to discuss [x] Follow-up with PCP Yes Follow up with TERA Arellano on 02/24/25. Nayeli Houston RN I, Tamera Rodríguez, have met with the patient, reviewed the RN note and agree with the assessment & plan of care as documented above. Summary and recommendations Patient will follow up with audiology to discuss hearing aid comfort. She has a follow up visit with Jayla Mccormack on 02/24 to discuss MOLST and labwork ordered on this visit. Tamera Rodríguez MD [1] Allergies Allergen Reactions Aspirin Hives and Shortness of breath Other reaction(s): Rash Egg Protein (Egg White) Itching and Rash Ibuprofen Rash and Angioedema Shellfish Protein-Containing Drug Products Angioedema [2] Current Outpatient Medications: albuterol (Ventolin HFA) 108 (90 Base) MCG/ACT inhaler, INHALE 2 PUFFS BY MOUTH EVERY 4 TO 6 HOURS NEEDED, Disp: 18 g, Rfl: 1 albuterol 1.25 MG/3ML nebulizer solution, Take 3 mL (1.25 mg) by nebulization every 6 (six) hours if needed for wheezing., Disp: 75 mL, Rfl: 3 Alcohol Swabs 70 % pads, Use to clean skin b/f BG check, Disp: 100 each, Rfl: 11 Ascorbic Acid (vitamin C) 250 MG tablet, Take 1 tablet with iron supplement BID, Disp: 60 tablet, Rfl: 11 Blood Glucose Monitoring Suppl (FireEye Lite) w/Device kit, Use to test blood sugar 3 times daily, Disp: 1 kit, Rfl: 0 Calcium 600/Vitamin D3 600-20 MG-MCG tablet, TAKE 1 TABLET BY MOUTH TWICE DAILY AT NOON AND BEDTIME, Disp: 180 tablet, Rfl: 3 cyanocobalamin (Vitamin B-12) 1000 MCG tablet, Take 1 tablet by mouth in the morning., Disp: , Rfl: Dilt-XR 120 MG 24 hr capsule, Take 120 mg by mouth Once per day., Disp: , Rfl: doxepin (SINEquan) 25 MG capsule, Take 1 capsule (25 mg) by mouth at bedtime., Disp: 30 capsule, Rfl: 2 EPINEPHrine (Epipen) 0.3 MG/0.3ML injection syringe, Inject 0.3 mL (0.3 mg) as directed 1 (one) time for 1 dose. use as directed for allergic reaction and then call 911, Disp: 2 each, Rfl: 1 FeroSul 325 (65 Fe) MG tablet, Take 1 tablet (325 mg) by mouth 2 times daily., Disp: 60 tablet, Rfl: 2 fluticasone furoate (Arnuity Ellipta) 100 MCG/ACT inhaler, Inhale 1 puff Once per day. Rinse mouth with water after use to reduce aftertaste and incidence of candidiasis. Do not swallow., Disp: 30 each, Rfl: 2 FREESTYLE LITE test strip, Use to test blood sugar 3 times daily, Disp: 100 each, Rfl: 12 gabapentin (Neurontin) 300 MG capsule, Take 600 mg by mouth 2 times daily., Disp: , Rfl: hydrOXYzine pamoate (Vistaril) 25 MG capsule, TAKE 1-2 CAPSULES BY MOUTH TWICE DAILY NEEDED, Disp: , Rfl: Lancets misc, Use to test blood sugar 3 times daily, Disp: 100 each, Rfl: 3 levothyroxine (Synthroid, Levoxyl) 75 MCG tablet, Take 1 tablet (75 mcg) by mouth before breakfast.Take 1 additional tablet on Monday, Disp: 34 tablet, Rfl: 1 Linzess 145 MCG capsule, Take 145 mcg by mouth in the morning., Disp: , Rfl: metFORMIN XR (Glucophage-XR) 500 MG 24 hr tablet, Take 1 tab twice daily with meals. Do not crush, chew, or split., Disp: 180 tablet, Rfl: 1 omeprazole (PriLOSEC) [address] capsule, , Disp: , Rfl: rosuvastatin (Crestor) 20 MG tablet, Take 1 tablet (20 mg) by mouth Once per day., Disp: 30 tablet,Rfl: 11 sertraline (Zoloft) 100 MG tablet, TAKE 2 TABLETS BY MOUTH ONCE DAILY IN THE MORNING, Disp: , Rfl: Spacer/Aero-Holding Chambers (OptiChamber Apurva) misc, 1 each every 4 (four) hours if needed (asthma)., Disp: 1 each, Rfl: 0 topiramate 50 MG tablet, TAKE 1 TABLET BY MOUTH AT BEDTIME, Disp: 90 tablet, Rfl: 1 TRUEplus Lancets 33G misc, USE TO TEST BLOOD SUGAR THREE TIMES DAILY, Disp: 100 each, Rfl: 3 [3] No past medical history on file. [4] Past Surgical History: Procedure Laterality Date SECTION, LOW TRANSVERSE [5] Family History Problem Relation Name Age of Onset Asthma Father Dementia Father Diabetes Father Diabetes Sister Heart attack Sister Diabetes Brother Hypertension Brother Behavior problems Brother No Known Problems Daughter Hypertension Son Anxiety disorder Son Schizophrenia Son Diverticulitis Son [6] Social History Tobacco Use Smoking Status Never Smokeless Tobacco Never documented in this encounter Plan of Treatment Upcoming Encounters Date Type Department Care Team (Late st Contact Info) Description 02/24/2025 1:30 PM EST Office Visit [facility] MEDICINE [address] [place] [address] Jayla Mccormack ANP [address] [place] [address] Scheduled Orders Name Type Priority Associated Diagnoses Orde r Schedule Hepatitis C Antibody with Reflex to HCV, RNA, Quantitative, Real-Time PCR Lab Routine Screen for sexually transmitted diseases Expected: 12/23/2024 (Approximate), Expires: 12/23/2025 Hepatitis C Antibody with Reflex to HCV, RNA, Quantitative, Real-Time PCR Lab Routine Screen for sexually transmitted diseases Expected: 12/23/2024 (Approximate), Expires: 12/23/2025 documented as of this encounter Visit Diagnoses Diagnosis Screen for sexually transmitted diseases- Primary Screening examination for venereal disease Hearing screen with abnormal findings documented in this encounter Additional Health Concerns Assessment Noted Time PHQ-9 Depression Total Score: 18 025 2:39 PM EST documented as of this encounter Care Teams Public Welfare Director Relationship Specialty Start Date End Date Jayla Mccormack ANP [address] [place] [address] PCP - General Family Medicine 01/29/20 Luis Alberto Larose MD [address] [place] [address] Dr [address] [place] [address] Gastroenterology 05/23/24 [facility] [place] 12/23/24 Obstetrics and Gynecology 12/23/24 documented as of this encounter
--- OUTSIDE RECORDS SUMMARY | 2024-12-23 17:43 | XMS_ITS | Encounter Summary ---
Author Organization [employer] Address 75 [facility] 7t [place] [address] Care Team Providers Care Flash Welding Machine Operator Name Role Phone Jayla Mccormack Primary Care Provider [phone] Luis Alberto Larose MD Unavailable [phone] Encounter Details Date Type Department Care Team (Late st Contact Info) Description 03/07/2022 Orders Only [facility] MED & PEDS [address] [place], [place] [phone] Shanell Moody LPN Social History Tobacco Use [...] Description 02/24/2025 1:30 PM EST Office Visit [facility] MEDICINE [address] [place] [address] Jayla Mccormack ANP [address] [place] [address] documented as of this encounter Visit Diagnoses Not on filedocumented in this encounter Care Teams Flash Welding Machine Operator Relationship Specialty Start Date End Date Jayla Mccormack ANP [address] [place] [address] PCP - General Family Medicine 01/29/20 Luis Alberto Larose MD [address] [place] [address] Dr 3[address] Floor [place], [place] [address] Gastroenterology 05/23/24 [facility] 12/23/24 Obstetrics and Gynecology 12/23/24 documented as of this encounter
--- OUTSIDE RECORDS SUMMARY | 2024-12-23 17:43 | XMS_ITS | Encounter Summary ---
Author Organization [employer] Address 75 [facility] 7t [place] [address] Care Team Providers Care Reservation Clerk Name Role Phone Jayla Mccormack Primary Care Provider [phone] Luis Alberto Larose MD Unavailable [phone] Encounter Details Date Type Department Care Team (Late st Contact Info) Description 02/16/2022 Orders Only [facility] MED & PEDS [address] [place], [place] [phone] Shanell Moody LPN Social History Tobacco Use [...] Description 02/24/2025 1:30 PM EST Office Visit [facility] MEDICINE [address] [place] [address] Jayla Mccormack ANP [address] [place] [address] documented as of this encounter Visit Diagnoses Not on filedocumented in this encounter Care Teams Reservation Clerk Relationship Specialty Start Date End Date Jayla Mccormack ANP [address] [place] [address] PCP - General Family Medicine 01/29/20 Luis Alberto Larose MD [address] [place] [address] Dr [address] Floor [place], [place] [address] Gastroenterology 05/23/24 [facility] Cardiology 12/23/24 Obstetrics and Gynecology 12/23/24 documented as of this encounter
--- OUTSIDE RECORDS SUMMARY | 2024-12-23 17:43 | XMS_ITS | Encounter Summary ---
Author Organization [employer] Address 75 [facility] 7t [place] [address] Care Team Providers Care Staff Therapist Name Role Phone Jayla Mccormack Primary Care Provider [phone] Luis Alberto Larose MD Unavailable [phone] Encounter Details Date Type Department Care Team (Late st Contact Info) Description 05/02/2022 Orders Only [facility] MED & PEDS [address] [place], [place] [phone] Shanell Moody LPN Social History Tobacco Use [...] Description 02/24/2025 1:30 PM EST Office Visit [facility] MEDICINE [address] [place] [address] Jayla Mccormack ANP [address] [place] [address] documented as of this encounter Visit Diagnoses Not on filedocumented in this encounter Care Teams Staff Therapist Relationship Specialty Start Date End Date Jayla Mccormack ANP [address] [place] [address] PCP - General Family Medicine 01/29/20 Luis Alberto Larose MD [address] [place] [address] Dr [address] Floor [place], [place] [address] Gastroenterology 05/23/24 [facility] Cardiology 12/23/24 Obstetrics and Gynecology 12/23/24 documented as of this encounter
--- OUTSIDE RECORDS SUMMARY | 2024-12-23 17:44 | XMS_ITS | Clinical Summary ---
Author Organization [address] [facility] Address [address] [place] [address] Phone Care Team Providers Care Tube Splicer Name Role Phone Jayla Mccormack NP Primary Care Provider [phone] Allergies Active Allergy Reactions Criticality Noted Date Comments Aspirin Hives,Other,Shortnes s of breath High 01/28/2014 aspirin Other reaction(s): Rash Ibuprofen Angioedema,Rash High 05/19/2022 Shellfish Containing Products Angioedema High 08/13/2024 Medications ammonium lactate (AMLACTIN) 12 % cream Apply topically if needed for dry skin. 560 g 2 5 09/18/19 26 Active Social History Tobacco Use Types Packs/Day Years Used Date Smoking Tobacco: Never Assessed Comments Unknown Sex and Gender Information Value Date Recorded Sex Assigned at Not on file Legal Sex Female 9:30 AM EDT Gender Identity Not on file Sexual Orientation Not on file Plan of Treatment Health Maintenance Due Date Last Done Comments Breast Cancer Screening 1955 Colorectal Cancer Screening: Colonoscopy 1955 Diabetes: Annual GFR (Glomerular Filtration Rate) 1955 Diabetes: Annual Foot Exam 04/12/1965 Diabetes: Annual Retina Eye Exam 04/12/1965 RSV Immunization Adult Patients (1 - Risk 50-74 years 1-dose series) 04/12/2005 Pneumococcal Vaccine: 50+ Years (2 of 2 - PCV) 09/05/2015 09/04/2014 Zoster Vaccines (2 of 3) 05/31/2017 04/05/2017 Hepatitis B Vaccines (3 of 3 - 19+ 3-dose series) 02/14/2019 12/20/2018, 04/05/2017 Depression Screening 02/14/2024 Diabetes: Annual Urine Albumin-Creatinine Ratio (uACR) 06/19/2024 Falls Risk Assessment 06/19/2024 Hepatitis C Screening 06/19/2024 Medicare Annual Wellness Visit 06/19/2024 Osteoporosis Screening (Bone Density Screening) 06/19/2024 Social Influencers of Health Screening 06/19/2024 COVID-19 Vaccine (1 - 2024-2 6 season) 2024 Influenza Vaccine (#1) 2024 04/22/2019 [...] Insurance MEDICARE MEDICAID - [place] Care Teams Tube Splicer Relationship Specialty Start Date End Date Jayla Mccormack NP [address] [place] [phone] PCP - General 06/19/24
--- OUTSIDE RECORDS SUMMARY | 2024-12-23 17:44 | XMS_ITS | Clinical Summary ---
Author Organization [employer] Address [address] [facility] [address] [place] [address] Care Team Providers Care Concrete Block Molder Name Role Phone Gina Pressley TERA Primary Care Provider [phone] Luis Alberto Larose MD Unavailable [phone] Allergies Active Allergy Reactions Criticality Noted Date Comments Aspirin Hives,Shortness of breath High 01/28/2014 Other reaction(s): Rash Egg Protein (Egg White) Itching,Rash Medium 12/23/2024 Ibuprofen Rash,Angioedema Medium 05/19/2022 Shellfish Protein-Containing Drug Products Angioedema 08/13/2024 Medications cyanocobalamin (Vitamin B-12) 1000 MCG tablet Take 1 tablet by mouth in the morning. 023 Active gabapentin (Neurontin) 300 MG capsule [...] stripIndications: Type 2 diabetes mellitus with hyperlipidemia (HCC) Use to test blood sugar 3 times daily 100 each 12 025 2025 Active Lancets miscIndications:T ype 2 diabetes mellitus with hyperlipidemia (HCC) Use to test blood sugar 3 times daily 100 each 3 025 Active Alcohol Swabs 70 % padsIndications:T ype 2 diabetes mellitus with hyperlipidemia (HCC) Use to clean skin b/f BG check 100 each 11 025 Active Blood Glucose Monitoring Suppl (FreeStyle [place] Lite) w/Device kitIndications:Ty pe 2 diabetes mellitus with hyperlipidemia (HCC) Use to test blood sugar 3 times daily 1 kit 025 Active EPINEPHrine (Epipen) 0.3 MG/0.3ML injection [...] AND BEDTIME 180 tablet 3 025 Active rosuvastatin (Crestor) 20 MG tabletIndications :Type 2 diabetes mellitus with hyperlipidemia (HCC) Take 1 tablet (20 mg) by mouth Once per day. 30 tablet 11 025 2025 Active metFORMIN XR (Glucophage-XR) 500 MG 24 hr tabletIndications :Type 2 diabetes mellitus with hyperlipidemia (HCC) Take 1 tab twice daily with meals. Do not crush, chew, or split. 180 tablet 1 025 Active fluticasone furoate (Arnuity Ellipta) 100 MCG/ACT inhalerIndication s:Mild persistent asthma without complication Inhale 1 puff Once per day. Rinse mouth with water after use to reduce aftertaste and incidence of candidiasis. Do not swallow. 30 each 2 Active albuterol (Ventolin HFA) 108 (90 Base) MCG/ACT inhalerIndication s:Mild persistent asthma without complication INHALE 2 PUFFS BY MOUTH EVERY 4 TO 6 HOURS NEEDED 18 g 1 Active FeroSul 325 (65 Fe) MG tablet Take 1 tablet (325 mg) by mouth 2 times daily. 60 tablet 2 Active doxepin (SINEquan) 25 MG capsule Take 1 capsule (25 mg) by mouth at bedtime. 30 capsule 2 Active TRUEplus Lancets 33G miscIndications:T ype 2 diabetes mellitus with hyperlipidemia (HCC) USE TO TEST BLOOD SUGAR THREE TIMES DAILY 100 each 3 Active topiramate 50 MG tabletIndications :Chronic nonintractable headache, unspecified headache type TAKE 1 TABLET BY MOUTH AT BEDTIME 90 tablet 1 Active levothyroxine (Synthroid, Levoxyl) 75 MCG tablet Take 1 tablet (75 mcg) by mouth before breakfast. Take 1 additional tablet on Monday 34 tablet 1 Active topiramate 50 MG tabletIndications :Chronic nonintractable headache, unspecified headache type TAKE 1 TABLET BY MOUTH AT BEDTIME 90 tablet 1 025 2024 Discontinued levothyroxine (Synthroid, Levoxyl) 75 MCG tablet TAKE 1 TABLET BY MOUTH EVERYDAY AT NOON & TAKE 1 TABLET ADDITIONAL ON MONDAY 34 tablet 1 025 2024 Discontinued(R eorder (will not trigger notification to Pharmacy)) Active Problems Problem Noted Date Diagnosed Date [...] 05/19/2022 Bipolar affective disorder, currently depressed, moderate (CMS/HCC) 05/15/2018 Dyslipidemia 05/15/2018 Mild persistent asthma without [...] PCP Type 2 diabetes mellitus with hyperlipidemia Overview (07/17/2023): Lab Results Component Value Date [...] Encounters Date Type Department Care Team Description 12/23/2024 2:00 PM EST Office Visit [facility] [address] [place] [address] Tamera Rodríguez MD Screen for sexually transmitted diseases (Primary Dx); Hearing screen with abnormal findings 12/23/2024 Travel 12/09/2024 Refill [facility] [address] [place] [address] Gina Pressley ANP 12/09/2024 Refill [facility] [address] [place] [address] Gina Pressley ANP 12/06/2024 Telephone [facility] [address] [place] [address] Gina Pressley ANP February Recall 12/05/2024 Refill [facility] [address] [place] [address] Gina Pressley ANP Chronic nonintractable headache, unspecified headache type 11/20/2024 Patient Outreach [facility] [address] [place] [phone] Gina Pressley ANP Medicare Annual Wellness Visit Initial (Annual wellness visit scheduled needs university archivist) 11/12/2024 Refill [facility] [address] [place] [phone] Gina Pressley ANP Type 2 diabetes mellitus with hyperlipidemia (CMS/HCC) ([facility]/HCC) 11/11/2024 Refill [facility] [address] [place] [address] Gina Pressley ANP Type 2 diabetes mellitus with hyperlipidemia (CMS/HCC) (CMS/HCC) 11/04/2024 Telephone [facility] [address] [place] [address] Gina Pressley ANP Appointment Request 10/30/2024 3:15 PM EDT Office Visit [facility] [address] [place] [address] Gina Pressley ANP Type 2 diabetes mellitus with hyperlipidemia (CMS/HCC) (CMS/HCC) (Primary Dx); Hypothyroidism, unspecified type; Mild persistent asthma without complication; Tremor 10/30/2024 Travel 10/29/2024 Telephone [facility] [address] [place] [phone] Gina Pressley ANP chart prep 10/07/2024 Refill [facility] [address] [place] [phone] Gina Pressley ANP from Last 3 Months Immunizations Immunization Administration Dates Next Due Hep B, adult 12/20/2018,04/05/2017 Influenza injectable quadrivalent preservative f ree 04/22/2019 Pneumococcal Polysaccharide PPSV23 09/04/2014 Tdap 05/23/2024,05/01/2014 Zoster, live 04/05/2017 Family History Medical History Relation Name Comments Behavior problems Brother Diabetes Brother Hypertension Brother No Known Problems Daughter Asthma Father Dementia Father Diabetes Father Diabetes Sister Heart attack Sister Anxiety disorder Son Diverticulitis Son Hypertension Son Schizophrenia Son Relation Name Status Comments Brother Alive Daughter Alive Father Mother Sister Alive Son Alive Social History Tobacco Use Types Packs/Day Years [...] Pulse 100 12/23/2024 2:28 PM EST Temperature 36.3 C (97.4 F) 10/30/2024 3:13 PM EDT Respiratory Rate 20 10/30/2024 3:13 PM EDT Oxygen Saturation 97% 12/23/2024 2:28 PM EST Inhaled Oxygen Concentration - - Weight 75 kg (165 lb 6.4 oz) 12/23/2024 2:28 PM EST Height 146.1 cm (4' 9.5 ) 10/30/2024 3:13 PM EDT Body Mass Index 35.17 10/30/2024 3:13 PM EDT Plan of Treatment Upcoming Encounters Date Type Department Care Team (Late st Contact Info) Description 02/24/2025 1:30 PM EST Office Visit [facility] [address] [place] [address] Gina Pressley, ANP [address] [place], [place] [phone] Health Maintenance Due Date Last Done Comments [...] Vaccine (#1) 2024 04/22/2019 Diabetes: Hemoglobin A1C 11/13/20242 025, 05/23/2024, 11/28/2023, Additional history exists Colonoscopy 02/16/2025 02/17/2020, 02/17/2020 Colorectal Cancer Screening 02/16/2025 Mammogram 03/26/2025 03/26/2024, 03/16, 03/26/2024, Additional history exists Diabetes: Foot Exam 05/23/2025 05/23/2024, 05/23/2024, 05/23/2024 Diabetes: Urine Protein Screening 05/23/2025 05/23/2024, 09/02/2022, 09/28/2020 Lipid Panel 05/23/2025 05/23/2024, 11/0 10/2022, 09/28/2020 Pneumococcal Vaccine: 50+ Years (2 of 2 - PCV) 05/23/2025 09/04/2014 Postponed from 09/05/2015 (Patient Refused) SDOH Screening 05/23/2025 05/23/2024 Zoster Vaccines (2 of 3) 05/23/2025 04/05/2017 Pos tponed from 05/31/2017 (Patient Refused) Depression Monitoring 06/22/2025 12/23/2024, 025 Eye Exam 10/14/2025 10/15/2023 Alcohol/Substance Use Screening 12/23/2025 12/23/2024 Tobacco Screening 12/23/2025 12/23/2024 DTaP/Tdap/Td Vaccines (3 - Td or Tdap) [...] 2 diabetes mellitus with hyperlipidemia (CMS/HCC) (CMS/HCC) POCT GLYCOSYLATED HEMOGLOBIN (HGB A1C) Routine 08/13/2024 10:26 AM EDT Type 2 diabetes mellitus with hyperlipidemia (CMS/HCC) (CMS/HCC) ALBUMIN, RANDOM URINE W/CREATININE Routine 05/23/2024 10:48 AM EDT Type 2 diabetes mellitus with hyperlipidemia (CMS/HCC) (CMS/HCC) LIPID PANEL, STANDARD Routine 05/23/2024 10:48 AM EDT Type 2 diabetes mellitus with hyperlipidemia (CMS/HCC) ([facility]) BI US BREAST LIMITED BILATERAL Routine 03/26/2024 12:00 PM EST HM COLONOSCOPY Routine 02/17/2020 OCCULT BLOOD, FECAL, IMMUNOASSAY Routine 04/02/2019 6:00 PM EST from Last 3 Months or Most Recently Relevant to Health Maintenance Results * (ABNORMAL) POCT Glucose (10/30/2024 3:15 PM EDT) Glucose Blood, POC 266(A) 60 - 200 mg/dL QC Media Lot # [id number] Lot# Expiration Date , Blood Capillary blood specimen / Unknown 10/30/2024 3:15 PM EDT [facility] Pressley ANP POINT OF CARE TEST ENTER/EDIT OR DERABLES Final Result * (ABNORMAL) POCT glycosylated hemoglobin (Hgb A1c) (08/13/2024 10:26 AM EDT) Hemoglobin A1C 7.7(A) 4.0 - 5.7 % QC Media Lot # [id number] Lot# Expiration Date Blood Capillary blood specimen / Unknown 08/13/2024 10:26 AM EDT [facility] Pressley ANP POINT OF CARE TEST ENTER/EDIT OR DERABLES Final Result * Albumin, Random Urine W/Creatinine (05/23/2024 10:48 AM EDT) Creatinine, Urine 201.21 mg/dL [facility] Microalbumin Urine 17.0 mg/L [facility] Microalbum Creatinine Ratio Ur 8.4 <30 ug/mg cr [facility] Comment:Albumin/Creatinine R atio Reference Ranges: Normal: < 30 ug/mg creatinine Microalbuminuria: 30 - 300 ug/mg creatinineClinical Albuminuria: > 300 ug/mg creatinine Urine (Urine, Random) 05/23/2024 10:48 AM EDT 05/23/2024 11:43 AM EDT us Gina Pressley ANP LAB URINE ORDERABLES Final Resul t Performing Organization Address [facility] de Phone Number [facility] [address] [place] [phone] * (ABNORMAL) Lipid Panel, Standard (05/23/2024 10:48 AM EDT) Triglycerides 138 <150 mg/dL [facility] Comment:Desirable Triglyceri de: less than 150 mg/dLBorderline High Triglyceride 150-199 mg/dLHigh Triglyceride: 200-499 mg/dLVery High Triglyceride: greater than or equal to 5OO mg/dL Cholesterol 209(H) <200 mg/dL [facility] Comment:Desirable Cholestero l: less than 200 mg/dLBorderline High Cholesterol: 200-239 mg/dLHigh Cholesterol: greater than 239 mg/dL LDL Cholesterol Calculated 132(H) <100 mg/dL [facility] Comment:Desirable LDL: less than 100 mg/dLNear Optimal/Above Optimal LDL: 110- 129 mg/dLBorderline High LDL: 130-159 mg/dLHigh LDL: 160-189 mg/dLVery High LDL: greater than or equal to 190 mg/dL HDL Cholesterol 50 >40 mg/dL [facility] Comment:Desirable HDL: great er than 40 mg/dL Note: This HDL assay may give artificially low results in patients with liver disease. Blood Venous blood specimen / Unknown 05/23/2024 10:48 AM EDT 05/23/2024 11:37 AM EDT us Gina Pressley ANP LAB BLOOD ORDERABLES Final Resul t Performing Organization Address [facility] Co de Phone Number [facility] [address] [place] [phone] * BI US Breast Limited Bilateral (03/26/2024 12:00 PM EST) Anatomical Region Laterality Modality Breast Bilateral Ultrasound 03/26/2024 12:0 0 PM EST Narrative 03/26/2024 1:05 PM EST [facility]'[address] [place] [address] Ultrasound Report Signed Patient: Johnna Holbrook MR#: Padilla [id number] : 1955 Acct:[id number] Age/Sex: 68 / F ADM Date: 03/26/24 Loc: HO.MAMMO Attending Dr: Gina Pressley NP Ordering Physician: GINA PRESSLEY NP Date of Service: 03/26/24 Procedure(s): US breast BI limited mamm only Accession Number(s): [id number] cc: GINA PRESSLEY NP EXAMINATION: MM DIAGNOSTIC [...] 03/26/24 1302 DD/ 1200 TD/TT: 03/26/24 1253 Chip Unloader: Procedure Note Donotuseinterpreter, Image - 03/26/2024 [facility] [address] [place], [place] [address] Ultrasound Report Signed Patient: Hattie Holbrook#: [id number] : 6Acct:[id number] Age/Sex: 68 / FADM Date: 03/26/24 Loc: HO.MAMMO Attending Dr: Gina Pressley NP Ordering Physician: GINA PRESSLEY NP Date of Service: 03/26/24 Procedure(s): US breast BI limited mamm only Accession Number(s): [id number] cc: GINA PRESSLEY NP EXAMINATION: MM DIAGNOSTIC [...] 03/26/24 1302 DD/ 1200 TD/TT: 03/26/24 1253 Chip Unloader: Gina Pressley ANP IMG US PROCEDURES Final Result * (ABNORMAL) Hm Colonoscopy (02/17/2020) Colonoscopy Abnormal(A ) Normal Historical Provider MD HEALTH MAINTENANCE Final Result * OCCULT BLOOD STOOL (04/02/2019 6:00 PM EST) OCCULT BLOOD STOOL NEG NEG [facility] 04/02/2019 6:00 PM EST Margi ESCOBEDO LAB BODY FLUIDS AND STOOLS ORD ERABLES Final Result [facility] [address] from Last 3 Months or Most Recently Relevant to Health Maintenance Insurance [facility] STANDARD [place] [phone] Care Teams Concrete Block Molder Relationship Specialty Start Date End Date Gina Pressley ANP [address] [place] [phone] PCP - General Family Medicine 01/29/20 Luis Alberto Larose MD [address] [place] [address] [address] [place] [address] Gastroenterology 05/23/24 [facility] [place] [place] Cardiology 12/23/24 Obstetrics and Gynecology 12/23/24
--- OUTSIDE RECORDS SUMMARY | 2024-12-23 17:44 | XMS_ITS | Encounter Summary ---
Author Organization [employer] Address [address] [facility] 7t [place] [address] Care Team Providers Care Supervisor Finishing Room Name Role Phone Jayla Mccormack Primary Care Provider [phone] Luis Alberto Larose MD Unavailable [phone] Reason for Visit * Reason Comments Med Refill Encounter Details Date Type Department Care Team ([facility] st Contact Info) Description 12/09/2024 Refill [facility] [address] [place] [address] Jayla Mccormack ANP [address] [place] [address] Social History Tobacco Use Types Packs/Day Years [...] Description 02/24/2025 1:30 PM EST Office Visit [facility] [address] [place] [address] Jayla Mccormack ANP [address] [place] [address] documented as of this encounter Visit Diagnoses Not on filedocumented in this encounter Additional Health Concerns Assessment Noted Time PHQ-9 Depression Total Score: 10 025 10:45 AM EDT documented as of this encounter Care Teams Supervisor Finishing Room Relationship Specialty Start Date End Date Jayla Mccormack ANP [address] [place] [address] PCP - General Family Medicine 01/29/20 Luis Alberto Larose MD [address] [place] [address] [address] [place] [address] Gastroenterology 05/23/24 [facility] Cardiology 12/23/24 Obstetrics and Gynecology 12/23/24 documented as of this encounter
--- OUTSIDE RECORDS SUMMARY | 2024-12-23 17:44 | XMS_ITS | Encounter Summary ---
Author Organization [employer] Address [address] [facility] [address] [place] [address] Care Team Providers Care Bead Preparer Name Role Phone Jayla Mccormack TEAR Primary Care Provider [phone] Luis Alberto Larose MD Unavailable [phone] Encounter Details Date Type Department Care Team (Latest Contact Info) Description 12/23/2024 Travel Social History Tobacco Use Types Packs/Day [...] AM EDT documented as of this encounter Functional Status * Over the [...] on edge 3 12/23/2024 2:44 PM Nayeli Pena RN Not being able to stop or co ntrol worrying 3 12/23/2024 2:44 PM Nayeli Pena RN Worrying too much about diff erent things 3 12/23/2024 2:44 PM Nayeli Pena RN Trouble relaxing 3 12/23/2024 2:44 PM Nayeli Shaffer RN Being so restless that it is hard to sit still 3 12/23/2024 2:44 PM Nayeli Pena RN Becoming easily annoyed or irritable 0 12/23/2024 2:44 PM Nayeli Pena RN Feeling afraid as if somethi ng awful might happen 0 12/23/2024 2:44 PM Nayeli Pena RN RAMESH-7 Total Score 15 12/23/2024 2:44 PM Nayeli Pena RN documented as of this encounter Plan of Treatment Upcoming Encounters Date Type Department Care Team (Late st Contact Info) Description 02/24/2025 1:30 PM EST Office Visit [facility] [address] [place], [place] [phone] Jayla Mccormack ANP [address] [place], [place] [phone] documented as of this encounter Visit Diagnoses Not on filedocumented in this encounter Additional Health Concerns Assessment Noted Time PHQ-9 Depression Total Score: 18 025 2:39 PM EST documented as of this encounter Care Teams Bead Preparer Relationship Specialty Start Date End Date Jayla Mccormack ANP [address] [place] [address] PCP - General Family Medicine 01/29/20 Luis Alberto Larose MD [address] [place] [address] [address]rd [place] [address] Gastroenterology 05/23/24 [facility] [place] 12/23/24 Obstetrics and Gynecology 12/23/24 documented as of this encounter
--- OUTSIDE RECORDS SUMMARY | 2024-12-23 17:44 | XMS_ITS | Encounter Summary ---
Author Organization [employer] Address [address] [facility] 7t [place] [address] Care Team Providers Care Fur Cutter Name Role Phone Jayla Mccormack Primary Care Provider [phone] Luis Alberto Larose MD Unavailable [phone] Reason for Visit * Reason Onset Date Comments Med Refill 10/03/2022 Encounter Details Date Type Department Care Team ([facility] st Contact Info) Description 10/03/2022 Telephone [facility] [address] [place] [address] Jayla Mccormack ANP [address] [place] [address] Med Refill Social History Tobacco Use Types [...] Description 02/24/2025 1:30 PM EST Office Visit [facility] [address] [place], [place] [phone] Jayla Mccormack ANP [address] [place] [address] documented as of this encounter Visit Diagnoses Not on filedocumented in this encounter Care Teams Fur Cutter Relationship Specialty Start Date End Date Jayla Mccormack ANP [address] [place] [address] PCP - General Family Medicine 01/29/20 Luis Alberto Larose MD [address] [place] [address] Dr [address] [place] [address] Gastroenterology 05/23/24 [facility] [place] 12/23/24 Obstetrics and Gynecology 12/23/24 documented as of this encounter
--- OUTSIDE RECORDS SUMMARY | 2024-12-23 17:44 | XMS_ITS | Data Portability ---
Author Organization [place] - [facility], Allergy Address [address] [address] Assessment Encounter Date Assessment Date Assessment LastModified [...] of the day. Continue to work with inside sales assistant and PCP on vision and lower extremity [...] Delfina alvarado 2 [facility], [address] [place] [address], [place], [address], 4 13:35:24 neurologist referral - Referral for dizziness. Thank you. 2023 [facility]elfina [facility], [address] [place] [address], [place], [address], 4 15:41:34 Procedures None recorded. Surgeries None recorded. Imaging None recorded. Medication Orders None recorded. Patient TargetsNo targets recorded. Patient InstructionsNo instructions recorded. Reason for Referral Vestibular Therapy Referral for Dizziness Referral for vestibular therapy. Thank you. Referring Physician: Anastasia Ramos, Otolaryngology, Encounter Date: 09/13/2023 Neurologist Referral for Miki james Referral for dizziness. Thank you. Referring Physician: Anastasia Ramos Otolaryngology, Encounter Date: 09/13/2023 Results Created [...] Organization Details Recorded Time Cough variant asthma 147490425 Active 2015 Cough variant asthma; Note: Date Diagnosed : 6 5:07 PM (J45.991) Not Available [facility] 4 02:53:56 Allergic rhinitis 00595241 Active 2015 Allergic rhinitis, unspecifi ed; Note: Date Diagnosed : 6 5:07 PM (J30.9) Not Available [facility] 4 02:53:58 Cough 08044562 Active 2015 Cough, unspecifi ed; Note: Changed from R05 to R05.9 (04/14/2021 3:53 PM) , Date Diagnosed : 6 5:07 PM (R05) Not Available [facility] 4 02:53:55 Dizziness 682672574 Active 2023 Anastasia jurado [place] - [facility] 4 14:54:55 Problem Notes None recorded. Medical Equipment None Reported. Allergies Allergen ID Allergen Name Allergen Category Reaction Reaction Severity Criticality Documentation Date Start Date Code Code System Note Provider Name and Address Organization Details Recorded Time 112977 aspirin medicatio n other Not available Not available 06/27/2023 1191 RxNorm React ion: unkno wn, unspe cifie d;; Not Available [facility] 4 01:23:00 Medications Name Sig Start Date Stop Date Status Note LastModified by Organization Details LastModified Time medbox status USE DIRECTED active Not Available Not Available No t Available Singulair 10 mg tablet 1 tablet by mouth 06/24 completed Medicati on ID: [id number] P rescribe d By Name: Benji Babcock MD Brand Name: Roger r Send Method: E-Prescr ibed Sub s Allowed: subs OK Speci al Instruct ion: Take 1 tablet by mouth every day in the evening Medicati onGeneri cName: Javieri r Not Available Not Available Not Available atorvasta tin 40 mg tablet TAKE 1 TABLET BY MOUTH AT BEDTIME active Not Available Not Available No t Available metformin 500 mg tablet 04/14 completed Medicati on ID: [id number] D uration Value: 15 Brand Name: metformi n Send Method: E-Prescr ibed Sub s Allowed: subs OK Speci al Instruct ion: TAKE 1 TABLET BY MOUTH EVERY DAY WITH MORNING AND EVENING MEALS Me dication GenericN darvin: metformi n Not Available Not Available Not Available gabapenti n 600 mg tablet 09/12 completed Medicati on ID: [id number] B rand Name: gabapent in Send Method: E-Prescr ibed Sub s Allowed: subs OK Medic ationGen ericName : gabapent in Medic ation ID: [id number] B rand Name: gabapent in Send Method: E-Prescr ibed Sub s Allowed: subs OK Medic ationGen ericName : gabapent in Not Available Not Available Not Available Vitamin C 500 mg tablet TAKE 1 TABLET BY MOUTH EVERYDAY AT NOON (WITH IRON) active Not Available Not Available No t Available glyburide 2.5 mg tablet 04/14 completed Medicati on ID: [id number] D uration Value: 30 Brand Name: glyburid [...] 12 hr 04/14 completed Medicati on ID: [id number] B rand Name: diltiaze m HCl Send Method: E-Prescr ibed Sub s Allowed: subs OK Medic ationGen ericName : diltiaze m HCl Not Available Not Available Not Available diltiazem 120 mg tablet 09/12 completed Medicati on ID: [id number] B rand Name: diltiaze m HCl Send Method: E-Prescr ibed Sub s Allowed: subs OK Medic ationGen ericName : diltiaze m HCl Medi cation ID: [id number] B rand Name: diltiaze m HCl Send Method: E-Prescr ibed Sub s Allowed: subs OK Medic ationGen ericName : diltiaze m HCl Not Available Not Available Not Available dicyclomi ne 20 mg tablet active Medicati on ID: [id number] B rand Name: dicyclom ine Send Method: [...] mcg tablet 04/14 completed Medicati on ID: [id number] B rand Name: levothyr oxine Se nd Method: E-Prescr ibed Sub s Allowed: subs OK Medic ationGen ericName : levothyr oxine Not Available Not Available Not Available metformin 1,000 mg tablet 09/12 completed Medicati on ID: [id number] B rand Name: metformi n Send Method: E-Prescr ibed Sub s Allowed: subs OK Medic ationGen ericName : metformi n Medica tion ID: [id number] B rand Name: metformi n Send Method: [...] elayed release 04/14 completed Medicati on ID: [id number] D uration Value: 30 Brand Name: omekirstie cuba Send Method: E-Prescr ibed Sub s Allowed: subs OK Speci al Instruct ion: 1 CAPSULE 30 MIN PRIOR TO BKFT AND SUPPER OR BEDTIME TWICE A DAY ORALL Y 30 DAY(S) Padilla eliz Edison Name: omepramike le Not Available Not Available Not Available diltiazem CD 120 mg capsule,e xtended release 24 hr TAKE 1 CAPSULE BY MOUTH EVERYDAY AT NOON 09/12 completed Not Available Not Available Not Available epinephri ne 0.3 mg/0.3 mL injection , auto-inje ctor 1 pen injector 2021 active Medicati on ID: [id number] D uration Value: 1 Prescri bed By [...] mg iron) tablet active Medicati on ID: [id number] B rand Name: iron Sen d Method: [...] as directed 04/14 completed Medicati on ID: [id number] D uration Value: 90 Brand Name: Flovent [...] capsule,e xtended release active Medicati on ID: [id number] B rand Name: Tiadylt ER Send Method: E-Prescr ibed Sub s Allowed: subs OK Medic ationGen ericName : Tiadylt ER Not Available Not Available Not Available Vitals Date Recorded Body height Body mass index (BMI) Body weight Provider Name and Address Organization Details Last Updated DateTime 09/13/2023 147.32 cm 34.5 kg/m2 04129.74 g Lizabeth Matute [place] - [facility] 09/13/2023 14:15:30 Social History None recorded. Functional Status None recorded. Mental Status None recorded. Family History Nothing Reported. Medical History No medical history recorded. Gynecological HistoryNo gynecological history recorded. Obstetrics History GPAL:G 0 P 0 0 0 0 Past Encounters Encounter ID Performer Location Encounter Start Date Encounter Closed Date Diagnosis/Indication Diagnosis SNOMED-CT Code Diagnosis ICD10 Code Diagnosis IMO Codes Diagnosis Note [id number] ANASTASIA RAMOS PA-C [facility] [address] [address] 09/13/2023 13:42:26 09/13/2023 14:59:55 Dizziness 680437805 R42 Health Concerns Section Related Observation LastModified by Organization Detai ls LastModified Time None Recorded Concern Status LastModified by Organization Details LastModified Time None Recorded Advance Directives Directive None Recorded Payers Insurance Date Sequence Insurance Name Policy Number Policy Gomes Covered Member ID Gomes Member ID Guarantor Name 09/13/2023 1 [place] [employer] Johnna De La Vega [id number] Johnna De La Vega 09/15/2023 2 [place] Johnna De La Vega [id number] Johnna De La Vega Notes Date Note Type Note Provider Name and Address Organization Details Recorded Time 09/13/2023 text/html ROS as noted in the HPI 68 year old female presents for evaluation of ears. Recently had a hearing test at [facility] demonstrating hearing loss. Has had this for [...] in self or family. POORNIMA DESOUZA MD [address] [place] [address], [address], [place] - [facility] 09/19/2023 16:58:41 OBGyn Episode No OBEpisode recorded.
--- OUTSIDE RECORDS SUMMARY | 2024-12-23 17:44 | XMS_ITS | Encounter Summary ---
Author Organization [employer] Address [address] [facility] 7t [place] [address] Care Team Providers Care Commercial Drone Software Developer Name Role Phone Jayla Mccormack Primary Care Provider [phone] Luis Alberto Larose MD Unavailable [phone] Reason for Visit * Reason Comments Med Refill Encounter Details Date Type Department Care Team ([facility] st Contact Info) Description 11/11/2024 Refill [facility] MEDICINE [address] [place] [address] Jayla Mccormack ANP [address] [place] [address] Type 2 diabetes mellitus with hyperlipidemia ([facility]/HCC) ([facility]) Social History Tobacco Use Types Packs/Day Years [...] Description 02/24/2025 1:30 PM EST Office Visit [facility] MEDICINE [address] [place] [address] Jayla Mccormack ANP [address] [place] [address] documented as of this encounter Visit Diagnoses Diagnosis Type 2 diabetes mellitus with hyperlipidemia (HCC) documented in this encounter Additional Health Concerns Assessment Noted Time PHQ-9 Depression Total Score: 10 025 10:45 AM EDT documented as of this encounter Care Teams Commercial Drone Software Developer Relationship Specialty Start Date End Date Jayla Mccormack ANP [address] [place] [address] PCP - General Family Medicine 01/29/20 Luis Alberto Larose MD [address] [place] [address] Dr [address] [place] [address] Gastroenterology 05/23/24 [facility] Cardiology 12/23/24 Obstetrics and Gynecology 12/23/24 documented as of this encounter
--- OUTSIDE RECORDS SUMMARY | 2024-12-23 17:44 | XMS_ITS | Encounter Summary ---
Author Organization [employer] Address [address] [facility] [address] 7[address] [place] [address] Care Team Providers Care Pneumatic Jack Operator Name Role Phone Jayla Mccormack Primary Care Provider [phone] Luis Alberto Larose MD Unavailable [phone] Encounter Details Date Type Department Care Team (Late st Contact Info) Description 09/12/2024 Refill [facility] CHC MED & PEDS [address] [place], [place] [phone] Jayla Mccormack ANP [address] [place], [place] [phone] Osteoporosis without current pathological fracture, unspecified osteoporosis [...] Description 02/24/2025 1:30 PM EST Office Visit [facility] MEDICINE [address] [place] [address] Jayla Mccormack ANP [address] [place] [address] documented as of this encounter Visit Diagnoses Diagnosis Osteoporosis without current pathological fracture, unspecified osteoporosis type documented in this encounter Additional Health Concerns Assessment Noted Time PHQ-9 Depression Total Score: 10 025 10:45 AM EDT documented as of this encounter Care Teams Pneumatic Jack Operator Relationship Specialty Start Date End Date Jayla Mccormack ANP [address] [place] [address] PCP - General Family Medicine 01/29/20 Luis Alberto Larose MD [address] [place] [address] Dr [address]rd [place] [address] Gastroenterology 05/23/24 [facility] [place] 12/23/24 Obstetrics and Gynecology 12/23/24 documented as of this encounter
[2024-12-23 18:36] LABS: Alanine Aminotransferase 23 U/L (0-31); Albumin Level 4.4 g/dL (3.5-5.0); Alkaline Phosphatase 96 U/L (39-117); Anion Gap 14 (12-20); Aspartate Amino Transferase 34 U/L (5-31); Blood Urea Nitrogen 11 mg/dL (9-16); Calcium 9.4 mg/dL (8.4-10.2); Carbon Dioxide 27 mmol/L (22-29); Chloride 106 mmol/L (96-108); Cholesterol 213 mg/dL (<200); Estimated Glomerular Filt Rate > 60; HDL Cholesterol 44 mg/dL (>40); Potassium 3.8 mmol/L (3.3-5.1); Sodium 143 mmol/L (135-145); Total Protein 8.1 g/dL (6.5-8.0); Triglycerides 158 mg/dL (<150)
[2024-12-24 06:43] LABS: ~HepC Num1 0.10 S/CO (0.00-0.79); ~Hepatitis C Antibody Nonreactive (Nonreactive)
== END 2024-12-23 15:41 | disposition home or self-care (01) ==
LOC: HO.HHCL 15:40
PROVIDERS: Family Medicine; PCP Nurse Practitioner Primary Care; Visit Provider Internal Medicine Endocrinology, Diabetes & Metabolism
DX: Z11.59 Encounter for screening for other viral diseases (principal); Z11.3 Encounter for screening for infections with a predominantly sexual mode of transmission; E11.69 Type 2 diabetes mellitus with other specified complication; E03.9 Hypothyroidism, unspecified; E78.5 Hyperlipidemia, unspecified; M81.0 Age-related osteoporosis without current pathological fracture
CPT/HCPCS: 36415; 80053; 80061; 82306; 84100; 84443; 86335; 86803

== ENCOUNTER 2025-01-02 18:04 | Outpatient (REF) | payer MEDICARE, MEDICAID, SELFPAY ==
[2025-01-02 18:38] LABS: Creatinine, mg/dL 84.45
[2025-01-02 20:26] LABS: Total Volume 24 Hour Urine 1325 mL
--- OUTSIDE RECORDS SUMMARY | 2025-01-02 21:03 | XMS_ITS | Clinical Summary ---
Author Organization [address] [facility] Address [address] [place] [address] Phone Care Team Providers Care Materials Planning Manager Name Role Phone Jayla Mccormack NP Primary Care Provider [phone] Allergies Active Allergy Reactions Criticality Noted Date [...] Insurance MEDICARE [place]ICA[place] - [place] Care Teams Materials Planning Manager Relationship Specialty Start Date End Date Jayla Mccormack NP [address] [place] [phone] PCP - General 06/19/24
--- OUTSIDE RECORDS SUMMARY | 2025-01-02 21:03 | XMS_ITS | Encounter Summary ---
Author Organization [employer] Address [address] [facility] 7t [place] [address] Care Team Providers Care Salesforce Trainer Name Role Phone Jayla Mccormack Primary Care Provider [phone] Luis Alberto Larose MD Unavailable [phone] Encounter Details Date Type Department Care Team (Late st Contact Info) Description 02/16/2022 Orders Only [facility] CHC MED & PEDS [address] [place], [place] [phone] Shanell Moody LPN Social History Tobacco Use [...] Description 02/24/2025 1:30 PM EST Office Visit [facility] MEDICINE [address] [place] [address] Jayla Mccormack ANP [address] [place] [address] documented as of this encounter Visit Diagnoses Not on filedocumented in this encounter Care Teams Salesforce Trainer Relationship Specialty Start Date End Date Jayla Mccormack ANP [address] [place] [address] PCP - General Family Medicine 01/29/20 Luis Alberto Larose MD [address] [place] [address] Dr [address] Floor [place], [place] [address] Gastroenterology 05/23/24 [facility] [place]iology 12/23/24 Obstetrics and Gynecology 12/23/24 documented as of this encounter
--- OUTSIDE RECORDS SUMMARY | 2025-01-02 21:03 | XMS_ITS | Encounter Summary ---
Author Organization [employer] Address [address] [facility] [address] 7t [place] [address] Care Team Providers Care Paint Booth Operator Name Role Phone Jayla Mccormack Primary Care Provider [phone] Luis Alberto Larose MD Unavailable [phone] Encounter Details Date Type Department Care Team (Latest Contact Info) Description 12/25/2024 Results Follow-Up [facility] MEDICINE [address] [place] [address] Jayla Mccormack ANP [address] [place] [address] Phosphate (As Phosphorus), Vitamin D, 25-Hydroxy, Total, Immunoassay, Immunofixation (YOBANY), Urine Social History Tobacco Use Types Packs/Day Years [...] as of this encounter Miscellaneous Notes * Result Encounter Note - TERA Arellano - 12/25/2024 11:51 AM EST Pt following w/ endo, on Vit d supplement documented in this encounter Plan of Treatment Upcoming Encounters Date Type Department Care Team (Late st Contact Info) Description 02/24/2025 1:30 PM EST Office Visit [facility] MEDICINE [address] [place] [address] Jayla Mccormack ANP [address] [place] [address] documented as of this encounter Goals Goal Patient Goal Type Associated Problems Recent Progress Patient-Stated? Author Help patients manage their type 2 diabetes Care Plan Help patients manage their type 2 diabetes No Jayla Mccormack ANP Weekly blood pressure task Care Plan Weekly blood pressure task No Jayla Mccormack ANP Help patients manage their type 2 diabetes Care Plan Help patients manage their type 2 diabetes No Jayla Mccormack ANP Patient has chronic kidney disease Care Plan Patient has chronic kidney disease No Jayla Mccormack ANP Weekly blood pressure task Care Plan Weekly blood pressure task No Jayla Mccormack ANP Patient has chronic kidney disease Care Plan Patient has chronic kidney disease No Jayla Mccormack ANP documented as of this encounter Visit Diagnoses Not on filedocumented in this encounter Additional Health Concerns Active Problems Noted Date Diagnosed Date Help patients manage their type 2 diabetes 12/25 Weekly blood pressure task 12/25/2024 Help patients manage their type 2 diabetes 12/25 Patient has chronic kidney disease 12/25/2024 Weekly blood pressure task 12/25/2024 Patient has chronic kidney disease 12/25/2024 Assessment Noted Time PHQ-9 Depression Total Score: 18 025 2:39 PM EST documented as of this encounter Care Teams Paint Booth Operator Relationship Specialty Start Date End Date Jayla Mccormack ANP [address] [place] [address] PCP - General Family Medicine 01/29/20 Luis Alberto Larose MD [address] [place] [address] [address] [place] [address] Gastroenterology 05/23/24 [facility] Cardiology 12/23/24 Obstetrics and Gynecology 12/23/24 documented as of this encounter
--- OUTSIDE RECORDS SUMMARY | 2025-01-02 21:03 | XMS_ITS | Encounter Summary ---
Author Organization [employer] Address [address] [facility] 7t [place] [address] Care Team Providers Care Account Analyst Name Role Phone Jayla Mccormack Primary Care Provider [phone] Luis Alberto Larose MD Unavailable [phone] Reason for Visit * Reason Comments Med Refill Encounter Details Date Type Department Care Team ([facility] st Contact Info) Description 11/11/2024 Refill [facility] MEDICINE [address] [place] [address] Jayla Mccormack ANP [address] [place] [address] Type 2 diabetes mellitus with hyperlipidemia ([facility]/HCC) ([facility]) Social History Tobacco Use Types Packs/Day [...] Description 02/24/2025 1:30 PM EST Office Visit [facility] MEDICINE [address] [place] [address] Jayla Mccormack ANP [address] [place] [address] documented as of this encounter Visit Diagnoses Diagnosis Type 2 diabetes mellitus with hyperlipidemia (HCC) documented in this encounter Additional Health Concerns Assessment Noted Time PHQ-9 Depression Total Score: 10 025 10:45 AM EDT documented as of this encounter Care Teams Account Analyst Relationship Specialty Start Date End Date Jayla Mccormack ANP [address] [place] [address] PCP - General Family Medicine 01/29/20 Luis Alberto Larose MD [address] [place] [address] Dr [address] [place] [address] Gastroenterology 05/23/24 [facility] Cardiology 12/23/24 Obstetrics and Gynecology 12/23/24 documented as of this encounter
--- OUTSIDE RECORDS SUMMARY | 2025-01-02 21:03 | XMS_ITS | Encounter Summary ---
Author Organization [employer] Address [address] [facility] 7t [place] [address] Care Team Providers Care Hearing Screener Name Role Phone Jayla Mccormack Primary Care Provider [phone] Luis Alberto Larose MD Unavailable [phone] Encounter Details Date Type Department Care Team (Late st Contact Info) Description 05/02/2022 Orders Only [facility] CHC MED & PEDS [address] [place], [place] [phone] Sahnell Moody LPN Social History Tobacco Use Types [...] Description 02/24/2025 1:30 PM EST Office Visit [facility] MEDICINE [address] [place] [address] Jayla Mccormack ANP [address] [place] [address] documented as of this encounter Visit Diagnoses Not on filedocumented in this encounter Care Teams Hearing Screener Relationship Specialty Start Date End Date Jayla Mccormack ANP [address] [place] [address] PCP - General Family Medicine 01/29/20 Luis Alberto Larose MD [address] [place] [address] Dr [address] Floor [place], [place] [address] Gastroenterology 05/23/24 [facility] [place] 12/23/24 Obstetrics and Gynecology 12/23/24 documented as of this encounter
--- OUTSIDE RECORDS SUMMARY | 2025-01-02 21:03 | XMS_ITS | Encounter Summary ---
Author Organization [employer] Address [address] [facility] 7t [place] [address] Care Team Providers Care Television Newscast Director Name Role Phone Jayla Mccormack Primary Care Provider [phone] Luis Alberto Larose MD Unavailable [phone] Reason for Visit * Reason Comments Med Refill Encounter Details Date Type Department Care Team ([facility] st Contact Info) Description 12/09/2024 Refill [facility] MEDICINE [address] [place] [address] Jayla Mccormack ANP [address] [place] [address] Social History Tobacco Use Types Packs/Day Years [...] Description 02/24/2025 1:30 PM EST Office Visit [facility] MEDICINE [address] [place] [address] Jayla Mccormack ANP [address] [place] [address] documented as of this encounter Visit Diagnoses Not on filedocumented in this encounter Additional Health Concerns Assessment Noted Time PHQ-9 Depression Total Score: 10 025 10:45 AM EDT documented as of this encounter Care Teams Television Newscast Director Relationship Specialty Start Date End Date Jayla Mccormack ANP [address] [place] [address] PCP - General Family Medicine 01/29/20 Luis Alberto Larose MD [address] [place] [address] 3[address] [place] [address] Gastroenterology 05/23/24 [facility] [place] 12/23/24 Obstetrics and Gynecology 12/23/24 documented as of this encounter
--- OUTSIDE RECORDS SUMMARY | 2025-01-02 21:03 | XMS_ITS | Data Portability ---
Author Organization [place] [facility], Allergy Address [address] [address] Assessment Encounter Date Assessment Date Assessment LastModified [...] of the day. Continue to work with destination sign repairer and PCP on vision and lower extremity [...] Delfina alvarado 2 [facility], [address] [place] [address], [place], [address], 4 13:35:24 neurologist referral - Referral for dizziness. Thank you. 2023 Delfina [facility]itra [facility], [address] [place] [address], [place], [address], 4 15:41:34 Procedures None recorded. Surgeries None [...] Organization Details Recorded Time Cough variant asthma 064475315 Active 2015 Cough variant asthma; Note: Date Diagnosed : 6 5:07 PM (J45.991) Not Available [facility] 4 02:53:56 Allergic rhinitis 18725446 Active 2015 Allergic rhinitis, unspecifi ed; Note: Date Diagnosed : 6 5:07 PM (J30.9) Not Available [facility] 4 02:53:58 Cough 47405101 Active 2015 Cough, unspecifi ed; Note: Changed from R05 to R05.9 (04/14/2021 3:53 PM) , Date Diagnosed : 6 5:07 PM (R05) Not Available [facility] 4 02:53:55 Dizziness 561559691 Active 2023 Anastasia jurado [place] - [facility] 4 14:54:55 Problem Notes None recorded. Medical Equipment None Reported. Allergies Allergen ID Allergen Name Allergen Category Reaction Reaction Severity Criticality Documentation Date Start Date Code Code System Note Provider Name and Address Organization Details Recorded Time 064917 aspirin medicatio n other Not available Not available 06/27/2023 1191 RxNorm React ion: unkno wn, unspe cifie d;; Not Available [facility] 4 01:23:00 Medications Name Sig Start Date Stop Date Status Note LastModified by Organization Details LastModified Time medbox status USE DIRECTED active Not Available Not Available No t Available Singulair 10 mg tablet 1 tablet by mouth 06/24 completed Medicati on ID: [id number] P rescribe d By Name: Benji Babcock [...] mg tablet 04/14 completed Medicati on ID: [id number] D uration Value: 15 Brand Name: metformi n Send Method: E-Prescr ibed Sub s Allowed: subs OK Speci al Instruct ion: TAKE 1 TABLET BY MOUTH EVERY DAY WITH MORNING AND EVENING MEALS Me dication GenericN darvin: metformi n Not Available Not Available Not Available gabapenti n 600 mg tablet 09/12 completed Medicati on ID: [id number] B rand Name: gabapent in Send Method: E-Prescr ibed Sub s Allowed: subs OK Medic ationGen ericName : gabapent in Medic ation ID: [id number] B rand Name: gabapent in Send Method: E-Prescr ibed Sub s Allowed: subs OK Medic ationGen ericName : gabapent in Not Available Not Available Not Available Vitamin C 500 mg tablet TAKE 1 TABLET BY MOUTH EVERYDAY AT NOON (WITH IRON) active Not Available Not Available No t Available glyburide 2.5 mg tablet 04/14 completed Medicati on ID: [id number] D uration Value: 30 Brand Name: glyburid [...] 12 hr 04/14 completed Medicati on ID: [id number] B rand Name: diltiaze m HCl Send Method: E-Prescr ibed Sub s Allowed: subs OK Medic ationGen ericName : diltiaze m HCl Not Available Not Available Not Available diltiazem 120 mg tablet 09/12 completed Medicati on ID: [id number] B rand Name: diltiaze m HCl Send Method: E-Prescr ibed Sub s Allowed: subs OK Medic ationGen ericName : diltiaze m HCl Medi cation ID: [id number] B rand Name: diltiaze m HCl Send Method: E-Prescr ibed Sub s Allowed: subs OK Medic ationGen ericName : diltiaze m HCl Not Available Not Available Not Available dicyclomi ne 20 mg tablet active Medicati on ID: [id number] B rand Name: dicyclom ine Send Method: [...] mcg tablet 04/14 completed Medicati on ID: [id number] B rand Name: levothyr oxine Se nd Method: E-Prescr ibed Sub s Allowed: subs OK Medic ationGen ericName : levothyr oxine Not Available Not Available Not Available metformin 1,000 mg tablet 09/12 completed Medicati on ID: [id number] B rand Name: metformi n Send Method: E-Prescr ibed Sub s Allowed: subs OK Medic ationGen ericName : metformi n Medica tion ID: [id number] B rand Name: metformi n Send Method: [...] elayed release 04/14 completed Medicati on ID: [id number] D uration Value: 30 Brand Name: omekirstie [...] pen injector 2021 active Medicati on ID: [id number] D uration Value: 1 Prescri bed By [...] mg iron) tablet active Medicati on ID: [id number] B rand Name: iron Sen d Method: [...] as directed 04/14 completed Medicati on ID: [id number] D uration Value: 90 Brand Name: Flovent [...] capsule,e xtended release active Medicati on ID: [id number] B rand Name: Tiadylt ER Send Method: E-Prescr ibed Sub s Allowed: subs OK Medic ationGen ericName : Tiadylt ER Not Available Not Available Not Available Vitals Date Recorded Body height Body mass index (BMI) Body weight Provider Name and Address Organization Details Last Updated DateTime 09/13/2023 147.32 cm 34.5 kg/m2 57904.74 g Lizabeth Matute [place] - [facility] [...] ICD10 Code Diagnosis IMO Codes Diagnosis Note [id number] ANASTASIA RAMOS PA-C [facility] [address] [address] 09/13/2023 13:42:26 09/13/2023 14:59:55 Dizziness [id number] R42 Health Concerns Section Related Observation LastModified by Organization Detai ls LastModified Time None Recorded Concern Status LastModified by Organization Details LastModified Time None Recorded Advance Directives Directive None Recorded Payers Insurance Date Sequence Insurance Name Policy Number Policy Gomes Covered Member ID Gomes Member ID Guarantor Name 09/13/2023 1 [place] [employer] Johnna De La Vega [id number] Johnna De La Vega 09/15/2023 2 [place] Johnna De La Vega [id number] Johnna De La Vega Notes Date Note Type Note Provider Name and Address Organization Details Recorded Time 09/13/2023 text/html ROS as noted in the HPI 68 year old female presents for evaluation of ears. Recently had a hearing test at [facility] demonstrating hearing loss. Has had this for [...] in self or family. POORNIMA DESOUZA MD [address] [place] [address], [address], [place] - [facility] 09/19/2023 16:58:41 OBGyn Episode No OBEpisode recorded.
--- OUTSIDE RECORDS SUMMARY | 2025-01-02 21:03 | XMS_ITS | Encounter Summary ---
Author Organization [employer] Address [address] [facility] 7t [place] [address] Care Team Providers Care Sql Database Administrator Name Role Phone Jayla Mccormack Primary Care Provider [phone] Luis Alberto Larose MD Unavailable [phone] Reason for Visit * Reason Onset Date Comments Med Refill 10/03/2022 Encounter Details Date Type Department Care Team ([facility] st Contact Info) Description 10/03/2022 Telephone [facility] MED[facility]INE [address] [place] [address] Jayla Mccormack ANP [address] [place] [address] Med Refill Social History Tobacco Use Types [...] 02/24/2025 1:30 PM EST Office Visit [facility] [address] [place], [place] [phone] Jayla Mccormack ANP [address] [place] [address] documented as of this encounter Visit Diagnoses Not on filedocumented in this encounter Care Teams Sql Database Administrator Relationship Specialty Start Date End Date Jayla Mccormack ANP [address] [place] [address] PCP - General Family Medicine 01/29/20 Luis Alberto Larose MD [address] [place] [address] Dr [address] [place] [address] Gastroenterology 05/23/24 [facility] [place] Cardiology 12/23/24 Obstetrics and Gynecology 12/23/24 documented as of this encounter
--- OUTSIDE RECORDS SUMMARY | 2025-01-02 21:03 | XMS_ITS | Encounter Summary ---
Author Organization [employer] Address [address] [facility] 7t [place] [address] Care Team Providers Care Athletic Events Scorer Name Role Phone Jayla Mccormack Primary Care Provider [phone] Luis Alberto Larose MD Unavailable [phone] Encounter Details Date Type Department Care Team (Late st Contact Info) Description 03/07/2022 Orders Only [facility] [address] [place], [place] [phone] Shanell Moody LPN Social History Tobacco Use [...] Description 02/24/2025 1:30 PM EST Office Visit [facility] [address] [place] [address] Jayla Mccormack ANP [address] [place] [address] documented as of this encounter Visit Diagnoses Not on filedocumented in this encounter Care Teams Athletic Events Scorer Relationship Specialty Start Date End Date Jayla Mccormack ANP [address] [place] [address] PCP - General Family Medicine 01/29/20 Luis Alberto Larose MD [address] [place] [address] Dr [address] Floor [place], [place] [address] Gastroenterology 05/23/24 [facility] [place] Cardiology 12/23/24 Obstetrics and Gynecology 12/23/24 documented as of this encounter
--- OUTSIDE RECORDS SUMMARY | 2025-01-02 21:03 | XMS_ITS | Encounter Summary ---
Author Organization [employer] Address [address] [facility] [address] [place] [address] Care Team Providers Care Stitching Department Supervisor Name Role Phone Jayla Mccormack Primary Care Provider [phone] Luis Alberto Larose MD Unavailable [phone] Encounter Details Date Type Department Care Team ([facility] st Contact Info) Description 12/24/2024 Results Follow-Up [facility] MED[facility] [address] [place] [address] Tamera Rodríguez MD [address] [place] [address] Hepatitis C Antibody with Reflex to HCV, RNA, Quantitative, Real-Time PCR Social History Tobacco Use Types Packs/Day Years [...] Miscellaneous Notes * Result Encounter Note - Tamera Rodríguez MD - 12/24/2024 10:25 AM EST FYI. documented in this encounter Plan of Treatment Upcoming Encounters Date Type Department Care Team (Late st Contact Info) Description 02/24/2025 1:30 PM EST Office Visit [facility] [address] [place] [address] Jayla Mccormack ANP [address] [place] [address] documented as of this encounter Visit Diagnoses Not on filedocumented in this encounter Additional Health Concerns Assessment Noted Time PHQ-9 Depression Total Score: 18 025 2:39 PM EST documented as of this encounter Care Teams Stitching Department Supervisor Relationship Specialty Start Date End Date Jayla Mccormack ANP [address] [place] [address] PCP - General Family Medicine 01/29/20 Luis Alberto Larose MD [address] [place] [address] Dr [address] [place] [address] Gastroenterology 05/23/24 [facility] [place] Cardiology 12/23/24 Obstetrics and Gynecology 12/23/24 documented as of this encounter
--- OUTSIDE RECORDS SUMMARY | 2025-01-02 21:03 | XMS_ITS | Encounter Summary ---
Author Organization [employer] Address [address] [facility] [address] 7[address] [place] [address] Care Team Providers Care Broodmare Barn Groom Name Role Phone Jayla Mccormack Primary Care Provider [phone] Luis Alberto Larose MD Unavailable Encounter Details Date Type Department Care Team (Late st Contact Info) Description 09/12/[address] [facility] [address] [place], [place] [phone] Jayla Mccormack ANP [address] [place], [place] [phone] Osteoporosis without current pathological fracture, unspecified osteoporosis [...] Description 02/24/2025 1:30 PM EST Office Visit [facility] [address] [place] [address] Jayla Mccormack ANP [address] [place] [address] documented as of this encounter Visit Diagnoses Diagnosis Osteoporosis without current pathological fracture, unspecified osteoporosis type documented in this encounter Additional Health Concerns Assessment Noted Time PHQ-9 Depression Total Score: 10 025 10:45 AM EDT documented as of this encounter Care Teams Broodmare Barn Groom Relationship Specialty Start Date End Date Jayla Mccormack ANP [address] [place] [address] PCP - General Family Medicine 01/29/20 Luis Alberto Larose MD [address] [place] [address] Dr [address] [place] [address] Gastroenterology 05/23/24 [facility] [place] 12/23/24 Obstetrics and Gynecology 12/23/24 documented as of this encounter
--- OUTSIDE RECORDS SUMMARY | 2025-01-02 21:03 | XMS_ITS | Clinical Summary ---
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 Name Role Phone Gina Pressley TERA Primary Care Provider [phone] Luis Alberto Larose MD Unavailable [phone] Allergies Active Allergy Reactions Criticality Noted Date [...] 025 Active Blood Glucose Monitoring Suppl (FreeStyle [place] Lite) w/Device kitIndications:Ty pe 2 diabetes mellitus [...] Encounters Date Type Department Care Team Description 12/25/2024 Results Follow-Up [address] [address] Gina Pressley ANP Phosphate (As Phosphorus), Vitamin D, 25-Hydroxy, Total, Immunoassay, Immunofixation (YOBANY), Urine 12/24/2024 Results Follow-Up [address] [address] Tamera Rodríguez MD Hepatitis C Antibody with Reflex to HCV, RNA, Quantitative, Real-Time PCR 12/23/2024 2:00 PM EST Office Visit [facility] [address], [place] [phone] Tamera Rodríguez MD Screen for sexually transmitted diseases (Primary Dx); Hearing screen with abnormal findings 12/23/2024 Orders Only GENERIC EXTERNAL DATA DEPARTMENT Provider, Generic External Data 12/23/2024 Travel 12/09/2024 [facility]ill [facility] [place] [address] Gina Pressley ANP 12/09/2024 Refill [facility] [place] [address] Gina Pressley ANP 12/06/2024 Telephone [facility] [address] [place], [place] [address] [place] [address] Gina Pressley ANP February12/05/2024 Refill [facility] [place] [address] Gina Pressley ANP Chronic nonintractable headache, unspecified headache type 11/20/2024 Patient Outreach [facility] [address] [place] [phone] Gina Pressley ANP Medicare Annual Wellness Visit Initial (Annual wellness visit scheduled needs liner replacer) 11/12/2024 Refill [facility] [place] [address] Gina Pressley ANP Type 2 diabetes mellitus with hyperlipidemia (CMS/HCC) (CMS/HCC) 11/11/2024 Refill [facility] [place] [address] Gina Pressley ANP Type 2 diabetes mellitus with hyperlipidemia (CMS/HCC) (CMS/HCC) 11/04/2024 Telephone [facility] [address] [place] [phone] Gina Pressley ANP Appointment Request 10/30/2024 3:15 PM EDT Office Visit [facility] [address] [place] [phone] Gina Pressley ANP Type 2 diabetes mellitus with hyperlipidemia (CMS/HCC) (CMS/HCC) (Primary Dx); Hypothyroidism, unspecified type; Mild persistent asthma without complication; Tremor 10/30/2024 Travel 10/29/2024 Telephone [facility] [place] [address] Gina Pressley ANP chart prep 10/07/2024 Refill [facility] [address] [place] [phone] Gina Pressley ANP from Last 3 Months [...] EST Office Visit [facility] [address], [place] [phone] Gina Pressley, ANP [address] [place] [address] Health Maintenance Due Date Last Done Comments CT Colonography 1955 FIT DNA/Cologuard 1955 FIT 1955 Sigmoidoscopy 1955 RSV Patients and Patients Aged 60 years or older (1 - Risk 50-74 years 1-dose series) 04/12/2005 Hepatitis B Vaccines (3 of 3 - 19+ 3-dose series) 02/14/2019 12/20/2018, 04/05/2017 FOBT 04/02/2020 04/02/2019 COVID-19 Vaccine ( - 2024- season) 2024 Influenza Vaccine (#1) 2024 04/22/2019 Diabetes: Hemoglobin A1C 11/13/20242 025, 05/23/2024, 11/28/2023, Additional history exists Colonoscopy 02/16/2025 02/17/2020, 02/17/2020 Colorectal Cancer Screening 02/16/2025 Mammogram 03/26/2025 03/26/2024, 03/16, 03/26/2024, Additional history exists Diabetes: Foot Exam 05/23/2025 05/23/2024, 05/23/2024, 05/23/2024 Diabetes: Urine Protein Screening 05/23/2025 05/23/2024, 09/02/2022, 09/28/2020, Additional history exists Pneumococcal Vaccine: 50+ Years (2 of 2 - PCV) 05/23/2025 09/04/2014 Postponed from 09/05/2015 (Patient Refused) SDOH Screening 05/23/2025 05/23/2024 Zoster Vaccines (2 of 3) 05/23/2025 04/05/2017 Pos tponed from 05/31/2017 (Patient Refused) Depression Monitoring 06/22/2025 12/23/2024, 025 Eye Exam 10/14/2025 10/15/2023 Alcohol/Substance Use Screening 12/23/2025 12/23/2024 Lipid Panel 12/23/2025 12/23/2024, 05/14, 12/22/2022, Additional history exists Tobacco Screening 12/23/2025 12/23/2024 DTaP/Tdap/Td Vaccines (3 - Td or Tdap) 05/23/2034 05/23/2024, 05/01/2014 Hepatitis C Screening Completed 12/23/2024 HIB Vaccines Aged Out No longer eligi [...] on patient's age to complete this topic Goals Goal Patient Goal Type Associated Problems Recent Progress Patient-Stated? Author Help patients manage their type 2 diabetes Care Plan Help patients manage their type 2 diabetes No Gina Pressley ANP Weekly blood pressure task Care Plan Weekly blood pressure task No Gina Pressley ANP Help patients manage their type 2 diabetes Care Plan Help patients manage their type 2 diabetes No Gina Pressley ANP Patient has chronic kidney disease Care Plan Patient has chronic kidney disease No Gina Pressley ANP Weekly blood pressure task Care Plan Weekly blood pressure task No Gina Pressley ANP Patient has chronic kidney disease Care Plan Patient has chronic kidney disease No Gina Pressley ANP Procedures Procedure Name Priority Date/Time Associated Diagnosis Comments IMMUNOFIXATION, URINE Routine 12/23/2024 1:49 PM EST VITAMIN D,25-OH,TOTAL,IA Routine 12/23/2024 1:49 PM EST PHOSPHATE ( PHOSPHORUS) Routine 12/23/2024 1:49 PM EST HEPATITIS C AB W/REFL TO HCV RNA, QN, PCR Routine 12/23/2024 1:49 PM EST Screen for sexually transmitted diseases LIPID PANEL, STANDARD Routine 12/23/2024 1:49 PM EST Type 2 diabetes mellitus with hyperlipidemia (HCC) COMPREHENSIVE METABOLIC PANEL Routine 12/23/2024 1:49 PM EST Type 2 diabetes mellitus with hyperlipidemia (HCC) TSH W/REFLEX TO FT4 Routine 12/23/2024 1 :49 PM EST Hypothyroidism, unspecified type POCT GLUCOSE Routine 10/30/2024 3:15 PM EDT Type 2 diabetes mellitus with hyperlipidemia (CMS/HCC) (CMS/HCC) POCT GLYCOSYLATED HEMOGLOBIN (HGB A1C) Routine 08/13/2024 10:26 AM EDT Type 2 diabetes mellitus with hyperlipidemia (CMS/HCC) (CMS/HCC) ALBUMIN, RANDOM URINE W/CREATININE Routine 05/23/2024 10:48 AM EDT Type 2 diabetes mellitus with hyperlipidemia (CMS/HCC) (CMS/HCC) BI US BREAST LIMITED BILATERAL Routine 03/26/2024 12:00 PM EST HM COLONOSCOPY Routine 02/17/2020 OCCULT BLOOD, FECAL, IMMUNOASSAY Routine 04/02/2019 6:00 PM EST from Last 3 Months or Most Recently Relevant to Health Maintenance Results * (ABNORMAL) Vitamin D, 25-Hydroxy, Total, Immunoassay (12/23/2024 1:49 PM EST) Vitamin D 25-OH Total 20.6(L) >30 ng/mL [facility] Comment: Health Based Reference Values*< 20 ng/mL Ripayilox82-94 ng/mL Insufficient> 30 ng/mL Sufficient*Miguel Angel ANTONIO. N Engl J Med. 2007;357:266-280There is no well-established upper level of normal vitamin Dlevels. Some laboratories use 50 ng/mL as an upper limit ofnormal. However, toxicity is patient-dependent and may occurat any level. Careful correlation with the patient'spresentation is necessary and, if there is concern forvitamin D toxicity, treatment should be consideredirrespective of the serum level.Care must be taken in interpreting Vitamin D results fromdifferent laboratories and methodologies. Published datademonstrated that results from patients undergoinghemodialysis may show a negative bias when tested withvarious automated 25-OH vitamin D assays when compared toLC-MS/MS.When testing samples from patients whose predominant form ofVitamin D is Vitamin D2, such as patients receiving VitaminD2 supplementation, results that are subtherapeutic shouldbe confirmed with another method such as LC-MS/MS. 12/23/2024 1:49 PM EST 12/23/2024 6:05 PM EST us Generic External Data Provider LAB BLOOD ORDERAB LES Final Result [facility] [address] [place] [phone] * TSH W/Reflex to FT4 (12/23/2024 1:49 PM EST) TSH reflex Free T4 1.56 0.32 - 4.0 uIU/mL [facility] Blood Venous blood specimen / Unknown 12/23/2024 1:49 PM EST 12/23/2024 6:05 PM EST [facility] LAB BLOOD ORDERABLES Final Resul t Performing Organization Address City/[facility]/ZIP Co de Phone Number [facility] [address] [place] [address] [phone] * Immunofixation (YOBANY), Urine (12/23/2024 1:49 PM EST) YOBANY Interpretation [facility] Comment:No monoclonal protei ns detectedTHIS TEST WAS PERFORMED AT:[employer] [place] [phone] WALL MD 12/23/2024 1:49 PM EST 12/23/2024 6:02 PM EST [facility] External Data Provider LAB URINE ORDERAB LES Final Result Performing Organization Address [facility] Co de Phone Number [facility] [address] [place] [address] [phone] * Hepatitis C Antibody with Reflex to HCV, RNA, Quantitative, Real-Time PCR (12/23/2024 1:49 PM EST) Hepatitis C Antibody Nonreactive Nonreactive [facility] Comment:Antibodies to HCV no t detected; does not exclude early acuteHCV infection. Blood Venous blood specimen / Unknown 12/23/2024 1:49 PM EST 12/23/2024 6:05 PM EST Tamera Rodríguez MD LAB BLOOD ORDERABLES Final R esult [facility] [address] [place] [address] [phone] * (ABNORMAL) Phosphate (As Phosphorus) (12/23/2024 1:49 PM EST) Phosphorus 2.6(L) 2.7 - 4.5 mg/dL [facility] 12/23/2024 1:49 PM EST 12/23/2024 6:05 PM EST Generic External Data Provider LAB BLOOD ORDERAB LES Final Result Performing Organization Address [facility] Co de Phone Number [facility] [address] [place] [phone] * (ABNORMAL) Lipid Panel, Standard (12/23/2024 1:49 PM EST) Triglycerides 158(H) <150 mg/dL [facility] Comment:Desirable Triglyceri de: less than 150 mg/dLBorderline High Triglyceride 150-199 mg/dLHigh Triglyceride: 200-499 mg/dLVery High Triglyceride: greater than or equal to 5OO mg/dL Cholesterol 213(H) <200 mg/dL [facility] Comment:Desirable Cholestero l: less than 200 mg/dLBorderline High Cholesterol: 200-239 mg/dLHigh Cholesterol: greater than 239 mg/dL LDL Cholesterol Calculated 138(H) <100 mg/dL [facility] Comment:Desirable LDL: less than 100 mg/dLNear Optimal/Above Optimal LDL: 110- 129 mg/dLBorderline High LDL: 130-159 mg/dLHigh LDL: 160-189 mg/dLVery High LDL: greater than or equal to 190 mg/dL HDL Cholesterol 44 >40 mg/dL [facility] Comment:Desirable HDL: great er than 40 mg/dL Note: This HDL assay may give artificially low results in patients with liver disease. Blood Venous blood specimen / Unknown 12/23/2024 1:49 PM EST 12/23/2024 6:05 PM EST us Gina Pressley ANP LAB BLOOD ORDERABLES Final Resul t Performing Organization Address City/[facility]/ZIP Co de Phone Number [facility] [address] [place] [address] [phone] * (ABNORMAL) Comprehensive Metabolic Panel (12/23/2024 1:49 PM EST) Sodium 143 135 - 145 mmol/L [facility] Potassium 3.8 3.3 - 5.1 mmol/L [facility] Chloride 106 96 - 108 mmol/L [facility] Carbon Dioxide 27 22 - 29 mmol/L [facility] Anion Gap 14 12 - 20 [facility] Urea Nitrogen (BUN) 11 9 - 16 mg/dL [facility] Creatinine, Serum 0.84 0.5 - 1.4 mg/dL [facility] Estimated Glomerular Filt Rate >60 [facility] Comment:Chronic Kidney Disea se: Estimated GFR < 60 mL/min/1.30l7Mzyjsn Kidney Disease: Estimated GFR < 15 mL/min/1.73m2 Glucose 146(H) 60 - 115 mg/dL [facility] Calcium 9.4 8.4 - 10.2 mg/dL [facility] Bilirubin, Total 0.5 0.0 - 1.0 mg/dL [facility] Aspartate Amino Transferase 34(H) 5 - 31 U/L [facility] Alanine Aminotransferase 23 0 - 31 U/L [facility] Total Protein 8.1(H) 6.5 - 8.0 g/dL [facility] Albumin Level 4.4 3.5 - 5.0 g/dL [facility] Alkaline Phosphatase 96 39 - 117 U/L [facility] Blood Venous blood specimen / Unknown 12/23/2024 1:49 PM EST 12/23/2024 6:05 PM EST Gina Pressley ANP LAB BLOOD ORDERABLES Final Resul t Performing Organization Address City/[facility]/ZIP Co de Phone Number [facility] [address] [place] [address] [phone] * (ABNORMAL) POCT Glucose (10/30/2024 3:15 PM EDT) Glucose Blood, POC 266(A) 60 - 200 mg/dL [employer] Lot # [id number] Lot# Expiration Date 2110,026 Blood Capillary blood specimen / Unknown 10/30/2024 3:15 PM EDT us Gina Pressley ANP POINT OF CARE TEST ENTER/EDIT OR DERABLES Final Result * (ABNORMAL) POCT glycosylated hemoglobin (Hgb A1c) (08/13/2024 10:26 AM EDT) Hemoglobin A1C 7.7(A) 4.0 - 5.7 % QC Media Lot # [id number] Lot# Expiration Date ,027 Blood Capillary blood specimen / Unknown 08/13/2024 10:26 AM EDT Gina Pressley ANP POINT OF CARE TEST ENTER/EDIT OR DERABLES Final Result * Albumin, Random Urine W/Creatinine (05/23/2024 10:48 AM EDT) Creatinine, Urine 201.21 mg/dL [facility] Microalbumin Urine 17.0 mg/L [facility] Microalbum Creatinine Ratio Ur 8.4 <30 ug/mg cr [facility] Comment:Albumin/Creatinine R atio Reference Ranges: Normal: < 30 ug/mg creatinine Microalbuminuria: 30 - 300 ug/mg creatinineClinical Albuminuria: > 300 ug/mg creatinine Urine (Urine, Random) 05/23/2024 10:48 AM EDT 05/23/2024 11:43 AM EDT us Gina Pressley ANP LAB URINE ORDERABLES Final Resul t [facility] [address] [place] [phone] * BI US Breast Limited Bilateral (03/26/2024 12:00 PM EST) Anatomical Region Laterality Modality Breast Bilateral Ultrasound 03/26/2024 12:0 0 PM EST Narrative 03/26/2024 1:05 PM EST [facility] [address] [place], [place] [address] Ultrasound Report Signed Patient: Johnna Holbrook MR#: [id number] : 1955 Acct:[id number] Age/Sex: 68 / F ADM Date: 03/26/24 Loc: HO.MAMMO Attending Dr: Gina Pressley NP Ordering Physician: GINA PRESSLEY NP Date of Service: 03/26/24 Procedure(s): US breast BI limited mamm only Accession Number(s): [id number] cc: GINA PRESSLEY NP EXAMINATION: MM DIAGNOSTIC [...] 03/26/24 1302 DD/ 1200 TD/TT: 03/26/24 1253 Binder Folder Operator: Procedure Note Donotuseinterpreter, Image - 03/26/2024 [facility] [address] [place], [place] [address] Ultrasound Report Signed Patient: Hattie Holbrook#: M [id number] : 6Acct:[id number] Age/Sex: 68 / FADM Date: 03/26/24 Loc: HO.MAMMO Attending Dr: Gina Pressley NP Ordering Physician: GINA PRESSLEY NP Date of Service: 03/26/24 Procedure(s): US breast BI limited mamm only Accession Number(s): [id number] cc: GINA PRESSLEY NP EXAMINATION: MM DIAGNOSTIC [...] 03/26/24 1302 DD/ 1200 TD/TT: 03/26/24 1253 Binder Folder Operator: Gina HALEY IMRajni US PROCEDURES Final Result * (ABNORMAL) Hm Colonoscopy (02/17/2020) Colonoscopy Abnormal(A ) Normal Historical Provider MD HEALTH MAINTENANCE Final Result * OCCULT BLOOD STOOL (04/02/2019 6:00 PM EST) OCCULT BLOOD STOOL NEG NEG [facility] 04/02/2019 6:00 PM EST Margi [facility] LAB BODY FLUIDS AND STOOLS ORD ERABLES Final Result [facility] [address] from Last 3 Months or Most Recently Relevant to Health Maintenance Additional Health Concerns Active Problems Noted Date Diagnosed Date Help patients manage their type 2 diabetes 12/25 Weekly blood pressure task 12/25/2024 Help patients manage their type 2 diabetes 12/25 Patient has chronic kidney disease 12/25/2024 Weekly blood pressure task 12/25/2024 Patient has chronic kidney disease 12/25/2024 Insurance [facility] STAND[facility] MEDICARE Care Teams 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
[2025-01-03 19:09] LABS: Calcium/Creatinine Ratio 182 mg/g creat (30-275); Creatinine 24Hr Urine 1.09 g/24 h (0.50-2.15)
== END 2025-01-02 18:05 | disposition home or self-care (01) ==
LOC: HO.LNP 18:04
PROVIDERS: Visit Provider Internal Medicine Endocrinology, Diabetes & Metabolism
DX: M81.0 Age-related osteoporosis without current pathological fracture (principal)
CPT/HCPCS: 82340; 82570